=== PATIENT | male | born 1945 | race Two or more races ===

== ENCOUNTER 2016-08-17 08:24 | Inpatient (IN) | payer OTHER ==
--- NOTE | 2016-08-17 08:55 | PDOC ---
*Physical Exam - Vital Signs Last Vital Signs Temp Pulse Resp BP Pulse Ox 97.4 F L 104 H 18 93/56 100 08/17/16 08:24 08/17/16 08:24 08/17/16 08:24 08/17/16 08:24 08/17/16 08:24 - Physical Exam Comments: 08/17/16 08:55 MIDLEVEL NOTE Pt seen by Midlevel Provider under my direct supervision. Pt interviewed and examined. Ancillary studies reviewed. I agree with plan as outlined by Midlevel Provider. 71-year-old male with a PMH of liver cirrhosis, hep C, CHF, anemia, who presents to the ED for evaluation of generalized weakness and poor oral intake for the past 2-3 days. 08/17/16 08:58 EKG Normal sinus rhythm 99, normal axis Normal AV and IV conduction time Normal QTC Baseline artifact Poor R wave progression There is no old EKG available for comparison 08/17/16 10:06 Laboratory Results - last 24 hr 08/17/16 08/17/16 08/17/16 08:46 08:46 08:46 WBC 4.9 RBC 3.16 L Hgb 9.7 L Hct 29.2 L MCV 92.3 MCHC 33.4 RDW 17.4 H Plt Count 179 MPV 7.1 L Neutrophils % 71.1 Lymphocytes % 9.8 Monocytes % 17.5 H Eosinophils % 1.1 Basophils % 0.5 INR 1.39 H Sodium 135 L Potassium 4.7 Chloride 106 Carbon Dioxide 21 Anion Gap 8 BUN 28 H Creatinine 1.0 Creat Clearance w eGFR > 60 POC Glucometer Random Glucose 120 H Calcium 8.8 Total Bilirubin 0.9 AST 48 H ALT 26 Alkaline Phosphatase 216 H Creatine Kinase 102 Troponin I < 0.02 Total Protein 7.4 Albumin 2.5 L 08/17/16 08:58 WBC RBC Hgb Hct MCV MCHC RDW Plt Count MPV Neutrophils % Lymphocytes % Monocytes % Eosinophils % Basophils % INR Sodium Potassium Chloride Carbon Dioxide Anion Gap BUN Creatinine Creat Clearance w eGFR POC Glucometer [id number] Random Glucose Calcium Total Bilirubin AST ALT Alkaline Phosphatase Creatine Kinase Troponin I Total Protein Albumin Ammonia level elevated 08/17/16 10:07 Chest x-ray Mild bilateral increased interstitial opacities, left more than right, suggestive of mild pulmonary venous congestion, versus interstitial infiltrates 08/17/16 11:07 Ammonia-56.6 08/17/16 11:48 CT scan of the head without There is moderate volume loss and ventricular dilatation No acute intracranial pathology is identified UA-negative Will admit to hospitalist ED Treatment Course - LABORATORY CBC & Chemistry Diagram: 08/18/16 06:00 08/17/16 08:46 *DC/Admit/Observation/Transfer Diagnosis at time of Disposition: Increased ammonia level, Weakness, Decreased appetite - Discharge Dispostion Admit: Yes
[2016-08-17] MEDS ORDERED: SODIUM CHLORIDE 1,000 ML IV STA (08:56)
[2016-08-17 09:01] VITALS: BMI 29.0
--- NOTE | 2016-08-17 09:07 | PDOC ---
History of Present Illness - General Chief Complaint: Weakness Stated Complaint: WEAKNESS Time Seen by Provider: 08/17/16 08:38 History Source: Other (daughter and EMS) Exam Limitations: Clinical Condition - History of Present Illness Initial Comments: 08/17/16 09:00 71-year-old male presents to the ED for evaluation of generalized weakness and poor by mouth intake for the past 2-3 days. As per daughter patient has history of cirrhosis and has been to the emergency room is for similar symptoms normally requiring medications and a few days of admission. Daughter denies recent illness, recent change in medications, recent surgery, fever, cough, vomiting, diarrhea, or change in urine pattern. patient with history of cirrhosis, hep C and dementia. Timing/Duration: constant Severity: moderate Associated Symptoms: reports: loss of appetite, weakness Past History - Past Medical History Allergies/Adverse Reactions: Allergies Allergy/AdvReac Type Severity Reaction Status Date / Time No Known Allergies Allergy Verified 08/17/16 08:44 Home Medications: Ambulatory Orders Eplerenone 0 mg PO DAILY 08/17/16 Furosemide [Lasix] 0 mg PO DAILY 08/17/16 Lactulose [Cephulac -] 0 gm PO DAILY 08/17/16 Spironolactone 0 mg PO DAILY 08/17/16 Dementia: Yes GI Disorders: Yes (cirrhosis, hepatitis C) Other medical history: cirrhosis, hepatitis C - Psycho/Social/Smoking Cessation Hx Anxiety: No Suicidal Ideation: No Smoking History: Never smoked Have you smoked in the past 12 months: No Information on smoking cessation initiated: No Hx Alcohol Use: No Drug/Substance Use Hx: No Substance Use Type: None Patient Lives Alone: No Lives with/in: daughter Review of Systems - Review of Systems Able to Perform ROS?: Yes Constitutional: Yes: Loss of Appetite, Weakness HEENTM: No: Symptoms Reported Respiratory: No: Symptoms reported Cardiac (ROS): No: Symptoms Reported ABD/GI: Yes: Poor Appetite, Poor Fluid Intake : No: Symptoms Reported Musculoskeletal: Yes: Muscle Weakness Integumentary: No: Symptoms Reported Neurological: Yes: Weakness. No: Seizure Hematologic/Lymphatic: No: Symptoms Reported *Physical Exam - Vital Signs Last Vital Signs Temp Pulse Resp BP Pulse Ox 97.4 F L 104 H 18 93/56 100 08/17/16 08:24 08/17/16 08:24 08/17/16 08:24 08/17/16 08:24 08/17/16 08:24 - Physical Exam General Appearance: Yes: Nourished, Appropriately Dressed. No: Apparent Distress HEENT: positive: EOMI, CATALINO, TMs Normal. negative: Pharynx Normal (dry), Pale Conjunctivae, Scleral Icterus (R), Scleral Icterus (L) Neck: positive: Supple Respiratory/Chest: positive: Lungs Clear, Normal Breath Sounds. negative: Respiratory Distress, Accessory Muscle Use Cardiovascular: positive: Regular Rhythm, Tachycardia. negative: Murmur Gastrointestinal/Abdominal: positive: Soft. negative: Tenderness Extremity: positive: Normal Capillary Refill, Pedal Edema (1+) Integumentary: positive: Normal Color, Dry, Warm. negative: Jaundice Neurologic: positive: Alert (with stimuli), Motor Strength 5/5 (moves all extremeties on stretcher). negative: Sensory Deficit Deep Tendon Reflexes: Knee (L): 2+, Knee (R): 2+ Heart Score/ECG Review - ECG Intrepretation Rhythm: Regular Rhythm (Normal sinus rhythm at 99. No ST elevation / depression. No EKG for comparison) ED Treatment Course - LABORATORY CBC & Chemistry Diagram: 08/17/16 08:46 08/17/16 08:46 - RADIOLOGY Radiology Studies Ordered: Category Date Time Status HEAD CT WITHOUT CONTRAST [CT] Stat CT Scan 08/17/16 08:55 Ordered CHEST X-RAY PORTABLE* [RAD] Stat Radiology 08/17/16 08:42 Taken Medical Decision Making - Medical Decision Making 08/17/16 09:00 Patient here for decreased appetite and increased weakness. Patient history of cirrhosis patient has not been to [facility] previously. Patient with similar symptoms in the past requiring medications and then admitted for the same. Patient concerning for hepatic encephalopathy versus hypoglycemia versus infection. Patient ordered for labs including lactic acid, urine, blood culture , BGM, IV fluids ammonia level and head CT. 08/17/16 11:12 Laboratory Tests 08/17/16 08/17/16 08/17/16 08:46 08:46 08:46 WBC 4.9 Hgb 9.7 L Hct 29.2 L Plt Count 179 Neutrophils % 71.1 Monocytes % 17.5 H INR Sodium 135 L Carbon Dioxide 21 Anion Gap 8 POC Glucometer Random Glucose 120 H Total Bilirubin 0.9 AST 48 H ALT 26 Alkaline Phosphatase 216 H Ammonia 56.58 H Troponin I < 0.02 Albumin 2.5 L Urine Ketones Urine Blood Urine Nitrite Ur Leukocyte Esterase 08/17/16 08/17/16 08/17/16 08:46 08:58 10:10 WBC Hgb Hct Plt Count Neutrophils % Monocytes % INR 1.39 H Sodium Carbon Dioxide Anion Gap POC Glucometer [id number] Random Glucose Total Bilirubin AST ALT Alkaline Phosphatase Ammonia Troponin I Albumin Urine Ketones Negative Urine Blood Negative Urine Nitrite Negative Ur Leukocyte Esterase Negative 08/17/16 11:[address] negative for acute intracranial pathology. Chest x-ray shows mild bilateral increased interstitial opacities left more than right suggestive of mild pulmonary venous congestion versus infiltrate. Patient will be given a dose of ceftriaxone and will discuss case with hospitalist for admission patient also given 1 dose of lactulose 20 gm due to elevated ammonia level. 08/17/16 11:53 Case discussed with hospitalist and states admit to [facility]. Will repeat vitals *DC/Admit/Observation/Transfer Diagnosis at time of Disposition: Increased ammonia level, Weakness, Decrease in appetite - Discharge Dispostion Admit: Yes
[2016-08-17 09:28] LABS: BASOPHIL 0.5 % (0-2.0); EOSINOPHIL 1.1 % (0-4.5); MCH 30.8 pg (25.7-33.7); MCHC 33.4 g/dl (32.0-35.9); MEAN CELL VOLUME 92.3 fl (80-96); MEAN PLT VOLUME 7.1 fl (7.5-11.1); NEUTROPHILS 71.1 % (42.8-82.8); PLATELET COUNT 179 K/MM3 (134-434); RDW 17.4 % (11.9-15.9); WHITE BLOOD COUNT 4.9 K/mm3 (4.0-10.0)
[2016-08-17 09:39] LABS: INR 1.39 (0.82-1.09); PROTHROMBIN TIME (PATIENT) 15.4 SEC (9.98-11.88)
[2016-08-17 09:58] LABS: ALBUMIN 2.5 g/dl (3.4-5.0); ANION GAP 8 (8-16); CALCIUM 8.8 mg/dL (8.5-10.1); CO2 21 mmol/L (21-32); GLUCOSE,RANDOM 120 mg/dL (74-106); SGPT/ALT 26 U/L (12-78)
[2016-08-17 10:02] LABS: ALK PHOS 216 U/L (45-117); BILIRUBIN,TOTAL 0.9 mg/dL (0.2-1.0); TOT PROT 7.4 g/dl (6.4-8.2); TROPONIN I < 0.02 ng/ml (0.00-0.05)
[2016-08-17 10:03] LABS: SGOT/AST 48 U/L (15-37)
--- NOTE | 2016-08-17 10:57 | EKG ---
Test Reason : Blood Pressure : / mmHG Vent. Rate : 099 BPM Atrial Rate : 099 BPM P-R Int : 128 ms QRS Dur : 068 ms QT Int : 346 ms P-R-T Axes : 057 076 017 degrees QTc Int : 444 ms NORMAL SINUS RHYTHM NO PREVIOUS ECGS AVAILABLE Confirmed by NANY COLLINS MD ([id number]) on 08/17/2016 10:56:28 AM Referred By: Confirmed By:NANY COLLINS MD
[2016-08-17 11:06] LABS: URINE APPEARANCE CLEAR; URINE BILIRUBIN NEGATIVE (NEGATIVE); URINE BLOOD NEGATIVE (NEGATIVE); URINE COLOR YELLOW; URINE GLUCOSE (UA) NEGATIVE (NEGATIVE); URINE KETONE NEGATIVE (NEGATIVE); URINE LEUK ESTERASE NEGATIVE (NEGATIVE); URINE NITRITE NEGATIVE (NEGATIVE); URINE PROTEIN NEGATIVE (NEGATIVE); URINE UROBILINOGEN 2.0 E.U/dl E.U./dl (0.2-1.0)
[2016-08-17] MEDS ORDERED: CEFTRIAXONE 1 GM in DEXTROSE 5%-WATER - 50 ML IVPB ONE (11:15)
[2016-08-17] MEDS ORDERED: CEFTRIAXONE 50 ML ONE (11:22)
[2016-08-17] MEDS ORDERED: LACTULOSE 20 GM/30 ML UDC (FOR ORAL USE ONLY) ONE ×2 (11:22→13:49)
[2016-08-17] MEDS: LACTULOSE 20 GM/30 ML UDC (FOR ORAL USE ONLY) PO ONE ×2 (11:23→11:29)
[2016-08-17] MEDS ORDERED: LACTULOSE 20 GM/30 ML UDC (FOR ORAL USE ONLY) PO PRN (12:01)
--- NOTE | 2016-08-17 14:37 | HP ---
CHIEF COMPLAINT: Generalized weakness. PCP: HISTORY OF PRESENT ILLNESS: History was taken from medical records. The pt's family is not present at bedside. The pt is a 71-year-old male with a PMH of liver cirrhosis, hep C who presents to the ED for evaluation of generalized weakness and poor by mouth intake for the past 2-3 days. As per daughter patient has history of cirrhosis and has been to the emergency room is for similar symptoms normally requiring medications and a few days of admission. Daughter denies recent illness, recent change in medications, recent surgery, fever, cough, vomiting, diarrhea, or change in urine pattern. ER course was notable for: (1)CT head (2)amonia level (3)CXR, EKG PAST MEDICAL HISTORY: liver cirrhosis, hep C PAST SURGICAL HISTORY: N/A Social History: Smoking:N/A Alcohol:N/A Drugs:N/A Family History: N/A Allergies: No Known Allergies Allergy (Verified 08/17/16 08:44) HOME MEDICATIONS: Medication Instructions Recorded Eplerenone 0 mg PO DAILY 08/17/16 Furosemide [Lasix] 0 mg PO DAILY 08/17/16 Lactulose [Cephulac -] 0 gm PO DAILY 08/17/16 Spironolactone 0 mg PO DAILY 08/17/16 REVIEW OF SYSTEMS. Not available. The pt is saying yes to every question. CONSTITUTIONAL:generalized weakness, loss of appetite, GASTROINTESTINAL:no symptoms reported CARDIO: no symptoms reported GENITOURINARY: no symptoms reported MUSCULOSKELETAL: no symptoms reported SKIN: pallpr Absent: rash, itching, HEMATOLOGIC/IMMUNOLOGIC: no symptoms reported ENDOCRINE: no symptoms reported NEUROLOGIC: mental status changes PHYSICAL EXAMINATION: limited, not following commands GENERAL: Awake, AAOx0 HEAD: Normal with no signs of trauma. EYES: Pupils equal, round and reactive to light, extraocular movements intact, sclera icteric, conjunctiva pale. No lid lag. EARS, NOSE, THROAT: Ears normal, nares patent, oropharynx clear without exudates. Moist mucous membranes. NECK: Normal range of motion, supple without lymphadenopathy, JVD, or masses. LUNGS: Breath sounds equal, fine crackles bilaterally. No wheezes, and no crackles. No accessory muscle use. HEART: Regular rate and rhythm, normal S1 and S2 without murmur, rub or gallop. ABDOMEN: Soft, nontender, distended, normoactive bowel sounds, no guarding, no rebound, no masses. Hepatomegaly or no splenomegaly. MUSCULOSKELETAL: Normal range of motion at all joints. No bony deformities or tenderness. No CVA tenderness. UPPER EXTREMITIES: 2+ pulses, warm, well-perfused. No cyanosis. No clubbing. Cap refill <2 seconds. No peripheral edema. LOWER EXTREMITIES: 2+ pulses, warm, well-perfused. No calf tenderness. No peripheral edema. NEUROLOGICAL: Not following commands, Babinski negative B/L, gait not observed. PSYCHIATRIC: Cooperative. Good eye contact. Appropriate mood and affect. SKIN: Warm, dry, normal turgor, no rashes or lesions noted. CXR: increased interstitial opacities, L more than right, mild pulmonary venous congestion EKG: NSR, no ST elevation Head CT: no acute pathology ASSESSMENT/PLAN: The pt is a 71-year-old male with a PMH of liver cirrhosis, hep C who presents to the ED for evaluation of generalized weakness and poor by mouth intake for the past 2-3 days. As per daughter patient has history of cirrhosis and has been to the emergency room is for similar symptoms normally requiring medications and a few days of admission. Daughter denies recent illness, recent change in medications, recent surgery, fever, cough, vomiting, diarrhea, or change in urine pattern. He is placed on observation for possible hepatic encephalopathy. Possible hepatic encehalopathy due to liver cirrhosis; -Lactulose 20 mg TID PRN -f/u amonia level tomorrow -F/U CBC, BMP tomorrow -f/u Urine culture -f/u blood culture -no signs of infection Normocytic anemia; -HGB 9.7, HCT 29.2 no known baseline DVT PPX: -SCDs F/E/N: No/No changes/Regular diet Disposition; Placed on observation Medication list not confirmed. [facility] pharmacy called, they don't know the pt. Problem List - Problem (1) Increased ammonia level Code(s): R79.89 - OTHER SPECIFIED ABNORMAL FINDINGS OF BLOOD CHEMISTRY (2) Decreased appetite Code(s): R63.0 - ANOREXIA (3) Weakness Code(s): R53.1 - WEAKNESS Visit type - Emergency Visit Emergency Visit: Yes ED Registration Date: 08/17/16 Care time: The patient presented to the Emergency Department on the above date and was hospitalized for further evaluation of their emergent condition. - New Patient This patient is new to me today: Yes Date on this admission: 08/17/16 - Critical Care Critical Care patient: No
[2016-08-17] MEDS ORDERED: SODIUM CHLORIDE 500 ML IV STA (15:23)
[2016-08-17] MEDS ORDERED: SODIUM CHLORIDE 1,000 ML IV SCH ×2 (15:30→21:39)
--- NOTE | 2016-08-17 17:30 | PN ---
Teaching Attending Note Name of Resident: Lenore Lora ATTENDING PHYSICIAN STATEMENT I saw and evaluated the patient. I reviewed the resident's note and discussed the case with the resident. I agree with the resident's findings and plan as documented. SUBJECTIVE: Patient is confused, sitting on the bed eating his food with his hands doesn't want to use any utencils. OBJECTIVE: Vital Signs Temperature 97.4 F L 08/17/16 08:24 Pulse Rate 100 H 08/17/16 16:51 Respiratory Rate 18 08/17/16 16:15 Blood Pressure 99/61 08/17/16 16:51 O2 Sat by Pulse Oximetry (%) 99 08/17/16 16:15 General Appearance: Yes: Nourished, Appropriately Dressed. No: Apparent Distress HEENT: positive: EOMI, CATALINO, TMs Normal. negative: Pharynx Normal (dry), Pale Conjunctivae, Scleral Icterus (R), Scleral Icterus (L) Neck: positive: Supple Respiratory/Chest: positive: Lungs Clear, Normal Breath Sounds. negative: Respiratory Distress, Accessory Muscle Use Cardiovascular: positive: Regular Rhythm, Tachycardia. negative: Murmur Gastrointestinal/Abdominal: positive: Soft. negative: Tenderness Extremity: positive: Normal Capillary Refill, Pedal Edema (1+) Integumentary: positive: Normal Color, Dry, Warm. negative: Jaundice Neurologic: positive: Alert (with stimuli) but confused , Motor Strength 5/5 ( moves all extremeties on stretcher). negative: Sensory Deficit Deep Tendon Reflexes: Knee (L): 2+, Knee (R): 2+ CBCD WBC 4.9 K/mm3 (4.0-10.0) 08/17/16 08:46 RBC 3.16 M/mm3 (4.00-5.60) L 08/17/16 08:46 Hgb 9.7 GM/dL (11.7-16.9) L 08/17/16 08:46 Hct 29.2 % (35.4-49) L 08/17/16 08:46 MCV 92.3 fl (80-96) 08/17/16 08:46 MCHC 33.4 g/dl (32.0-35.9) 08/17/16 08:46 RDW 17.4 % (11.9-15.9) H 08/17/16 08:46 Plt Count 179 K/MM3 (134-434) 08/17/16 08:46 MPV 7.1 fl (7.5-11.1) L 08/17/16 08:46 CMP Sodium 135 mmol/L (136-145) L 08/17/16 08:46 Potassium 4.7 mmol/L (3.5-5.1) 08/17/16 08:46 Chloride 106 mmol/L (98-107) 08/17/16 08:46 Carbon Dioxide 21 mmol/L (21-32) 08/17/16 08:46 Anion Gap 8 (8-16) 08/17/16 08:46 BUN 28 mg/dL (7-18) H 08/17/16 08:46 Creatinine 1.0 mg/dL (0.7-1.3) 08/17/16 08:46 Creat Clearance w eGFR > 60 (>60) 08/17/16 08:46 Random Glucose 120 mg/dL (74-106) H 08/17/16 08:46 Calcium 8.8 mg/dL (8.5-10.1) 08/17/16 08:46 Total Bilirubin 0.9 mg/dL (0.2-1.0) 08/17/16 08:46 AST 48 U/L (15-37) H 08/17/16 08:46 ALT 26 U/L (12-78) 08/17/16 08:46 Alkaline Phosphatase 216 U/L (45-117) H 08/17/16 08:46 Total Protein 7.4 g/dl (6.4-8.2) 08/17/16 08:46 Albumin 2.5 g/dl (3.4-5.0) L 08/17/16 08:46 CARDIAC ENZYMES Creatine Kinase 102 IU/L (39-308) 08/17/16 08:46 Troponin I < 0.02 ng/ml (0.00-0.05) 08/17/16 08:46 Current Medications Generic Name Dose Route Start Last Admin Trade Name Freq PRN Reason Stop Dose Admin Sodium Chloride 1,000 mls @ 150 mls/hr 08/17/16 15:30 08/17/16 16:03 Normal Saline - IV 150 mls/hr ASDIR IRENA Administration Lactulose 20 gm 08/17/16 12:01 08/17/16 14:24 Cephulac (Oral Use) PO 20 gm TID PRN Administration CONSTIPATION Medication Instructions Recorded Eplerenone 0 mg PO DAILY 08/17/16 Furosemide [Lasix] 0 mg PO DAILY 08/17/16 Lactulose [Cephulac -] 0 gm PO DAILY 08/17/16 Spironolactone 0 mg PO DAILY 08/17/16 CXR: increased interstitial opacities, L more than right, mild pulmonary venous congestion EKG: NSR, no ST elevation Head CT: no acute pathology ASSESSMENT AND PLAN: The pt is a 71-year-old male with a PMH of liver cirrhosis, hep C who presents to the ED for evaluation of generalized weakness and poor by mouth intake for the past 2-3 days. # Acute hepatic encehalopathy due to liver cirrhosis :with elevated Ammonia level ,on Lactilose now ,trend the level of ammonia CBC, BMP in am ,follow Urine culture and blood culture # Hx of CHF continue meds. # Normocytic anemia;Monitor. DVT PPX: Lovenox 40mg sq
[2016-08-17] MEDS ORDERED: LORAZEPAM CARPU-JECT 2 MG/ML DISP.SYRIN IM ONE (21:38)
[2016-08-18] MEDS: FUROSEMIDE 40 MG TABLET (FP) PO SCH ×2 (05:33→14:53)
[2016-08-18 07:42] LABS: MCH 31.1 pg (25.7-33.7); MCHC 33.6 g/dl (32.0-35.9); MEAN CELL VOLUME 92.6 fl (80-96); MEAN PLT VOLUME 7.2 fl (7.5-11.1); PLATELET COUNT 163 K/MM3 (134-434); RDW 17.5 % (11.9-15.9)
[2016-08-18 08:44] LABS: CREATININE 0.9 mg/dL (0.7-1.3)
[2016-08-18] MEDS ORDERED: AZITHROMYCIN IVPB 250 MG in DEXTROSE 5%-WATER - 250 ML IVPB SCH (10:00)
[2016-08-18] MEDS ORDERED: ENOXAPARIN NA (PORCINE) 40 MG/0.4 ML DISP.SYRIN SQ SCH (10:00)
[2016-08-18] MEDS: PANTOPRAZOLE 40 MG TABLET (FP) PO SCH (11:05)
[2016-08-18] MEDS: SPIRONOLACTONE 25 MG TABLET (FP) PO SCH ×2 (11:05→23:05)
--- NOTE | 2016-08-18 19:19 | PN ---
Teaching Attending Note Name of Resident: Lenore Lora ATTENDING PHYSICIAN STATEMENT I saw and evaluated the patient. I reviewed the resident's note and discussed the case with the resident. I agree with the resident's findings and plan as documented. SUBJECTIVE: no abd pain , no fever or chills, no diarrhea . poor historian OBJECTIVE: NAD , knows he is in hospital , he does not know his age , year or month Lungs : bibasilar fine crackles ( minimal ) Abd : soft, no TTP , no hepatomegaly. Spleen is percussed not palpated . Shifting dullness present Ext : Asterexis , no edema or erythema over legs ASSESSMENT AND PLAN: 71 y/o man with h/o Hep C , ascitis , who presneted with confusion . He was found to have hepatic encephalopathy 1- Acute hepatic encephalopathy : probably due to non compliance with meds . ammonia level is rising . not having enough BMs . Ascitis detected on PE. will get US to evaluate for ability to drain. if so, will do diagnostic paracentesis to r/o SBP as a cause of encephalopathy. make lactulose standing 2- Ascitis : cont diuretics. was ordered fluids over night - dc IVF - diagnostic tap - low NA diet dispo : HLOC
[2016-08-18] MEDS: LACTULOSE 20 GM/30 ML UDC (FOR ORAL USE ONLY) PO SCH (23:05)
[2016-08-19] MEDS: FUROSEMIDE 40 MG TABLET (FP) PO SCH ×2 (05:48→13:28)
[2016-08-19] MEDS: LACTULOSE 20 GM/30 ML UDC (FOR ORAL USE ONLY) PO SCH ×4 (05:48→21:40)
[2016-08-19 07:16] LABS: BASOPHIL 1.2 % (0-2.0); EOSINOPHIL 4.2 % (0-4.5); MCH 30.9 pg (25.7-33.7); MCHC 33.8 g/dl (32.0-35.9); MEAN CELL VOLUME 91.4 fl (80-96); MEAN PLT VOLUME 6.9 fl (7.5-11.1); NEUTROPHILS 58.1 % (42.8-82.8); PLATELET COUNT 165 K/MM3 (134-434); RDW 16.8 % (11.9-15.9); WHITE BLOOD COUNT 3.9 K/mm3 (4.0-10.0)
[2016-08-19 08:51] LABS: CALCIUM 8.1 mg/dL (8.5-10.1); PHOSPHOROUS 3.2 mg/dL (2.5-4.9)
[2016-08-19 08:53] LABS: MAGNESIUM 1.8 mg/dL (1.8-2.4)
[2016-08-19 09:35] LABS: FERRITIN 19.502 ng/ml (16.4-293.9)
[2016-08-19] MEDS: SPIRONOLACTONE 25 MG TABLET (FP) PO SCH ×2 (10:40→21:41)
[2016-08-19] MEDS: PANTOPRAZOLE 40 MG TABLET (FP) PO SCH (10:40)
--- NOTE | 2016-08-19 11:51 | PN ---
Physical Exam: SUBJECTIVE: Patient seen and examined. he is still confused. The pt is oriented to time and person but not the place. he denies abdominal pain, chest pain, SOB , fever, chills OBJECTIVE: Vital Signs Period Temp Pulse Resp BP Sys/Webster Pulse Ox Last 24 Hr 97.3 F-98.7 F 101-115 18-20 93-110/62-72 100-100 GENERAL: The patient is awake, AAx2, in no acute distress. HEAD: Normal with no signs of trauma. EYES: PERRL, extraocular movements intact, sclera icteric. No ptosis. ENT:oropharynx clear without exudates, moist mucous membranes. NECK: Trachea midline, full range of motion, supple. LUNGS: Breath sounds equal, diminished auscultation bilaterally, no wheezes, no crackles, no accessory muscle use. HEART: Regular rate and rhythm, S1, S2 without murmur, rub or gallop. ABDOMEN: Soft, nontender, distended, normoactive bowel sounds, no guarding, no rebound. Ascited present, hepatomegaly present and splenomegaly present on palpation and percussion. EXTREMITIES:no edema, asterixis present. NEUROLOGICAL: Normal speech, gait not observed. PSYCH: Normal mood, normal affect. SKIN: Warm, dry, normal turgor, no rashes or lesions noted Laboratory Results - last 24 hr 08/19/16 08/19/16 08/19/16 06:00 06:00 08:30 WBC 3.9 L RBC 2.89 L Hgb 8.9 L Hct 26.4 L MCV 91.4 MCHC 33.8 RDW 16.8 H Plt Count 165 MPV 6.9 L Neutrophils % 58.1 Lymphocytes % 18.9 D Monocytes % 17.6 H Eosinophils % 4.2 D Basophils % 1.2 Sodium 131 L Potassium 4.0 Chloride 97 L D Carbon Dioxide 19 L Anion Gap 15 BUN 21 H Creatinine 1.0 Random Glucose 99 D Calcium 8.1 L Phosphorus 3.2 Magnesium 1.8 Ferritin 19.502 Ammonia 106.24 H Vitamin B12 597 Serum Folate 25 H Active Medications Generic Name Dose Route Start Last Admin Trade Name Freq PRN Reason Stop Dose Admin Enoxaparin Sodium 40 mg 08/18/16 10:00 08/18/16 11:05 Lovenox - SQ 40 mg DAILY IRENA Administration Furosemide 80 mg 08/18/16 06:00 08/19/16 05:48 Lasix - PO 80 mg BIDLASIX IRENA Administration Lactulose 20 gm 08/19/16 14:00 Cephulac (Oral Use) PO QID IRENA Pantoprazole Sodium 40 mg 08/18/16 10:00 08/19/16 10:40 Protonix - PO 40 mg DAILY IRENA Administration Rifaximin 550 mg 08/19/16 12:00 Xifaxan - PO BID IRENA Spironolactone 25 mg 08/18/16 10:00 08/19/16 10:40 Aldactone - PO 25 mg BID IRENA Administration CXR: increased interstitial opacities, L more than right, mild pulmonary venous congestion EKG: NSR, no ST elevation Head CT: no acute pathology abdominal US: ASSESSMENT/PLAN: The pt is a 71-year-old male with a PMH of liver cirrhosis, hep C who presents to the ED for evaluation of generalized weakness and poor by mouth intake for the past 2-3 days. He is admitted for hepatic encephalopathy. Hepatic encehalopathy due to liver cirrhosis; -possibly due to non compliance to his medications, will confirm with his daughter -pt doesnt have at least 3-4 BM and his mental status hasn't improved that is why we increased Lactulose 20 mg TID IRENA to Q6H, added Rifaxamin -yesterday he had abdominal US that showed ascites, we will f/u diagnostic paracenthesis later today and resume DVT PPX today -f/u amonia level -F/U CBC, BMP -Urine culture neg -blood culture neg -no signs of infection: no fever, no elevated WBC Ascites; -continue lasix 80 mg -IVF dc yesterday -low Na diet Normocytic anemia; -HGB 9.7, HCT 29.2 no known baseline, -iron studies are pending -b12 and folate pending DVT PPX: -SCDs Problem List - Problems (1) Increased ammonia level Code(s): R79.89 - OTHER SPECIFIED ABNORMAL FINDINGS OF BLOOD CHEMISTRY (2) Decreased appetite Code(s): R63.0 - ANOREXIA (3) Weakness Code(s): R53.1 - WEAKNESS (4) Hepatic encephalopathy Code(s): K72.90 - HEPATIC FAILURE, UNSPECIFIED WITHOUT COMA Visit type - Emergency Visit Emergency Visit: Yes ED Registration Date: 08/18/16 Care time: The patient presented to the Emergency Department on the above date and was hospitalized for further evaluation of their emergent condition. - New Patient This patient is new to me today: No - Critical Care Critical Care patient: No - Discharge Referral Referred to [facility] Med P.C.: No
[2016-08-19] MEDS ORDERED: PT OWN MED DRAWER 7, Y5N ONE (13:25)
[2016-08-19 13:45] LABS: BILIRUBIN,TOTAL 0.3 mg/dL (0.2-1.0)
--- NOTE | 2016-08-19 14:17 | PN ---
Teaching Attending Note Name of Resident: Lenore Lora ATTENDING PHYSICIAN STATEMENT I saw and evaluated the patient. I reviewed the resident's note and discussed the case with the resident. I agree with the resident's findings and plan as documented. SUBJECTIVE: no fever or chills. no ABd pain , no BM yesterday . no SOB OBJECTIVE: NAD, knows he is in hospital , he knows his age ,not oriented to year or month Lungs: minimal bibasilar fine crackles Abd : soft, no TTP , no hepatomegaly. Spleen is percussed not palpated . Shifting dullness present Ext : Asterexis , no edema or erythema over legs ASSESSMENT AND PLAN: 71 y/o man with h/o Hep C , ascitis , who presneted with confusion . He was found to have hepatic encephalopathy 1- Acute hepatic encephalopathy: Mental status slightly improved . Ammonia level is increasing though . - daignostic PAracentesis today to R/O SBP . Message left for Dr. Arora for diagnostic procedure only - increase lactulose to QID - add rifaximine 2- Ascitis: - cont diuretics. - diagnostic tap - low NA diet 3- normocytic anemia : check iron studies and B12 , folate . 4- DVT pX , resume lovenx after procedure
[2016-08-19] MEDS: RIFAXIMIN 550 MG TABLET (UD) PO SCH ×2 (16:13→21:40)
[2016-08-19 17:10] LABS: PERITONEAL FLUID LYMPHOCYTE 10 %; PERITONEAL FLUID MACROPHAGE 82 %; PERITONEAL FLUID MESOTHELIAL 5 %; PERITONEAL FLUID MONOCYTE 2 %; PERITONEAL FLUID NEUTROPHIL 1 %
[2016-08-19] MEDS: ENOXAPARIN NA (PORCINE) 40 MG/0.4 ML DISP.SYRIN SQ SCH (21:40)
[2016-08-20] MEDS: FUROSEMIDE 40 MG TABLET (FP) PO SCH ×2 (06:10→14:18)
[2016-08-20 08:10] LABS: SERUM IRON 27 ug/dL (38-169); TOTAL IRON BINDING CAPACITY 397 ug/dL (250-450); UIBC 370 ug/dL (111-343)
[2016-08-20] MEDS ORDERED: PT OWN MED DRAWER 7, Y5N ONE ×2 (09:07→20:51)
[2016-08-20] MEDS: SPIRONOLACTONE 25 MG TABLET (FP) PO SCH ×2 (09:09→22:13)
[2016-08-20] MEDS: ENOXAPARIN NA (PORCINE) 40 MG/0.4 ML DISP.SYRIN SQ SCH (09:09)
[2016-08-20] MEDS: RIFAXIMIN 550 MG TABLET (UD) PO SCH ×2 (09:09→22:14)
[2016-08-20] MEDS: PANTOPRAZOLE 40 MG TABLET (FP) PO SCH (09:09)
[2016-08-20] MEDS: LACTULOSE 20 GM/30 ML UDC (FOR ORAL USE ONLY) PO SCH ×4 (09:09→22:14)
[2016-08-20 09:22] LABS: CALCIUM 8.3 mg/dL (8.5-10.1)
--- NOTE | 2016-08-20 10:57 | PN ---
Physical Exam: SUBJECTIVE: Patient seen and examined. He denies any abdominal pain, chest pain , fever, chills. He had 1 BM today. OBJECTIVE: Vital Signs Period Temp Pulse Resp BP Sys/Webster Pulse Ox Last 24 Hr 97.7 F-98.4 F 83-106 18-20 88-98/52-63 99-100 GENERAL: The patient is awake, AAOx1 ( person), in no acute distress. HEAD: Normal with no signs of trauma. EYES: PERRL, sclera icteric, conjunctiva clear. No ptosis. ENT: oropharynx clear without exudates, moist mucous membranes. NECK: Trachea midline, supple. LUNGS: Breath sounds equal, diminished breath sounds bilaterally, crackles at right base, no accessory muscle use. HEART: Regular rate and rhythm, S1, S2 without murmur, rub or gallop. ABDOMEN: Soft, nontender, distended, normoactive bowel sounds, no guarding, no rebound, hepatosplenomegaly present, mild shifting sign present, fluid in abdomen not percussed. EXTREMITIES: 2+ pulses, warm, well-perfused, no edema. NEUROLOGICAL: Normal speech, gait not observed, asterixis present. PSYCH: Normal mood, normal affect. SKIN: Warm, dry, normal turgor, no rashes or lesions noted Laboratory Results - last 24 hr 08/19/16 08/19/16 08/19/16 06:00 13:00 13:00 Sodium Potassium Chloride Carbon Dioxide Anion Gap BUN Creatinine Random Glucose Calcium Iron 27 L TIBC 397 Iron Saturation 7 L Total Bilirubin 0.3 D AST 9 L D ALT 6 L D Ammonia Peritoneal WBC 308 Peritoneal RBC 955 Periton Neutrophils 1 Periton Lymphocytes 10 Peritoneal Monocytes 2 Periton Mesothelial 5 Periton Macrophages 82 Peritoneal Tot Protein 2 Peritoneal Albumin 1 Peritoneal LDH 86 Peritoneal Glucose 116 Peritoneal Amylase 50 08/20/16 08/20/16 06:00 06:00 Sodium 133 L Potassium 3.8 Chloride 97 L Carbon Dioxide 25 D Anion Gap 11 BUN 22 H Creatinine 1.0 Random Glucose 97 Calcium 8.3 L Iron TIBC Iron Saturation Total Bilirubin AST ALT Ammonia 58.98 H Peritoneal WBC Peritoneal RBC Periton Neutrophils Periton Lymphocytes Peritoneal Monocytes Periton Mesothelial Periton Macrophages Peritoneal Tot Protein Peritoneal Albumin Peritoneal LDH Peritoneal Glucose Peritoneal Amylase Active Medications Generic Name Dose Route Start Last Admin Trade Name Freq PRN Reason Stop Dose Admin Enoxaparin Sodium 40 mg 08/19/16 19:30 08/20/16 09:09 Lovenox - SQ 40 mg DAILY IRENA Administration Furosemide 80 mg 08/18/16 06:00 08/20/16 06:10 Lasix - PO 80 mg BIDLASIX IRENA Administration Lactulose 20 gm 08/19/16 14:00 08/20/16 09:09 Cephulac (Oral Use) PO 20 gm QID IRENA Administration Pantoprazole Sodium 40 mg 08/18/16 10:00 08/20/16 09:09 Protonix - PO 40 mg DAILY IRENA Administration Rifaximin 550 mg 08/19/16 12:00 08/20/16 09:09 Xifaxan - PO 550 mg BID IRENA Administration Spironolactone 25 mg 08/18/16 10:00 08/20/16 09:09 Aldactone - PO 25 mg BID IRENA Administration CXR: increased interstitial opacities, L more than right, mild pulmonary venous congestion EKG: NSR, no ST elevation Head CT: no acute pathology abdominal US: no acute pathology ASSESSMENT/PLAN: The pt is a 71-year-old male with a PMH of liver cirrhosis, hep C who presents to the ED for evaluation of generalized weakness and poor by mouth intake for the past 2-3 days. He is admitted for hepatic encephalopathy. Hepatic encehalopathy due to liver cirrhosis; -possibly due to non compliance to his medications, will confirm with his daughter -pt doesnt have at least 3-4 BM and his mental status hasn't improved that is why we increased Lactulose 20 mg TID IRENA to Q6H, added Rifaxamin, today he reported 1 BM, still AMS present -yesterday he had abdominal US that showed ascites, we will f/u diagnostic paracenthesis later today and resume DVT PPX today. His paracenthesis was indicated to be diagnostic but he had 2000 cc of fluid drained. Fluid analysed and r/o SBP. -amonia level decreased today to 58. -fungal culture pending, gram stain negative, iron studies reviewed and show anemia of chronic disease -Urine culture neg -blood culture neg -no signs of infection: no fever, no elevated WBC Ascites; -continue lasix 80 mg -no more IVF -low Na diet Normocytic anemia; -HGB 9.7, HCT 29.2 no known baseline, -iron studies done, reviewed -b12 nl and folate elevated DVT PPX: -SCDs F/E/N: no/no/low sodium Disposition: -med surg Problem List - Problems (1) Increased ammonia level Code(s): R79.89 - OTHER SPECIFIED ABNORMAL FINDINGS OF BLOOD CHEMISTRY (2) Decreased appetite Code(s): R63.0 - ANOREXIA (3) Weakness Code(s): R53.1 - WEAKNESS (4) Hepatic encephalopathy Code(s): K72.90 - HEPATIC FAILURE, UNSPECIFIED WITHOUT COMA (5) Anemia of chronic disease Code(s): D63.8 - ANEMIA IN OTHER CHRONIC DISEASES CLASSIFIED ELSEWHERE Visit type - Emergency Visit Emergency Visit: Yes ED Registration Date: 08/18/16 Care time: The patient presented to the Emergency Department on the above date and was hospitalized for further evaluation of their emergent condition. - New Patient This patient is new to me today: No - Critical Care Critical Care patient: No - Discharge Referral Referred to [facility] Med P.C.: No
--- NOTE | 2016-08-20 14:18 | PATH ---
Cytology Non-Gynecological Report Patient Name: SONYA YATES Med. Rec. #: [id number] /Age/Gender: 1945 (Age: 71) / M Account: [id number] Location: [facility] MED/SURG Taken: 08/19/2016 Received: 08/19/2016 Reported: 08/20/2016 Physicians: Brando Escobar M.D. Hanady Zainah, M.D. Specimen(s) Received A: PERITONEAL FLUID IN 50% ALCOHOL B: PERITONEAL FLUID FRESH Clinical History Ascites Final Diagnosis A,B. ABDOMINAL FLUID, PARACENTESIS: SATISFACTORY FOR EVALUATION. NO MALIGNANT CELLS IDENTIFIED. REACTIVE MESOTHELIAL CELLS, HISTIOCYTES AND LYMPHOCYTES. Comment: Immunohistochemical stains performed and interpreted at [facility] show the following: BerEp4/OLY, TTF1 and CK20 are negative, CK7 highlights mesothelial cells. Electronically Signed Brandt Lin M.D. Gross Description A. Received is a 50 cc of yellow fluid in 50% alcohol. One cytofunnel slide and one cell block are made. B. Received is 3000 cc of yellow fluid fresh. One cytofunnel slide and one cell block are made.
--- NOTE | 2016-08-20 18:08 | PN ---
Teaching Attending Note Name of Resident: Lenore Lora ATTENDING PHYSICIAN STATEMENT I saw and evaluated the patient. I reviewed the resident's note and discussed the case with the resident. I agree with the resident's findings and plan as documented. SUBJECTIVE: no fever or chills, no abd apin , no LEE , no visual changes. One BM today OBJECTIVE: NAD, knows he is in hospital , he knows his age ,not oriented to year or month , knows the president of Lungs: CTAB Abd : soft, no TTP , no hepatomegaly. Spleen is percussed not palpated . Shifting dullness present Ext : Asterexis present , no edema or erythema over legs ASSESSMENT AND PLAN: 71 y/o man with h/o Hep C , ascitis , who presneted with confusion . He was found to have hepatic encephalopathy 1- Acute hepatic encephalopathy: Mental status slightly improved . - no evidence of SBP on ascetic fuid analysis - cont lactulose QID - cont rifaximine 2- Ascitis: - cont diuretics. - paracentsis 2 L removed yesterday - low NA diet 3- normocytic anemia : iron studies indicate ACD 4- DVT pX , lovenox HLOC PT
[2016-08-21] MEDS: FUROSEMIDE 40 MG TABLET (FP) PO SCH ×2 (06:06→14:46)
[2016-08-21 07:38] LABS: MCH 30.8 pg (25.7-33.7); MCHC 33.9 g/dl (32.0-35.9); MEAN CELL VOLUME 90.8 fl (80-96); MEAN PLT VOLUME 7.1 fl (7.5-11.1); PLATELET COUNT 175 K/MM3 (134-434); RDW 16.8 % (11.9-15.9); WHITE BLOOD COUNT 5.2 K/mm3 (4.0-10.0)
[2016-08-21 08:03] LABS: CALCIUM 8.7 mg/dL (8.5-10.1); CREATININE 1.1 mg/dL (0.7-1.3)
[2016-08-21] MEDS: PANTOPRAZOLE 40 MG TABLET (FP) PO SCH (10:20)
[2016-08-21] MEDS: SPIRONOLACTONE 25 MG TABLET (FP) PO SCH ×2 (10:20→22:10)
[2016-08-21] MEDS: ENOXAPARIN NA (PORCINE) 40 MG/0.4 ML DISP.SYRIN SQ SCH (10:20)
[2016-08-21] MEDS: LACTULOSE 20 GM/30 ML UDC (FOR ORAL USE ONLY) PO SCH ×4 (10:21→22:10)
[2016-08-21] MEDS ORDERED: PT OWN MED DRAWER 7, Y5N ONE (14:44)
[2016-08-21] MEDS: RIFAXIMIN 550 MG TABLET (UD) PO SCH ×2 (14:46→22:10)
--- NOTE | 2016-08-21 17:01 | PN ---
Progress Note (short form) - Note Progress Note: Subjective: no fever or chills, no abd terri n, noOSB Objective: Vital Signs: Last Vital Signs Temp Pulse Resp BP Pulse Ox 97.7 F 94 H 20 99/58 100 08/21/16 14:37 08/21/16 14:37 08/21/16 14:37 08/21/16 14:37 08/21/16 11:00 Physical Exam: NAD, knows he is in hospital , he knows his age ,not oriented to year or month , knows the president of Lungs: CTAB Abd : soft, no TTP , no hepatomegaly. Spleen is percussed not palpated . Shifting dullness present Ext : Asterexis present , no edema or erythema over legs Laboratory Results - last 24 hr 08/21/16 08/21/16 06:00 06:00 WBC 5.2 D RBC 3.16 L Hgb 9.7 L Hct 28.7 L MCV 90.8 MCHC 33.9 RDW 16.8 H Plt Count 175 MPV 7.1 L Sodium 132 L Potassium 3.6 Chloride 95 L Carbon Dioxide 24 Anion Gap 13 BUN 21 H Creatinine 1.1 Random Glucose 93 Calcium 8.7 ASSESSMENT AND PLAN: 71 y/o man with h/o Hep C , ascitis , who presneted with confusion . He was found to have hepatic encephalopathy 1- Acute hepatic encephalopathy: Mental status slightly improved . - no evidence of SBP on ascetic fluid analysis - cont lactulose QID and rifaximine 2- Ascitis: - cont diuretics. - low NA diet - stable kidney function 3- normocytic anemia : iron studies indicate ACD 4- DVT pX , lovenox HLOC Visit type - Emergency Visit Emergency Visit: Yes ED Registration Date: 08/18/16 Care time: The patient presented to the Emergency Department on the above date and was hospitalized for further evaluation of their emergent condition. - New Patient This patient is new to me today: No - Critical Care Critical Care patient: No
[2016-08-22] MEDS: FUROSEMIDE 40 MG TABLET (FP) PO SCH ×2 (06:17→15:26)
[2016-08-22] MEDS ORDERED: PT OWN MED DRAWER 7, Y5N ONE (09:41)
[2016-08-22] MEDS: PANTOPRAZOLE 40 MG TABLET (FP) PO SCH (10:06)
[2016-08-22] MEDS: RIFAXIMIN 550 MG TABLET (UD) PO SCH ×2 (10:06→22:34)
[2016-08-22] MEDS: LACTULOSE 20 GM/30 ML UDC (FOR ORAL USE ONLY) PO SCH ×4 (10:06→22:34)
[2016-08-22] MEDS: SPIRONOLACTONE 25 MG TABLET (FP) PO SCH ×2 (10:06→22:34)
[2016-08-22] MEDS: ENOXAPARIN NA (PORCINE) 40 MG/0.4 ML DISP.SYRIN SQ SCH (10:07)
--- NOTE | 2016-08-22 12:12 | PN ---
Progress Note (short form) - Note Progress Note: Subjective: no fever or chills, no abd pain, no SOB. no events over night per RN Objective: Vital Signs: Last Vital Signs Temp Pulse Resp BP Pulse Ox 97.9 F 86 18 100/58 99 08/22/16 06:27 08/22/16 06:27 08/22/16 06:27 08/22/16 06:27 08/21/16 21:00 Physical Exam: NAD, knows location and his age Lungs: CTAB Abd : soft, no TTP , no hepatomegaly. Spleen is percussed not palpated . Shifting dullness present Ext : Asterexis present , no edema or erythema over legs Laboratory Results - last 24 hr 08/22/16 08:10 Ammonia 50.71 H ASSESSMENT AND PLAN: 71 y/o man with h/o Hep C , ascitis , who presneted with confusion . He was found to have hepatic encephalopathy 1- Acute hepatic encephalopathy: Mental status slightly improved . - no evidence of SBP on ascetic fluid analysis - cont lactulose QID and Rifaximine . Give lactulose enema 2- Ascitis: - Cont diuretics. - Low NA diet - Stable kidney function . Will check tomorrow 3- Normocytic anemia : iron studies indicate ACD 4- DVT pX , lovenox HLOC Visit type - Emergency Visit Emergency Visit: Yes ED Registration Date: 08/18/16 Care time: The patient presented to the Emergency Department on the above date and was hospitalized for further evaluation of their emergent condition. - New Patient This patient is new to me today: No - Critical Care Critical Care patient: No
[2016-08-22] MEDS ORDERED: LACTULOSE 20 GM/30 ML UDC (FOR RECTAL USE ONLY) PR ONE (12:13)
[2016-08-23] MEDS: FUROSEMIDE 40 MG TABLET (FP) PO SCH ×2 (06:40→14:04)
[2016-08-23 07:48] LABS: CALCIUM 8.4 mg/dL (8.5-10.1); CREATININE 1.1 mg/dL (0.7-1.3)
--- NOTE | 2016-08-23 08:52 | MSN ---
Progress Note (SOAP) - Subjective Chief Complaint: altered mental status History of Present Illness: 71 y/o male with pmhx of hepc, cirrhosis, ascites presents with confusion and altered mental status last week with a diagnosis of hepatic encephalopathy. He denies any pain, dizziness, cough, chest pain, back pain or frequency or burning with urination - Current Medications Current Medications: Active Medications Enoxaparin Sodium (Lovenox -) 40 mg SQ DAILY [facility] Last Admin: 08/22/16 10:07 Dose: 40 mg Furosemide (Lasix -) 80 mg PO BIDLASIX [facility] Last Admin: 08/23/16 06:40 Dose: 80 mg Lactulose (Cephulac (Oral Use)) 20 gm PO QID [facility] Last Admin: 08/22/16 22:34 Dose: 20 gm Pantoprazole Sodium (Protonix -) 40 mg PO DAILY [facility] Last Admin: 08/22/16 10:06 Dose: 40 mg Rifaximin (Xifaxan -) 550 mg PO BID [facility] Last Admin: 08/22/16 22:34 Dose: 550 mg Spironolactone (Aldactone -) 25 mg PO BID [facility] Last Admin: 08/22/16 22:34 Dose: 25 mg - Objective Vital Signs: Vital Signs Temperature 97.9 F 08/23/16 05:35 Pulse Rate 92 H 08/23/16 05:35 Respiratory Rate 18 08/23/16 05:35 Blood Pressure 92/56 08/23/16 05:35 O2 Sat by Pulse Oximetry (%) 98 08/22/16 21:00 Constitutional: Yes: Well Nourished, No Distress, Calm Eyes: Yes: WNL, Conjunctiva Clear, EOM Intact HENT: Yes: WNL, Atraumatic, Normocephalic Cardiovascular: Yes: WNL, Regular Rate and Rhythm, S1, S2 Respiratory: Yes: WNL, Regular, CTA Bilaterally Gastrointestinal: Yes: WNL, Normal Bowel Sounds, Soft Musculoskeletal: Yes: WNL Extremities: Yes: WNL Neurological: Yes: WNL, Alert, Oriented Psychiatric: Yes: WNL, Alert, Oriented Labs Lab Results: CBC, BMP 08/21/16 06:00 08/23/16 05:52 Assessment/Plan 71 y/o man with Hep C , ascitis , who presented with confusion. He was found to have hepatic encephalopathy 1- Acute hepatic encephalopathy: Mental status slightly improved . - No evidence of SBP on ascetic fluid analysis - Continue lactulose QID and Rifaximine . -Give one lactulose enema- patient says he had two bowel movements yesterday but zero documented -Informed patient to tell nurse when he needs to use the bathroom 2- Ascitis: - Continue diuretics -AFB negative -Fungal culture, BRAD, mycobactrium preliminary - Low NA diet - Stable kidney function with repeat labs 3- Normocytic anemia -Iron studies indicate ACD 4- DVT pX -Lovenoz
[2016-08-23] MEDS ORDERED: PT OWN MED DRAWER 7, Y5N ONE (10:56)
[2016-08-23] MEDS: SPIRONOLACTONE 25 MG TABLET (FP) PO SCH ×2 (10:57→21:08)
[2016-08-23] MEDS: LACTULOSE 20 GM/30 ML UDC (FOR ORAL USE ONLY) PO SCH ×4 (10:57→21:08)
[2016-08-23] MEDS: PANTOPRAZOLE 40 MG TABLET (FP) PO SCH (10:57)
[2016-08-23] MEDS: RIFAXIMIN 550 MG TABLET (UD) PO SCH ×2 (10:57→21:08)
[2016-08-23] MEDS: ENOXAPARIN NA (PORCINE) 40 MG/0.4 ML DISP.SYRIN SQ SCH (10:57)
[2016-08-23] MEDS ORDERED: LACTULOSE 20 GM/30 ML UDC (FOR RECTAL USE ONLY) PR ONE (11:06)
--- NOTE | 2016-08-23 13:59 | PN ---
Teaching Attending Note Name of Resident: Lenore Lora ATTENDING PHYSICIAN STATEMENT I saw and evaluated the patient. I reviewed the resident's note and discussed the case with the resident. I agree with the resident's findings and plan as documented. SUBJECTIVE: no fever ro chills , no abd pain, no SOB , no CP. no events over night . He reports 3 BMs yesterday ( nothing documented , but he goes to rest room alone ) OBJECTIVE: NAD, knows location ( a hospital ), his age , date of , and his daughter name Lungs: CTAB Abd : Soft, no TTP , no hepatomegaly. Shifting dullness present Ext : no asterexis , no edema or erythema over legs ASSESSMENT AND PLAN: 71 y/o man with h/o Hep C , ascitis , who presneted with confusion . He was found to have hepatic encephalopathy 1- Acute hepatic encephalopathy: Mental status slightly improved. Will d/w family if he is at [place] line although BM were not documented by RNs , he uses the rest room alone. - cont lactulose - gie another lactulose enema today - cont Rifaximine 2- Ascitis: - Cont diuretics. - Low NA diet 3- Normocytic anemia : iron studies indicate ACD 4- DVT pX , lovenox HLOC anticipate dc in 1-2 days
--- NOTE | 2016-08-23 14:05 | PN ---
Physical Exam: SUBJECTIVE: Patient seen and examined. He denies abdominal pain, SOB. States that had 2 BM yesterday and none today. He was asked to report his BP. Oriented only to person. OBJECTIVE: Vital Signs Period Temp Pulse Resp BP Sys/Webster Pulse Ox Last 24 Hr 97.9 F-98.1 F 92-101 18-20 86-97/54-58 98 GENERAL: The patient is awake, Oriented to person only, in no acute distress. HEAD: Normal with no signs of trauma. EYES: sclera icteric, conjunctiva clear. No ptosis. ENT: oropharynx clear without exudates, moist mucous membranes. NECK: Trachea midline, full range of motion, supple. LUNGS: Breath sounds equal, clear to auscultation bilaterally, no wheezes, no crackles, no accessory muscle use. HEART: Regular rate and rhythm, S1, S2 without murmur, rub or gallop. ABDOMEN: Soft, nontender, nondistended, normoactive bowel sounds, no guarding, no rebound, no hepatosplenomegaly, shifting dullness present. EXTREMITIES: no edema, no asterixis. NEUROLOGICAL: Normal speech, gait not observed. PSYCH: Normal mood, normal affect. SKIN: Warm, dry, normal turgor, no rashes or lesions noted Laboratory Results - last 24 hr 08/23/16 08/23/16 05:52 05:52 Sodium 132 L Potassium 4.0 Chloride 97 L Carbon Dioxide 25 Anion Gap 10 BUN 23 H Creatinine 1.1 Random Glucose 91 Calcium 8.4 L Ammonia 74.64 H Active Medications Generic Name Dose Route Start Last Admin Trade Name Yannq PRN Reason Stop Dose Admin Enoxaparin Sodium 40 mg 08/19/16 19:30 08/23/16 10:57 Lovenox - SQ 40 mg DAILY IRENA Administration Furosemide 80 mg 08/18/16 06:00 08/23/16 06:40 Lasix - PO 80 mg BIDLASIX IRENA Administration Lactulose 20 gm 08/19/16 14:00 08/23/16 10:57 Cephulac (Oral Use) PO 20 gm QID IRENA Administration Pantoprazole Sodium 40 mg 08/18/16 10:00 08/23/16 10:57 Protonix - PO 40 mg DAILY IRENA Administration Rifaximin 550 mg 08/19/16 12:00 08/23/16 10:57 Xifaxan - PO 550 mg BID IRENA Administration Spironolactone 25 mg 08/18/16 10:00 08/23/16 10:57 Aldactone - PO 25 mg BID IRENA Administration CXR: increased interstitial opacities, L more than right, mild pulmonary venous congestion EKG: NSR, no ST elevation Head CT: no acute pathology abdominal US: no acute pathology ASSESSMENT/PLAN: The pt is a 71-year-old male with a PMH of liver cirrhosis, hep C who presents to the ED for evaluation of generalized weakness and poor by mouth intake for the past 2-3 days. He is admitted for hepatic encephalopathy. Hepatic encehalopathy due to liver cirrhosis; -possibly due to non compliance to his medications, confirmed with his daughter -pt doesnt have at least 3-4 BM and his mental status hasn't improved that is why we increased Lactulose 20 mg TID IRENA to Q6H, added Rifaxamin, today he reported no BM, still AMS present, oriented only to person -Paracenthesis fluid analysed and r/o SBP, no signs of infection -amonia level is 74 today -fungal culture pending, -gram stain negative -Urine culture neg -blood culture neg Ascites; -continue lasix 80 mg -no more IVF -low Na diet Normocytic anemia; -no known baseline, -iron studies done, reviewed -b12 nl and folate elevated DVT PPX: -SCDs F/E/N: no/no/low sodium Disposition: -med surg, possible discharge tomorrow Problem List - Problems (1) Increased ammonia level Code(s): R79.89 - OTHER SPECIFIED ABNORMAL FINDINGS OF BLOOD CHEMISTRY (2) Weakness Code(s): R53.1 - WEAKNESS (3) Hepatic encephalopathy Code(s): K72.90 - HEPATIC FAILURE, UNSPECIFIED WITHOUT COMA (4) Anemia of chronic disease Code(s): D63.8 - ANEMIA IN OTHER CHRONIC DISEASES CLASSIFIED ELSEWHERE Visit type - Emergency Visit Emergency Visit: Yes ED Registration Date: 08/18/16 Care time: The patient presented to the Emergency Department on the above date and was hospitalized for further evaluation of their emergent condition. - New Patient This patient is new to me today: No - Critical Care Critical Care patient: No - Discharge Referral Referred to [facility] Med [facility] No
[2016-08-24] MEDS: FUROSEMIDE 40 MG TABLET (FP) PO SCH ×2 (05:32→17:06)
--- NOTE | 2016-08-24 08:03 | MSN ---
Progress Note (SOAP) - Subjective Chief Complaint: Altered mental status History of Present Illness: Patient seen and examined. He denies abdominal pain, SOB, chest pain and back pain. States that had 2 BM yesterday and none today. He was asked to report his BM and said he had one. This was documented by nursing. Oriented to person and time but not to place. - Current Medications Current Medications: Active Medications Enoxaparin Sodium (Lovenox -) 40 mg SQ DAILY [facility] Last Admin: 08/23/16 10:57 Dose: 40 mg Furosemide (Lasix -) 80 mg PO BIDLASIX [facility] Last Admin: 08/24/16 05:32 Dose: 80 mg Lactulose (Cephulac (Oral Use)) 20 gm PO QID [facility] Last Admin: 08/23/16 21:08 Dose: 20 gm Pantoprazole Sodium (Protonix -) 40 mg PO DAILY [facility] Last Admin: 08/23/16 10:57 Dose: 40 mg Rifaximin (Xifaxan -) 550 mg PO BID [facility] Last Admin: 08/23/16 21:08 Dose: 550 mg Spironolactone (Aldactone -) 25 mg PO BID [facility] Last Admin: 08/23/16 21:08 Dose: 25 mg - Objective Vital Signs: Vital Signs Temperature 98 F 08/24/16 05:45 Pulse Rate 91 H 08/24/16 05:45 Respiratory Rate 18 08/24/16 05:45 Blood Pressure 95/67 08/24/16 05:45 O2 Sat by Pulse Oximetry (%) 96 08/23/16 21:00 Constitutional: Yes: Well Nourished, No Distress, Calm Eyes: Yes: WNL, Conjunctiva Clear, EOM Intact HENT: Yes: WNL, Atraumatic, Normocephalic Cardiovascular: Yes: WNL, Regular Rate and Rhythm, S1, S2 Respiratory: Yes: WNL, Regular, CTA Bilaterally Gastrointestinal: Yes: WNL, Normal Bowel Sounds, Soft, Ascites Musculoskeletal: Yes: WNL Extremities: Yes: WNL Integumentary: Yes: WNL Neurological: Yes: Alert, Oriented (only to perosn and time) Psychiatric: Yes: Alert, Oriented (only to person and time ) <Robert Schofield - Last Filed: 08/24/16 13:04> - Subjective History of Present Illness: please refer to my note for further details /corrections - Objective Vital Signs: <Flakita Pat - Last Filed: 08/24/16 13:47> Labs Lab Results: CBC, [facility] 08/21/16 06:00 08/23/16 05:52 <Robert Schofield - Last Filed: 08/24/16 13:04> Lab Results: CBC, [facility] 08/21/16 06:00 08/23/16 05:52 <Flakita Pat - Last Filed: 08/24/16 13:47> Assessment/Plan The pt is a 71-year-old male with a PMH of liver cirrhosis, hep C, ascites who presents to the ED for evaluation of generalized weakness and poor by mouth intake for the past 2-3 days. He is admitted for hepatic encephalopathy. Hepatic encehalopathy due to liver cirrhosis; -possibly due to non compliance to his medications, confirmed with his daughter -pt doesnt have at least 3-4 BM and his mental status hasn't improved that is why we increased Lactulose 20 mg TID IRENA to Q6H, added Rifaxamin, today he reported one BM, still AMS present but may be his baseline, oriented only to person and time -Paracenthesis fluid analysed and r/o SBP, no signs of infection -ammonia level is 74 today -fungal culture pending, -gram stain negative -Urine culture neg -blood culture neg -informed patient about the importance of medication compliance Ascites; -continue lasix 80 mg -no more IVF -low Na diet Normocytic anemia; -no known baseline, -iron studies done, reviewed -b12 nl and folate elevated DVT PPX: -SCDs F/E/N: no/no/low sodium Disposition: -med surg, discharge home today <Robert Schofield - Last Filed: 08/24/16 13:04>
[2016-08-24] MEDS: PANTOPRAZOLE 40 MG TABLET (FP) PO SCH (10:45)
[2016-08-24] MEDS: SPIRONOLACTONE 25 MG TABLET (FP) PO SCH (10:45)
[2016-08-24] MEDS: ENOXAPARIN NA (PORCINE) 40 MG/0.4 ML DISP.SYRIN SQ SCH (10:45)
[2016-08-24] MEDS: LACTULOSE 20 GM/30 ML UDC (FOR ORAL USE ONLY) PO SCH ×2 (10:45→17:05)
[2016-08-24] MEDS ORDERED: PT OWN MED DRAWER 7, Y5N ONE (10:54)
--- NOTE | 2016-08-24 13:52 | PN ---
Teaching Attending Note Name of Resident: Lenore Lora ATTENDING PHYSICIAN STATEMENT I saw and evaluated the patient. I reviewed the resident's note and discussed the case with the resident. I agree with the resident's findings and plan as documented. SUBJECTIVE: no fever or chills, no ABd pain OBJECTIVE: NAD, knows location ( a hospital ), his age , date of , and his daughter name Lungs: CTAB Abd : Soft, no TTP , no hepatomegaly. Shifting dullness present Ext : no asterexis , no edema or erythema over legs ASSESSMENT AND PLAN: 71 y/o man with h/o Hep C , ascitis , who presneted with confusion . He was found to have hepatic encephalopathy 1- Acute hepatic encephalopathy: mental status improved, likely his base line - cont lactulose and rifaximine at home 2- Ascitis: - Cont diuretics. - Low NA diet dispo : dc home today f/u with his PCP at [facility]. GI f/u
--- NOTE | 2016-08-24 14:00 | DS ---
Physical Exam: SUBJECTIVE: Patient seen and examined. he denies chest pain, SOB, palpitations. He states that he haven't have any BM today. No overnight events. OBJECTIVE: Vital Signs Period Temp Pulse Resp BP Sys/Webster Pulse Ox Last 24 Hr 97.4 F-98 F 91-97 18-18 91-104/53-67 96 PHYSICAL EXAM GENERAL: The patient is awake, oriented to time and person, in no acute distress. HEAD: Normal with no signs of trauma. EYES: PERRL, extraocular movements intact, sclera anicteric, conjunctiva clear. ENT: oropharynx clear without exudates, moist mucous membranes. NECK: Trachea midline, full range of motion, supple. LUNGS: Breath sounds equal, clear to auscultation bilaterally, no wheezes, no crackles, no accessory muscle use. HEART: Regular rate and rhythm, S1, S2 without murmur, rub or gallop. ABDOMEN: Soft, nontender, nondistended, normoactive bowel sounds, no guarding, no rebound, hepatosplenomegaly present, shifting dulness present. EXTREMITIES: well-perfused, no edema. NEUROLOGICAL: Normal speech, nl gait. PSYCH: Normal mood, normal affect. SKIN: Warm, dry, normal turgor, no rashes or lesions noted. LABS HOSPITAL COURSE: Date of Admission:08/18/16 Date of Discharge: 08/24/16 Minutes to complete discharge: 50 Discharge Summary Reason For Visit: INCREASED AMMONIA LEVEL,WEAKNESS Current Active Problems Decreased appetite (Acute) Hepatic encephalopathy (Acute) Increased ammonia level (Acute) Anemia of chronic disease (Chronic) Ascites of liver (Chronic) Hospital Course: The pt is a 71-year-old male with PMH of liver cirrhosis, hep C who presents to the ED for evaluation of generalized weakness and poor by mouth intake for the past 2-3 days. As per daughter patient has history of cirrhosis and has been to the emergency room is for similar symptoms several times in the past 6 months requiring medications and a few days of admission. Daughter denies recent illness, recent change in medications, recent surgery, fever, cough, vomiting, diarrhea, or change in urine pattern. Hospital course: We diagnosed the patient with hepatic encephalopathy. His labs show elevated amonia level, low hemoglobin. CT scan, chest x ray and EKG showed no acute pathology. We diagnosed the pt with hepatic encepalopathy. We treated him with Lactulose, Rifaximin, Spironolactone and Lasix. His vital signs were WNL. We did diagnostic paracenthesis and r/o spontaneous bacterial peritonitis. His mental status improved over the course of his hospitalization. He also diagnosed him with ascites. He was given diuretics and low sodium diet. He was also found to have anemia of chronic disease. We recommend that he f/u with his PCP in a week. His daughter was present at bedside and they were both counseled about importance of compliance to medications and visiting his physician regularly. Condition: Improved - Instructions Diet, Activity, Other Instructions: Please take your medications everyday. lactulose 4 times a day, Spironolactone daily and Rifaximin two times a day. See your primary care doctor in a week. If you have abdominal pain, diarrhea, nausea, vomiting, bleeding, loss of consciousness, dizziness, chest pain come to emergency Room as soon as possible. your medications were sent to your pharmacy Disposition: HOME - Home Medications Comprehensive Discharge Medication List: Ambulatory Orders Folic Acid 1 mg PO DAILY 08/17/16 Pantoprazole Sodium 40 mg PO DAILY 08/17/16 Furosemide [Lasix] 80 mg PO BID #60 tablet 08/24/16 Lactulose (Oral Use) [Cephulac -] 20 gm PO QID #120 udc 08/24/16 Rifaximin [Xifaxan -] 550 mg PO BID #60 tablet 08/24/16 Spironolactone 10 mg PO BID #60 tablet MDD 4 tabs 08/24/16 Problem List - Problems (1) Increased ammonia level Code(s): R79.89 - OTHER SPECIFIED ABNORMAL FINDINGS OF BLOOD CHEMISTRY (2) Hepatic encephalopathy Code(s): K72.90 - HEPATIC FAILURE, UNSPECIFIED WITHOUT COMA (3) Anemia of chronic disease Code(s): D63.8 - ANEMIA IN OTHER CHRONIC DISEASES CLASSIFIED ELSEWHERE This patient is new to me today: No Emergency Visit: Yes ED Registration Date: 08/18/16 Care time: The patient presented to the Emergency Department on the above date and was hospitalized for further evaluation of their emergent condition. Critical Care patient: No - Discharge Referral Referred to [facility] Med P.C.: No
[2016-08-24 14:45] VITALS: BP 108/68; PULSE 95; TEMP 97.8
[2016-08-24] MEDS: RIFAXIMIN 550 MG TABLET (UD) PO SCH (16:57)
== END 2016-08-24 17:16 | disposition home or self-care (01) | DRG 442 ==
LOC: JER 08:24 → JERBED 12:08 → J7W 16:55 → OBSVTOIN 08-18 11:49 → J7W 08-22 19:23
PROVIDERS: ADMIT Internal Medicine; ATTEND Internal Medicine
PROC: 0W9G3ZX Drainage of Peritoneal Cavity, Percutaneous Approach, Diagnostic (ICD-10-PCS; principal; 2016-08-19)
DX: K72.00 Acute and subacute hepatic failure without coma (principal); R18.8 Other ascites; E72.20 Disorder of urea cycle metabolism, unspecified; K74.60 Unspecified cirrhosis of liver; B19.20 Unspecified viral hepatitis C without hepatic coma; D64.9 Anemia, unspecified; R63.0 Anorexia; Z91.14 Patient's other noncompliance with medication regimen
CPT/HCPCS: 36415; 70450-TC; 71010-TC; 76700-TC; 76942-TC; 80048; 80053; 81003; 82042; 82140; 82150; 82247; 82550; 82607; 82728; 82746; 82945; 83540; 83550; 83615; 83735; 84100; 84157; 84450; 84460; 84484; 85025; 85027; 85610; 87040; 87070; 87075; 87086; 87102; 87116; 87205; 87206; 87210; 88108; 88305-TC; 88341-TC; 89051; 93005; 93010; 97116-GP; 97161-GP; 99285-25; G0378

== ENCOUNTER 2016-12-23 08:44 | Inpatient (IN) | payer OTHER ==
--- NOTE | 2016-12-23 09:33 | PDOC ---
History of Present Illness - General History Source: Patient Exam Limitations: No Limitations - History of Present Illness Initial Comments: 12/23/16 09:34 The patient is a 71 year old male with a significant past medical history of dementia, Hep C, and cirrhosis, presenting to the Emergency Department with abdominal bloating, and bilateral lower extremity edema. The patient reports that his abdomen has become increasingly more bloated over the past month and a half. He reports that he experienced these same symptoms in July, when he had an IR guided paracentesis. He admits to decrease urination over the past month, and shortness of breath on exertion in addition to the bloating. He states that he has been compliant with his medication, taking 40mg of Lasix once a day, and took his medication this morning. He admits that he waited until now to come to the ED because he thought the issue would resolve on its own. The patient denies history of heart problems, chest pain, and palpitations. Patient denies confusion, headache, or dizziness. Patient denies dysuria, or urinary urgency. Patient denies fever, cough, and chills. Patient denies abdominal pain, vomiting, and diarrhea. GI: in [place], patient unsure of name <Annette Rodrigues - Last Filed: 12/23/16 12:44> - General History Source: Patient, Old Records Exam Limitations: No Limitations <Scott Mancini - Last Filed: 12/23/16 12:46> - General Chief Complaint: Edema Stated Complaint: CONGESTION, BLOATED Time Seen by Provider: 12/23/16 09:08 Past History <Annette Rodrigues - Last Filed: 12/23/16 12:44> - Past Medical History Dementia: Yes GI Disorders: Yes (cirrhosis, hepatitis C) - Psycho/Social/Smoking Cessation Hx Anxiety: No Suicidal Ideation: No Smoking History: Never smoked Have you smoked in the past 12 months: No Information on smoking cessation initiated: No Hx Alcohol Use: No Drug/Substance Use Hx: No Substance Use Type: None <Scott Mancini - Last Filed: 12/23/16 12:46> - Past Medical History Allergies/Adverse Reactions: Allergies Allergy/AdvReac Type Severity Reaction Status Date / Time No Known Allergies Allergy Verified 12/23/16 08:49 Home Medications: Ambulatory Orders Folic Acid 1 mg PO DAILY 08/17/16 Pantoprazole Sodium 40 mg PO DAILY 08/17/16 Furosemide [Lasix] 80 mg PO BID #60 tablet 08/24/16 Lactulose (Oral Use) [Cephulac -] 20 gm PO QID #120 udc 08/24/16 Spironolactone 10 mg PO BID #60 tablet MDD 4 tabs 08/24/16 Review of Systems - Review of Systems Able to Perform ROS?: Yes Comments:: 12/23/16 09:34 CONSTITUTIONAL: No reported: Fever, Chills, Diaphoresis, Generalized Weakness, Malaise, Loss of Appetite HEENT: No reported: Rhinorrhea, Nasal Congestion, Throat Pain, Throat Swelling, Difficulty Swallowing, Mouth Swelling, Ear Pain, Eye Pain, Visual Changes CARDIOVASCULAR: Reported: + bilateral lower extremity edema No reported: Chest Pain, Syncope, Palpitations, Irregular Heart Rate, Lightheadedness RESPIRATORY: Reported: + sob with exertion No reported: Cough, Shortness of Breath, Orthopnea, Wheezing, Stridor, Hemoptysis GASTROINTESTINAL: Reported: + abdominal distention No reported: Abdominal pain, Nausea, Vomiting, Diarrhea, Constipation, Melena, Hematochezia GENITOURINARY: Reported: + decreased urination No reported: Dysuria, Frequency, Urgency, Hesitancy, Flank Pain, Genital Pain MUSCULOSKELETAL: No reported: Myalgia, Arthralgia, Joint Swelling, Back pain, Neck Pain SKIN: No reported: Rash, Itching, Pallor HEMATOLOGIC/IMMUNOLOGIC: No reported: Easy Bleeding, Easy Bruising, Lymphadenopathy, Frequent infections ENDOCRINE: No reported: Unexplained Weight Gain, Unexplained Weight Loss, Heat Intolerance , Cold Intolerance NEUROLOGIC: No reported: Headache, Focal Weakness, Paresthesias, Vertigo, Lightheadedness, Unsteady Gait, Seizure, Mental Status Changes, Incontinence PSYCHIATRIC: No reported: Anxiety, Depression <Annette Rodrigues - Last Filed: 12/23/16 12:44> *Physical Exam - Vital Signs Last Vital Signs Temp Pulse Resp BP Pulse Ox 98.2 F 119 H 16 114/66 98 12/23/16 08:50 12/23/16 08:50 12/23/16 08:50 12/23/16 08:50 12/23/16 09:20 - Physical Exam Comments: 12/23/16 09:35 GENERAL: The patient is awake, alert, and fully oriented, Nontoxic - in no acute distress. HEAD: Normocephalic, atraumatic. EYES: Extraocular movements intact, sclera anicteric, conjunctiva clear. ENT: Normal voice, Moist mucous membranes. NECK: Normal range of motion, No JVD LUNGS: Mild bibasilar rales. Breath sounds equal, clear to auscultation bilaterally. No wheezes, no rhonchi. HEART: Tachycardic. Regular rhythm, normal S1 and S2 without murmur, rub or gallop. ABDOMEN: Abdominal distention with fluid waves, nontender. No guarding, no rebound. No masses. No CVA tenderness EXTREMITIES: Trace pitting edema to lower extremities bilaterally. Normal range of motion. No clubbing or cyanosis. No cords, erythema, or tenderness. NEUROLOGICAL: Negative asterixis. No facial asymmetry, Normal speech, normal gait. PSYCH: Normal mood, normal affect. SKIN: Warm, Dry, normal turgor. <Annette Rodrigues - Last Filed: 12/23/16 12:44> - Vital Signs Last Vital Signs Temp Pulse Resp BP Pulse Ox 98.2 F 119 H 16 114/66 98 12/23/16 08:50 12/23/16 08:50 12/23/16 08:50 12/23/16 08:50 12/23/16 09:20 <Scott Mancini - Last Filed: 12/23/16 12:46> Heart Score/ECG Review #1 ECG reviewed & interpreted by me at: 10:00 12/23/16 10:18 NSR 106, TWI III, avF, no std/elayne, normal axis, normal intervals, QTC 454 msec <Scott Mancini - Last Filed: 12/23/16 12:46> ED Treatment Course - LABORATORY CBC & Chemistry Diagram: 12/23/16 09:35 12/23/16 09:35 - RADIOLOGY Radiograph Interpretation: 12/23/16 10:58 Chest XRay As reviewed by Dr. Arturo Chávez IMPRESSION: Mild atelectatic changes in the left lung base without definite infiltrates. <Annette Rodrigues - Last Filed: 12/23/16 12:44> - LABORATORY CBC & Chemistry Diagram: 12/23/16 09:35 12/23/16 09:35 - RADIOLOGY Radiology Studies Ordered: Category Date Time Status CHEST X-RAY PORTABLE* [RAD] Stat Radiology 12/23/16 09:24 Ordered <Scott Mancini - Last Filed: 12/23/16 12:46> Medical Decision Making - Medical Decision Making 12/23/16 11:30 Dr. Decker was called at her office at 11:31. Awaiting call back. 12/23/16 12:10 Dr. Decker returned call and informed us that Dr. Ballard is covering. Dr. Ballard was called at her office at 12:11. Awaiting call back. 12/23/16 12:44 Dr. Ballard returned call at 12:[address] Mancini about the patient's care. <Annette Rodrigues - Last Filed: 12/23/16 12:44> - Medical Decision Making 12/23/16 09:27 A portion of this note was documented by scribe services under my direction. I have reviewed the details of the note, within reason, and agree with the documentation with the following case summary and management plan written by me. Patient treated in the ED. Nursing notes are reviewed and incorporated into the medical decision-making. Vital signs reviewed. Peripheral IV access obtained by the nurse, laboratory studies are drawn and sent, reviewed and interpreted by myself. Vital Signs Temp Pulse Resp BP Pulse Ox 98.2 F 119 H 16 114/66 98 12/23/16 08:50 12/23/16 08:50 12/23/16 08:50 12/23/16 08:50 12/23/16 09:20 71-year-old male with past medical history of hepatitis C, cirrhosis presents with worsening ascites for the last month and a half. The patient reports that he's been taken 40 mg of Lasix daily and noted approximately one and half months ago a was developing decreased urine output. Consequently, he has noticed increasing abdominal distention and ascites but never endorsed any fevers, nausea, vomiting. Denies abdominal pains. States that he typically follows up at [facility] for his liver disease. He states that he had completed his rifaximin and still takes his lactulose. Because he was getting increasingly more dyspneic on exertion secondary to his weight gain. Patient does not appear to have hepaticus follow-up if he at this time. However , I am concerned that the decreased urine output with increasing abdominal ascites with history of cirrhosis could be hepatorenal syndrome. The patient also would likely benefit from a therapeutic tap given the dyspnea and large size of ascites. Patient denies any fevers or abdominal pain at this time. I have lower suspicion for spontaneous bacterial peritonitis. 12/23/16 12:45 CBC, BMP 12/23/16 09:35 12/23/16 09:35 CMP Sodium 135 mmol/L (136-145) L 12/23/16 09:35 Potassium 4.0 mmol/L (3.5-5.1) 12/23/16 09:35 Chloride 100 mmol/L (98-107) 12/23/16 09:35 Carbon Dioxide 26 mmol/L (21-32) 12/23/16 09:35 Anion Gap 9 (8-16) 12/23/16 09:35 BUN 8 mg/dL (7-18) D 12/23/16 09:35 Creatinine 1.0 mg/dL (0.7-1.3) 12/23/16 09:35 Creat Clearance w eGFR > 60 (>60) 12/23/16 09:35 Random Glucose 125 mg/dL (74-106) H D 12/23/16 09:35 Calcium 8.3 mg/dL (8.5-10.1) L 12/23/16 09:35 Magnesium 2.1 mg/dL (1.8-2.4) 12/23/16 09:35 Total Bilirubin 1.0 mg/dL (0.2-1.0) D 12/23/16 09:35 AST 41 U/L (15-37) H D 12/23/16 09:35 ALT 13 U/L (12-78) D 12/23/16 09:35 Alkaline Phosphatase 70 U/L (45-117) D 12/23/16 09:35 Ammonia 49.98 umol/L (11-32) H 12/23/16 09:35 B-Natriuretic Peptide 41.18 pg/ml (5-125) 12/23/16 09:35 Total Protein 7.5 g/dl (6.4-8.2) 12/23/16 09:35 Albumin 2.6 g/dl (3.4-5.0) L 12/23/16 09:35 Chest xray reviewed. INR reviewed. ~1.6 Patient will benefit from therapeutic paracentesis. Case discussed with DR. Ballard. She accepts the patient for med/surg observation. Case discussed in detail with admitting physician including history, physical exam and ancillary studies. Admitting physician has assumed care for the patient, will follow all pending diagnostics and will complete the evaluation and treatment. <Scott Mancini - Last Filed: 12/23/16 12:46> *DC/Admit/Observation/Transfer - Attestations Scribe Attestion: 12/23/16 09:36 Documentation prepared by Annette Rodrigues, acting as diagnostic medical sonographer for Scott Mancini MD. <Annette Rodrigues - Last Filed: 12/23/16 12:44> - Discharge Dispostion Admit: Yes <Scott Mancini - Last Filed: 12/23/16 12:46> Diagnosis at time of Disposition: Ascites of liver - Discharge Dispostion Condition at time of disposition: Stable
[2016-12-23 09:54] LABS: EOSINOPHIL 7.7 % (0-4.5); MCH 27.3 pg (25.7-33.7); MCHC 32.1 g/dl (32.0-35.9); MEAN CELL VOLUME 84.9 fl (80-96); MEAN PLT VOLUME 7.4 fl (7.5-11.1); NEUTROPHILS 63.7 % (42.8-82.8); PLATELET COUNT 192 K/MM3 (134-434); RDW 18.4 % (11.9-15.9); WHITE BLOOD COUNT 3.7 K/mm3 (4.0-10.0)
[2016-12-23 10:14] LABS: INR 1.57 (0.82-1.09); PROTHROMBIN TIME (PATIENT) 17.4 SEC (9.98-11.88)
[2016-12-23 10:17] LABS: ACTIVATED PTT 31.1 SECONDS (26.9-34.4)
[2016-12-23 10:40] LABS: ALBUMIN 2.6 g/dl (3.4-5.0); ALK PHOS 70 U/L (45-117); ANION GAP 9 (8-16); CALCIUM 8.3 mg/dL (8.5-10.1); CO2 26 mmol/L (21-32); COCKROFT - GAULT 68.7; GLUCOSE,RANDOM 125 mg/dL (74-106); MAGNESIUM 2.1 mg/dL (1.8-2.4); SGOT/AST 41 U/L (15-37); SGPT/ALT 13 U/L (12-78); TOT PROT 7.5 g/dl (6.4-8.2)
[2016-12-23 11:37] LABS: URINE APPEARANCE CLEAR; URINE BILIRUBIN NEGATIVE (NEGATIVE); URINE BLOOD NEGATIVE (NEGATIVE); URINE COLOR LTYELLOW; URINE GLUCOSE (UA) NEGATIVE (NEGATIVE); URINE KETONE NEGATIVE (NEGATIVE); URINE LEUK ESTERASE NEGATIVE (NEGATIVE); URINE NITRITE NEGATIVE (NEGATIVE); URINE PROTEIN NEGATIVE (NEGATIVE); URINE UROBILINOGEN NEGATIVE E.U./dl (0.2-1.0)
--- NOTE | 2016-12-23 15:39 | EKG ---
Test Reason : Blood Pressure : / mmHG Vent. Rate : 106 BPM Atrial Rate : 106 BPM P-R Int : 122 ms QRS Dur : 072 ms QT Int : 342 ms P-R-T Axes : 006 013 -03 degrees QTc Int : 454 ms POOR DATA QUALITY, INTERPRETATION MAY BE ADVERSELY AFFECTED SINUS TACHYCARDIA CANNOT RULE OUT INFERIOR INFARCT , AGE UNDETERMINED CANNOT RULE OUT ANTERIOR INFARCT (CITED ON OR BEFORE 23-DEC-2016) ABNORMAL ECG WHEN COMPARED WITH ECG OF 17-AUG-2016 08:38, MINIMAL CRITERIA FOR INFERIOR INFARCT ARE NOW PRESENT Confirmed by NOA ABARCA MD ([id number]) on 12/23/2016 3:38:41 PM Referred By: Confirmed By:NOA ABARCA MD
[2016-12-23 18:01] VITALS: BMI 25.7
--- NOTE | 2016-12-23 19:35 | HP ---
Admitting History and Physical - Primary Care Physician PCP: Alfred Ballard - Admission History of Present Illness: - 71 year old male with a significant past medical history of dementia, Hep C, and cirrhosis, presenting to the Emergency Department with abdominal bloating, and bilateral lower extremity edema. The patient reports that his abdomen has become increasingly more bloated over the past month and a half. He reports that he experienced these same symptoms in July, when he had an IR guided paracentesis. He admits to decrease urination over the past month, and shortness of breath on exertion in addition to the bloating. He states that he has been compliant with his medication, taking 40mg of Lasix once a day, and took his medication this morning. He admits that he waited until now to come to the ED because he thought the issue would resolve on its own. 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 Hepatobiliary: Yes: Cirrhosis, Hepatitis C - Smoking History Smoking history: Never smoked Have you smoked in the past 12 months: No - Alcohol/Substance Use Hx Alcohol Use: No Home Medications - Allergies Allergies/Adverse Reactions: Allergies Allergy/AdvReac Type Severity Reaction Status Date / Time No Known Allergies Allergy Verified 12/23/16 08:49 - Home Medications Home Medications: Ambulatory Orders Folic Acid 1 mg PO DAILY 08/17/16 Pantoprazole Sodium 40 mg PO DAILY 08/17/16 Furosemide [Lasix] 80 mg PO BID #60 tablet 08/24/16 Lactulose (Oral Use) [Cephulac -] 20 gm PO QID #120 udc 08/24/16 Spironolactone 10 mg PO BID #60 tablet MDD 4 tabs 08/24/16 Review of Systems - Review of Systems Constitutional: denies: No Symptoms, Chills, Diaphoresis, Fever, Lethargy, Loss of Appetite, Malaise, Night Sweats, Unintentional Wgt. Loss, Weakness, Other Eyes: denies: No Symptoms, Blind Spots, Blurred Vision, Double Vision, Eye Pain , Floaters, Photophobia, Recent Change in Vision, Other HENT: denies: No Symptoms, Difficult Swallowing, Ear Discharge, Ear Pain, Epistaxis, Gingival Bleeding, Hearing Loss, Mouth Swelling, Nasal Congestion, Ocular Prosthesis, Throat Pain, Toothache, Ringing in Ears, Other Neck: denies: No Symptoms, Decreased ROM, Lumps, Pain on Movement, Stiffness, Swollen Glands, Tenderness, Other Cardiovascular: denies: No Symptoms, Chest Pain, Edema, Palpitations, Shortness of Breath, Other Respiratory: reports: SOB Gastrointestinal: reports: Abdominal Pain Genitourinary: reports: Other (decrease urination) Breasts: reports: No Symptoms Reported Musculoskeletal: reports: No Symptoms Integumentary: reports: No Symptoms Neurological: reports: No Symptoms Physical Examination Vital Signs: Vital Signs Temperature 98.3 F 12/23/16 17:48 Pulse Rate 99 H 12/23/16 17:48 Respiratory Rate 18 12/23/16 17:48 Blood Pressure 107/72 12/23/16 17:48 O2 Sat by Pulse Oximetry (%) 94 L 12/23/16 17:48 Constitutional: Yes: No Distress HENT: Yes: Atraumatic Neck: Yes: Supple Cardiovascular: Yes: Regular Rate and Rhythm Respiratory: Yes: CTA Bilaterally Gastrointestinal: Yes: Normal Bowel Sounds, Ascites, Distention Extremities: Yes: WNL Edema: LLE: Trace, RLE: Trace Neurological: Yes: Alert, Oriented Problem List - Problems (1) Increased ammonia level Assessment/Plan: will start lactulose clinically doing well, dont look confused Code(s): R79.89 - OTHER SPECIFIED ABNORMAL FINDINGS OF BLOOD CHEMISTRY (2) Anemia of chronic disease Assessment/Plan: fu cbc Code(s): D63.8 - ANEMIA IN OTHER CHRONIC DISEASES CLASSIFIED ELSEWHERE (3) Ascites of liver Assessment/Plan: need paracentesis gi consult Code(s): R18.8 - OTHER ASCITES (4) Decreased appetite Code(s): R63.0 - ANOREXIA Assessment/Plan Laboratory Tests 12/23/16 12/23/16 12/23/16 09:35 09:35 09:35 WBC 3.7 L RBC 3.67 L Hgb 10.0 L Hct 31.2 L MCV 84.9 MCHC 32.1 RDW 18.4 H Plt Count 192 MPV 7.4 L Neutrophils % 63.7 Lymphocytes % 15.1 D Monocytes % 12.5 H Eosinophils % 7.7 H D Basophils % 1.0 INR 1.57 H PTT (Actin FS) 31.1 Sodium 135 L Potassium 4.0 Chloride 100 Carbon Dioxide 26 Anion Gap 9 BUN 8 D Creatinine 1.0 Creat Clearance w eGFR > 60 Random Glucose 125 H D Calcium 8.3 L Magnesium 2.1 Total Bilirubin 1.0 D AST 41 H D ALT 13 D Alkaline Phosphatase 70 D Ammonia B-Natriuretic Peptide Total Protein 7.5 Albumin 2.6 L Urine Color Urine Appearance Urine pH Ur Specific [place] Urine Protein Urine Glucose (UA) Urine Ketones Urine Blood Urine Nitrite Urine Bilirubin Urine Urobilinogen Ur Leukocyte Esterase Blood Type Antibody Screen 12/23/16 12/23/16 12/23/16 09:35 09:35 09:35 WBC RBC Hgb Hct MCV MCHC RDW Plt Count MPV Neutrophils % Lymphocytes % Monocytes % Eosinophils % Basophils % INR PTT (Actin FS) Sodium Potassium Chloride Carbon Dioxide Anion Gap BUN Creatinine Creat Clearance w eGFR Random Glucose Calcium Magnesium Total Bilirubin AST ALT Alkaline Phosphatase Ammonia 49.98 H B-Natriuretic Peptide 41.18 Total Protein Albumin Urine Color Urine Appearance Urine pH Ur Specific [place] Urine Protein Urine Glucose (UA) Urine Ketones Urine Blood Urine Nitrite Urine Bilirubin Urine Urobilinogen Ur Leukocyte Esterase Blood Type B POSITIVE Antibody Screen Negative 12/23/16 12/23/16 10:29 11:20 WBC RBC Hgb Hct MCV MCHC RDW Plt Count MPV Neutrophils % Lymphocytes % Monocytes % Eosinophils % Basophils % INR PTT (Actin FS) Sodium Potassium Chloride Carbon Dioxide Anion Gap BUN Creatinine Creat Clearance w eGFR Random Glucose Calcium Magnesium Total Bilirubin AST ALT Alkaline Phosphatase Ammonia B-Natriuretic Peptide Total Protein Albumin Urine Color Ltyellow Urine Appearance Clear Urine pH 6.0 Ur Specific [place] 1.010 Urine Protein Negative Urine Glucose (UA) Negative Urine Ketones Negative Urine Blood Negative Urine Nitrite Negative Urine Bilirubin Negative Urine Urobilinogen Negative Ur Leukocyte Esterase Negative Blood Type B POSITIVE Antibody Screen Active Medications Generic Name Dose Route Start Last Admin Trade Name Freq PRN Reason Stop Dose Admin Furosemide 40 mg 12/24/16 06:00 12/24/16 15:00 Lasix Injection - IVPUSH 40 mg BID@0600,1400 IRENA Administration Hydromorphone HCl 1 mg 12/23/16 19:37 Dilaudid Injection - IVPB Q3H PRN PAIN Lactulose 20 gm 12/23/16 19:38 Cephulac (Oral Use) PO TID PRN CONSTIPATION Pantoprazole Sodium 40 mg 12/24/16 10:00 12/24/16 10:14 Protonix - PO 40 mg DAILY IRENA Administration Spironolactone 25 mg 12/23/16 21:00 12/24/16 10:14 Aldactone - PO 25 mg DAILY IRENA Administration
[2016-12-23] MEDS ORDERED: HYDROmorphone HCL CARPU-JECT 1 MG/1 ML DISP.SYRIN IVPB PRN (19:37)
[2016-12-23] MEDS ORDERED: LACTULOSE 20 GM/30 ML UDC (FOR ORAL USE ONLY) PO PRN (19:38)
[2016-12-23] MEDS: SPIRONOLACTONE 25 MG TABLET (FP) PO SCH (21:51)
[2016-12-23] MEDS ORDERED: SPIRONOLACTONE 25 MG TABLET (FP) PO SCH (22:00)
[2016-12-24] MEDS: FUROSEMIDE 40 MG/4 ML INJECTABLE VIAL IVPUSH SCH ×2 (05:57→15:00)
[2016-12-24] MEDS: PANTOPRAZOLE 40 MG TABLET (FP) PO SCH (10:14)
[2016-12-24] MEDS: SPIRONOLACTONE 25 MG TABLET (FP) PO SCH (10:14)
--- NOTE | 2016-12-24 19:06 | PN ---
Progress Note, Physician History of Present Illness: no complaints - Current Medication List Current Medications: Active Medications Furosemide (Lasix Injection -) 40 mg IVPUSH BID@0600,1400 [facility] Last Admin: 12/24/16 15:00 Dose: 40 mg Hydromorphone HCl (Dilaudid Injection -) 1 mg IVPB Q3H PRN PRN Reason: PAIN Lactulose (Cephulac (Oral Use)) 20 gm PO TID PRN PRN Reason: CONSTIPATION Pantoprazole Sodium (Protonix -) 40 mg PO DAILY [facility] Last Admin: 12/24/16 10:14 Dose: 40 mg Spironolactone (Aldactone -) 25 mg PO DAILY [facility] Last Admin: 12/24/16 10:14 Dose: 25 mg - Objective Vital Signs: Vital Signs Temperature 98.1 F 12/24/16 14:00 Pulse Rate 101 H 12/24/16 14:00 Respiratory Rate 18 12/24/16 19:00 Blood Pressure 110/72 12/24/16 14:00 O2 Sat by Pulse Oximetry (%) 94 L 12/24/16 19:00 Constitutional: Yes: No Distress HENT: Yes: Atraumatic Neck: Yes: Supple Cardiovascular: Yes: Regular Rate and Rhythm Respiratory: Yes: CTA Bilaterally Gastrointestinal: Yes: Normal Bowel Sounds, Ascites, Distention Extremities: Yes: WNL Edema: No Neurological: Yes: Alert, Oriented Labs: INR, PTT INR 1.57 (0.82-1.09) H 12/23/16 09:35 Problem List - Problems (1) Increased ammonia level Assessment/Plan: on lactulose clinically doing well, dont look confused Code(s): R79.89 - OTHER SPECIFIED ABNORMAL FINDINGS OF BLOOD CHEMISTRY (2) Anemia of chronic disease Assessment/Plan: fu cbc Code(s): D63.8 - ANEMIA IN OTHER CHRONIC DISEASES CLASSIFIED ELSEWHERE (3) Ascites of liver Assessment/Plan: need paracentesis gi consult pending Code(s): R18.8 - OTHER ASCITES (4) Decreased appetite Code(s): R63.0 - ANOREXIA
[2016-12-24] MEDS: LACTULOSE 20 GM/30 ML UDC (FOR ORAL USE ONLY) PO SCH (22:18)
[2016-12-24] MEDS: RIFAXIMIN 550 MG TABLET (UD) PO SCH (22:19)
[2016-12-25] MEDS: LACTULOSE 20 GM/30 ML UDC (FOR ORAL USE ONLY) PO SCH ×4 (05:57→21:36)
[2016-12-25] MEDS: FUROSEMIDE 40 MG/4 ML INJECTABLE VIAL IVPUSH SCH ×3 (05:57→21:36)
[2016-12-25 07:23] LABS: MCH 27.8 pg (25.7-33.7); MCHC 33.1 g/dl (32.0-35.9); MEAN CELL VOLUME 83.7 fl (80-96); MEAN PLT VOLUME 7.4 fl (7.5-11.1); NEUTROPHILS 57.3 % (42.8-82.8); PLATELET COUNT 179 K/MM3 (134-434); RDW 17.4 % (11.9-15.9)
[2016-12-25 08:12] LABS: ALBUMIN 2.5 g/dl (3.4-5.0); ANION GAP 8 (8-16); CALCIUM 8.3 mg/dL (8.5-10.1); CO2 29 mmol/L (21-32); COCKROFT - GAULT 78.34; CREATININE 0.9 mg/dL (0.7-1.3); GLUCOSE,RANDOM 92 mg/dL (74-106); SGOT/AST 32 U/L (15-37); SGPT/ALT 12 U/L (12-78)
[2016-12-25 08:14] LABS: ALK PHOS 78 U/L (45-117); BILIRUBIN,TOTAL 0.9 mg/dL (0.2-1.0); TOT PROT 7.1 g/dl (6.4-8.2)
[2016-12-25] MEDS ORDERED: PT OWN MED DRAWER 7, Y5N ONE ×2 (09:02→20:05)
[2016-12-25] MEDS: PANTOPRAZOLE 40 MG TABLET (FP) PO SCH (09:20)
[2016-12-25] MEDS: RIFAXIMIN 550 MG TABLET (UD) PO SCH ×2 (09:20→21:37)
[2016-12-25] MEDS: SPIRONOLACTONE 25 MG TABLET (FP) PO SCH ×2 (09:20→21:36)
--- NOTE | 2016-12-25 16:50 | PN ---
Progress Note, Physician - Current Medication List Current Medications: Active Medications Furosemide (Lasix Injection -) 40 mg IVPUSH BID@0600,1400 [facility] Last Admin: 12/25/16 14:07 Dose: 40 mg Hydromorphone HCl (Dilaudid Injection -) 1 mg IVPB Q3H PRN PRN Reason: PAIN Lactulose (Cephulac (Oral Use)) 20 gm PO TID [facility] Last Admin: 12/25/16 14:07 Dose: 20 gm Pantoprazole Sodium (Protonix -) 40 mg PO DAILY [facility] Last Admin: 12/25/16 09:20 Dose: 40 mg Rifaximin (Xifaxan -) 550 mg PO BID [facility] Last Admin: 12/25/16 09:20 Dose: 550 mg Spironolactone (Aldactone -) 25 mg PO DAILY [facility] Last Admin: 12/25/16 09:20 Dose: 25 mg - Objective Vital Signs: Vital Signs Temperature 98.9 F 12/25/16 06:42 Pulse Rate 100 H 12/25/16 14:00 Respiratory Rate 20 12/25/16 14:00 Blood Pressure 102/72 12/25/16 14:00 O2 Sat by Pulse Oximetry (%) 97 12/25/16 11:00 Constitutional: Yes: No Distress HENT: Yes: Atraumatic Neck: Yes: Supple Cardiovascular: Yes: Regular Rate and Rhythm Respiratory: Yes: CTA Bilaterally Gastrointestinal: Yes: Ascites, Distention Extremities: Yes: WNL Neurological: Yes: Alert, Oriented Labs: CBC, BMP 12/25/16 06:30 12/25/16 06:30 INR, PTT INR 1.57 (0.82-1.09) H 12/23/16 09:35 Problem List - Problems (1) Increased ammonia level Assessment/Plan: on lactulose clinically doing well, dont look confused Code(s): R79.89 - OTHER SPECIFIED ABNORMAL FINDINGS OF BLOOD CHEMISTRY (2) Anemia of chronic disease Assessment/Plan: fu cbc Code(s): D63.8 - ANEMIA IN OTHER CHRONIC DISEASES CLASSIFIED ELSEWHERE (3) Ascites of liver Assessment/Plan: need paracentesis gi consult pending Code(s): R18.8 - OTHER ASCITES (4) Decreased appetite Code(s): R63.0 - ANOREXIA Assessment/Plan
--- NOTE | 2016-12-25 18:49 | CON.GI ---
Consult - History of Present Illness History of Present Illness: 71 M with h/o hep C cirrhosis, dementia admtted for evaluation of abdominal distention and LE edema. He has a h/o ascites and had paracentesis in Jul of this year. He is now back with the same. - History Source History Provided By: Patient, Medical Record Limitations to Obtaining History: No Limitations - Past Medical History Hepatobiliary: Yes: Cirrhosis, Hepatitis C - Alcohol/Substance Use Hx Alcohol Use: No - Smoking History Smoking history: Never smoked Have you smoked in the past 12 months: No Home Medications - Allergies Allergies/Adverse Reactions: Allergies Allergy/AdvReac Type Severity Reaction Status Date / Time No Known Allergies Allergy Verified 12/23/16 08:49 - Home Medications Home Medications: Ambulatory Orders Folic Acid 1 mg PO DAILY 08/17/16 Pantoprazole Sodium 40 mg PO DAILY 08/17/16 Furosemide [Lasix] 80 mg PO BID #60 tablet 08/24/16 Lactulose (Oral Use) [Cephulac -] 20 gm PO QID #120 udc 08/24/16 Spironolactone 10 mg PO BID #60 tablet MDD 4 tabs 08/24/16 Physical Exam-GI Vital Signs: Vital Signs Temperature 98.9 F 12/25/16 06:42 Pulse Rate 100 H 12/25/16 14:00 Respiratory Rate 20 12/25/16 14:00 Blood Pressure 102/72 12/25/16 14:00 O2 Sat by Pulse Oximetry (%) 97 12/25/16 11:00 Constitutional: Yes: Thin HENT: Yes: Normocephalic Cardiovascular: Yes: Regular Rate and Rhythm Respiratory: Yes: CTA Bilaterally Gastrointestinal Inspection: Yes: Ascites, Distention (marked) ...Auscultate: Yes: Normoactive Bowel Sounds ...Palpate: Yes: Firm/Rigid ...Percussion: Yes: Fluid Wave Neurological: Yes: Alert, Oriented Labs: CBC, BMP 12/25/16 06:30 12/25/16 06:30 INR, PTT INR 1.57 (0.82-1.09) H 12/23/16 09:35 Hepatic Panel Total Bilirubin 0.9 mg/dL (0.2-1.0) 12/25/16 06:30 AST 32 U/L (15-37) D 12/25/16 06:30 ALT 12 U/L (12-78) 12/25/16 06:30 Alkaline Phosphatase 78 U/L (45-117) 12/25/16 06:30 Albumin 2.5 g/dl (3.4-5.0) L 12/25/16 06:30 Imaging - Results Ultrasound: Report Reviewed (hypoechoic liver with massive ascites. No mass noted) Assessment/Plan Patient with ESLD now admitted with massive ascites for paracentesis. States some respiratory embarrassment, particularly when ambulating. Will arrange for paracentesis Mon Aggressive diuresis-diuretic doses increased IV albumin Cont rifaximin and lactulose
[2016-12-25] MEDS: ALBUMIN HUMAN 25% 12.5 GM/50 ML VIAL IVPB SCH (21:38)
[2016-12-26] MEDS: FUROSEMIDE 40 MG/4 ML INJECTABLE VIAL IVPUSH SCH ×3 (06:47→21:42)
[2016-12-26] MEDS: LACTULOSE 20 GM/30 ML UDC (FOR ORAL USE ONLY) PO SCH ×3 (06:48→21:42)
--- NOTE | 2016-12-26 11:08 | PN ---
Progress Note, Physician - Current Medication List Current Medications: Active Medications Albumin Human (Albumin Human 25%) 50 gm IVPB BID [facility] Stop: 12/27/16 10:01 Last Admin: 12/25/16 21:38 Dose: 50 gm Furosemide (Lasix Injection -) 40 mg IVPUSH TID [facility] Last Admin: 12/26/16 06:47 Dose: 40 mg Hydromorphone HCl (Dilaudid Injection -) 1 mg IVPB Q3H PRN PRN Reason: PAIN Lactulose (Cephulac (Oral Use)) 20 gm PO TID [facility] Last Admin: 12/26/16 06:48 Dose: 20 gm Pantoprazole Sodium (Protonix -) 40 mg PO DAILY [facility] Last Admin: 12/25/16 09:20 Dose: 40 mg Rifaximin (Xifaxan -) 550 mg PO BID [facility] Last Admin: 12/25/16 21:37 Dose: 550 mg Spironolactone (Aldactone -) 50 mg PO BID [facility] Last Admin: 12/25/16 21:36 Dose: 50 mg - Objective Vital Signs: Vital Signs Temperature 99 F 12/26/16 06:00 Pulse Rate 114 H 12/26/16 06:00 Respiratory Rate 18 12/26/16 06:00 Blood Pressure 108/67 12/26/16 06:00 O2 Sat by Pulse Oximetry (%) 98 12/26/16 03:00 Constitutional: Yes: No Distress HENT: Yes: Atraumatic Neck: Yes: Supple Cardiovascular: Yes: Regular Rate and Rhythm Respiratory: Yes: CTA Bilaterally Gastrointestinal: Yes: Ascites, Distention Extremities: Yes: WNL Neurological: Yes: Alert, Oriented Labs: CBC, BMP 12/25/16 06:30 12/25/16 06:30 INR, PTT INR 1.57 (0.82-1.09) H 12/23/16 09:35 Problem List - Problems (1) Increased ammonia level Assessment/Plan: on lactulose clinically doing well, dont look confused Code(s): R79.89 - OTHER SPECIFIED ABNORMAL FINDINGS OF BLOOD CHEMISTRY (2) Anemia of chronic disease Assessment/Plan: fu cbc Code(s): D63.8 - ANEMIA IN OTHER CHRONIC DISEASES CLASSIFIED ELSEWHERE (3) Ascites of liver Assessment/Plan: need paracentesis gi consult pending Code(s): R18.8 - OTHER ASCITES (4) Decreased appetite Code(s): R63.0 - ANOREXIA Assessment/Plan
[2016-12-26] MEDS ORDERED: PT OWN MED DRAWER 7, Y5N ONE ×2 (11:25→20:38)
[2016-12-26] MEDS: SPIRONOLACTONE 25 MG TABLET (FP) PO SCH ×2 (11:29→21:41)
[2016-12-26] MEDS: PANTOPRAZOLE 40 MG TABLET (FP) PO SCH (11:30)
[2016-12-26] MEDS: RIFAXIMIN 550 MG TABLET (UD) PO SCH ×2 (11:30→21:45)
[2016-12-26] MEDS: ALBUMIN HUMAN 25% 12.5 GM/50 ML VIAL IVPB SCH ×2 (12:13→21:41)
--- NOTE | 2016-12-26 15:06 | PN ---
GI Progress Note Subjective: Patient more comfortable Slept well - Objective Vital Signs: Vital Signs Temperature 99.2 F 12/26/16 14:50 Pulse Rate 112 H 12/26/16 14:50 Respiratory Rate 18 12/26/16 14:50 Blood Pressure 108/68 12/26/16 14:50 O2 Sat by Pulse Oximetry (%) 98 12/26/16 03:00 Constitutional: Thin HENT: Yes: Normocephalic Cardiovascular: Yes: Regular Rate and Rhythm Respiratory: Yes: CTA Bilaterally Gastrointestinal Inspection: Yes: Ascites ...Auscultate: Yes: Normoactive Bowel Sounds ...Palpate: Yes: Firm/Rigid Labs: CBC, BMP 12/25/16 06:30 12/25/16 06:30 INR, PTT INR 1.57 (0.82-1.09) H 12/23/16 09:35 Assessment/Plan Patient with ESLD now admitted with massive ascites for paracentesis. States some respiratory embarrassment, particularly when ambulating. Will arrange for paracentesis Mon. FFP ordered to correct coagulopathy. Check PT /INR Aggressive diuresis-diuretic doses increased IV albumin Cont rifaximin and lactulose
[2016-12-26 16:47] LABS: INR 1.73 (0.82-1.09); PROTHROMBIN TIME (PATIENT) 19.2 SEC (9.98-11.88)
[2016-12-27] MEDS: LACTULOSE 20 GM/30 ML UDC (FOR ORAL USE ONLY) PO SCH ×3 (05:41→22:38)
[2016-12-27] MEDS: FUROSEMIDE 40 MG/4 ML INJECTABLE VIAL IVPUSH SCH ×3 (05:41→22:39)
[2016-12-27] MEDS: SPIRONOLACTONE 25 MG TABLET (FP) PO SCH ×2 (09:59→22:37)
[2016-12-27] MEDS: PANTOPRAZOLE 40 MG TABLET (FP) PO SCH (09:59)
[2016-12-27] MEDS: RIFAXIMIN 550 MG TABLET (UD) PO SCH ×2 (10:00→22:38)
[2016-12-27 10:07] LABS: MCH 27.7 pg (25.7-33.7); MCHC 33.3 g/dl (32.0-35.9); MEAN CELL VOLUME 83.2 fl (80-96); PLATELET COUNT 151 K/MM3 (134-434); RDW 17.8 % (11.9-15.9); WHITE BLOOD COUNT 6.3 K/mm3 (4.0-10.0)
[2016-12-27 10:43] LABS: INR 1.65 (0.82-1.09); PROTHROMBIN TIME (PATIENT) 18.3 SEC (9.98-11.88)
[2016-12-27] MEDS: ALBUMIN HUMAN 25% 12.5 GM/50 ML VIAL IVPB SCH (10:51)
[2016-12-27] MEDS ORDERED: ACETAMINOPHEN 325 MG TABLET (FP) PO PRN (12:51)
[2016-12-27] MEDS ORDERED: ACETAMINOPHEN 325 MG TABLET (FP) ONE (12:52)
[2016-12-27] MEDS: SODIUM CHLORIDE 1,000 ML IV SCH (15:35)
[2016-12-27 19:43] LABS: PERITONEAL FLUID LYMPHOCYTE 36 %; PERITONEAL FLUID MACROPHAGE 42 %; PERITONEAL FLUID MESOTHELIAL 1 %; PERITONEAL FLUID MONOCYTE 15 %; PERITONEAL FLUID NEUTROPHIL 4 %; PERITONEAL FLUID PLASMA CELL 2 %
--- NOTE | 2016-12-27 19:52 | PN ---
Progress Note, Physician - Current Medication List Current Medications: Active Medications Acetaminophen (Tylenol -) 650 mg PO Q6H PRN PRN Reason: FEVER OR PAIN Last Admin: 12/27/16 12:53 Dose: 650 mg Furosemide (Lasix Injection -) 40 mg IVPUSH TID [facility] Last Admin: 12/27/16 15:53 Dose: Not Given Lactulose (Cephulac (Oral Use)) 20 gm PO TID [facility] Last Admin: 12/27/16 15:53 Dose: Not Given Pantoprazole Sodium (Protonix -) 40 mg PO DAILY [facility] Last Admin: 12/27/16 09:59 Dose: 40 mg Rifaximin (Xifaxan -) 550 mg PO BID [facility] Last Admin: 12/27/16 10:00 Dose: 550 mg Spironolactone (Aldactone -) 50 mg PO BID [facility] Last Admin: 12/27/16 09:59 Dose: 50 mg - Objective Vital Signs: Vital Signs Temperature 98.6 F 12/27/16 16:17 Pulse Rate 100 H 12/27/16 16:17 Respiratory Rate 20 12/27/16 16:17 Blood Pressure 79/49 12/27/16 16:17 O2 Sat by Pulse Oximetry (%) 95 12/27/16 11:00 Constitutional: Yes: No Distress HENT: Yes: Atraumatic Neck: Yes: Supple Cardiovascular: Yes: Regular Rate and Rhythm Respiratory: Yes: CTA Bilaterally Gastrointestinal: Yes: Ascites, Distention Extremities: Yes: WNL Neurological: Yes: Alert, Oriented Labs: CBC, BMP 12/27/16 09:56 12/25/16 06:30 INR, PTT INR 1.65 (0.82-1.09) H 12/27/16 09:56 Problem List - Problems (1) Increased ammonia level Assessment/Plan: on lactulose clinically doing well, dont look confused Code(s): R79.89 - OTHER SPECIFIED ABNORMAL FINDINGS OF BLOOD CHEMISTRY (2) Anemia of chronic disease Assessment/Plan: fu cbc Code(s): D63.8 - ANEMIA IN OTHER CHRONIC DISEASES CLASSIFIED ELSEWHERE (3) Ascites of liver Assessment/Plan: FOR paracentesis gi consult REVIEWED Code(s): R18.8 - OTHER ASCITES (4) Decreased appetite Code(s): R63.0 - ANOREXIA Assessment/Plan
[2016-12-27] MEDS ORDERED: PT OWN MED DRAWER 7, Y5N ONE (22:18)
[2016-12-28] MEDS: SODIUM CHLORIDE 1,000 ML IV SCH ×2 (03:40→19:40)
[2016-12-28] MEDS: FUROSEMIDE 40 MG/4 ML INJECTABLE VIAL IVPUSH SCH ×3 (05:58→21:59)
[2016-12-28] MEDS: LACTULOSE 20 GM/30 ML UDC (FOR ORAL USE ONLY) PO SCH ×3 (05:58→22:00)
[2016-12-28] MEDS ORDERED: PT OWN MED DRAWER 7, Y5N ONE ×2 (10:03→21:46)
[2016-12-28] MEDS: PANTOPRAZOLE 40 MG TABLET (FP) PO SCH (10:09)
[2016-12-28] MEDS: SPIRONOLACTONE 25 MG TABLET (FP) PO SCH ×2 (10:09→21:59)
[2016-12-28] MEDS: RIFAXIMIN 550 MG TABLET (UD) PO SCH ×2 (10:09→21:59)
--- NOTE | 2016-12-28 19:41 | PN ---
Progress Note, Physician - Current Medication List Current Medications: Active Medications Acetaminophen (Tylenol -) 650 mg PO Q6H PRN PRN Reason: FEVER OR PAIN Last Admin: 12/27/16 12:53 Dose: 650 mg Furosemide (Lasix Injection -) 40 mg IVPUSH TID [facility] Last Admin: 12/28/16 15:08 Dose: Not Given Lactulose (Cephulac (Oral Use)) 20 gm PO TID [facility] Last Admin: 12/28/16 15:11 Dose: 20 gm Pantoprazole Sodium (Protonix -) 40 mg PO DAILY [facility] Last Admin: 12/28/16 10:09 Dose: 40 mg Rifaximin (Xifaxan -) 550 mg PO BID [facility] Last Admin: 12/28/16 10:09 Dose: 550 mg Spironolactone (Aldactone -) 50 mg PO BID [facility] Last Admin: 12/28/16 10:09 Dose: 50 mg - Objective Vital Signs: Vital Signs Temperature 98.5 F 12/28/16 17:00 Pulse Rate 102 H 12/28/16 17:00 Respiratory Rate 20 12/28/16 17:00 Blood Pressure 94/54 12/28/16 17:00 O2 Sat by Pulse Oximetry (%) 95 12/28/16 09:00 Constitutional: Yes: No Distress HENT: Yes: Atraumatic Neck: Yes: Supple Cardiovascular: Yes: Regular Rate and Rhythm Respiratory: Yes: CTA Bilaterally Gastrointestinal: Yes: Normal Bowel Sounds, Other (S/P PARACENTESIS MINIMAL DISTENSION) Extremities: Yes: WNL Neurological: Yes: Alert, Oriented Labs: INR, PTT INR 1.65 (0.82-1.09) H 12/27/16 09:56 Problem List - Problems (1) Increased ammonia level Assessment/Plan: on lactulose clinically doing well, dont look confused Code(s): R79.89 - OTHER SPECIFIED ABNORMAL FINDINGS OF BLOOD CHEMISTRY (2) Anemia of chronic disease Assessment/Plan: fu cbc Code(s): D63.8 - ANEMIA IN OTHER CHRONIC DISEASES CLASSIFIED ELSEWHERE (3) Ascites of liver Assessment/Plan: S/P paracentesis gi consult REVIEWED Code(s): R18.8 - OTHER ASCITES (4) Decreased appetite Code(s): R63.0 - ANOREXIA (5) Hypotension Assessment/Plan: ON IV FLUID WILL STOP AND MONITOR BASELINE HAS LOW BP Code(s): I95.9 - HYPOTENSION, UNSPECIFIED
[2016-12-29] MEDS: LACTULOSE 20 GM/30 ML UDC (FOR ORAL USE ONLY) PO SCH (06:31)
[2016-12-29] MEDS: FUROSEMIDE 40 MG/4 ML INJECTABLE VIAL IVPUSH SCH (06:31)
[2016-12-29 09:30] VITALS: TEMP 98.2
[2016-12-29] MEDS ORDERED: PT OWN MED DRAWER 7, Y5N ONE (09:39)
[2016-12-29] MEDS: RIFAXIMIN 550 MG TABLET (UD) PO SCH (09:40)
[2016-12-29] MEDS: PANTOPRAZOLE 40 MG TABLET (FP) PO SCH (09:40)
[2016-12-29] MEDS: SPIRONOLACTONE 25 MG TABLET (FP) PO SCH (09:40)
[2016-12-29 10:40] VITALS: BP 104/67; PULSE 104
--- NOTE | 2016-12-29 14:35 | DS ---
Physical Examination Vital Signs: Vital Signs Temperature 98.2 F 12/29/16 09:28 Pulse Rate 104 H 12/29/16 10:39 Respiratory Rate 20 12/29/16 10:39 Blood Pressure 104/67 12/29/16 10:39 O2 Sat by Pulse Oximetry (%) 95 12/28/16 21:00 Discharge Summary Reason For Visit: ASCITES OF LIVER Current Active Problems Decreased appetite (Acute) Hepatic encephalopathy (Acute) Hypotension (Acute) Increased ammonia level (Acute) Anemia of chronic disease (Chronic) Ascites of liver (Chronic) - Instructions Diet, Activity, Other Instructions: MONITOR BLOOD PRESSURE DAILY-HOLD LASIX AND ALDACTONE FOR SYSTOLIC BLOOD PRESSURE LESS THAN OR EQUAL TO 90 AND FOR DIASTOLIC BLOOD PRESSURE LESS THAN OR EQUAL TO 60. F/U WITH PRIMARY MEDICAL DOCTOR IN 1 WEEK -AN APPOINTMENT WITH DR GREGORIO JANUARY 03 130PM - PHONE NUMBER IS [phone] Disposition: HOME - Home Medications Comprehensive Discharge Medication List: Ambulatory Orders Folic Acid 1 mg PO DAILY 08/17/16 Pantoprazole Sodium 40 mg PO DAILY 08/17/16 Lactulose (Oral Use) [Cephulac -] 20 gm PO QID #120 udc 08/24/16 Furosemide [Lasix] 40 mg PO DAILY #60 tablet 12/28/16 Rifaximin [Xifaxan -] 550 mg PO BID #60 tablet 12/28/16 Spironolactone [Aldactone -] 50 mg PO DAILY #30 tablet 12/28/16 dc home fu with pmd/gi 1 week
--- NOTE | 2016-12-29 15:44 | PATH ---
Cytology Non-Gynecological Report Patient Name: SONYA YATES [facility]. Rec. #: [id number] /Age/Gender: 1945 (Age: 71) / M Account: [id number] Location: [address] [place] [address] Taken: 12/27/2016 Received: 12/28/2016 Reported: 12/29/2016 Physicians: Brando Escobar M.D. Specimen(s) Received A: ABDOMINAL FLUID IN 50% ALCOHOL B: ABDOMINAL FLUID FRESH Clinical History Ascites Final Diagnosis A,B. ABDOMINAL FLUID, PARACENTESIS: SATISFACTORY FOR EVALUATION. NO MALIGNANT CELLS IDENTIFIED. REACTIVE MESOTHELIAL CELLS, HISTIOCYTES AND LYMPHOCYTES. Electronically Signed Brandt Lin M.D. Gross Description A. Received is a 50 cc of yellow fluid in 50% alcohol. One cytofunnel slide and one cell block are made. B. Received is 8000 cc of yellow fluid fresh. One cytofunnel slide and one cell block are made.
== END 2016-12-29 11:58 | disposition home or self-care (01) | DRG 433 ==
LOC: JER 08:44 → JERBED 12:46 → J5S 15:19 → OBSVTOIN 12-27 21:39
PROVIDERS: ADMIT Internal Medicine; ATTEND Internal Medicine
PROC: 30233K1 Transfusion of Nonautologous Frozen Plasma into Peripheral Vein, Percutaneous Approach (ICD-10-PCS; 2016-12-26)
PROC: 0W9G3ZX Drainage of Peritoneal Cavity, Percutaneous Approach, Diagnostic (ICD-10-PCS; principal; 2016-12-27)
DX: K74.60 Unspecified cirrhosis of liver (principal); R18.8 Other ascites; E72.20 Disorder of urea cycle metabolism, unspecified; D68.9 Coagulation defect, unspecified; B19.20 Unspecified viral hepatitis C without hepatic coma; F03.90 Unspecified dementia, unspecified severity, without behavioral disturbance, psychotic disturbance, mood disturbance, and anxiety; R63.0 Anorexia; D63.8 Anemia in other chronic diseases classified elsewhere; I95.9 Hypotension, unspecified; K72.90 Hepatic failure, unspecified without coma
CPT/HCPCS: 36415; 36430; 71010-TC; 76705-TC; 76942-TC; 80053; 81003; 82042; 82105; 82140; 82150; 82945; 83615; 83735; 83880; 84157; 84478; 85025; 85027; 85610; 85730; 86850; 86900; 86901; 87070; 87075; 87086; 87102; 87116; 87205; 87206; 87210; 88108; 88305-TC; 89051; 93005; 93010; 99284-25; G0378; P9017; P9047

== ENCOUNTER 2017-02-04 09:14 | Emergency (ER) | payer OTHER ==
[2017-02-04 09:19] VITALS: TEMP 98.1; BMI 23.7
[2017-02-04 10:09] LABS: BASOPHIL 0.4 % (0-2.0); EOSINOPHIL 0.1 % (0-4.5); MCH 29.2 pg (25.7-33.7); MEAN CELL VOLUME 88.4 fl (80-96); MEAN PLT VOLUME 7.5 fl (7.5-11.1); NEUTROPHILS 84.4 % (42.8-82.8); PLATELET COUNT 181 K/MM3 (134-434); RDW 19.9 % (11.9-15.9); WHITE BLOOD COUNT 6.2 K/mm3 (4.0-10.0)
--- NOTE | 2017-02-04 10:10 | PDOC ---
History of Present Illness - General Chief Complaint: Pain Stated Complaint: (PCP SENT) Time Seen by Provider: 02/04/17 09:45 - History of Present Illness Initial Comments: 02/04/17 10:32 71 year old male with a significant past medical history of dementia, Hep C, and cirrhotic ESLD, presenting to the Emergency Department with abdominal distension, occasional abd pain, and occasional SOB. The patient reports that his abdomen has become increasingly more bloated over the past two weeks. He only occasional has SOB and achy non radiating generalized abdominal pain. All these are consistent with symptoms that he has had in the past when his abdomen becomes distended. He was seen by his GI doctor Chantal two days ago who wrote him a prescription for a paracentesis. He is in the ED today because (per his insurance) he has to be evaluated by the ER before undergoing paracentesis. He admits to slightly decreased appetite in the setting of this increased abdominal distension. He also has had persistent diarrhea over the past week. He states that he hasn't been compliant with his medications because no one has sent his prescriptions to the pharmacy over the last few months. Denies fevers, chills, nausea, vomiting, chest pain, or other sick symptoms. His GI doctor is Chaz Cornejo and his PCP is Dr. Sterling. Past History - Past Medical History Allergies/Adverse Reactions: Allergies Allergy/AdvReac Type Severity Reaction Status Date / Time No Known Allergies Allergy Verified 02/04/17 09:16 Home Medications: Ambulatory Orders Lactulose (Oral Use) [Cephulac -] 20 gm PO QID #120 udc 08/24/16 Furosemide [Lasix] 40 mg PO DAILY #14 tablet 02/04/17 Dementia: Yes GI Disorders: Yes (cirrhosis, hepatitis C) - Psycho/Social/Smoking Cessation Hx Anxiety: No Suicidal Ideation: No Smoking History: Never smoked Have you smoked in the past 12 months: No Information on smoking cessation initiated: No Hx Alcohol Use: No Drug/Substance Use Hx: No Substance Use Type: None Hx Substance Use Treatment: No Review of Systems - Review of Systems Constitutional: No: Chills, Diaphoresis, Fever HEENTM: No: Blurred Vision, Double Vision Respiratory: Yes: Shortness of Breath, SOB with Exertion. No: Cough, Orthopnea , SOB at Rest, Stridor, Wheezing, Productive cough Cardiac (ROS): No: Chest Pain, Edema, Irregular Heart Rate, Lightheadedness, Palpitations, Syncope, Chest Tightness ABD/GI: Yes: Abdominal Distended, Diarrhea, Poor Appetite. No: Abd. Pain w/ defecation, Blood Streaked Bowels, Constipated, Difficulty Swallowing, Nausea : No: Dysuria, Incontinence Musculoskeletal: No: Joint Swelling, Muscle Pain, Muscle Weakness Integumentary: No: Erythema Neurological: No: Headache, Weakness *Physical Exam - Vital Signs Last Vital Signs Temp Pulse Resp BP Pulse Ox 98.1 F 111 H 18 98/73 100 02/04/17 09:17 02/04/17 09:17 02/04/17 09:17 02/04/17 09:02/04/17 09:17 - Physical Exam General Appearance: Yes: Nourished. No: Apparent Distress HEENT: positive: EOMI, CATALINO. negative: Scleral Icterus (R), Scleral Icterus (L) , Muffled/Hoarse voice Neck: positive: Normal Thyroid. negative: Tender Respiratory/Chest: positive: Lungs Clear, Normal Breath Sounds. negative: Chest Tender, Respiratory Distress, Accessory Muscle Use, Labored Respiration Cardiovascular: positive: Regular Rhythm, S1, S2, Other (slightly tachycardic). negative: Edema, JVD, Murmur Gastrointestinal/Abdominal: positive: Normal Bowel Sounds, Soft, Protuberent, Distended, Other (Ventral supraumbilcal hernia. Distended non-tympanic.). negative: Tender Musculoskeletal: positive: Normal Inspection Neurologic: positive: Fully Oriented, Alert, Normal Mood/Affect ED Treatment Course - LABORATORY CBC & Chemistry Diagram: 02/04/17 10:03 02/04/17 10:03 Medical Decision Making - Medical Decision Making 02/04/17 11:04 71 year old male with ESLD and history of ascites presenting with abdominal distension that has been gradually worsening over the past two weeks with occasional SOB, and abdominal pain. Does have diarrhea but no fever. Diarrhea most likely secondary to lactulose usage. Patient mentating well so he is therapeutic on lactulose. Will get CBC, BMP, coags, and send for US guided paracentesis then DC home if all goes well. 02/04/17 11:13 Labs returned with hyponatremia 133, elevated creatinine 1.4 (0.9 one month ago) , and slightly elevated bilirubin (1.3). No need to acutely treat any of these in the ED but needs to be evaluated for octreotide and/or midodrine usage for what is quite possibly HRS Type II 02/04/17 11:16 Patient returned from US guided paracentesis without issue. 25 G of Albumin were given during his 9.2 Liter paracentesis. His pressures have been above 100 systolic so patient can go home. *DC/Admit/Observation/Transfer Diagnosis at time of Disposition: Ascites - Discharge Dispostion Disposition: HOME Condition at time of disposition: Improved Admit: No - Prescriptions Prescriptions: Furosemide [Lasix] 40 mg PO DAILY #14 tablet - Referrals Referrals: Jacques Cid MD [Primary Care Provider] - - Patient Instructions Printed Discharge Instructions: Ascites Additional Instructions: You were seen for fluid in your stomach. We removed 9.2L and gave you some medicine to help keep your blood pressure elevated. We understand that you have run out of your medications at home so we will prescribe you your water pills for two weeks. Please follow up with your primary care doctor in order to get a refill for all of your other medications and for additional water pills. Please return to the ED if you have fevers, chills, or other sick symptoms. Print Language: [place] - Attestations Physician Attestion: 02/04/17 15:48 I, Dr. Karlene العراقي, attest that this document has been prepared under my direction and personally reviewed by me in its entirety. I further attest, that it accurately reflects all work, treatment, procedures and medical decision -making performed by me. 02/04/17 15:48
[2017-02-04 10:34] LABS: ALBUMIN 2.8 g/dl (3.4-5.0); ANION GAP 10 (8-16); CALCIUM 8.8 mg/dL (8.5-10.1); CO2 21 mmol/L (21-32); CREATININE 1.4 mg/dL (0.7-1.3); GLUCOSE,RANDOM 102 mg/dL (74-106); SGOT/AST 33 U/L (15-37); SGPT/ALT 16 U/L (12-78); TOT PROT 7.8 g/dl (6.4-8.2)
[2017-02-04 10:39] LABS: ALK PHOS 74 U/L (45-117); BILIRUBIN,TOTAL 1.3 mg/dL (0.2-1.0)
[2017-02-04 10:57] LABS: PROTHROMBIN TIME (PATIENT) 18.1 SEC (9.98-11.88)
[2017-02-04 10:58] LABS: INR 1.63 (0.82-1.09)
--- NOTE | 2017-02-04 11:13 | PDOC ---
Attending Attestation - Resident Resident Name: Dulce MariaKayleyivone - ED Attending Attestation I have performed the following: I have examined & evaluated the patient, The case was reviewed & discussed with the resident, I agree w/resident's findings & plan, Exceptions are as noted - HPI HPI: 02/04/17 11:59 71y M hx of cirhossis presenting with for paracentesis, pt states abd increasing in girth, and feeling distended, mild sob, no associated fever/chills , n/v, back pain. on exam pt has large ascetic abdomen, non tender to palpation , and pt is otherwise well appearing. will ck basic labs, INR, will obtain paracentesis bp slightly low, but likely normal for cirrotic pt 02/04/17 15:59 pt s/p paracentsis vitals normal pt feeling improved will dc the pt with pmd fu return precautions were discussed - Physicial Exam PE: 02/04/17 19:44 see above - Medical Decision Making 02/04/17 19:44 see above Heart Score/ECG Review - ECG Impressions Comment:: 02/04/17 12:02 Twelve-lead EKG was performed and reviewed by me. There is normal sinus rhythm with a rate of 104 The axis is normal. The intervals are normal. There are no ST or T wave abnormalities.
[2017-02-04] MEDS ORDERED: ALBUMIN HUMAN 25% 12.5 GM/50 ML VIAL IVPB ONE (13:02)
[2017-02-04 14:56] VITALS: BP 100/59; PULSE 99
--- NOTE | 2017-02-05 08:33 | EKG ---
Test Reason : Blood Pressure : / mmHG Vent. Rate : 104 BPM Atrial Rate : 104 BPM P-R Int : 128 ms QRS Dur : 072 ms QT Int : 332 ms P-R-T Axes : 048 051 013 degrees QTc Int : 436 ms SINUS TACHYCARDIA LOW VOLTAGE QRS CANNOT RULE OUT ANTERIOR INFARCT (CITED ON OR BEFORE 23-DEC-2016) ABNORMAL ECG WHEN COMPARED WITH ECG OF 23-DEC-2016 09:54, MINIMAL CRITERIA FOR INFERIOR INFARCT ARE NO LONGER PRESENT Confirmed by LEONIDAS TORRES MD ([id number]) on 02/05/2017 8:33:33 AM Referred By: Confirmed By:LEONIDAS TORRES MD
== END 2017-02-04 15:58 | disposition home or self-care (01) ==
LOC: JER 09:14
PROC: 3E033GC Introduction of Other Therapeutic Substance into Peripheral Vein, Percutaneous Approach (ICD-10-PCS; principal; 2017-02-04)
DX: R18.8 Other ascites (principal); B19.20 Unspecified viral hepatitis C without hepatic coma; F03.90 Unspecified dementia, unspecified severity, without behavioral disturbance, psychotic disturbance, mood disturbance, and anxiety; K74.60 Unspecified cirrhosis of liver
CPT/HCPCS: 36415; 76942-TC; 80053; 85025; 85610; 93005; 93010; 96374; 99282-25; P9047

== ENCOUNTER 2019-06-14 15:03 | Inpatient (IN) | payer OTHER ==
--- NOTE | 2019-06-14 15:07 | PDOC ---
Rapid Medical Evaluation Time Seen by Provider: 06/14/19 15:06 Medical Evaluation: Allergies Allergy/AdvReac Type Severity Reaction Status Date / Time No Known Allergies Allergy Verified 02/04/17 09:16 06/14/19 15:06 I have performed a brief in-person evaluation of this patient. The patient presents with a chief complaint of: cirrhosis, ascites, confusion Pertinent physical exam findings:stable and in NAD, non-focal I have ordered the following:labs The patient will proceed to the ED for further evaluation.
[2019-06-14 15:10] VITALS: BMI 25.3
[2019-06-14 15:54] LABS: BASO % 0.8 % (0-2.0); EOS % 2.3 % (0-4.5); HEMATOCRIT 28.8 % (35.4-49); HEMOGLOBIN 9.1 GM/dL (11.7-16.9); LYMPH % 9.3 % (8-40); MCH 27.4 pg (25.7-33.7); MCHC 31.6 g/dl (32.0-35.9); MEAN CELL VOLUME 86.7 fl (80-96); MEAN PLT VOLUME 8.4 fl (7.5-11.1); MONO % 14.5 % (3.8-10.2); NEUT % 73.1 % (42.8-82.8); PLATELET COUNT 168 K/MM3 (134-434); RBC 3.32 M/mm3 (4.00-5.60); RDW 19.1 % (11.9-15.9); WHITE BLOOD COUNT 7.6 K/mm3 (4.0-10.0)
--- NOTE | 2019-06-14 16:01 | PDOC ---
History of Present Illness - General Chief Complaint: Altered Mental Status Stated Complaint: WEAK/CONFUSED Time Seen by Provider: 06/14/19 15:06 History Source: Patient, Family Exam Limitations: Clinical Condition - History of Present Illness Initial Comments: 73 year old male with PMH ETOH abuse, liver cirrhosis, HCV presented to ED with daughter for confusion since this AM, associated with increased abdominal distension xa few days. Daughter reported she lives with the patient, and although his baseline mental status is orientedx3, he will not take his medications on his own. She reported yesterday she was unable to come home, and she believes he did not take his medications, because the last time he was confused like this he had missed his medications. She reported he was discharged as an inpatient from [facility] last Tuesday for a therapeutic ascites tap. She denied confusion/fever for prior admission. Pt is able to communicate that he is not in pain, but will not always respond to the daughter , seems more confused. ROS - unable to perform 2/2 pt's confusion PE Constitutional: Well-nourished, Well-developed, appearing stated age. HEENT: head is normocephalic, atraumatic. EOMI. PERRLA. Neck: supple. Full ROM. Cardiovascular: regular heart rhythm. no murmurs. no pericardial friction rub. Respiratory: decreased lung sounds right base. rhonchi left base. no labored breathing. no wheezing. no stridor. Gastrointestinal: soft, distended, nontender to palpation. shifting dullness normal bowel sounds. no rebound, guarding, masses. Extremities: peripheral pulses intact. no lower extremity edema. Neurological: CN 2-12 grossly intact. moves all four extremities. Psych: awake, alert, oriented to person. intermittently follows commands. Past History - Past Medical History Allergies/Adverse Reactions: Allergies Allergy/AdvReac Type Severity Reaction Status Date / Time No Known Allergies Allergy Verified 06/14/19 15:10 Home Medications: Ambulatory Orders Lactulose (Oral Use) [Cephulac -] 20 gm PO QID #120 udc 08/24/16 Furosemide [Lasix] 40 mg PO DAILY #14 tablet 02/04/17 Spironolactone 50 mg PO DAILY 06/14/19 Metoprolol Succinate 25 mg PO DAILY 06/15/19 Pantoprazole Sodium [Protonix] 40 mg PO DAILY 06/15/19 COPD: No Dementia: Yes GI Disorders: Yes (cirrhosis, hepatitis C) - Psycho Social/Smoking Cessation Hx Smoking History: Never smoked Have you smoked in the past 12 months: No Hx Alcohol Use: Yes Drug/Substance Use Hx: No Substance Use Type: None Hx Substance Use Treatment: No *Physical Exam - Vital Signs Last Vital Signs Temp Pulse Resp BP Pulse Ox 97.5 F L 106 H 18 103/70 98 06/14/19 15:05 06/14/19 15:05 06/14/19 15:05 06/14/19 15:05 06/14/19 15:05 ED Treatment Course - LABORATORY CBC & Chemistry Diagram: 06/15/19 07:36 06/15/19 07:36 - ADDITIONAL ORDERS Additional order review: 06/14/19 15:31 RBC 3.32 L MCV 86.7 MCHC 31.6 L RDW 19.1 H MPV 8.4 D Neutrophils % 73.1 Lymphocytes % 9.3 D Monocytes % 14.5 H Eosinophils % 2.3 D Basophils % 0.8 Medical Decision Making - Medical Decision Making 73 year old male with above PMH presented to ED for confusion since this AM, suspected to have not taken his medications yesterday or today. Initial Vital Signs Temp Pulse Resp BP Pulse Ox 97.5 F L 106 H 18 103/70 98 06/14/19 15:05 06/14/19 15:05 06/14/19 15:05 06/14/19 15:05 06/14/19 15:05 Afebrile. Tachycardic. No tachypnea. Mild hypotension. No hypoxia on room air today. Medications ordered: Lactulose 20g PO once Imaging ordered: CXR, CT head EKG performed at 1651: rate 108, regular rhythm, normal axis, normal intervals, no acute ST changes. CBC WBC 7.6 K/mm3 (4.0-10.0) 06/14/19 15:31 RBC 3.32 M/mm3 (4.00-5.60) L 06/14/19 15:31 Hgb 9.1 GM/dL (11.7-16.9) L 06/14/19 15:31 Hct 28.8 % (35.4-49) L 06/14/19 15:31 MCV 86.7 fl (80-96) 06/14/19 15:31 MCH 27.4 pg (25.7-33.7) 06/14/19 15:31 MCHC 31.6 g/dl (32.0-35.9) L 06/14/19 15:31 RDW 19.1 % (11.9-15.9) H 06/14/19 15:31 Plt Count 168 K/MM3 (134-434) 06/14/19 15:31 MPV 8.4 fl (7.5-11.1) D 06/14/19 15:31 Absolute Neuts (auto) 5.5 K/mm3 (1.5-8.0) 06/14/19 15:31 Neutrophils % 73.1 % (42.8-82.8) 06/14/19 15:31 Lymphocytes % 9.3 % (8-40) D 06/14/19 15:31 Monocytes % 14.5 % (3.8-10.2) H 06/14/19 15:31 Eosinophils % 2.3 % (0-4.5) D 06/14/19 15:31 Basophils % 0.8 % (0-2.0) 06/14/19 15:31 Nucleated RBC % 0 % (0-0) 06/14/19 15:31 No leukocytosis. Normcytic anemia. No thrombocytopenia. CMP Sodium 136 mmol/L (136-145) 06/14/19 15:31 Potassium 4.9 mmol/L (3.5-5.1) 06/14/19 15:31 Chloride 106 mmol/L (98-107) 06/14/19 15:31 Carbon Dioxide 23 mmol/L (21-32) 06/14/19 15:31 Anion Gap 7 MMOL/L (8-16) L 06/14/19 15:31 BUN 30.0 mg/dL (7-18) H 06/14/19 15:31 Creatinine 1.5 mg/dL (0.55-1.3) H 06/14/19 15:31 Est GFR (CKD-EPI)AfAm 53.14 06/14/19 15:31 Est GFR (CKD-EPI)NonAf 45.85 06/14/19 15:31 Random Glucose 97 mg/dL (74-106) 06/14/19 15:31 Calcium 8.9 mg/dL (8.5-10.1) 06/14/19 15:31 Total Bilirubin 1.8 mg/dL (0.2-1) H 06/14/19 15:31 AST 47 U/L (15-37) H 06/14/19 15:31 ALT 25 U/L (13-61) 06/14/19 15:31 Alkaline Phosphatase 147 U/L (45-117) H 06/14/19 15:31 Ammonia 74.10 umol/L (11-32) H 06/14/19 15:31 Total Protein 7.6 g/dl (6.4-8.2) 06/14/19 15:31 Albumin 2.2 g/dl (3.4-5.0) L 06/14/19 15:31 Hyperammonemia. 06/14/19 17:46 ETOH level negative. 06/14/19 18:55 Paracentesis for diagnositic tap performed by myself with Dr. Woods (PGY3) and Dr. Quintanilla (attending). CXR report: Name: SONYA YATES DEPARTMENT OF RADIOLOGY Phys: Rosangela Moyer RESIDENT : 1945 Age: 73 Sex: M [facility] Acct: [id number] Loc: [address] Exam Date: 06/14/19 Status: [facility] [place] [address] Unit Number: [id number] EXAM#: TYPE/EXAM: RESULT: [id number] RAD/CHEST X-RAY PORTABLE* Chest: Cirrhosis. Shortness of breath A single view of the chest been submitted. Since 12/23/2016, again noted is the weak inspiration. There is new fluid with atelectasis or infiltrate on the right, chin artifact, tracheal deviation to the right from a prominent knob, prominent hilar markings and minimal atelectasis at the left base. The bones and soft tissues are intact. Correlation recommended. Reported By: Robert Sheldon MD 06/14/[address] head report: Name: SONYA YATES DEPARTMENT OF RADIOLOGY Phys: Rosangela Moyer RESIDENT : 1945 Age: 73 Sex: M [facility] Acct: [id number] Loc: [facility] Exam Date: 06/14/19 Status: DIONNE Santiago Unit Number: [id number] EXAM#: TYPE/EXAM: RESULT: [id number] CT/HEAD CT WITHOUT CONTRAST Cranial CT without contrast Clinical information: altered mental status, history of liver cirrhosis Multiplanar imaging was performed. Intravenous contrast was not administered. No intracranial hemorrhage is seen. There is no extra-axial fluid collection. No acute infarct is identified within the limitations of CT. There is a probable small chronic infarct within the left frontal walter radiata. Mild periventricular chronic microvascular ischemic changes are noted. No gross mass lesion is noted. Involutional changes are seen with mild ventricular dilatation. The calvarium appears intact. Impression: No CT evidence of acute intracranial pathology. Possible small chronic left frontal subcortical white matter infarct. No definite interval change is identified in comparison to a prior CT exam of 08/17/2016. Reported By: Stef Escobar MD 06/14/19 8447 Medications ordered: Vancomycin, Zosyn Pt's daughter reported she does not know the name of the PCP, but that they follow at [address] [place] [address]. 06/14/19 19:04 Daughter just reported she called her sister, Pt's PCP is Dr. De Los Santos Discharge - Discharge Information Problems reviewed: Yes Clinical Impression/Diagnosis: AMS (altered mental status), Hyperammonemia, Ascites, Pneumonia Condition: Stable - Admission Yes - Follow up/Referral - Patient Discharge Instructions - Post Discharge Activity
[2019-06-14 16:06] LABS: INR 1.6 (0.83-1.09)
[2019-06-14 16:09] LABS: ACTIVATED PTT 35.8 SECONDS (25.2-36.5)
[2019-06-14 16:24] LABS: ALBUMIN 2.2 g/dl (3.4-5.0); ALK PHOS 147 U/L (45-117); ANION GAP 7 MMOL/L (8-16); BILIRUBIN,TOTAL 1.8 mg/dL (0.2-1); CALCIUM 8.9 mg/dL (8.5-10.1); CHLORIDE 106 mmol/L (98-107); CO2 23 mmol/L (21-32); CREATININE 1.5 mg/dL (0.55-1.3); GLUCOSE,RANDOM 97 mg/dL (74-106); POTASSIUM 4.9 mmol/L (3.5-5.1); SGOT/AST 47 U/L (15-37); SGPT/ALT 25 U/L (13-61); SODIUM 136 mmol/L (136-145); TOT PROT 7.6 g/dl (6.4-8.2)
[2019-06-14] MEDS ORDERED: LACTULOSE 20 GM/30 ML UDC (FOR ORAL USE ONLY) PO ONE (16:31)
[2019-06-14] MEDS ORDERED: LACTULOSE 20 GM/30 ML UDC (FOR ORAL USE ONLY) ONE (16:47)
[2019-06-14] MEDS ORDERED: LIDOCAINE HCL 1%, 10 MG/ML (50 mL VIAL) SQ ONE (18:14)
[2019-06-14] MEDS ORDERED: VANCOMYCIN 1,000 MG in DEXTROSE 5%-WATER - 250 ML IVPB ONE (18:55)
[2019-06-14] MEDS ORDERED: PIPERACILLIN/TAZOB 4.5 GM 4.5 GM in DEXTROSE 5%-WATER 100 ML IVPB ONE (18:55)
[2019-06-14 19:17] LABS: BF WBC & OTHER NUCLEATED CELLS 58 /mm3
--- NOTE | 2019-06-14 19:19 | PDOC ---
Documentation entered by Srea Holguin SCRIBE, acting as scribe for Moises Quintanilla MD. Moises Quintanilla MD: This documentation has been prepared by the Ezio gonzales Nirvannie, SCRIBE, under my direction and personally reviewed by me in its entirety. I confirm that the documentation accurately reflects all work, treatment, procedures, and medical decision making performed by me. Attending Attestation - Resident Resident Name: Rosangela Moyer - ED Attending Attestation I have performed the following: I have examined & evaluated the patient, The case was reviewed & discussed with the resident, I agree w/resident's findings & plan, Exceptions are as noted - HPI HPI: 06/14/19 17:01 The patient is a 73 year old male, with a significant past medical history of EtOH abuse, liver cirrhosis, and Hepatitis C, who presents to the emergency department with 1 day of AMS with associated few days of increased abdominal distension. As per daughter at bedside, patient is normally noncompliant with medications unless she is present which she was not over the past few days. She reported he was discharged as an inpatient from [facility] last Tuesday where he was admitted for a therapeutic ascites tap. Allergies: NKDA - Physicial Exam PE: 06/14/19 18:30 Agree with resident exam - Medical Decision Making 06/14/19 19:12 73-year-old male with a history of hepatitis C and alcohol abuse, with recent admission to [facility] for therapeutic paracentesis who presents emergency department with abdominal distention and confusion. Vitals with elevated heart rate. Exam with jaundiced pt, confusion, distended abd. Labs consistent with liver failure with elevated bili, coags. Ammonia levels also elevated consistent with hepatic encephalopathy. Given tachycardia and encephalopathy, a diagnostic paracentesis was performed to rule out PE. Pt's daughter was consented. Risks and benefits explained. See Dr. Moyer's note for procedure details. Results are pending. Chest x-ray is remarkable for possible right-sided infiltrate. Given recent admission to [facility] and tachycardia, pt covered empirically with Vanc/Zosyn. Pt admitted for further mgmt to Dr. Mancini Case discussed in detail with admitting physician including history, physical exam and ancillary studies. Admitting physician has assumed care for the patient, will follow all pending diagnostics and will complete the evaluation and treatment.
--- NOTE | 2019-06-14 19:20 | PN ---
Teaching Attending Note Name of Resident: Karthik Loza ATTENDING PHYSICIAN STATEMENT I saw and evaluated the patient. I reviewed the resident's note and discussed the case with the resident. I agree with the resident's findings and plan as documented. SUBJECTIVE: Patient is a 73 year old man with PMH ETOH abuse, Liver cirrhosis, Hepatitis C disease and Dementia who presents to the ER with daughter for confusion since this AM, associated with increased abdominal distension for a few days. Daughter reported she lives with the patient, and although his baseline mental status is orientedx3, he will not take his medications on his own. She reported yesterday she was unable to come home, and she believes he did not take his medications, because the last time he was confused like this he had missed his medications. She reported he was discharged as an inpatient from [facility] last Tuesday for a therapeutic ascites tap. She denied confusion/fever for prior admission. Pt is able to communicate that he is not in pain, but will not always respond to the daughter, seems more confused. OBJECTIVE: Alert Vital Signs Period Temp Pulse Resp BP Sys/Webster Pulse Ox Last 24 Hr 97.5 F 106-106 18-20 103-117/70-91 98-98 HEENT: No Jaundice, eye redness or discharge, PERRLA, EOMI. Normocephalic, atraumatic. External ears are normal and hearing is grossly intact. No nasal discharge. Neck: Supple, nontender. No palpable adenopathy or thyromegaly. No JVD Chest: Good effort. Clear to auscultation and percussion. Heart: Regular. No S3, rub or murmur Abdomen: Distended, soft, nontender and no HSM. No rebound or guarding. Normal bowel sounds. Ext: Peripheral pulses intact. No leg edema. Skin: Warm and dry. No petechiae, rash or ecchymosis. Neuro: Alert. Oriented person and place. No asterexis. CN 2-12 grossly intact. Sensation grossly intact in all four extremities and DTR are symmetric. Psych: Appropriate mood and affect. Good insight. Current Medications Generic Name Dose Route Start Last Admin Trade Name Freq PRN Reason Stop Dose Admin Vancomycin HCl 1,000 mg/ 250 mls @ 166.667 mls/hr 06/14/19 18:55 Dextrose IVPB 06/14/19 20:24 ONCE ONE Protocol Home Medications Medication Instructions Recorded Lactulose (Oral Use) [Cephulac -] 20 gm PO QID #120 udc 08/24/16 Furosemide [Lasix] 40 mg PO DAILY #14 tablet 02/04/17 Spironolactone 50 mg PO DAILY 06/14/19 Abnormal Lab Results 06/14/19 06/14/19 06/14/19 15:31 15:31 15:31 RBC 3.32 L Hgb 9.1 L Hct 28.8 L MCHC 31.6 L RDW 19.1 H Monocytes % 14.5 H PT with INR INR Anion Gap 7 L BUN 30.0 H Creatinine 1.5 H Total Bilirubin 1.8 H AST 47 H Alkaline Phosphatase 147 H Ammonia 74.10 H LD Total Albumin 2.2 L 06/14/19 06/14/19 15:31 18:43 RBC Hgb Hct MCHC RDW Monocytes % PT with INR 19.00 H INR 1.60 H Anion Gap BUN Creatinine Total Bilirubin AST Alkaline Phosphatase Ammonia LD Total 269 H Albumin ASSESSMENT AND PLAN: 1. Hepatic encephalopathy - No obvious precipitating infection. Urinalysis and result of ascitic fluid analysis pending. CXR shows poor inspiration, pulmonary vascular congestion and bibasilar atelectasis. EKG shows sinus tachycardia and low QRS voltage. Will treat with lactulose 30 ml q 6 hours and rifaximin 550 mg q 12 hours and ensure adequate electrolyte levels. Do neurochecks, trend LFTs and implement seizure and fall precautions. Will continue comprehensive care for all of patients comorbid conditions. 2. Hypoalbuminemia - Possibly due to combined effects of malnutrition and inflammation associated with comorbid chronic conditions. Will ensure adequate dietary protein intake and also consult chief librarian circulation department. 3. BECKA - Cause unclear. Will get kidney sonogram, urinalysis, consult nephrology and avoid nephrotoxic agents such as NSAIDS, aminoglycosides, contrast dyes and certain Alternative medicine products. 4. Anemia - Likely multifactorial. Will do basic anemia work up including serial stool guaiacs, reticulocyte count and iron studies. 5. Alcohol abuse - Implement [facility] alcohol withdrawal protocol and do neurochecks. Implement seizure, fall and aspiration precautions. Treat with thiamine and folic acid and monitor electrolytes (Ca,Mg,K,P). Counseled patient about abstaining from alcohol. Will consult mobile security specialist and refer to alcohol detox upon discharge. 6. DVT prophylaxis - Heparin 5000 units SQ tid. 7. Advance directives - Full code
--- NOTE | 2019-06-14 20:08 | HP ---
CHIEF COMPLAINT: AMS PCP: Dr. De Los Santos HISTORY OF PRESENT ILLNESS: 73 year old male with PMHx of dementia, ? TIA (2018 ) with no residual deficits, alcohol abuse, liver cirrhosis complicated by ascites, presenting to the ED with daughter due to altered mental status. Daughter states that she usually gives patient his medications, but because she was not home yesterday, patient forgot to take them and was acting very differently than his norm. Daughter states that this has happened in the past when patient forgets his medications, but over a course of a few days; this episode is different as patient was alert and oriented yesterday. She noticed food thrown out of the refrigerator and patient being more agitated than normal. She also notes that patient has had increased abdominal distention for the past 3 days and mild shortness of breath for 1 week. Patient had a therapeutic ascites tap at [facility] one week ago, not found to be significant for SBP. Per daughter, patient usually drinks about one 4 quart bottle of arash per day for the past 30 years; his last drink was about 2 weeks ago, but daughter states patient seeks out to consume his liquor. He is a nonsmoker. Daughter denies any changes in stool color, hematemesis, abd pain, anxiety, chills, fever, nausea, vomiting, chest pain, or other problems at this time. Patient last had a colonoscopy at [facility] about 6 months ago and sees a field technical specialist at [facility] (daughter unable to recall name). Immunizations up to date. Patient has received the flu shot. No recent travels. Daughter is unaware of any pertinent past family history. ER course was notable for: (1) ct head negative (2) trop 0.06, 0.05, ekg sinus tachy (3) vanc/zosyn given, dx and Rx paracentesis of ascitic fluid done PAST SURGICAL HISTORY: Social History: Smoking: denies Alcohol: Drugs: denies Allergies No Known Allergies Allergy (Verified 06/14/19 15:10) HOME MEDICATIONS: Home Medications Medication Instructions Recorded Lactulose (Oral Use) [Cephulac -] 20 gm PO QID #120 udc 08/24/16 Furosemide [Lasix] 40 mg PO DAILY #14 tablet 02/04/17 Spironolactone 50 mg PO DAILY 06/14/19 REVIEW OF SYSTEMS negative except in HPI PHYSICAL EXAMINATION Vital Signs - 24 hr 06/14/19 06/14/19 15:05 18:46 Temperature 97.5 F L Pulse Rate 106 H Pulse Rate [ 106 H Apical] Respiratory 18 20 Rate Blood Pressure 103/70 Blood Pressure 117/91 [Right Arm] O2 Sat by Pulse 98 98 Oximetry (%) GENERAL: Altered, AO X 1 (self), however responsive to commands. HEAD: Normal with no signs of trauma. EYES: Pupils equal, round and reactive to light, extraocular movements intact, sclera icteric EARS, NOSE, THROAT: Ears normal, nares patent, oropharynx clear without exudates. Moist mucous membranes. NECK: Normal range of motion, supple without lymphadenopathy, JVD, or masses. LUNGS: Breath sounds diminished especially at bases, crackles on exam HEART: tachycardic and regular rhythm, normal S1 and S2 without murmur, rub or gallop. ABDOMEN: globose ascites with caput medusae present, hepatomegaly present MUSCULOSKELETAL: Normal range of motion at all joints. No bony deformities or tenderness. No CVA tenderness. UPPER EXTREMITIES: no palmar erythema, tremulous, no asterixis present LOWER EXTREMITIES: 2+ pulses, warm, well-perfused. No calf tenderness. No peripheral edema. dry skin b/l NEUROLOGICAL: Cranial nerves II-XII intact. tough to assess speech PSYCHIATRIC: minimally cooperative. SKIN: Warm, dry, poor skin turgor, no palmar erythema, mild jaundice Laboratory Results - last 24 hr 06/14/19 06/14/19 06/14/19 15:31 15:31 15:31 WBC 7.6 RBC 3.32 L Hgb 9.1 L Hct 28.8 L MCV 86.7 MCH 27.4 MCHC 31.6 L RDW 19.1 H Plt Count 168 MPV 8.4 D Absolute Neuts (auto) 5.5 Neutrophils % 73.1 Lymphocytes % 9.3 D Monocytes % 14.5 H Eosinophils % 2.3 D Basophils % 0.8 Nucleated RBC % 0 PT with INR INR PTT (Actin FS) Sodium 136 Potassium 4.9 Chloride 106 Carbon Dioxide 23 Anion Gap 7 L BUN 30.0 H Creatinine 1.5 H Est GFR (CKD-EPI)AfAm 53.14 Est GFR (CKD-EPI)NonAf 45.85 Random Glucose 97 Calcium 8.9 Total Bilirubin 1.8 H AST 47 H ALT 25 Alkaline Phosphatase 147 H Ammonia 74.10 H LD Total Total Protein 7.6 Albumin 2.2 L Fluid Source Fluid WBC Fluid RBC Alcohol, Quantitative < 3.0 06/14/19 06/14/19 06/14/19 15:31 18:43 18:43 WBC RBC Hgb Hct MCV MCH MCHC RDW Plt Count MPV Absolute Neuts (auto) Neutrophils % Lymphocytes % Monocytes % Eosinophils % Basophils % Nucleated RBC % PT with INR 19.00 H INR 1.60 H PTT (Actin FS) 35.8 Sodium Potassium Chloride Carbon Dioxide Anion Gap BUN Creatinine Est GFR (CKD-EPI)AfAm Est GFR (CKD-EPI)NonAf Random Glucose Calcium Total Bilirubin AST ALT Alkaline Phosphatase Ammonia LD Total 269 H Total Protein Albumin Fluid Source Peritoneal Fluid WBC 58 Fluid RBC 1,228 Alcohol, Quantitative ASSESSMENT/PLAN: 73 year old male with PMHx of dementia, ? TIA (2018) with no residual deficits, alcohol abuse, liver cirrhosis complicated by ascites, presenting to the ED with daughter due to altered mental status. #AMS likely 2/2 Cirrhosis/Hepatic encephalopathy - hx of ETOH abuse, counseling department chair on cessation - MELD- 19 - GGT - Liver sono - could do fibrosure test to assess need for liver bx although may be futile in this pt given low likelihood for liver transplant. - increase home lactulose dose to 30q6 (continue dose as long as pt does not have > 3-4 BM's/day) and - add rifaximin 550BID - ammonia- 74.1, ALP- 147 Tbili- 1.8, AST/ALT- 47/25, INR- 1.6, albumin 2.2 all likely due to chronic liver dx - CIWA 8 - GI consult - EGD for varices, propanolol for ppx given clinical portal hypertension present - c/w ppi - ascites paracentesis analysis r/o SBP given <250 wbc, afebrile, no wbc in serum - no need to continue zosyn that pt received in ED. #?Infiltrate - CXR- new fluid w atelectasis/infiltrate on Rt w trachial deviation to right side was the read however disagree with infiltrate dx - no abx at this time, no signs of infection #Anemia-> chronic per chart review - serial stool guiacs - obtain EGD to r/o varices once records from [facility] are obtained - will rpt in AM - no signs of acute bleed at this time - Fe studies - continue B1 DVT PPX: Heparin 5K TID FENGI: monitor lytes replete prn, low Na diet, no fluids at this time. Visit type - Emergency Visit Emergency Visit: Yes ED Registration Date: 06/14/19 Care time: The patient presented to the Emergency Department on the above date and was hospitalized for further evaluation of their emergent condition. - New Patient This patient is new to me today: Yes Date on this admission: 06/25/19 - Critical Care Critical Care patient: No ATTENDING PHYSICIAN STATEMENT I saw and evaluated the patient. I reviewed the resident's note and discussed the case with the resident. I agree with the resident's findings and plan as documented. SUBJECTIVE: OBJECTIVE: ASSESSMENT AND PLAN:
[2019-06-14] MEDS ORDERED: PIPERACILLIN/TAZOB 4.5 GM 4.5 GM/100 ML BAG IVPB ONE (20:48)
[2019-06-14 20:51] LABS: BODY FLUID MESOTHELIAL 87 %
[2019-06-14] MEDS ORDERED: HEPARIN NA (PORCINE) 5,000 UNITS/ML 1ML VIAL ONE (21:08)
[2019-06-14] MEDS ORDERED: VANCOMYCIN 1 GRAM (PRE-DOCKED) 1,000 MG/250 ML BAG IVPB ONE (21:08)
[2019-06-14] MEDS: HEPARIN NA (PORCINE) 5,000 UNITS/ML 1ML VIAL SQ SCH (21:23)
[2019-06-14] MEDS: LACTULOSE 20 GM/30 ML UDC (FOR ORAL USE ONLY) PO SCH (23:56)
[2019-06-14] MEDS: RIFAXIMIN 550 MG TABLET (UD) PO SCH (23:57)
[2019-06-15] MEDS: LACTULOSE 20 GM/30 ML UDC (FOR ORAL USE ONLY) PO SCH ×3 (06:15→18:00)
[2019-06-15] MEDS: HEPARIN NA (PORCINE) 5,000 UNITS/ML 1ML VIAL SQ SCH ×3 (06:16→21:04)
[2019-06-15] MEDS ORDERED: FOLIC ACID INJECTION - 1 MG, THIAMINE HCL 100 MG, MULTIVIT INJECTION ADULT 10 ML in SOD... IVPB ONE (09:00)
[2019-06-15 09:06] LABS: HEMATOCRIT 27.1 % (35.4-49); HEMOGLOBIN 8.8 GM/dL (11.7-16.9); MCH 27.9 pg (25.7-33.7); MCHC 32.5 g/dl (32.0-35.9); MEAN CELL VOLUME 85.9 fl (80-96); MEAN PLT VOLUME 7.9 fl (7.5-11.1); PLATELET COUNT 148 K/MM3 (134-434); RBC 3.15 M/mm3 (4.00-5.60); RDW 19.5 % (11.9-15.9); WHITE BLOOD COUNT 5.2 K/mm3 (4.0-10.0)
[2019-06-15 09:19] LABS: INR 1.57 (0.83-1.09); PROTHROMBIN TIME (PATIENT) 18.6 SEC (9.7-13.0)
[2019-06-15 09:22] LABS: ACTIVATED PTT 43.6 SECONDS (25.2-36.5)
[2019-06-15 09:51] LABS: BLOOD UREA NITROGEN 26.6 mg/dL (7-18); CALCIUM 9.3 mg/dL (8.5-10.1); CREATININE 1.5 mg/dL (0.55-1.3); MAGNESIUM 2.1 mg/dL (1.8-2.4); POTASSIUM 4.6 mmol/L (3.5-5.1); TOT PROT 7.5 g/dl (6.4-8.2)
[2019-06-15] MEDS ORDERED: FLU VACCINE QUAD 60 MCG/0.5 ML (MDV 19-20) IM ONE (10:00)
[2019-06-15] MEDS ORDERED: PNEUMOC 13-VAL CONJ-DIP CRM/PF 0.5 ML DISP.SYRIN IM ONE (10:00)
[2019-06-15] MEDS ORDERED: LACTULOSE 20 GM/30 ML UDC (FOR ORAL USE ONLY) PO SCH (10:00)
[2019-06-15] MEDS: FOLIC ACID 1 MG TABLET (FP) PO SCH (11:00)
[2019-06-15] MEDS: RIFAXIMIN 550 MG TABLET (UD) PO SCH ×2 (11:00→21:02)
[2019-06-15] MEDS: THIAMINE HCL 100 MG TABLET (FP) PO SCH (11:01)
--- NOTE | 2019-06-15 12:11 | CON.GI ---
Consult Consult Specialty:: GI Referred by:: Hospitalist Service Reason for Consultation:: Alcoholic liver disease - History of Present Illness Chief Complaint: Confusion History of Present Illness: 73M admitted for evaluation of abdominal pain and confusion. History obtained from chart and daughter as he is confused. He is an active alcoholic, history of ascites and has received the majority opf his care at [facility] and [facility]. Daughter believes that he last had upper endoscopy 6-8 months ago at [facility]. He has needed frequent paracenteses in the past. He currently denies abdominal pain. Diagnostic paracentesis in the ED failed to reveal SBP. Last paracentesis was tuesday at [facility]. He does not follow a sodium controlled diet and is poorly compliant with medications per his daughter. No melena or rectal bleeding reported. 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: Yes: Dementia Hepatobiliary: Yes: Cirrhosis, Hepatitis C - Alcohol/Substance Use Hx Alcohol Use: Yes History of Substance Use: reports: None - Smoking History Smoking history: Never smoked Have you smoked in the past 12 months: No - Social History Usual Living Arrangement: With Child ADL: Independent History of Recent Travel: No Home Medications - Allergies Allergies/Adverse Reactions: Allergies Allergy/AdvReac Type Severity Reaction Status Date / Time No Known Allergies Allergy Verified 06/14/19 15:10 - Home Medications Home Medications: Ambulatory Orders Lactulose (Oral Use) [Cephulac -] 20 gm PO QID #120 udc 08/24/16 Furosemide [Lasix] 40 mg PO DAILY #14 tablet 02/04/17 Spironolactone 50 mg PO DAILY 06/14/19 Review of Systems - Review of Systems Gastrointestinal: reports: Abdominal Pain, Bloating. denies: Melena, Rectal Bleeding Physical Exam-GI Vital Signs: Vital Signs Temperature 97.3 F L 06/15/19 06:00 Pulse Rate 105 H 06/15/19 06:00 Respiratory Rate 20 06/15/19 06:00 Blood Pressure 127/71 06/15/19 06:00 O2 Sat by Pulse Oximetry (%) 95 06/15/19 02:30 Constitutional: Yes: Calm Eyes: No: Sclera Icterus Cardiovascular: Yes: Tachycardia Respiratory: Yes: Rhonchi (at bases bilaterally) Gastrointestinal Inspection: Yes: Distention ...Auscultate: Yes: Normoactive Bowel Sounds ...Palpate: Yes: Firm/Rigid, Tenderness ...Percussion: Yes: Fluid Wave. No: Tympanitic ...Rectal Exam: Yes: Other (No external lesions, no masses, scant light carlton stool in rectal vault) Edema: Yes Edema: LLE: 1+, RLE: 1+ Neurological: Yes: Alert, Confusion. No: Asterix[facility] Labs: CBC, BMP 06/15/19 07:36 06/15/19 07:36 INR, PTT INR 1.57 (0.83-1.09) H 06/15/19 07:36 Hepatic Panel Total Bilirubin 2.0 mg/dL (0.2-1) H 06/15/19 07:36 AST 52 U/L (15-37) H 06/15/19 07:36 ALT 24 U/L (13-61) 06/15/19 07:36 Alkaline Phosphatase 112 U/L (45-117) 06/15/19 07:36 Albumin 2.0 g/dl (3.4-5.0) L 06/15/19 07:36 Problem List - Problems (1) Liver disease Assessment/Plan: Decompensated alcoholic cirrhosis Continued alcohol consumption with no real end goal of care Advise: 2g Low Na diet Continue Lactulose 30g Q 6 hours for now. Titrate for 4-5 loose BM's per day. Monitor lytes Continue rifaximin 550mg PO BID Investigate diagnosis of dementia. ? if alternate etiology to confusion Lasix 40mg IVP daily, aldactone 100mg daily. Renal evaluation (placed). Check a UA therapeutic paracentesis. I spoke with radiology. If >5L removed will need to receive 6-8g of 25% albumin per liter removed I called the lab. Added total protein to the ER fluid analysis. In setting of renal insufficiency and if total protein low (<1.3), consider primary SBP prophylaxis with cipro 500mg daily. Avoid PPI Screening hepatitis serologies (hepatitis A/B panel and HCV Diagnostic). WIll need vaccination for hepatitis A/B if serologies not c/w immunity Spoke with patient's daughter. Explained overall poor prognosis, especially in the setting of medication non compliance and continued alcohol abuse. Advised that she arrange continued care at [facility] for her father's decompensated liver cirrhosis with the remedy developer he was following with there. Explained the need for complete alcohol abstinence Obtain information from [facility] regarding recent endoscopy. If he has not had recent endoscopy and once volume status improved, will need endoscopy to screen for varices. Ordered abdominal US to screen for HCC and doppler to exclude portal vein thromboisis Daily weights, strict I's and O's Will need Q6 Month hepatic US to screen for HCC Code(s): K76.9 - LIVER DISEASE, UNSPECIFIED
--- NOTE | 2019-06-15 13:09 | EKG ---
Test Reason : Blood Pressure : / mmHG Vent. Rate : 108 BPM Atrial Rate : 108 BPM P-R Int : 128 ms QRS Dur : 068 ms QT Int : 330 ms P-R-T Axes : 068 068 040 degrees QTc Int : 442 ms SINUS TACHYCARDIA LOW VOLTAGE QRS NONSPECIFIC ST ABNORMALITY Confirmed by TERI LOPEZ MD ([id number]) on 06/15/2019 1:08:38 PM Referred By: Confirmed By:TERI LOPEZ MD
[2019-06-15 13:12] LABS: RETICULOCYTES 1.76 % (0.5-1.5)
--- NOTE | 2019-06-15 15:34 | PN ---
Physical Exam: SUBJECTIVE: Patient seen and examined at the bedside. The patient is confused and is not answering questions appropriately saying "just give me a minute." Currently denies any discomfort. Denies cp, sob, abd pain, n/v/c/d, fever, chills. OBJECTIVE: Vital Signs Period Temp Pulse Resp BP Sys/Webster Pulse Ox Last 24 Hr 97.3 F-98.5 F 100-108 20-22 115-127/68-91 95-98 GENERAL: AOx1, confused, answers tangentially or gets lost in thought. HEENT: No Jaundice, eye redness or discharge, PERRLA, EOMI. Normocephalic, atraumatic. Neck: Supple, nontender. No palpable adenopathy or thyromegaly. No JVD Chest: Good effort. Clear to auscultation and percussion. Heart: Regular. Normal S1, S2, no rub or murmur Abdomen: Distended, soft, nontender and no HSM. No rebound or guarding. Positive fluid wave. Noted varicosities on abdomen. Normal bowel sounds. Ext: Peripheral pulses intact. No leg edema. Skin: Warm and dry. No petechiae, rash or ecchymosis. Neuro: Alert. Oriented person and place. No asterexis. CN 2-12 grossly intact. Sensation grossly intact in all four extremities. Psych: Slightly confused and mildly agitated. Laboratory Results - last 24 hr 06/14/19 06/14/19 06/14/19 15:31 15:31 15:31 WBC 7.6 RBC 3.32 L Hgb 9.1 L Hct 28.8 L MCV 86.7 MCH 27.4 MCHC 31.6 L RDW 19.1 H Plt Count 168 MPV 8.4 D Absolute Neuts (auto) 5.5 Neutrophils % 73.1 Lymphocytes % 9.3 D Monocytes % 14.5 H Eosinophils % 2.3 D Basophils % 0.8 Nucleated RBC % 0 Retic Count PT with INR INR PTT (Actin FS) Sodium 136 Potassium 4.9 Chloride 106 Carbon Dioxide 23 Anion Gap 7 L BUN 30.0 H Creatinine 1.5 H Est GFR (CKD-EPI)AfAm 53.14 Est GFR (CKD-EPI)NonAf 45.85 Random Glucose 97 Calcium 8.9 Magnesium Iron TIBC Iron Saturation Unsaturated IBC Ferritin Total Bilirubin 1.8 H GGT AST 47 H ALT 25 Alkaline Phosphatase 147 H Ammonia 74.10 H LD Total Total Protein 7.6 Albumin 2.2 L TSH Free T4 Fluid Source POC Fluid pH Fluid WBC Fluid RBC Fluid Neutrophils Fluid Lymphocytes Fluid Glucose Fluid Albumin Fluid Amylase Fluid Triglycerides Pleural Mesothelial Alcohol, Quantitative < 3.0 06/14/19 06/14/19 06/14/19 15:31 18:43 18:43 WBC RBC Hgb Hct MCV MCH MCHC RDW Plt Count MPV Absolute Neuts (auto) Neutrophils % Lymphocytes % Monocytes % Eosinophils % Basophils % Nucleated RBC % Retic Count PT with INR 19.00 H INR 1.60 H PTT (Actin FS) 35.8 Sodium Potassium Chloride Carbon Dioxide Anion Gap BUN Creatinine Est GFR (CKD-EPI)AfAm Est GFR (CKD-EPI)NonAf Random Glucose Calcium Magnesium Iron TIBC Iron Saturation Unsaturated IBC Ferritin Total Bilirubin GGT AST ALT Alkaline Phosphatase Ammonia LD Total Total Protein Albumin TSH Free T4 Fluid Source POC Fluid pH Fluid WBC Fluid RBC Fluid Neutrophils Fluid Lymphocytes Fluid Glucose Fluid Albumin Cancelled Fluid Amylase Cancelled Fluid Triglycerides Pleural Mesothelial Alcohol, Quantitative 06/14/19 06/14/19 06/14/19 18:43 18:43 18:43 WBC RBC Hgb Hct MCV MCH MCHC RDW Plt Count MPV Absolute Neuts (auto) Neutrophils % Lymphocytes % Monocytes % Eosinophils % Basophils % Nucleated RBC % Retic Count PT with INR INR PTT (Actin FS) Sodium Potassium Chloride Carbon Dioxide Anion Gap BUN Creatinine Est GFR (CKD-EPI)AfAm Est GFR (CKD-EPI)NonAf Random Glucose Calcium Magnesium Iron TIBC Iron Saturation Unsaturated IBC Ferritin Total Bilirubin GGT AST ALT Alkaline Phosphatase Ammonia LD Total Total Protein Albumin TSH Free T4 Fluid Source Peritoneal POC Fluid pH Cancelled Fluid WBC 58 Fluid RBC 1,228 Fluid Neutrophils 4 Fluid Lymphocytes 9 Fluid Glucose Cancelled Fluid Albumin Fluid Amylase Fluid Triglycerides Pleural Mesothelial 87 Alcohol, Quantitative 06/14/19 06/14/19 06/15/19 18:43 18:43 07:36 WBC 5.2 RBC 3.15 L Hgb 8.8 L Hct 27.1 L MCV 85.9 MCH 27.9 MCHC 32.5 RDW 19.5 H Plt Count 148 MPV 7.9 Absolute Neuts (auto) Neutrophils % Lymphocytes % Monocytes % Eosinophils % Basophils % Nucleated RBC % Retic Count 1.76 H PT with INR INR PTT (Actin FS) Sodium Potassium Chloride Carbon Dioxide Anion Gap BUN Creatinine Est GFR (CKD-EPI)AfAm Est GFR (CKD-EPI)NonAf Random Glucose Calcium Magnesium Iron TIBC Iron Saturation Unsaturated IBC Ferritin Total Bilirubin GGT AST ALT Alkaline Phosphatase Ammonia LD Total 269 H Total Protein Albumin TSH Free T4 Fluid Source POC Fluid pH Fluid WBC Fluid RBC Fluid Neutrophils Fluid Lymphocytes Fluid Glucose Fluid Albumin Fluid Amylase Fluid Triglycerides Cancelled Pleural Mesothelial Alcohol, Quantitative 06/15/19 06/15/19 06/15/19 07:36 07:36 07:36 WBC RBC Hgb Hct MCV MCH MCHC RDW Plt Count MPV Absolute Neuts (auto) Neutrophils % Lymphocytes % Monocytes % Eosinophils % Basophils % Nucleated RBC % Retic Count PT with INR 18.60 H INR 1.57 H PTT (Actin FS) 43.6 H Sodium 137 Potassium 4.6 Chloride 106 Carbon Dioxide 25 Anion Gap 6 L BUN 26.6 H Creatinine 1.5 H Est GFR (CKD-EPI)AfAm 53.14 Est GFR (CKD-EPI)NonAf 45.85 Random Glucose 97 Calcium 9.3 Magnesium 2.1 Iron 61 TIBC 290 Iron Saturation 21 Unsaturated IBC 229 Ferritin 48.2 Total Bilirubin 2.0 H GGT 57 AST 52 H ALT 24 Alkaline Phosphatase 112 Ammonia LD Total Total Protein 7.5 Albumin 2.0 L TSH 6.82 H Free T4 0.95 Fluid Source POC Fluid pH Fluid WBC Fluid RBC Fluid Neutrophils Fluid Lymphocytes Fluid Glucose Fluid Albumin Fluid Amylase Fluid Triglycerides Pleural Mesothelial Alcohol, Quantitative Active Medications Generic Name Dose Route Start Last Admin Trade Name Freq PRN Reason Stop Dose Admin Folic Acid 1 mg 06/15/19 10:00 06/15/19 11:00 Folic Acid - PO 1 mg DAILY IRENA Administration Furosemide 40 mg 06/16/19 10:00 Lasix Injection - IVPUSH DAILY IRENA Heparin Sodium (Porcine) 5,000 unit 06/14/19 22:00 06/15/19 14:03 Heparin - SQ Not Given TID IRENA Lactulose 30 gm 06/14/19 23:30 06/15/19 11:41 Cephulac (Oral Use) PO 30 gm Q6HPO IRENA Administration Multivitamins/Minerals/Vitamin C 1 tab 06/16/19 10:00 Tab-A-Vit - PO DAILY IRENA Rifaximin 550 mg 06/14/19 23:30 06/15/19 11:00 Xifaxan - PO 550 mg BID IRENA Administration Spironolactone 100 mg 06/16/19 10:00 Aldactone - PO DAILY IRENA Thiamine HCl 100 mg 06/15/19 10:00 06/15/19 11:01 Vitamin B1 - PO 100 mg DAILY IRENA Administration ASSESSMENT/PLAN: 73 year old male with PMHx of dementia, ? TIA (2018) with no residual deficits, alcohol abuse, liver cirrhosis complicated by ascites, presenting to the ED with daughter due to altered mental status. AMS likely 2/2 Cirrhosis/Hepatic encephalopathy - hx of ETOH abuse, counseled on cessation - Liver sono - continue lactulose dose to 30q6 and titrate to 4-5 bowel movements per day - rifaximin 550BID - ammonia- 74.1, ALP- 147 Tbili- 1.8, AST/ALT- 47/25, INR- 1.6, albumin 2.2 all likely due to chronic liver dx - CIWA 8, watch for withdrawal symptoms - GI consult, recs appreciated - hepatitis panel - low salt diet - Lasix 40mg IV, Aldactone 100mg daily - Renal eval, recs appreciated - ascites paracentesis analysis r/o SBP given <250 wbc, afebrile, no wbc in serum - MVI, thiamine, folate supplementation - UA ordered - will receive therapeutic tap with IR - avoid PPI - Ultrasound of the liver ordered to evaluate for portal HTN - in setting of renal insufficiency and low total protein, may consider SBP prophylaxis with cipro Anemia - chronic as per chart review - will repeat in AM - no signs of acute bleed at this time - Fe studies - continue B1 Elevated TSH - TSH elevated at 6.82 - Free T4 at 0.95 - continue to monitor for signs of hypothyroidism BECKA - CRE 1.5, last known baseline 0.9 - likely in setting of hepatorenal syndrome - continue Lasix, aldactone FEN - no standing fluids - continue to monitor electrolytes and replete as necessary - low Na diet, limit to 2g daily DVT PPX: - Heparin 5000 units tid Dispo - continue to monitor on Med-surg Visit type - Emergency Visit Emergency Visit: No - New Patient This patient is new to me today: Yes Date on this admission: 06/15/19 - Critical Care Critical Care patient: No
--- NOTE | 2019-06-15 15:47 | CONSULT ---
Consult Consult Specialty:: Nephrology Reason for Consultation:: CKD - History of Present Illness Chief Complaint: increased ascites History of Present Illness: Pt is a 73 year old male with pmhx of etoh abuse, liver cirrhosis, hcv who presents to the ER with abd distension. He was confused and was not taking his meds. He is a poor historian. He has had paracentesis in the past. He denies shortness of breath. He appears to be more awake than yesterday (based on notes ) but is still confused. He denies fevers or chills. 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 Hepatobiliary: Yes: Cirrhosis, Hepatitis C - Alcohol/Substance Use Hx Alcohol Use: Yes History of Substance Use: reports: None - Smoking History Smoking history: Never smoked Have you smoked in the past 12 months: No - Social History Usual Living Arrangement: With Child ADL: Independent History of Recent Travel: No Home Medications - Allergies Allergies/Adverse Reactions: Allergies Allergy/AdvReac Type Severity Reaction Status Date / Time No Known Allergies Allergy Verified 06/14/19 15:10 - Home Medications Home Medications: Ambulatory Orders Lactulose (Oral Use) [Cephulac -] 20 gm PO QID #120 udc 08/24/16 Furosemide [Lasix] 40 mg PO DAILY #14 tablet 02/04/17 Spironolactone 50 mg PO DAILY 06/14/19 Metoprolol Succinate 25 mg PO DAILY 06/15/19 Pantoprazole Sodium [Protonix] 40 mg PO DAILY 06/15/19 Family Medical History Family History: Denies Review of Systems - Review of Systems Constitutional: reports: Malaise. denies: Chills Eyes: reports: No Symptoms HENT: reports: No Symptoms Neck: reports: No Symptoms Cardiovascular: reports: Edema Respiratory: reports: SOB on Exertion Gastrointestinal: reports: Other (ascites) Musculoskeletal: reports: Muscle Weakness Integumentary: reports: No Symptoms Neurological: reports: Confusion Endocrine: reports: No Symptoms Hematology/Lymphatic: reports: No Symptoms Psychiatric: reports: No Symptoms Physical Exam Vital Signs: Vital Signs Temperature 98.5 F 06/15/19 10:00 Pulse Rate 100 H 06/15/19 10:00 Respiratory Rate 22 H 06/15/19 10:00 Blood Pressure 116/68 06/15/19 10:00 O2 Sat by Pulse Oximetry (%) 95 06/15/19 09:00 Constitutional: Yes: Calm Eyes: Yes: Conjunctiva Clear HENT: Yes: Atraumatic Neck: Yes: Supple Cardiovascular: Yes: S1, S2 Respiratory: Yes: CTA Bilaterally Gastrointestinal: Yes: Ascites Musculoskeletal: Yes: Muscle Weakness Edema: Yes Edema: LLE: 1+, RLE: 1+ Neurological: Yes: Confusion Labs: CBC, BMP 06/15/19 07:36 06/15/19 07:36 Laboratory Tests 06/14/19 06/14/19 06/15/19 15:31 15:31 07:36 Hgb 9.1 L Potassium 4.6 Creatinine 1.5 H 1.5 H Imaging - Results Chest X-ray: Report Reviewed Problem List - Problems (1) AMS (altered mental status) Code(s): R41.82 - ALTERED MENTAL STATUS, UNSPECIFIED (2) Ascites Code(s): R18.8 - OTHER ASCITES (3) Liver disease Code(s): K76.9 - LIVER DISEASE, UNSPECIFIED Assessment/Plan Current Medications Generic Name Dose Route Start Last Admin Trade Name Freq PRN Reason Stop Dose Admin Folic Acid 1 mg 06/15/19 10:00 06/15/19 11:00 Folic Acid - PO 1 mg DAILY IRENA Administration Furosemide 40 mg 06/16/19 10:00 Lasix Injection - IVPUSH DAILY [facility] Heparin Sodium (Porcine) 5,000 unit 06/14/19 22:00 06/15/19 14:03 Heparin - SQ Not Given TID IRENA Lactulose 30 gm 06/14/19 23:30 06/15/19 11:41 Cephulac (Oral Use) PO 30 gm Q6HPO IRENA Administration Multivitamins/Minerals/Vitamin C 1 tab 06/16/19 10:00 Tab-A-Vit - PO DAILY IRENA Rifaximin 550 mg 06/14/19 23:30 06/15/19 11:00 Xifaxan - PO 550 mg BID IRENA Administration Spironolactone 100 mg 06/16/19 10:00 Aldactone - PO DAILY IRENA Thiamine HCl 100 mg 06/15/19 10:00 06/15/19 11:01 Vitamin B1 - PO 100 mg DAILY IRENA Administration Impression 1. BECKA vs CKD 2. liver cirrhosis 3. ascites 4. plerual effusion 5. fluid overload 6. hx etoh abuse 7. hep c Plan - cont lasix and aldactone - monitor labs daily - follow ultrasound - avoid nsaids - GI for paracentesis - increase lasix to bid if no response
--- NOTE | 2019-06-15 16:09 | PN ---
Teaching Attending Note Name of Resident: Robert Fontaine ATTENDING PHYSICIAN STATEMENT I saw and evaluated the patient. I reviewed the resident's note and discussed the case with the resident. I agree with the resident's findings and plan as documented. SUBJECTIVE: Feels okay - no complaints. No abdominal pain/nausea/vomiting/ diarrhea/melena/hematochezia/fever/chills. OBJECTIVE: Afebrile, Hemodynamically Stable. Last Vital Signs Temp Pulse Resp BP Pulse Ox 97.6 F 105 H 20 104/72 95 06/15/19 14:00 06/15/19 14:00 06/15/19 14:00 06/15/19 14:00 06/15/19 09:00 HEENT - Atraumatic, Normocephalic. Heart - S1, S2, RRR Lungs - clear to auscultation Abdomen - distended (tense), non-tender. Extremities - mild edema, venous stasis skin changes Neuro - AAO x 1. Mild tremor outstretched arms. Tone/Power normal. Laboratory Results - last 24 hr 06/14/19 06/14/19 06/14/19 15:31 15:31 15:31 WBC RBC Hgb Hct MCV MCH MCHC RDW Plt Count MPV Retic Count PT with INR 19.00 H INR 1.60 H PTT (Actin FS) 35.8 Sodium 136 Potassium 4.9 Chloride 106 Carbon Dioxide 23 Anion Gap 7 L BUN 30.0 H Creatinine 1.5 H Est GFR (CKD-EPI)AfAm 53.14 Est GFR (CKD-EPI)NonAf 45.85 Random Glucose 97 Calcium 8.9 Magnesium Iron TIBC Iron Saturation Unsaturated IBC Ferritin Total Bilirubin 1.8 H GGT AST 47 H ALT 25 Alkaline Phosphatase 147 H Ammonia 74.10 H LD Total Total Protein 7.6 Albumin 2.2 L TSH Free T4 Fluid Source POC Fluid pH Fluid WBC Fluid RBC Fluid Neutrophils Fluid Lymphocytes Fluid Glucose Fluid Albumin Fluid Amylase Fluid Triglycerides Pleural Mesothelial Alcohol, Quantitative < 3.0 06/14/19 06/14/19 06/14/19 18:43 18:43 18:43 WBC RBC Hgb Hct MCV MCH MCHC RDW Plt Count MPV Retic Count PT with INR INR PTT (Actin FS) Sodium Potassium Chloride Carbon Dioxide Anion Gap BUN Creatinine Est GFR (CKD-EPI)AfAm Est GFR (CKD-EPI)NonAf Random Glucose Calcium Magnesium Iron TIBC Iron Saturation Unsaturated IBC Ferritin Total Bilirubin GGT AST ALT Alkaline Phosphatase Ammonia LD Total Total Protein Albumin TSH Free T4 Fluid Source POC Fluid pH Fluid WBC Fluid RBC Fluid Neutrophils Fluid Lymphocytes Fluid Glucose Cancelled Fluid Albumin Cancelled Fluid Amylase Cancelled Fluid Triglycerides Pleural Mesothelial Alcohol, Quantitative 06/14/19 06/14/19 06/14/19 18:43 18:43 18:43 WBC RBC Hgb Hct MCV MCH MCHC RDW Plt Count MPV Retic Count PT with INR INR PTT (Actin FS) Sodium Potassium Chloride Carbon Dioxide Anion Gap BUN Creatinine Est GFR (CKD-EPI)AfAm Est GFR (CKD-EPI)NonAf Random Glucose Calcium Magnesium Iron TIBC Iron Saturation Unsaturated IBC Ferritin Total Bilirubin GGT AST ALT Alkaline Phosphatase Ammonia LD Total Total Protein Albumin TSH Free T4 Fluid Source Peritoneal POC Fluid pH Cancelled Fluid WBC 58 Fluid RBC 1,228 Fluid Neutrophils 4 Fluid Lymphocytes 9 Fluid Glucose Fluid Albumin Fluid Amylase Fluid Triglycerides Cancelled Pleural Mesothelial 87 Alcohol, Quantitative 06/14/19 06/15/19 06/15/19 18:43 07:36 07:36 WBC 5.2 RBC 3.15 L Hgb 8.8 L Hct 27.1 L MCV 85.9 MCH 27.9 MCHC 32.5 RDW 19.5 H Plt Count 148 MPV 7.9 Retic Count 1.76 H PT with INR 18.60 H INR 1.57 H PTT (Actin FS) 43.6 H Sodium Potassium Chloride Carbon Dioxide Anion Gap BUN Creatinine Est GFR (CKD-EPI)AfAm Est GFR (CKD-EPI)NonAf Random Glucose Calcium Magnesium Iron TIBC Iron Saturation Unsaturated IBC Ferritin Total Bilirubin GGT AST ALT Alkaline Phosphatase Ammonia LD Total 269 H Total Protein Albumin TSH Free T4 Fluid Source POC Fluid pH Fluid WBC Fluid RBC Fluid Neutrophils Fluid Lymphocytes Fluid Glucose Fluid Albumin Fluid Amylase Fluid Triglycerides Pleural Mesothelial Alcohol, Quantitative 06/15/19 06/15/19 07:36 07:36 WBC RBC Hgb Hct MCV MCH MCHC RDW Plt Count MPV Retic Count PT with INR INR PTT (Actin FS) Sodium 137 Potassium 4.6 Chloride 106 Carbon Dioxide 25 Anion Gap 6 L BUN 26.6 H Creatinine 1.5 H Est GFR (CKD-EPI)AfAm 53.14 Est GFR (CKD-EPI)NonAf 45.85 Random Glucose 97 Calcium 9.3 Magnesium 2.1 Iron 61 TIBC 290 Iron Saturation 21 Unsaturated IBC 229 Ferritin 48.2 Total Bilirubin 2.0 H GGT 57 AST 52 H ALT 24 Alkaline Phosphatase 112 Ammonia LD Total Total Protein 7.5 Albumin 2.0 L TSH 6.82 H Free T4 0.95 Fluid Source POC Fluid pH Fluid WBC Fluid RBC Fluid Neutrophils Fluid Lymphocytes Fluid Glucose Fluid Albumin Fluid Amylase Fluid Triglycerides Pleural Mesothelial Alcohol, Quantitative Current Medications Generic Name Dose Route Start Last Admin Trade Name Freq PRN Reason Stop Dose Admin Folic Acid 1 mg 06/15/19 10:00 06/15/19 11:00 Folic Acid - PO 1 mg DAILY IRENA Administration Furosemide 40 mg 06/16/19 10:00 Lasix Injection - IVPUSH DAILY IRENA Heparin Sodium (Porcine) 5,000 unit 06/14/19 22:00 06/15/19 14:03 Heparin - SQ Not Given TID IRENA Lactulose 30 gm 06/14/19 23:30 06/15/19 11:41 Cephulac (Oral Use) PO 30 gm Q6HPO IRENA Administration Multivitamins/Minerals/Vitamin C 1 tab 06/16/19 10:00 Tab-A-Vit - PO DAILY IRENA Rifaximin 550 mg 06/14/19 23:30 06/15/19 11:00 Xifaxan - PO 550 mg BID IRENA Administration Spironolactone 100 mg 06/16/19 10:00 Aldactone - PO DAILY IRENA Thiamine HCl 100 mg 06/15/19 10:00 06/15/19 11:01 Vitamin B1 - PO 100 mg DAILY IRENA Administration Home Medications Medication Instructions Recorded Lactulose (Oral Use) [Cephulac -] 20 gm PO QID #120 udc 08/24/16 Furosemide [Lasix] 40 mg PO DAILY #14 tablet 02/04/17 Spironolactone 50 mg PO DAILY 06/14/19 Metoprolol Succinate 25 mg PO DAILY 06/15/19 Pantoprazole Sodium [Protonix] 40 mg PO DAILY 06/15/19 ASSESSMENT AND PLAN: 73 year old male with history of Dementia, prior TIA (2018) with no residual deficits, alcohol abuse, CKD 3, liver cirrhosis complicated by portal hyertension/ascites, brought to the ED by daughter who reports altered mental status. 1. Acute Metabolic/Hepatic Encephalopathy sec to decompensated alcohol-related Liver cirrhosis Amonia level 74.1 s/p Paracentesis neg for SBP Lactulose regimen intensified and Rifaximin added. Resume Lasix, Spironolactone. GI consulted - recommends therapeutic paracentesis, abdominal US with Doppler to screen for HCC and portal vein thrombosis. 2. Chronic alcohol abuse Mild tremor - no clear signs of withdrawal. MVI, Thiamine, Folic Acid CIWA with Ativan/Librium for withdrawal symptoms. 3. CKD 3, Creat 1.5, does not appear to be BECKA. Renal US, Nephrology consulted. 4. Normocytic Anemia, etiology unclear - Cirrhosis +/- CKD 3 Anemia work-up requested including Iron studies, B12, Folate. DVT Px - Heparin SQ
[2019-06-16] MEDS: LACTULOSE 20 GM/30 ML UDC (FOR ORAL USE ONLY) PO SCH ×4 (00:04→17:58)
[2019-06-16] MEDS: HEPARIN NA (PORCINE) 5,000 UNITS/ML 1ML VIAL SQ SCH ×3 (06:33→22:05)
--- NOTE | 2019-06-16 07:53 | PN ---
<Lottie Ramirez - Last Filed: 06/16/19 12:28> Physical Exam: SUBJECTIVE: Patient seen and examined at bedside. Pt AAOx1. Per nurse, no overnight events. Pt has been making bowel movements. Pt offers no symptomatic complaints today. OBJECTIVE: Vital Signs Temperature 98.3 F 06/16/19 00:00 Pulse Rate 117 H 06/16/19 00:00 Respiratory Rate 20 06/16/19 00:00 Blood Pressure 120/75 06/16/19 00:00 O2 Sat by Pulse Oximetry (%) 95 06/15/19 09:00 GENERAL: AOx1, confused, answers tangentially or gets lost in thought. HEENT: No Jaundice, eye redness or discharge, PERRLA, EOMI. Normocephalic, atraumatic. Neck: Supple, nontender. No palpable adenopathy or thyromegaly. No JVD Chest: Good effort. Clear to auscultation and percussion. Heart: Regular. Normal S1, S2, no rub or murmur Abdomen: Distended, soft, nontender and no HSM. No rebound or guarding. Positive fluid wave. Noted varicosities on abdomen. Normal bowel sounds. Ext: Peripheral pulses intact. No leg edema. Skin: Warm and dry. No petechiae, rash or ecchymosis. Neuro: Alert. Oriented person and place. No asterexis. CN 2-12 grossly intact. Sensation grossly intact in all four extremities. Psych: Slightly confused and mildly agitated. CBC, BMP 06/15/19 07:36 06/15/19 07:36 Active Medications Folic Acid (Folic Acid -) 1 mg PO DAILY [facility] Last Admin: 06/15/19 11:00 Dose: 1 mg Furosemide (Lasix Injection -) 40 mg IVPUSH DAILY [facility] Heparin Sodium (Porcine) (Heparin -) 5,000 unit SQ TID [facility] Last Admin: 06/16/19 06:33 Dose: 5,000 unit Lactulose (Cephulac (Oral Use)) 30 gm PO Q6HPO [facility] Last Admin: 06/16/19 06:33 Dose: 30 gm Multivitamins/Minerals/Vitamin C (Tab-A-Vit -) 1 tab PO DAILY [facility] Rifaximin (Xifaxan -) 550 mg PO BID [facility] Last Admin: 06/15/19 21:02 Dose: 550 mg Spironolactone (Aldactone -) 100 mg PO DAILY [facility] Thiamine HCl (Vitamin B1 -) 100 mg PO DAILY [facility] Last Admin: 06/15/19 11:01 Dose: 100 mg ASSESSMENT/PLAN: 73 year old male with PMHx of dementia, ? TIA (2018) with no residual deficits, alcohol abuse, liver cirrhosis complicated by ascites, presenting to the ED with daughter due to altered mental status. #AMS likely 2/2 Cirrhosis/Hepatic encephalopathy; Pt remains stable, AAOx1. -s/p diagnostic paracentesis upon admission; neg for SBP -Cont Lactulose 30 Q6H PO and titrate to 4-5 bowel movements per day, Rifaximin 550 BID -Cont Lasix 40mg IV, Aldactone 100mg daily, MVI, Thiamine/Folate supplementation -IR guided paracentesis, abd u/s to evaluate for hepatoma, doppler abd organ u/ s to evaluated for hepatoma and portal vein thrombus -Hepatitis panel pending, UA pending -Low salt diet, Avoid PPI -in setting of renal insufficiency and low total protein, may consider SBP prophylaxis with cipro -Per GI, advised continued care at [facility] for decompensated liver cirrhosis and with pan greaser; will need screening for varices via endoscopy #BECKA on CKD; Resolving, Cr 1.3 today. -Nephro consulted -Avoid NSAIDs, nephrotoxic agents -Cont Lasix and Aldactone; may increase Lasix to BID if no response -Renal u/s pending #Hx of Alcohol Use -Alcohol cessation counseling -No clear signs of withdrawal this time; can start Ativan/Librium protocol if symptomatic #Anemia; Stable and chronic per previous records. 8.5 today. -serial CBC, transfuse if Hgb < 7 -no signs of acute bleed at this time -Fe studies unremarkable -continue B1 #Elevated TSH - TSH elevated at 6.82 - Free T4 at 0.95 - continue to monitor for signs of hypothyroidism #FEN -no standing fluids -continue to monitor electrolytes and replete as necessary -low Na diet, limit to 2g daily #Prophylaxis -SQH Dispo - continue to monitor on Med-surg - ATTENDING PHYSICIAN STATEMENT I saw and evaluated the patient. I reviewed the resident's note and discussed the case with the resident. I agree with the resident's findings and plan as documented. SUBJECTIVE: OBJECTIVE: ASSESSMENT AND PLAN: <Daryl Alvarez - Last Filed: 06/16/19 18:00> Physical Exam: SUBJECTIVE: Patient seen and examined OBJECTIVE: Vital Signs Period Temp Pulse Resp BP Sys/Webster Pulse Ox Last 24 Hr 98.1 F-98.4 F 110-117 20-20 109-120/66-78 95 GENERAL: The patient is awake, alert, and fully oriented, in no acute distress. HEAD: Normal with no signs of trauma. EYES: PERRL, extraocular movements intact, sclera anicteric, conjunctiva clear. No ptosis. ENT: Ears normal, nares patent, oropharynx clear without exudates, moist mucous membranes. NECK: Trachea midline, full range of motion, supple. LUNGS: Breath sounds equal, clear to auscultation bilaterally, no wheezes, no crackles, no accessory muscle use. HEART: Regular rate and rhythm, S1, S2 without murmur, rub or gallop. ABDOMEN: Soft, nontender, nondistended, normoactive bowel sounds, no guarding, no rebound, no hepatosplenomegaly, no masses. EXTREMITIES: 2+ pulses, warm, well-perfused, no edema. NEUROLOGICAL: Cranial nerves II through XII grossly intact. Normal speech, gait not observed. PSYCH: Normal mood, normal affect. SKIN: Warm, dry, normal turgor, no rashes or lesions noted Laboratory Results - last 24 hr 06/15/19 06/15/19 06/16/19 07:36 20:45 07:50 WBC RBC Hgb Hct MCV MCH MCHC RDW Plt Count MPV Sodium 140 Potassium 4.3 Chloride 110 H Carbon Dioxide 23 Anion Gap 7 L BUN 24.2 H Creatinine 1.3 Est GFR (CKD-EPI)AfAm 63.18 Est GFR (CKD-EPI)NonAf 54.51 Random Glucose 98 Calcium 8.4 L Iron 61 68 TIBC 290 Iron Saturation 21 Unsaturated IBC 229 Ferritin 48.2 55.8 Total Bilirubin 1.7 H Direct Bilirubin 0.9 H AST 52 H ALT 23 Alkaline Phosphatase 91 Total Protein 7.1 Albumin 2.0 L Vitamin B12 1395 H 1808 H Serum Folate 10 21 H Urine Color Urine Appearance Urine pH Ur Specific [place] Urine Protein Urine Glucose (UA) Urine Ketones Urine Blood Urine Nitrite Urine Bilirubin Urine Urobilinogen Ur Leukocyte Esterase Urine WBC (Auto) Urine RBC (Auto) Urine Casts (Auto) U Epithel Cells (Auto) Urine Bacteria (Auto) 06/16/19 06/16/19 07:50 11:30 WBC 6.0 RBC 3.03 L Hgb 8.5 L Hct 26.3 L MCV 86.5 MCH 28.2 MCHC 32.5 RDW 19.2 H Plt Count 160 MPV 8.2 Sodium Potassium Chloride Carbon Dioxide Anion Gap BUN Creatinine Est GFR (CKD-EPI)AfAm Est GFR (CKD-EPI)NonAf Random Glucose Calcium Iron TIBC Iron Saturation Unsaturated IBC Ferritin Total Bilirubin Direct Bilirubin AST ALT Alkaline Phosphatase Total Protein Albumin Vitamin B12 Serum Folate Urine Color Yellow Urine Appearance Clear Urine pH 5.0 Ur Specific [place] 1.013 Urine Protein Negative Urine Glucose (UA) Negative Urine Ketones Negative Urine Blood Trace Urine Nitrite Negative Urine Bilirubin Negative Urine Urobilinogen 0.2 Ur Leukocyte Esterase Negative Urine WBC (Auto) 1 Urine RBC (Auto) 8 Urine Casts (Auto) 4 U Epithel Cells (Auto) 0.8 Urine Bacteria (Auto) 0.2 Active Medications Generic Name Dose Route Start Last Admin Trade Name Freq PRN Reason Stop Dose Admin Folic Acid 1 mg 06/15/19 10:00 06/16/19 10:14 Folic Acid - PO 1 mg DAILY [facility] Administration Furosemide 40 mg 06/16/19 10:00 06/16/19 10:14 Lasix Injection - IVPUSH 40 mg DAILY [facility] Administration Heparin Sodium (Porcine) 5,000 unit 06/14/19 22:00 06/16/19 14:59 Heparin - SQ 5,000 unit TID [facility] Administration Lactulose 30 gm 06/14/19 23:30 06/16/19 17:58 Cephulac (Oral Use) PO 30 gm Q6HPO [facility] Administration Multivitamins/Minerals/Vitamin C 1 tab 06/16/19 10:00 06/16/19 10:14 Tab-A-Vit - PO 1 tab DAILY [facility] Administration Rifaximin 550 mg 06/14/19 23:30 06/16/19 10:14 Xifaxan - PO 550 mg BID [facility] Administration Spironolactone 100 mg 06/16/19 10:00 06/16/19 10:14 Aldactone - PO 100 mg DAILY [facility] Administration Thiamine HCl 100 mg 06/15/19 10:00 06/16/19 10:15 Vitamin B1 - PO 100 mg DAILY [facility] Administration ASSESSMENT/PLAN: Visit type - Emergency Visit Emergency Visit: Yes ED Registration Date: 06/14/19 Care time: The patient presented to the Emergency Department on the above date and was hospitalized for further evaluation of their emergent condition. - New Patient This patient is new to me today: No - Critical Care Critical Care patient: No - Discharge Referral Referred to [facility] No ATTENDING PHYSICIAN STATEMENT I saw and evaluated the patient. I reviewed the resident's note and discussed the case with the resident. I agree with the resident's findings and plan as documented. SUBJECTIVE: OBJECTIVE: ASSESSMENT AND PLAN:
[2019-06-16] MEDS: RIFAXIMIN 550 MG TABLET (UD) PO SCH ×2 (10:14→22:04)
[2019-06-16] MEDS: MULTIVITAMINS (DAILY MVI) TABLET (FP) PO SCH (10:14)
[2019-06-16] MEDS: SPIRONOLACTONE 25 MG TABLET (FP) PO SCH (10:14)
[2019-06-16] MEDS: FOLIC ACID 1 MG TABLET (FP) PO SCH (10:14)
[2019-06-16] MEDS: FUROSEMIDE 40 MG/4 ML INJECTABLE VIAL IVPUSH SCH (10:14)
[2019-06-16] MEDS ORDERED: PT OWN MED DRAWER 7, Y5N ONE (10:14)
[2019-06-16] MEDS: THIAMINE HCL 100 MG TABLET (FP) PO SCH (10:15)
[2019-06-16 10:31] LABS: HEMATOCRIT 26.3 % (35.4-49); HEMOGLOBIN 8.5 GM/dL (11.7-16.9); MCH 28.2 pg (25.7-33.7); MCHC 32.5 g/dl (32.0-35.9); MEAN CELL VOLUME 86.5 fl (80-96); MEAN PLT VOLUME 8.2 fl (7.5-11.1); PLATELET COUNT 160 K/MM3 (134-434); RBC 3.03 M/mm3 (4.00-5.60); RDW 19.2 % (11.9-15.9)
[2019-06-16 12:06] LABS: EPI CELLS 0.8 /HPF (0-5/HPF); HYALINE CASTS 4 /lpf (0-8); URINE APPEARANCE CLEAR; URINE BACTERIA 0.2 /hpf (NEGATIVE); URINE BILIRUBIN NEGATIVE (NEGATIVE); URINE COLOR YELLOW; URINE GLUCOSE (UA) NEGATIVE (NEGATIVE); URINE KETONE NEGATIVE (NEGATIVE); URINE LEUK ESTERASE NEGATIVE (NEGATIVE); URINE NITRITE NEGATIVE (NEGATIVE); URINE PROTEIN NEGATIVE (NEGATIVE); URINE RBC 8 /hpf (0-4); URINE UROBILINOGEN 0.2 mg/dL (0.2-1.0); URINE WBC 1 /hpf (0-5)
[2019-06-16 12:14] LABS: BILIRUBIN,DIRECT 0.9 mg/dL (0.0-0.2); BILIRUBIN,TOTAL 1.7 mg/dL (0.2-1); BLOOD UREA NITROGEN 24.2 mg/dL (7-18); CALCIUM 8.4 mg/dL (8.5-10.1); CREATININE 1.3 mg/dL (0.55-1.3); POTASSIUM 4.3 mmol/L (3.5-5.1); TOT PROT 7.1 g/dl (6.4-8.2)
--- NOTE | 2019-06-16 12:27 | PN ---
Teaching Attending Note Name of Resident: Lottie Ramirez ATTENDING PHYSICIAN STATEMENT I saw and evaluated the patient. I reviewed the resident's note and discussed the case with the resident. I agree with the resident's findings and plan as documented. SUBJECTIVE: Feels okay - no complaints. No abdominal pain/nausea/vomiting/ diarrhea/melena/hematochezia/fever/chills. OBJECTIVE: Afebrile, Hemodynamically Stable. Oriented x 2. No tremor or asterixis. Last Vital Signs Temp Pulse Resp BP Pulse Ox 98.3 F 117 H 20 120/75 95 06/16/19 00:00 06/16/19 00:00 06/16/19 00:00 06/16/19 00:00 06/15/19 09:00 Heart - S1, S2, RRR Lungs - clear to auscultation Abdomen - distended (tense), non-tender. Extremities - mild edema, venous stasis skin changes Neuro - AAO x 2. Tone/Power normal all extremities. Laboratory Results - last 24 hr 06/15/19 06/15/19 06/15/19 07:36 07:36 20:45 WBC RBC Hgb Hct MCV MCH MCHC RDW Plt Count MPV Retic Count 1.76 H Sodium Potassium Chloride Carbon Dioxide Anion Gap BUN Creatinine Est GFR (CKD-EPI)AfAm Est GFR (CKD-EPI)NonAf Random Glucose Calcium Iron 61 TIBC 290 Iron Saturation 21 Unsaturated IBC 229 Ferritin 48.2 Total Bilirubin Direct Bilirubin AST ALT Alkaline Phosphatase Total Protein Albumin Vitamin B12 1395 H 1808 H Serum Folate 10 21 H Urine Color Urine Appearance Urine pH Ur Specific [place] Urine Protein Urine Glucose (UA) Urine Ketones Urine Blood Urine Nitrite Urine Bilirubin Urine Urobilinogen Ur Leukocyte Esterase Urine WBC (Auto) Urine RBC (Auto) Urine Casts (Auto) U Epithel Cells (Auto) Urine Bacteria (Auto) 06/16/19 06/16/19 06/16/19 07:50 07:50 11:30 WBC 6.0 RBC 3.03 L Hgb 8.5 L Hct 26.3 L MCV 86.5 MCH 28.2 MCHC 32.5 RDW 19.2 H Plt Count 160 MPV 8.2 Retic Count Sodium 140 Potassium 4.3 Chloride 110 H Carbon Dioxide 23 Anion Gap 7 L BUN 24.2 H Creatinine 1.3 Est GFR (CKD-EPI)AfAm 63.18 Est GFR (CKD-EPI)NonAf 54.51 Random Glucose 98 Calcium 8.4 L Iron 68 TIBC Iron Saturation Unsaturated IBC Ferritin 55.8 Total Bilirubin 1.7 H Direct Bilirubin 0.9 H AST 52 H ALT 23 Alkaline Phosphatase 91 Total Protein 7.1 Albumin 2.0 L Vitamin B12 Serum Folate Urine Color Yellow Urine Appearance Clear Urine pH 5.0 Ur Specific [place] 1.013 Urine Protein Negative Urine Glucose (UA) Negative Urine Ketones Negative Urine Blood Trace Urine Nitrite Negative Urine Bilirubin Negative Urine Urobilinogen 0.2 Ur Leukocyte Esterase Negative Urine WBC (Auto) 1 Urine RBC (Auto) 8 Urine Casts (Auto) 4 U Epithel Cells (Auto) 0.8 Urine Bacteria (Auto) 0.2 Current Medications Generic Name Dose Route Start Last Admin Trade Name Freq PRN Reason Stop Dose Admin Folic Acid 1 mg 06/15/19 10:00 06/16/19 10:14 Folic Acid - PO 1 mg DAILY [facility] Administration Furosemide 40 mg 06/16/19 10:00 06/16/19 10:14 Lasix Injection - IVPUSH 40 mg DAILY [facility] Administration Heparin Sodium (Porcine) 5,000 unit 06/14/19 22:00 06/16/19 06:33 Heparin - SQ 5,000 unit TID [facility] Administration Lactulose 30 gm 06/14/19 23:30 06/16/19 12:20 Cephulac (Oral Use) PO 30 gm Q6HPO [facility] Administration Multivitamins/Minerals/Vitamin C 1 tab 06/16/19 10:00 06/16/19 10:14 Tab-A-Vit - PO 1 tab DAILY [facility] Administration Rifaximin 550 mg 06/14/19 23:30 06/16/19 10:14 Xifaxan - PO 550 mg BID [facility] Administration Spironolactone 100 mg 06/16/19 10:00 06/16/19 10:14 Aldactone - PO 100 mg DAILY [facility] Administration Thiamine HCl 100 mg 06/15/19 10:00 06/16/19 10:15 Vitamin B1 - PO 100 mg DAILY [facility] Administration Home Medications Medication Instructions Recorded Lactulose (Oral Use) [Cephulac -] 20 gm PO QID #120 udc 08/24/16 Furosemide [Lasix] 40 mg PO DAILY #14 tablet 07/14/17 Spironolactone 50 mg PO DAILY 06/14/19 Metoprolol Succinate 25 mg PO DAILY 06/15/19 Pantoprazole Sodium [Protonix] 40 mg PO DAILY 06/15/19 ASSESSMENT AND PLAN: 73 year old male with history of Dementia, prior TIA (2018) with no residual deficits, alcohol abuse, CKD 3, liver cirrhosis complicated by portal hypertension/ascites, brought to the ED by daughter who reports altered mental status. 1. Acute Metabolic/Hepatic Encephalopathy sec to decompensated alcohol-related Liver cirrhosis Amonia level 74.1 s/p diagnostic Paracentesis neg for SBP, Cx negative. Lactulose regimen intensified and Rifaximin added. Resumed on Lasix, Spironolactone. GI consulted - recommends therapeutic paracentesis, abdominal US with Doppler to screen for HCC and portal vein thrombosis - IR unable to do procedure yesterday due to inability to gain consent from patient or family member. 2. Chronic alcohol abuse Mild tremor - no clear signs of withdrawal. MVI, Thiamine, Folic Acid CIWA with Ativan/Librium if development of any withdrawal symptoms. Addiction medicine consulted for eval for [facility]. 3. BECKA on CKD 3 - resolving. Creat down to 1.3 from 1.5 Renal US ordered, Nephrology consulted. 4. Normocytic Anemia, etiology unclear - Cirrhosis +/- CKD 3 Anemia work-up including Iron studies, B12, Folate all wnl. 5. Elevated TSH, normal free T4. for repeat TFTs in 4-6 weeks after discharge. DVT Px - Heparin SQ
--- NOTE | 2019-06-16 14:59 | PN.GI ---
GI Progress Note Subjective: GI NOte ( covering Dr Brambila): Did not have paracentesis as daughter could not be reached for consent. - Objective Vital Signs: Vital Signs Temperature 98.3 F 06/16/19 00:00 Pulse Rate 117 H 06/16/19 00:00 Respiratory Rate 20 06/16/19 00:00 Blood Pressure 120/75 06/16/19 00:00 O2 Sat by Pulse Oximetry (%) 95 06/15/19 09:00 Selected Entries 06/14/19 06/15/19 06/16/19 15:05 02:30 07:30 Weight 157 lb 168 lb 166 lb 12.8 oz Laboratory Tests 12/25/16 06/14/19 06/14/19 06:30 15:31 15:31 WBC Plt Count BUN 30.0 H Creatinine 1.5 H Ferritin Total Bilirubin AST ALT Alkaline Phosphatase Ammonia 74.10 H Tumor Marker AFP 4.1 06/15/19 06/16/19 06/16/19 07:36 07:50 07:50 WBC 6.0 Plt Count 160 BUN 26.6 H 24.2 H Creatinine 1.3 Ferritin 55.8 Total Bilirubin 1.7 H AST 52 H ALT 23 Alkaline Phosphatase 91 Ammonia Tumor Marker AFP Constitutional: Calm, Other (not yet oriented but is conversant) Gastrointestinal Inspection: Yes: Distention (not tense), Other ...Auscultate: Yes: Normoactive Bowel Sounds ...Palpate: Yes: Soft, Other (nontender) Labs: CBC, BMP 06/16/19 07:50 06/16/19 07:50 INR, PTT INR 1.57 (0.83-1.09) H 06/15/19 07:36 Assessment/Plan Assessment: - 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 Plan: -- Continue diuretics and daily weight and BUN/Cr to watch for hepatorenal syndrome -- Continue lactulose -- Will check AFP, confirm HCV activity and screen for other liver etiologies -- Not clear when variceal surveillance is due. Should ideally return to [facility] -- Reiterated the need to abstain from alcohol Problem List - Problems (1) Hepatic encephalopathy Code(s): K72.90 - HEPATIC FAILURE, UNSPECIFIED WITHOUT COMA (2) Cirrhosis, alcoholic Code(s): K70.30 - ALCOHOLIC CIRRHOSIS OF LIVER WITHOUT ASCITES (3) Ascites Code(s): R18.8 - OTHER ASCITES (4) Hyperammonemia Code(s): E72.20 - DISORDER OF UREA CYCLE METABOLISM, UNSPECIFIED (5) Hepatitis C Code(s): B19.20 - UNSPECIFIED VIRAL HEPATITIS C WITHOUT HEPATIC COMA
--- NOTE | 2019-06-16 16:41 | PN ---
Progress Note (short form) - Note Progress Note: 1. BECKA vs CKD 2. liver cirrhosis 3. ascites 4. plerual effusion 5. fluid overload 6. hx etoh abuse 7. hep c Current Medications Folic Acid (Folic Acid -) 1 mg PO DAILY [facility] Last Admin: 06/16/19 10:14 Dose: 1 mg Furosemide (Lasix Injection -) 40 mg IVPUSH DAILY [facility] Last Admin: 06/16/19 10:14 Dose: 40 mg Heparin Sodium (Porcine) (Heparin -) 5,000 unit SQ TID [facility] Last Admin: 06/16/19 14:59 Dose: 5,000 unit Lactulose (Cephulac (Oral Use)) 30 gm PO Q6HPO [facility] Last Admin: 06/16/19 12:20 Dose: 30 gm Multivitamins/Minerals/Vitamin C (Tab-A-Vit -) 1 tab PO DAILY [facility] Last Admin: 06/16/19 10:14 Dose: 1 tab Rifaximin (Xifaxan -) 550 mg PO BID [facility] Last Admin: 06/16/19 10:14 Dose: 550 mg Spironolactone (Aldactone -) 100 mg PO DAILY [facility] Last Admin: 06/16/19 10:14 Dose: 100 mg Thiamine HCl (Vitamin B1 -) 100 mg PO DAILY [facility] Last Admin: 06/16/19 10:15 Dose: 100 mg Last Vital Signs Temp Pulse Resp BP Pulse Ox 98.4 F 114 H 20 109/66 95 06/16/19 10:00 06/16/19 10:00 06/16/19 10:00 06/16/19 10:00 06/16/19 09:00 CBC, BMP 06/16/19 07:50 06/16/19 07:50 IMP- becka improved ascites Plan - cont lasix and aldactone - monitor labs daily - follow ultrasound - avoid nsaids - GI for paracentesis - increase lasix to bid if no response
[2019-06-17] MEDS: LACTULOSE 20 GM/30 ML UDC (FOR ORAL USE ONLY) PO SCH ×5 (00:45→23:24)
[2019-06-17] MEDS: HEPARIN NA (PORCINE) 5,000 UNITS/ML 1ML VIAL SQ SCH ×3 (06:21→21:35)
[2019-06-17] MEDS ORDERED: PT OWN MED DRAWER 7, Y5N ONE (09:00)
[2019-06-17] MEDS: RIFAXIMIN 550 MG TABLET (UD) PO SCH ×2 (09:16→21:35)
[2019-06-17] MEDS: THIAMINE HCL 100 MG TABLET (FP) PO SCH (09:16)
[2019-06-17] MEDS: FUROSEMIDE 40 MG/4 ML INJECTABLE VIAL IVPUSH SCH (09:16)
[2019-06-17] MEDS: FOLIC ACID 1 MG TABLET (FP) PO SCH (09:16)
[2019-06-17] MEDS: SPIRONOLACTONE 25 MG TABLET (FP) PO SCH (09:16)
[2019-06-17] MEDS: MULTIVITAMINS (DAILY MVI) TABLET (FP) PO SCH (09:16)
[2019-06-17 09:53] LABS: ALBUMIN 2.1 g/dl (3.4-5.0); BILIRUBIN,TOTAL 1.1 mg/dL (0.2-1); BLOOD UREA NITROGEN 21.4 mg/dL (7-18); CALCIUM 8.7 mg/dL (8.5-10.1); CREATININE 1.4 mg/dL (0.55-1.3); POTASSIUM 3.6 mmol/L (3.5-5.1); TOT PROT 7.5 g/dl (6.4-8.2)
--- NOTE | 2019-06-17 12:30 | PN ---
Progress Note (short form) - Note Progress Note: SUBJECTIVE: Feels okay - no complaints. No abdominal pain/nausea/vomiting/ diarrhea/melena/hematochezia/fever/chills. Some improvement in mental status. Passing BMs. OBJECTIVE: Afebrile, Hemodynamically Stable. Oriented x 2-3. No tremor or asterixis. Last Vital Signs Temp Pulse Resp BP Pulse Ox 97.8 F 103 H 20 126/84 95 06/17/19 07:21 06/17/19 07:21 06/17/19 07:21 06/17/19 07:21 06/16/19 21:00 Heart - S1, S2, RRR Lungs - clear to auscultation Abdomen - distended (tense), non-tender. Extremities - mild edema, venous stasis skin changes Neuro - AAO x 2-3. Tone/Power normal all extremities. Laboratory Results - last 24 hr 06/17/19 06/17/19 08:30 08:30 Sodium 139 Potassium 3.6 Chloride 109 H Carbon Dioxide 26 Anion Gap 5 L BUN 21.4 H Creatinine 1.4 H Est GFR (CKD-EPI)AfAm 57.76 Est GFR (CKD-EPI)NonAf 49.84 Random Glucose 106 Calcium 8.7 Iron 24 L TIBC 302 Iron Saturation 7 L Unsaturated IBC 278 H Ferritin 55.1 Total Bilirubin 1.1 H AST 50 H ALT 24 Alkaline Phosphatase 131 H Total Protein 7.5 Albumin 2.1 L Current Medications Generic Name Dose Route Start Last Admin Trade Name Freq PRN Reason Stop Dose Admin Folic Acid 1 mg 06/15/19 10:00 06/17/19 09:16 Folic Acid - PO 1 mg DAILY [facility] Administration Furosemide 40 mg 06/16/19 10:00 06/17/19 09:16 Lasix Injection - IVPUSH Not Given DAILY [facility] Heparin Sodium (Porcine) 5,000 unit 06/14/19 22:00 06/17/19 06:21 Heparin - SQ 5,000 unit TID [facility] Administration Lactulose 30 gm 06/14/19 23:30 06/17/19 06:21 Cephulac (Oral Use) PO 30 gm Q6HPO [facility] Administration Multivitamins/Minerals/Vitamin C 1 tab 06/16/19 10:00 06/17/19 09:16 Tab-A-Vit - PO 1 tab DAILY [facility] Administration Rifaximin 550 mg 06/14/19 23:30 06/17/19 09:16 Xifaxan - PO 550 mg BID [facility] Administration Spironolactone 100 mg 06/16/19 10:00 06/17/19 09:16 Aldactone - PO Not Given DAILY [facility] Thiamine HCl 100 mg 06/15/19 10:00 06/17/19 09:16 Vitamin B1 - PO 100 mg DAILY [facility] Administration Home Medications Medication Instructions Recorded Lactulose (Oral Use) [Cephulac -] 20 gm PO QID #120 udc 08/24/16 Furosemide [Lasix] 40 mg PO DAILY #14 tablet 02/04/17 Spironolactone 50 mg PO DAILY 06/14/19 Metoprolol Succinate 25 mg PO DAILY 06/15/19 Pantoprazole Sodium [Protonix] 40 mg PO DAILY 06/15/19 ASSESSMENT AND PLAN: 73 year old male with history of Dementia, prior TIA (2017) with no residual deficits, alcohol abuse, CKD 3, Hepatitis C, liver cirrhosis complicated by portal hypertension/ascites, brought to the ED by daughter who reports altered mental status. 1. Acute Metabolic/Hepatic Encephalopathy sec to decompensated alcohol-related Liver cirrhosis Ammonia level 74.1 s/p diagnostic Paracentesis neg for SBP, Cx negative. Lactulose regimen intensified and Rifaximin added. Resumed on Lasix, Spironolactone. GI consulted - recommends therapeutic paracentesis, abdominal US with Doppler to screen for HCC and portal vein thrombosis - IR unable to do procedure 06/15 due to inability to gain consent from patient or family member. 2. Chronic alcohol abuse Mild tremor - no clear signs of withdrawal. MVI, Thiamine, Folic Acid CIWA with Ativan/Librium if development of any withdrawal symptoms. Addiction medicine consulted for eval for [facility]. 3. BECKA on CKD 3 - resolving. Creat down to 1.3 from 1.5 Renal US ordered, Nephrology consulted. 4. Normocytic Anemia, etiology unclear - Cirrhosis +/- CKD 3 Anemia work-up including Iron studies, B12, Folate all wnl. 5. Elevated TSH, normal free T4. for repeat TFTs in 4-6 weeks after discharge. DVT Px - Heparin SQ Visit type - Emergency Visit Emergency Visit: Yes ED Registration Date: 06/14/19 Care time: The patient presented to the Emergency Department on the above date and was hospitalized for further evaluation of their emergent condition. - New Patient This patient is new to me today: No - Critical Care Critical Care patient: No - Discharge Referral Referred to [facility] No
--- NOTE | 2019-06-17 14:03 | PN.GI ---
GI Progress Note Subjective: GI NOte ( covering Dr Brambila): Marc has no complaints. He is conversant - Objective Vital Signs: Vital Signs Temperature 97.8 F 06/17/19 07:21 Pulse Rate 103 H 06/17/19 07:21 Respiratory Rate 20 06/17/19 07:21 Blood Pressure 126/84 06/17/19 07:21 O2 Sat by Pulse Oximetry (%) 95 06/16/19 21:00 Laboratory Tests 06/14/19 06/16/19 06/17/19 15:31 07:50 08:30 Total Bilirubin AST ALT Alkaline Phosphatase 147 H 91 DEBBIE Screen Pending Smooth Musc &CEMENT BREAKER Intrp Pending Tiss Transglutamin IgG Pending Tiss Transglutamin IgA Pending Hep A IgM Ab Confirm Pending Hepatitis A Ab Total Pending Hep Bs Antigen Pending Hep Bs Antibody Pending Hep B Core Total Ab Pending Hep B Core IgM Ab Pending Hepatitis Be Antibody Pending Hepatitis Be Antigen Pending Hep C Ab Diagnostic HCV Quantitation Pending Hepatitis C Genotype Pending 06/17/19 06/17/19 08:30 08:30 Total Bilirubin 1.1 H AST 50 H ALT 24 Alkaline Phosphatase 131 H DEBBIE Screen Smooth Musc &CEMENT BREAKER Intrp Tiss Transglutamin IgG Tiss Transglutamin IgA Hep A IgM Ab Confirm Hepatitis A Ab Total Hep Bs Antigen Hep Bs Antibody Hep B Core Total Ab Hep B Core IgM Ab Hepatitis Be Antibody Hepatitis Be Antigen Hep C Ab Diagnostic Pending HCV Quantitation Hepatitis C Genotype Constitutional: Calm Gastrointestinal Inspection: Yes: Distention ...Auscultate: Yes: Normoactive Bowel Sounds ...Palpate: Yes: Soft, Other (nontender) Labs: CBC, BMP 06/16/19 07:50 06/17/19 08:30 INR, PTT INR 1.57 (0.83-1.09) H 06/15/19 07:36 Assessment/Plan Assessment: - 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 Plan: -- Continue diuretics and daily weight and BUN/Cr to watch for hepatorenal syndrome -- Continue lactulose -- Await AFP, confirmation of HCV activity and screening for other liver etiologies -- Not clear when variceal surveillance is due. Should ideally return to [facility] Problem List - Problems (1) Hepatic encephalopathy Code(s): K72.90 - HEPATIC FAILURE, UNSPECIFIED WITHOUT COMA (2) Cirrhosis, alcoholic Code(s): K70.30 - ALCOHOLIC CIRRHOSIS OF LIVER WITHOUT ASCITES (3) Ascites Code(s): R18.8 - OTHER ASCITES (4) Hyperammonemia Code(s): E72.20 - DISORDER OF UREA CYCLE METABOLISM, UNSPECIFIED (5) Hepatitis C Code(s): B19.20 - UNSPECIFIED VIRAL HEPATITIS C WITHOUT HEPATIC COMA
--- NOTE | 2019-06-17 22:47 | PN ---
Progress Note (short form) - Note Progress Note: 1. BECKA vs CKD 2. liver cirrhosis 3. ascites 4. plerual effusion 5. fluid overload 6. hx etoh abuse 7. hep c Current Medications Folic Acid (Folic Acid -) [address] [facility] Last Admin: 06/17/19 09:16 Dose: 1 mg Furosemide (Lasix Injection -) [address] [facility] Last Admin: 06/17/19 09:16 Dose: Not Given Heparin Sodium (Porcine) (Heparin -) 5,[address] [facility] Last Admin: 06/17/19 21:35 Dose: 5,000 unit Lactulose (Cephulac (Oral Use)) [address] [facility] Last Admin: 06/17/19 17:57 Dose: 30 gm Multivitamins/Minerals/Vitamin C (Tab-A-Vit -) [address] [facility] Last Admin: 06/17/19 09:16 Dose: 1 tab Rifaximin (Xifaxan -) [address] [facility] Last Admin: 06/17/19 21:35 Dose: 550 mg Spironolactone (Aldactone -) [address] [facility] Last Admin: 06/17/19 09:16 Dose: Not Given Thiamine HCl (Vitamin B1 -) [address] [facility] Last Admin: 06/17/19 09:16 Dose: 100 mg Last Vital Signs Temp Pulse Resp BP Pulse Ox 98.3 F 102 H 19 122/79 95 06/17/19 18:46 06/17/19 18:46 06/17/19 18:46 06/17/19 18:46 06/17/19 09:00 Lungs clear Heart reg Abd soft nontender CBC, BMP 06/17/19 08:30 CBC, BMP 06/16/19 07:50 06/16/19 07:50 IMP- becka improved ascites Plan - cont lasix and aldactone - monitor labs daily - follow ultrasound - avoid nsaids - increase lasix to bid if no response
[2019-06-18] MEDS: LACTULOSE 20 GM/30 ML UDC (FOR ORAL USE ONLY) PO SCH ×3 (05:34→17:17)
[2019-06-18] MEDS: HEPARIN NA (PORCINE) 5,000 UNITS/ML 1ML VIAL SQ SCH (05:36)
[2019-06-18 09:08] LABS: ALBUMIN 1.9 g/dl (3.4-5.0); BILIRUBIN,TOTAL 1.2 mg/dL (0.2-1); BLOOD UREA NITROGEN 17.5 mg/dL (7-18); CALCIUM 8.8 mg/dL (8.5-10.1); CREATININE 1.3 mg/dL (0.55-1.3); POTASSIUM 3.7 mmol/L (3.5-5.1); TOT PROT 7.2 g/dl (6.4-8.2)
[2019-06-18 10:54] LABS: INR 1.57 (0.83-1.09); PROTHROMBIN TIME (PATIENT) 18.6 SEC (9.7-13.0)
[2019-06-18 10:57] LABS: ACTIVATED PTT 50.2 SECONDS (25.2-36.5)
[2019-06-18] MEDS: SPIRONOLACTONE 25 MG TABLET (FP) PO SCH (11:36)
[2019-06-18] MEDS: RIFAXIMIN 550 MG TABLET (UD) PO SCH (11:37)
[2019-06-18] MEDS: THIAMINE HCL 100 MG TABLET (FP) PO SCH (11:37)
[2019-06-18] MEDS: FOLIC ACID 1 MG TABLET (FP) PO SCH (11:37)
[2019-06-18] MEDS: MULTIVITAMINS (DAILY MVI) TABLET (FP) PO SCH (11:37)
--- NOTE | 2019-06-18 12:10 | PN.GI ---
GI Progress Note Subjective: Pt seen/examined at bedside, feeling better, denies abdominal pain, n/v, sob. No complaints currently. Planned for US and paracentesis today. - Objective Vital Signs: Vital Signs Temperature 98.6 F 06/18/19 09:41 Pulse Rate 109 H 06/18/19 09:41 Respiratory Rate 20 06/18/19 09:41 Blood Pressure 116/63 06/18/19 09:41 O2 Sat by Pulse Oximetry (%) 96 06/18/19 09:00 Constitutional: Well Nourished, No Distress, Calm, Other (Alert, oriented x 2 ( person and place)) Cardiovascular: Yes: WNL, Regular Rate and Rhythm Respiratory: Yes: WNL, Regular, CTA Bilaterally ...Palpate: Yes: Other (Abd tense, distended, nontender) Labs: CBC, BMP 06/16/19 07:50 06/18/19 07:15 INR, PTT INR 1.57 (0.83-1.09) H 06/18/19 09:25 Problem List - Problems (1) Cirrhosis, alcoholic Assessment/Plan: 73yo male with etoh/?HCV cirrhosis presenting with altered mental status in setting of medication noncompliance. Abd distended pending paracentesis today. Diagnostic tap negative for SBP. -Follow up hepatitis serologies including HCV RNA -US with doppler pending -Await paracentesis, would need to send fluid for albumin, total protein, LDH, glucose and cytology. -Monitor renal fctn -Strict Is/Os -2gNA diet -Diuretics per renal recommendations -Pt noted to have had EGD within the past 8 months - pending dispo would request primary team please obtain report, otherwise recommend close GI/liver follow up at [place]. Code(s): K70.30 - ALCOHOLIC CIRRHOSIS OF LIVER WITHOUT ASCITES
--- NOTE | 2019-06-18 12:46 | PN ---
Teaching Attending Note Name of Resident: Robert Fontaine ATTENDING PHYSICIAN STATEMENT I saw and evaluated the patient. I reviewed the resident's note and discussed the case with the resident. I agree with the resident's findings and plan as documented. SUBJECTIVE: Feels okay - no complaints. No abdominal pain/nausea/vomiting/ diarrhea/melena/hematochezia/fever/chills. Some improvement in mental status. Passing BMs. OBJECTIVE: Afebrile, Hemodynamically Stable. Oriented x 2-3. No tremor or asterixis. Last Vital Signs Temp Pulse Resp BP Pulse Ox 98.6 F 109 H 20 116/63 96 06/18/19 09:41 06/18/19 09:41 06/18/19 09:41 06/18/19 09:41 06/18/19 09:00 Heart - S1, S2, RRR Lungs - clear to auscultation Abdomen - distended (tense), non-tender. Extremities - mild edema, venous stasis skin changes Neuro - AAO x 2-3. Tone/Power normal all extremities. Laboratory Results - last 24 hr 06/17/19 06/18/19 06/18/19 15:00 07:15 09:25 PT with INR 18.60 H INR 1.57 H PTT (Actin FS) 50.2 H Sodium 138 Potassium 3.7 Chloride 108 H Carbon Dioxide 26 Anion Gap 4 L BUN 17.5 Creatinine 1.3 Est GFR (CKD-EPI)AfAm 63.18 Est GFR (CKD-EPI)NonAf 54.51 Random Glucose 98 Calcium 8.8 Total Bilirubin 1.2 H AST 43 H ALT 23 Alkaline Phosphatase 119 H Total Protein 7.2 Albumin 1.9 L Stool Occult Blood Negative Current Medications Generic Name Dose Route Start Last Admin Trade Name Freq PRN Reason Stop Dose Admin Folic Acid 1 mg 06/15/19 10:00 06/18/19 11:37 Folic Acid - PO Not Given DAILY [facility] Furosemide 40 mg 06/16/19 10:00 06/17/19 09:16 Lasix Injection - IVPUSH Not Given DAILY [facility] Heparin Sodium (Porcine) 5,000 unit 06/14/19 22:00 06/18/19 05:36 Heparin - SQ Not Given TID [facility] Lactulose 30 gm 06/14/19 23:30 06/18/19 11:38 Cephulac (Oral Use) PO Not Given Q6HPO [facility] Multivitamins/Minerals/Vitamin C 1 tab 06/16/19 10:00 06/18/19 11:37 Tab-A-Vit - PO Not Given DAILY [facility] Rifaximin 550 mg 06/14/19 23:30 06/18/19 11:37 Xifaxan - PO Not Given BID [facility] Spironolactone 100 mg 06/16/19 10:00 06/18/19 11:36 Aldactone - PO Not Given DAILY [facility] Thiamine HCl 100 mg 06/15/19 10:00 06/18/19 11:37 Vitamin B1 - PO Not Given DAILY [facility] Home Medications Medication Instructions Recorded Lactulose (Oral Use) [Cephulac -] 20 gm PO QID #120 udc 08/24/16 Furosemide [Lasix] 40 mg PO DAILY #14 tablet 02/04/17 Spironolactone 50 mg PO DAILY 06/14/19 Metoprolol Succinate 25 mg PO DAILY 06/15/19 Pantoprazole Sodium [Protonix] 40 mg PO DAILY 06/15/19 ASSESSMENT AND PLAN: 73 year old male with history of Dementia, prior TIA (2017) with no residual deficits, alcohol abuse, CKD 3, Hepatitis C, liver cirrhosis complicated by portal hypertension/ascites, brought to the ED by daughter who reports altered mental status. 1. Acute Metabolic/Hepatic Encephalopathy sec to decompensated alcohol-related Liver cirrhosis - improved. Ammonia level 74.1 s/p diagnostic Paracentesis neg for SBP, Cx negative. Lactulose regimen intensified and Rifaximin added. Resumed on Lasix, Spironolactone. GI consulted - recommends therapeutic paracentesis, abdominal US with Doppler to screen for HCC and portal vein thrombosis - IR unable to do procedure 06/15 due to inability to gain consent from patient or family member - for re-attempt at US guided therapeutic paracentesis today. 2. Chronic alcohol abuse Mild tremor - no clear signs of withdrawal. MVI, Thiamine, Folic Acid Addiction medicine consulted for eval for [facility]. Advised strongly re:alcohol cessation. 3. BECKA on CKD 3 - resolved Renal US ordered, Nephrology following 4. Normocytic Anemia, etiology unclear - sec to Cirrhosis +/- CKD 3 Anemia work-up including B12, Folate all wnl. Iron Sat 7%/Ferrtin 55 - Iron replacement as suggested by Nephrology. 5. Elevated TSH, normal free T4. for repeat TFTs in 4-6 weeks after discharge. Medicaly optimized for discharge after therapeutic paracentesis.
[2019-06-18] MEDS: FUROSEMIDE 40 MG/4 ML INJECTABLE VIAL IVPUSH SCH (13:00)
--- NOTE | 2019-06-18 14:47 | PN ---
Progress Note, Physician History of Present Illness: Pt seen and examined at bedside. He is getting a paracentesis today. He denies shortness of breath. - Current Medication List Current Medications: Active Medications Folic Acid (Folic Acid -) 1 mg PO DAILY [facility] Last Admin: 06/18/19 11:37 Dose: Not Given Furosemide (Lasix Injection -) 40 mg IVPUSH DAILY [facility] Last Admin: 06/18/19 13:00 Dose: 40 mg Heparin Sodium (Porcine) (Heparin -) 5,000 unit SQ TID [facility] Last Admin: 06/18/19 05:36 Dose: Not Given Lactulose (Cephulac (Oral Use)) 30 gm PO Q6HPO [facility] Last Admin: 06/18/19 11:38 Dose: Not Given Multivitamins/Minerals/Vitamin C (Tab-A-Vit -) 1 tab PO DAILY [facility] Last Admin: 06/18/19 11:37 Dose: Not Given Rifaximin (Xifaxan -) 550 mg PO BID [facility] Last Admin: 06/18/19 11:37 Dose: Not Given Spironolactone (Aldactone -) 100 mg PO DAILY [facility] Last Admin: 06/18/19 11:36 Dose: Not Given Thiamine HCl (Vitamin B1 -) 100 mg PO DAILY [facility] Last Admin: 06/18/19 11:37 Dose: Not Given - Objective Vital Signs: Vital Signs Temperature 98.6 F 06/18/19 09:41 Pulse Rate 109 H 06/18/19 09:41 Respiratory Rate 20 06/18/19 09:41 Blood Pressure 116/63 06/18/19 09:41 O2 Sat by Pulse Oximetry (%) 96 06/18/19 09:00 Constitutional: Yes: Calm Eyes: Yes: Conjunctiva Clear HENT: Yes: Atraumatic Neck: Yes: Supple Cardiovascular: Yes: S1, S2 Respiratory: Yes: CTA Bilaterally Gastrointestinal: Yes: Ascites Genitourinary: Yes: WNL Musculoskeletal: Yes: WNL Edema: Yes Edema: LLE: Trace, RLE: Trace Integumentary: Yes: WNL Neurological: Yes: Oriented Psychiatric: Yes: Oriented Labs: CBC, BMP 06/16/19 07:50 06/18/19 07:15 INR, PTT INR 1.57 (0.83-1.09) H 06/18/19 09:25 Problem List - Problems (1) AMS (altered mental status) Code(s): R41.82 - ALTERED MENTAL STATUS, UNSPECIFIED (2) Ascites Code(s): R18.8 - OTHER ASCITES (3) Liver disease Code(s): K76.9 - LIVER DISEASE, UNSPECIFIED Assessment/Plan Current Medications Generic Name Dose Route Start Last Admin Trade Name [place] PRN Reason Stop Dose Admin Folic Acid 1 mg 06/15/19 10:00 06/18/19 11:37 Folic Acid - PO Not Given DAILY [facility] Furosemide 40 mg 06/16/19 10:00 06/18/19 13:00 Lasix Injection - IVPUSH 40 mg DAILY [facility] Administration Heparin Sodium (Porcine) 5,000 unit 06/14/19 22:00 06/18/19 05:36 Heparin - SQ Not Given TID [facility] Lactulose 30 gm 06/14/19 23:30 06/18/19 11:38 Cephulac (Oral Use) PO Not Given Q6HPO [facility] Multivitamins/Minerals/Vitamin C 1 tab 06/16/19 10:00 06/18/19 11:37 Tab-A-Vit - PO Not Given DAILY [facility] Rifaximin 550 mg 06/14/19 23:30 06/18/19 11:37 Xifaxan - PO Not Given BID [facility] Spironolactone 100 mg 06/16/19 10:00 06/18/19 11:36 Aldactone - PO Not Given DAILY [facility] Thiamine HCl 100 mg 06/15/19 10:00 06/18/19 11:37 Vitamin B1 - PO Not Given DAILY [facility] Laboratory Tests 06/16/19 11:30 Urine Protein Negative Urine Blood Trace Impression 1. BECKA vs CKD 2. liver cirrhosis 3. ascites 4. plerual effusion 5. fluid overload 6. hx etoh abuse 7. hep c Plan - renal function stabilizing - pt for paracentesis today - cont diuretics, pt on lasix and aldactone - avoid nsaids - mental status improved
[2019-06-18 15:07] LABS: TRANSGLUTAMINASE IGA < 2 U/mL (0-3); TRANSGLUTAMINASE IGG 4 U/mL (0-5)
--- NOTE | 2019-06-18 17:11 | DS ---
Physical Exam: SUBJECTIVE: Patient seen and examined at the bedside. Patient more awake, alert , and oriented. Knows he is in [employer] and the year 2019. States he is feelings well and denies acute pain. Noted that he is ready to go for his paracentesis. Denied cp, sob, abd pain, n/v/c/d, fever, chills, numbness, tingling, dizziness, lightheadedness. OBJECTIVE: Vital Signs Period Temp Pulse Resp BP Sys/[place]ster Pulse Ox Last 24 Hr 98.1 F-98.6 F 98-109 18-20 104-130/63-82 96-96 PHYSICAL EXAM GENERAL: AOx3, awake and alert. In good spirits. HEENT: No Jaundice, eye redness or discharge, PERRLA, EOMI. Normocephalic, atraumatic. Neck: Supple, nontender. No palpable adenopathy or thyromegaly. No JVD Chest: Good effort. Clear to auscultation and percussion. Heart: Regular. Normal S1, S2, no rub or murmur Abdomen: Distended, soft, nontender. No rebound or guarding. Positive fluid wave. Noted varicosities on abdomen. Normal bowel sounds. Ext: Peripheral pulses intact. No leg edema. Skin: Warm and dry. No petechiae, rash or ecchymosis. Neuro: Alert. Oriented person and place. No asterexis. CN 2-12 grossly intact. Sensation grossly intact in all four extremities. Psych: Pleasant, good judgement. LABS Laboratory Results - last 24 hr 06/17/19 06/18/19 06/18/19 08:30 07:15 09:25 PT with INR 18.60 H INR 1.57 H PTT (Actin FS) 50.2 H Sodium 138 Potassium 3.7 Chloride 108 H Carbon Dioxide 26 Anion Gap 4 L BUN 17.5 Creatinine 1.3 Est GFR (CKD-EPI)AfAm 63.18 Est GFR (CKD-EPI)NonAf 54.51 Random Glucose 98 Calcium 8.8 Total Bilirubin 1.2 H AST 43 H ALT 23 Alkaline Phosphatase 119 H Total Protein 7.2 Albumin 1.9 L DEBBIE Screen Negative Tiss Transglutamin IgG 4 Tiss Transglutamin IgA < 2 HOSPITAL COURSE: Marc Small is a 73 year old male with a past medical history of dementia , ? TIA (2018) with no residual deficits, alcohol abuse, liver cirrhosis complicated by ascites who was admitted for altered mental status secondary to hepatic encephalopathy. The patient had his lactulose dose increased and added rifaximin. Patient was seen by gastroenterology who recommended to continue lactulose, rifaximin, Lasix, and increased dose of spirololactone. He was recommended to go for paracentesis and had 5,560mL of fluid removed. Patient had lab studies for ascities fluid which did not show SBP and other studies pending. Hepatitis panels pending. As per GI, was recommended for a low salt diet, f/u for hepatitis serology, strict I/Os, diuretics, and to follow up closely with his hepatologists at [facility]. Patient was seen by renal who recommended continued diuretics, avoid NSAIDs, and 25gm of albumin s/p paracentesis. F/u with outpatient renal. Patient underwent abdominal and renal U/S. Abdominal U/s showed hepatic cirrhosis, no evidence of hepatoma, physiologic flow through the main portal vein, no hydronephrosis. Was found with anemia and low iron saturation, will be started on iron supplementation outpatient. Was found with elevated TSH and normal free T4, is to follow up with thyroid function tests in 4-6 weeks. Is to have a f/u BMP in 1 week with new spironolactone dose. Was counseled on alcohol cessation. Is to have liver ultrasounds every 6 months to monitor for HCC. Spoken extensively with daughter of patient about discharge plan, new medications, referrals and importance of proper follow up. Daughter reiterated plan and voiced agreement. Patient was discharged in stable medical condition. Date of Admission:06/14/19 Date of Discharge: 06/18/19 Minutes to complete discharge: 35 Discharge Summary Problems reviewed: Yes Reason For Visit: AMS Current Active Problems Ascites (Chronic) Cirrhosis, alcoholic (Chronic) Liver disease (Chronic) Condition: Stable - Instructions Diet, Activity, Other Instructions: You were admitted for altered mental status that stemmed from complication of your liver cirrhosis disease. You were given medications (lactulose and rifaximin) in order to treat your confusion. You were given medications (Lasix and spironolactone) to decrease the amount of fluid in your abdomen. You underwent a paracentesis (procedure to remove fluid from your abdomen) in order to relieve some of the pressure in your abdomen. You had 5,560mL of fluid removed from his abdomen. You had several ultrasounds of your abdomen which showed hepatic cirrhosis, patent main portal vein with physiologic flow direction, no hepatoma, no hydronephrosis You were seen by the limousine driver (liver, stomach, intestine doctor) and had some of your medications altered in order to best treat your liver condition. You were seen by the embedded linux engineer (kidney doctor) who continued you on Lasix in order to treat the kidney damage that was brought about by your liver condition. MEDICATIONS STOP taking Spironlactone 50mg daily. STOP taking Lactulose 20 gm. START taking Lactulose 30gm (45mL) every 6 hours. Please start to take Spironolactone 100mg daily. Please continue to take Lasix 40mg daily. Please start to take Rifaximin 500mg bid. Please start to take Ferrous sulfate 320mg daily Please start to take Colace 100mg daily. REFERRALS Please follow up with your primary care doctor within 1 week. If you do not currently have one, you can be seen at the [facility] clinic located at [address] [place] [address]. Please call to make an appointment. Please follow up with your limousine driver at [facility]. If you choose not to follow up with those physicians you may follow up with Dr. Musa Brambila within 1 week. Please follow up with the embedded linux engineer, Dr. Brianne Alonso within 1 week. SPECIAL INSTRUCTIONS You will need repeat blood work (BMP) to check your electrolytes in 1 week. Please obtain blood work for your thyroid levels within 4-6 weeks. You may obtain a prescription for this labwork through your primary care physician. Please cease using all alcohol. Stopping drinking alcohol will greatly decrease your chances of your liver disease worsening. Please limit your consumption of salt and processed salt. You should not be consuming more than 2 grams of sodium per day. You will need a liver ultrasound every 6 months to monitor for Hepatocellular carcinoma (a type of liver cancer). You may obtain a prescription from your primary care doctor or your limousine driver. If you have any more symptoms of dizziness, lightheadedness, confusion, change in your mental status, or other general feelings of unwellness, please call [phone] or visit your nearest emergency room. Referrals: [facility] at [place] [Provider Group] - 1 Week Luis A Brambila DO [Staff Physician] - 1 Week Brianne Alonso MD [Staff Physician] - 1 Week Disposition: HOME - Home Medications Comprehensive Discharge Medication List: Ambulatory Orders Furosemide [Lasix] 40 mg PO DAILY #14 tablet 02/04/17 Metoprolol Succinate 25 mg PO DAILY 06/15/19 Pantoprazole Sodium [Protonix] 40 mg PO DAILY 06/15/19 Docusate Sodium [Colace] 100 mg PO DAILY #30 capsule 06/18/19 Ferrous Sulfate 325 mg PO DAILY #30 tablet 06/18/19 Lactulose (Oral Use) [Cephulac -] 30 gm PO Q6HPO #5400 ml 06/18/19 Rifaximin [Xifaxan -] 550 mg PO BID #60 tablet 06/18/19 Spironolactone 100 mg PO DAILY #30 tablet 06/18/19 Problem List - Problems (1) Ascites Code(s): R18.8 - OTHER ASCITES (2) Cirrhosis, alcoholic Code(s): K70.30 - ALCOHOLIC CIRRHOSIS OF LIVER WITHOUT ASCITES (3) Liver disease Code(s): K76.9 - LIVER DISEASE, UNSPECIFIED (4) AMS (altered mental status) Code(s): R41.82 - ALTERED MENTAL STATUS, UNSPECIFIED (5) Anemia of chronic disease Code(s): D63.8 - ANEMIA IN OTHER CHRONIC DISEASES CLASSIFIED ELSEWHERE (6) Ascites of liver Code(s): R18.8 - OTHER ASCITES (7) Hepatic encephalopathy Code(s): K72.90 - HEPATIC FAILURE, UNSPECIFIED WITHOUT COMA (8) Increased ammonia level Code(s): R79.89 - OTHER SPECIFIED ABNORMAL FINDINGS OF BLOOD CHEMISTRY This patient is new to me today: No Emergency Visit: No Critical Care patient: No - Discharge Referral Referred to [facility] Med P.C.: No
[2019-06-18] MEDS: ALBUMIN HUMAN 25% 12.5 GM/50 ML VIAL IVPB SCH ×2 (17:18→17:56)
[2019-06-18 17:34] VITALS: BP 109/79; PULSE 96; TEMP 97.5
[2019-06-18 18:07] LABS: BF WBC & OTHER NUCLEATED CELLS 57 /mm3
[2019-06-18 18:07] LABS: BODY FLUID ALBUMIN 0.3 g/dL (Not Estab.)
[2019-06-18 18:32] LABS: BODY FLUID MACROPHAGES 40 %; BODY FLUID MESOTHELIAL 4 %; BODY FLUID MONOCYTE 22 %
[2019-06-18 21:07] LABS: HEP B CORE AB, TOT Positive (Negative)
[2019-06-20 04:07] LABS: ALPHA 2 MACROGLOBULINS,QN 196 mg/dL (110-276); ALT(SGPT)P5P 23 IU/L (0-55); CHOLESTEROL TOTAL 98 mg/dL (100-199); GLUCOSE SERUM 96 mg/dL (65-99); HEIGHT. 66 in (.); WEIGHT. 166 LBS (.)
[2019-06-20 14:07] LABS: BODY FLUID ALBUMIN <0.2 g/dL (Not Estab.)
--- NOTE | 2019-06-25 16:24 | PATH ---
Cytology Non-Gynecological Report Patient Name: SONYA YATES Med. Rec. #: [id number] /Age/Gender: 1945 (Age: 73) / M Account: [id number] Location: [facility] MED/SURG Taken: 06/18/2019 Received: 06/19/2019 Reported: 06/25/2019 Physicians: Brando Escobar MD Specimen(s) Received A: ABDOMINAL FLUID, RIGHT B: ABDOMINAL FLUID, RIGHT Clinical History Ascites Final Diagnosis A-B. ABDOMINAL FLUID, RIGHT, PARACENTESIS: SATISFACTORY FOR EVALUATION. NO MALIGNANT CELLS IDENTIFIED. MESOTHELIAL CELLS PRESENT. Comment: Recommend correlation with clinical findings and follow up as clinically indicated. Electronically Signed Natacha King M.D. Gross Description A. Approximately 50 cc of yellow fluid received fixed in 50% alcohol. One cytofunnel prepared and Pap stained. One cellblock prepared. B. Approximately 5000 cc of yellow fluid received fresh. One cytofunnel prepared and Pap stained. One cellblock prepared.
== END 2019-06-18 18:53 | disposition home or self-care (01) | DRG 433 ==
LOC: JER 15:03 → JERBED 19:02 → J8W 21:48
PROVIDERS: ADMIT Internal Medicine
PROC: 0W9G3ZX Drainage of Peritoneal Cavity, Percutaneous Approach, Diagnostic (ICD-10-PCS; principal; 2019-06-18)
DX: K70.31 Alcoholic cirrhosis of liver with ascites (principal); N17.9 Acute kidney failure, unspecified; J90 Pleural effusion, not elsewhere classified; E72.20 Disorder of urea cycle metabolism, unspecified; J98.11 Atelectasis; K72.90 Hepatic failure, unspecified without coma; N18.3 Chronic kidney disease, stage 3 (moderate); D64.9 Anemia, unspecified; F10.10 Alcohol abuse, uncomplicated; B19.20 Unspecified viral hepatitis C without hepatic coma; E87.70 Fluid overload, unspecified; R41.82 Altered mental status, unspecified; Z91.14 Patient's other noncompliance with medication regimen; R00.0 Tachycardia, unspecified
CPT/HCPCS: 36415; 70450-TC; 71045-TC-FY; 76700-TC; 76705-TC; 76775-TC; 76942-TC; 80053; 80076; 80307; 81003; 82042; 82105; 82140; 82150; 82272; 82465; 82607; 82728; 82746; 82945; 82977; 83516; 83540; 83550; 83615; 83735; 83986; 84157; 84439; 84443; 84478; 85025; 85027; 85044; 85610; 85730; 86038; 86704; 86706; 86707; 86708; 86709; 86803; 87070; 87075; 87086; 87102; 87116; 87205; 87206; 87210; 87340; 87522; 87902; 88108; 88305-TC; 90670; 93005; 93010; 93976; 97116-GP; 97161-GP; 99285-25; J1644; J7030; P9047; Q2036

== ENCOUNTER 2019-06-25 12:41 | Inpatient (IN) | payer OTHER ==
--- NOTE | 2019-06-25 13:40 | PDOC ---
Attending Attestation - Resident Resident Name: Brandt Connelly - ED Attending Attestation I have performed the following: I have examined & evaluated the patient, The case was reviewed & discussed with the resident, I agree w/resident's findings & plan, Exceptions are as noted - HPI HPI: 06/25/19 13:39 74y M hx of dementia, etoh abuse, cirrhosis w acitees with history of hepatic encephalopathy, anemia, presents with AMS x 2 days over the past few days. Pt had recent paracentesis with removal of approx 5L of acetic fluid. Baseline was AOx3 History is limited due to the patient's mental status GENERAL: The patient is awake, alert and looking around (does not answer questions), Nontoxic - in no acute distress. HEAD: Normocephalic, atraumatic. EYES: extraocular movements intact, sclera anicteric, conjunctiva clear. ENT: Normal voice, Moist mucous membranes. NECK: Normal range of motion, supple LUNGS: Breath sounds equal, clear to auscultation bilaterally. No wheezes, no rhonchi, no rales. HEART: Regular rate and rhythm, normal S1 and S2 without murmur, rub or gallop. ABDOMEN: Distended abdomen, no focal tenderness EXTREMITIES: Normal range of motion, trace edema. NEUROLOGICAL: No facial assymetry, Normal speech, moving all 4 extremities spontaneously and symmetrically PSYCH: Normal mood, normal affect. SKIN: Warm, Dry, normal turgor, Differential for the patient's altered mental status likely hepatic encephalopathy consider possible metabolic derangement, occult infection We will obtain blood work including ammonia Will reassess - Physicial Exam PE: 06/25/19 17:12 see above - Medical Decision Making 06/25/19 17:09 Pts labs reviewed noted for niels ammonia elevated will start lactulose ?hepatorenal sndrome will admit for further mangaement Heart Score/ECG Review - ECG Impressions Comment:: 06/25/19 17:35 Twelve-lead EKG was performed and reviewed by me. There is normal sinus rhythm with a normal rate. Rate of [address] changes suggestive of acute ischemia
--- NOTE | 2019-06-25 14:42 | PDOC ---
History of Present Illness - General Chief Complaint: Altered Mental Status Stated Complaint: ALT MENTAL Time Seen by Provider: 06/25/19 13:13 History Source: Patient Exam Limitations: Dementia, Physical Impairment - History of Present Illness Initial Comments: 74 yo M with a hx of cirrhosis of the liver, ETOH abuse, TIA (2018) with no reported residual deficits, dementia, frequent ascites drainage, subacute hypothyroidism, and anemia presents to the emergency department with AMS for the past 3 days. Per the patient's daughter at bedside, the patient recently was drained 5.5 L on 06/18/2019. The patient was discharged from [facility] last week after an admission for AMS with hyperammonemia with medication adjustments. Per the daughter, she supervises his medication intake and has been compliant. He has had progressively worsening mental status. Baseline mental status is A&Ox3 and is currently A&Ox1. Unable to collect a history from the patient due to clinical condition. Allergies: NKDA Past History - Past Medical History Allergies/Adverse Reactions: Allergies Allergy/AdvReac Type Severity Reaction Status Date / Time No Known Allergies Allergy Verified 06/25/19 13:12 Home Medications: Ambulatory Orders Furosemide [Lasix] 40 mg PO DAILY #14 tablet 02/04/17 Metoprolol Succinate 25 mg PO DAILY 06/15/19 Pantoprazole Sodium [Protonix] 40 mg PO DAILY 06/15/19 Docusate Sodium [Colace] 100 mg PO DAILY #30 capsule 06/18/19 Ferrous Sulfate 325 mg PO DAILY #30 tablet 06/18/19 Lactulose (Oral Use) [Cephulac -] 30 gm PO Q6HPO #5400 ml 06/18/19 Rifaximin [Xifaxan -] 550 mg PO BID #60 tablet 06/18/19 Spironolactone 100 mg PO DAILY #30 tablet 06/18/19 COPD: No Dementia: Yes GI Disorders: Yes (cirrhosis, hepatitis C) - Psycho Social/Smoking Cessation Hx Smoking History: Never smoked Have you smoked in the past 12 months: No Information on smoking cessation initiated: No Hx Alcohol Use: No Drug/Substance Use Hx: No Substance Use Type: None Hx Substance Use Treatment: No Review of Systems - Review of Systems Able to Perform ROS?: No (AMS) *Physical Exam - Vital Signs Last Vital Signs Temp Pulse Resp BP Pulse Ox 97.3 F L 94 H 16 194/135 H 97 06/25/19 13:18 06/25/19 12:41 06/25/19 12:41 06/25/19 12:41 06/25/19 12:41 - Physical Exam General Appearance: Yes: Other (malnourished appearing, appropriately dressed, awake and alert, unable to answer questions, NAD) HEENT: positive: EOMI, CATALINO, Other (nontraumatic head, normocephalic. moist mucous membranes). negative: Pale Conjunctivae, Scleral Icterus (R), Scleral Icterus (L), Pharyngeal Erythema, Tonsillar Exudate Neck: positive: Trachea midline, Supple. negative: Tender, Lymphadenopathy (R) , Lymphadenopathy (L), Tender lateral, Tender midline Respiratory/Chest: positive: Lungs Clear, Normal Breath Sounds. negative: Chest Tender, Respiratory Distress, Accessory Muscle Use Cardiovascular: positive: Regular Rhythm, Regular Rate, S1, S2. negative: Systolic Murmur Gastrointestinal/Abdominal: positive: Normal Bowel Sounds, Distended (markedly distended with caput medusae. ), Other (positive fluid wave). negative: Tender Lymphatic: negative: Adenopathy Musculoskeletal: negative: CVA Tenderness, Vertebral Tenderness Extremity: positive: Normal Capillary Refill, Normal Range of Motion, Pedal Edema (trace). negative: Tender Integumentary: positive: Normal Color, Dry, Warm, Other (palmar erythema noted) Neurologic: positive: Alert, Other (unable to assess CN2-12 due to patient's condition. moves all 4 extremities spontaneously and symmetrically. ). negative : Normal Mood/Affect, Facial Droop ED Treatment Course - LABORATORY CBC & Chemistry Diagram: 06/26/19 10:00 06/29/19 10:50 - ADDITIONAL ORDERS Additional order review: Laboratory Results 06/25/19 13:13 POC Glucometer 101 06/25/19 13:13 POC Glucometer 101 - RADIOLOGY Radiology Studies Ordered: Category Date Time Status CHEST X-RAY PORTABLE* [RAD] Stat Radiology 06/25/19 13:48 Completed Medical Decision Making - Medical Decision Making 74 yo M with a hx of cirrhosis of the liver, ETOH abuse, TIA (2018) with no reported residual deficits, dementia, frequent ascites drainage, subacute hypothyroidism, and anemia presents to the emergency department with AMS for the past 3 days. Initial vitals Initial Vital Signs Pulse Resp BP Pulse Ox 94 H 16 194/135 H 97 06/25/19 12:41 06/25/19 12:41 06/25/19 12:41 06/25/19 12:41 Work up: AMS in the setting of known liver cirrhosis. concerns for hepatic encephalopathy. Will obtain labs. Positive FAST exam indicating fluid. Laboratory Tests 06/25/19 06/25/19 06/25/19 13:13 14:53 14:53 WBC RBC Hgb Hct MCV MCH MCHC RDW Plt Count MPV Absolute Neuts (auto) Neutrophils % Lymphocytes % Monocytes % Eosinophils % Basophils % Nucleated RBC % Hypochromia Platelet Estimate Polychromasia Poikilocytosis Anisocytosis Microcytosis Macrocytosis Target Cells Ovalocytes PT with INR INR PTT (Actin FS) Sodium 136 Potassium 4.4 Chloride 103 Carbon Dioxide 22 Anion Gap 11 BUN 36.2 H Creatinine 3.0 H Est GFR (CKD-EPI)AfAm 22.83 Est GFR (CKD-EPI)NonAf 19.69 POC Glucometer 101 Random Glucose 106 Calcium 8.8 Magnesium 1.8 Total Bilirubin 2.1 H AST 58 H ALT 27 Alkaline Phosphatase 107 Ammonia 108.60 H Total Protein 7.6 Albumin 2.1 L Alcohol, Quantitative < 3 06/25/19 06/25/19 14:53 14:53 WBC 7.3 RBC 3.36 L Hgb 9.3 L Hct 28.7 L MCV 85.4 MCH 27.7 MCHC 32.4 RDW 20.7 H Plt Count 146 MPV 8.1 Absolute Neuts (auto) 5.3 Neutrophils % 72.1 Lymphocytes % 11.2 D Monocytes % 15.2 H Eosinophils % 1.2 Basophils % 0.3 Nucleated RBC % 0 Hypochromia 0 Platelet Estimate Decreased Polychromasia 0 Poikilocytosis 1+ Anisocytosis 1+ Microcytosis 1+ Macrocytosis 1+ Target Cells 1+ Ovalocytes 1+ PT with INR 18.20 H INR 1.54 H PTT (Actin FS) 29.5 Sodium Potassium Chloride Carbon Dioxide Anion Gap BUN Creatinine Est GFR (CKD-EPI)AfAm Est GFR (CKD-EPI)NonAf POC Glucometer Random Glucose Calcium Magnesium Total Bilirubin AST ALT Alkaline Phosphatase Ammonia Total Protein Albumin Alcohol, Quantitative CXR does not show acute process by my read EKG: NSR without ST elevatins or dperessions. No gross changes from previous EKG. TWI persistent in III. ammonia markedly elevated. Markedly increased creatinine from baseline in the setting of hyperammonemia. Patient likely having hepatic encephalopathy with possible complication of hepato-renal syndrome. Will need admission for further work up. Dispo: Admit Discharge - Discharge Information Problems reviewed: Yes Clinical Impression/Diagnosis: Hepatic encephalopathy, Liver disease, Ascites - Follow up/Referral - Patient Discharge Instructions - Post Discharge Activity
[2019-06-25 15:16] LABS: BASO % 0.3 % (0-2.0); EOS % 1.2 % (0-4.5); HEMATOCRIT 28.7 % (35.4-49); HEMOGLOBIN 9.3 GM/dL (11.7-16.9); LYMPH % 11.2 % (8-40); MCH 27.7 pg (25.7-33.7); MCHC 32.4 g/dl (32.0-35.9); MEAN CELL VOLUME 85.4 fl (80-96); MEAN PLT VOLUME 8.1 fl (7.5-11.1); MONO % 15.2 % (3.8-10.2); NEUT % 72.1 % (42.8-82.8); PLATELET COUNT 146 K/MM3 (134-434); RBC 3.36 M/mm3 (4.00-5.60); RDW 20.7 % (11.9-15.9); WHITE BLOOD COUNT 7.3 K/mm3 (4.0-10.0)
[2019-06-25 15:39] LABS: INR 1.54 (0.83-1.09); PROTHROMBIN TIME (PATIENT) 18.2 SEC (9.7-13.0)
[2019-06-25 15:42] LABS: ACTIVATED PTT 29.5 SECONDS (25.2-36.5)
[2019-06-25 15:51] LABS: ANISOCYTOSIS 1+; MACROCYTOSIS 1+; OVALOCYTE 1+; PLATELET ESTIMATE DECREASED; TARGET CELLS 1+
[2019-06-25 16:01] LABS: ALBUMIN 2.1 g/dl (3.4-5.0); ALK PHOS 107 U/L (45-117); ANION GAP 11 MMOL/L (8-16); BILIRUBIN,TOTAL 2.1 mg/dL (0.2-1); BLOOD UREA NITROGEN 36.2 mg/dL (7-18); CALCIUM 8.8 mg/dL (8.5-10.1); CHLORIDE 103 mmol/L (98-107); CO2 22 mmol/L (21-32); GLUCOSE,RANDOM 106 mg/dL (74-106); MAGNESIUM 1.8 mg/dL (1.8-2.4); POTASSIUM 4.4 mmol/L (3.5-5.1); SGOT/AST 58 U/L (15-37); SGPT/ALT 27 U/L (13-61); SODIUM 136 mmol/L (136-145); TOT PROT 7.6 g/dl (6.4-8.2)
[2019-06-25] MEDS ORDERED: LACTULOSE 20 GM/30 ML UDC (FOR ORAL USE ONLY) PO ONE (17:10)
[2019-06-25 17:30] LABS: EPI CELLS 0.7 /HPF (0-5/HPF); HYALINE CASTS 6 /lpf (0-8); URINE APPEARANCE CLEAR; URINE BACTERIA 0.7 /hpf (NEGATIVE); URINE BILIRUBIN NEGATIVE (NEGATIVE); URINE COLOR DK YELLOW; URINE GLUCOSE (UA) NEGATIVE (NEGATIVE); URINE KETONE NEGATIVE (NEGATIVE); URINE LEUK ESTERASE NEGATIVE (NEGATIVE); URINE NITRITE NEGATIVE (NEGATIVE); URINE PROTEIN NEGATIVE (NEGATIVE); URINE RBC 9 /hpf (0-4); URINE WBC 3 /hpf (0-5)
--- NOTE | 2019-06-25 17:32 | EKG ---
Test Reason : Blood Pressure : / mmHG Vent. Rate : 090 BPM Atrial Rate : 090 BPM P-R Int : 124 ms QRS Dur : 074 ms QT Int : 368 ms P-R-T Axes : 012 036 017 degrees QTc Int : 450 ms POOR DATA QUALITY, INTERPRETATION MAY BE ADVERSELY AFFECTED NORMAL SINUS RHYTHM LOW VOLTAGE QRS BORDERLINE ECG WHEN COMPARED WITH ECG OF 14-JUN-2019 16:51, NONSPECIFIC T WAVE ABNORMALITY NO LONGER EVIDENT IN ANTERIOR LEADS Confirmed by RAFA PONCE MD ([id number]) on 06/25/2019 5:31:43 PM Referred By: Confirmed By:RAFA PONCE MD
[2019-06-25] MEDS ORDERED: LACTULOSE 20 GM/30 ML UDC (FOR ORAL USE ONLY) ONE ×3 (18:29→20:07)
--- NOTE | 2019-06-25 20:01 | HP ---
Admitting History and Physical - Primary Care Physician PCP: Alfred Ballard - Admission History of Present Illness: 74y M hx of dementia, etoh abuse, cirrhosis w acitees with history of hepatic encephalopathy, anemia, presents with AMS x 2 days over the past few days. Pt had recent paracentesis with removal of approx 5L of acetic fluid. 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 Gastrointestinal: Yes: Ascites Hepatobiliary: Yes: Cirrhosis, Hepatitis C - Smoking History Smoking history: Never smoked Have you smoked in the past 12 months: No - Alcohol/Substance Use Hx Alcohol Use: No History of Substance Use: reports: None - Social History ADL: Independent History of Recent Travel: No Home Medications - Allergies Allergies/Adverse Reactions: Allergies Allergy/AdvReac Type Severity Reaction Status Date / Time No Known Allergies Allergy Verified 06/25/19 13:12 - Home Medications Home Medications: Ambulatory Orders Furosemide [Lasix] 40 mg PO DAILY #14 tablet 02/04/17 Metoprolol Succinate 25 mg PO DAILY 06/15/19 Pantoprazole Sodium [Protonix] 40 mg PO DAILY 06/15/19 Docusate Sodium [Colace] 100 mg PO DAILY #30 capsule 06/18/19 Ferrous Sulfate 325 mg PO DAILY #30 tablet 06/18/19 Lactulose (Oral Use) [Cephulac -] 30 gm PO Q6HPO #5400 ml 06/18/19 Rifaximin [Xifaxan -] 550 mg PO BID #60 tablet 06/18/19 Spironolactone 100 mg PO DAILY #30 tablet 06/18/19 Physical Examination Vital Signs: Vital Signs Temperature 97.5 F L 06/25/19 17:01 Pulse Rate 98 H 06/25/19 17:01 Respiratory Rate 16 06/25/19 17:01 Blood Pressure 100/63 06/25/19 17:01 O2 Sat by Pulse Oximetry (%) 98 06/25/19 17:01 Constitutional: Yes: No Distress HENT: Yes: Atraumatic Neck: Yes: Supple Cardiovascular: Yes: Regular Rate and Rhythm Respiratory: Yes: CTA Bilaterally Gastrointestinal: Yes: Normal Bowel Sounds, Ascites, Distention Extremities: Yes: WNL Edema: Yes Edema: LLE: 1+, RLE: 1+ Neurological: Yes: Alert Labs: CBC, BMP 06/25/19 14:53 06/25/19 14:53 Imaging - Results X-ray: Report Reviewed Problem List - Problems (1) Ascites Assessment/Plan: on diuretics Code(s): R18.8 - OTHER ASCITES (2) Cirrhosis, alcoholic Code(s): K70.30 - ALCOHOLIC CIRRHOSIS OF LIVER WITHOUT ASCITES (3) AMS (altered mental status) Code(s): R41.82 - ALTERED MENTAL STATUS, UNSPECIFIED (4) Anemia of chronic disease Code(s): D63.8 - ANEMIA IN OTHER CHRONIC DISEASES CLASSIFIED ELSEWHERE (5) Hepatic encephalopathy Assessment/Plan: on lactulose Code(s): K72.90 - HEPATIC FAILURE, UNSPECIFIED WITHOUT COMA (6) Increased ammonia level Code(s): R79.89 - OTHER SPECIFIED ABNORMAL FINDINGS OF BLOOD CHEMISTRY (7) Pneumonia Assessment/Plan: id consult Code(s): J18.9 - PNEUMONIA, UNSPECIFIED ORGANISM Assessment/Plan Laboratory Tests 06/25/19 06/25/19 06/25/19 13:13 14:53 14:53 WBC RBC Hgb Hct MCV MCH MCHC RDW Plt Count MPV Absolute Neuts (auto) Neutrophils % Lymphocytes % Monocytes % Eosinophils % Basophils % Nucleated RBC % Hypochromia Platelet Estimate Polychromasia Poikilocytosis Anisocytosis Microcytosis Macrocytosis Target Cells Ovalocytes PT with INR INR PTT (Actin FS) Sodium 136 Potassium 4.4 Chloride 103 Carbon Dioxide 22 Anion Gap 11 BUN 36.2 H Creatinine 3.0 H Est GFR (CKD-EPI)AfAm 22.83 Est GFR (CKD-EPI)NonAf 19.69 POC Glucometer 101 Random Glucose 106 Calcium 8.8 Magnesium 1.8 Total Bilirubin 2.1 H AST 58 H ALT 27 Alkaline Phosphatase 107 Ammonia 108.60 H Total Protein 7.6 Albumin 2.1 L Urine Color Urine Appearance Urine pH Ur Specific [place] Urine Protein Urine Glucose (UA) Urine Ketones Urine Blood Urine Nitrite Urine Bilirubin Urine Urobilinogen Ur Leukocyte Esterase Urine WBC (Auto) Urine RBC (Auto) Urine Casts (Auto) U Epithel Cells (Auto) Urine Bacteria (Auto) Ur Random Creatinine Ur Random Sodium Ur Random Potassium Ur Random Chloride Ur Random Urea Nitrogn Alcohol, Quantitative < 3 06/25/19 06/25/19 06/25/19 14:53 14:53 17:19 WBC 7.3 RBC 3.36 L Hgb 9.3 L Hct 28.7 L MCV 85.4 MCH 27.7 MCHC 32.4 RDW 20.7 H Plt Count 146 MPV 8.1 Absolute Neuts (auto) 5.3 Neutrophils % 72.1 Lymphocytes % 11.2 D Monocytes % 15.2 H Eosinophils % 1.2 Basophils % 0.3 Nucleated RBC % 0 Hypochromia 0 Platelet Estimate Decreased Polychromasia 0 Poikilocytosis 1+ Anisocytosis 1+ Microcytosis 1+ Macrocytosis 1+ Target Cells 1+ Ovalocytes 1+ PT with INR 18.20 H INR 1.54 H PTT (Actin FS) 29.5 Sodium Potassium Chloride Carbon Dioxide Anion Gap BUN Creatinine Est GFR (CKD-EPI)AfAm Est GFR (CKD-EPI)NonAf POC Glucometer Random Glucose Calcium Magnesium Total Bilirubin AST ALT Alkaline Phosphatase Ammonia Total Protein Albumin Urine Color Dk yellow Urine Appearance Clear Urine pH 5.0 Ur Specific [place] 1.015 Urine Protein Negative Urine Glucose (UA) Negative Urine Ketones Negative Urine Blood 1+ H Urine Nitrite Negative Urine Bilirubin Negative Urine Urobilinogen 1.0 Ur Leukocyte Esterase Negative Urine WBC (Auto) 3 Urine RBC (Auto) 9 Urine Casts (Auto) 6 U Epithel Cells (Auto) 0.7 Urine Bacteria (Auto) 0.7 Ur Random Creatinine Ur Random Sodium Ur Random Potassium Ur Random Chloride Ur Random Urea Nitrogn Alcohol, Quantitative 06/26/19 06/26/19 06/26/19 10:00 10:00 10:00 WBC 6.5 RBC 3.45 L Hgb 9.7 L Hct 29.8 L MCV 86.4 MCH 28.2 MCHC 32.6 RDW 21.1 H Plt Count 163 MPV 8.3 Absolute Neuts (auto) 4.4 Neutrophils % 68.4 Lymphocytes % 15.1 D Monocytes % 13.8 H Eosinophils % 1.9 Basophils % 0.8 Nucleated RBC % 0 Hypochromia Platelet Estimate Polychromasia Poikilocytosis Anisocytosis Microcytosis Macrocytosis Target Cells Ovalocytes PT with INR INR PTT (Actin FS) Sodium 138 Potassium 4.4 Chloride 104 Carbon Dioxide 20 L Anion Gap 14 BUN 34.2 H Creatinine 2.8 H Est GFR (CKD-EPI)AfAm 24.81 Est GFR (CKD-EPI)NonAf 21.41 POC Glucometer Random Glucose 109 H Calcium 9.1 Magnesium Total Bilirubin 2.3 H AST 74 H ALT 30 Alkaline Phosphatase 99 Ammonia 100.00 H Total Protein 8.0 Albumin 2.4 L Urine Color Urine Appearance Urine pH Ur Specific [place] Urine Protein Urine Glucose (UA) Urine Ketones Urine Blood Urine Nitrite Urine Bilirubin Urine Urobilinogen Ur Leukocyte Esterase Urine WBC (Auto) Urine RBC (Auto) Urine Casts (Auto) U Epithel Cells (Auto) Urine Bacteria (Auto) Ur Random Creatinine Ur Random Sodium Ur Random Potassium Ur Random Chloride Ur Random Urea Nitrogn Alcohol, Quantitative 06/26/19 06/26/19 06/26/19 14:30 14:30 14:30 WBC RBC Hgb Hct MCV MCH MCHC RDW Plt Count MPV Absolute Neuts (auto) Neutrophils % Lymphocytes % Monocytes % Eosinophils % Basophils % Nucleated RBC % Hypochromia Platelet Estimate Polychromasia Poikilocytosis Anisocytosis Microcytosis Macrocytosis Target Cells Ovalocytes PT with INR INR PTT (Actin FS) Sodium Potassium Chloride Carbon Dioxide Anion Gap BUN Creatinine Est GFR (CKD-EPI)AfAm Est GFR (CKD-EPI)NonAf POC Glucometer Random Glucose Calcium Magnesium Total Bilirubin AST ALT Alkaline Phosphatase Ammonia Total Protein Albumin Urine Color Urine Appearance Urine pH Ur Specific [place] Urine Protein Urine Glucose (UA) Urine Ketones Urine Blood Urine Nitrite Urine Bilirubin Urine Urobilinogen Ur Leukocyte Esterase Urine WBC (Auto) Urine RBC (Auto) Urine Casts (Auto) U Epithel Cells (Auto) Urine Bacteria (Auto) Ur Random Creatinine 143.0 Cancelled Ur Random Sodium 41 Ur Random Potassium 48.0 Ur Random Chloride 64 L Ur Random Urea Nitrogn 516 Cancelled Alcohol, Quantitative Active Medications Generic Name Dose Route Start Last Admin Trade Name Freq PRN Reason Stop Dose Admin Chlorhexidine Gluconate 1 applic 06/26/19 22:00 Hibiclens For Decolonization - TP HS [facility] Heparin Sodium (Porcine) 5,000 unit 06/26/19 22:00 Heparin - SQ BID [facility] Lactulose 30 gm 06/26/19 20:00 Cephulac (Oral Use) PO Q6H [facility] Metoprolol Succinate 25 mg 06/27/19 10:00 Toprol Xl - PO DAILY [facility] Mupirocin 1 applic 06/26/19 22:00 Bactroban Ointment (For Decolonization) - NS 07/01/19 21:59 BID I[facility] Pantoprazole Sodium 40 mg 06/27/19 10:00 Protonix - PO DAILY [facility] Rifaximin 550 mg 06/26/19 22:00 Xifaxan - PO BID [facility] Spironolactone 100 mg 06/27/19 10:00 Aldactone - PO DAILY I[facility]
--- NOTE | 2019-06-25 20:08 | HP ---
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 Gastrointestinal: Yes: Ascites Hepatobiliary: Yes: Cirrhosis, Hepatitis C - Smoking History Smoking history: Never smoked Have you smoked in the past 12 months: No - Alcohol/Substance Use Hx Alcohol Use: No History of Substance Use: reports: None - Social History ADL: Independent History of Recent Travel: No Home Medications - Allergies Allergies/Adverse Reactions: Allergies Allergy/AdvReac Type Severity Reaction Status Date / Time No Known Allergies Allergy Verified 06/25/19 13:12 - Home Medications Home Medications: Ambulatory Orders Furosemide [Lasix] 40 mg PO DAILY #14 tablet 02/04/17 Metoprolol Succinate 25 mg PO DAILY 06/15/19 Pantoprazole Sodium [Protonix] 40 mg PO DAILY 06/15/19 Docusate Sodium [Colace] 100 mg PO DAILY #30 capsule 06/18/19 Ferrous Sulfate 325 mg PO DAILY #30 tablet 06/18/19 Lactulose (Oral Use) [Cephulac -] 30 gm PO Q6HPO #5400 ml 06/18/19 Rifaximin [Xifaxan -] 550 mg PO BID #60 tablet 06/18/19 Spironolactone 100 mg PO DAILY #30 tablet 06/18/19 Physical Examination Vital Signs: Vital Signs Temperature 97.5 F L 06/25/19 17:01 Pulse Rate 98 H 06/25/19 17:01 Respiratory Rate 16 06/25/19 17:01 Blood Pressure 100/63 06/25/19 17:01 O2 Sat by Pulse Oximetry (%) 98 06/25/19 17:01 Labs: CBC, BMP 06/25/19 14:53 06/25/19 14:53 Problem List - Problems (1) Ascites Assessment/Plan: on diuretic Code(s): R18.8 - OTHER ASCITES (2) Cirrhosis, alcoholic Code(s): K70.30 - ALCOHOLIC CIRRHOSIS OF LIVER WITHOUT ASCITES (3) AMS (altered mental status) Code(s): R41.82 - ALTERED MENTAL STATUS, UNSPECIFIED (4) Anemia of chronic disease Code(s): D63.8 - ANEMIA IN OTHER CHRONIC DISEASES CLASSIFIED ELSEWHERE (5) Hepatic encephalopathy Code(s): K72.90 - HEPATIC FAILURE, UNSPECIFIED WITHOUT COMA (6) Increased ammonia level Assessment/Plan: po lactulose Code(s): R79.89 - OTHER SPECIFIED ABNORMAL FINDINGS OF BLOOD CHEMISTRY (7) Pneumonia Assessment/Plan: id consult Code(s): J18.9 - PNEUMONIA, UNSPECIFIED ORGANISM Assessment/Plan Laboratory Tests 06/25/19 06/25/19 06/25/19 13:13 14:53 14:53 WBC RBC Hgb Hct MCV MCH MCHC RDW Plt Count MPV Absolute Neuts (auto) Neutrophils % Lymphocytes % Monocytes % Eosinophils % Basophils % Nucleated RBC % Hypochromia Platelet Estimate Polychromasia Poikilocytosis Anisocytosis Microcytosis Macrocytosis Target Cells Ovalocytes PT with INR INR PTT (Actin FS) Sodium 136 Potassium 4.4 Chloride 103 Carbon Dioxide 22 Anion Gap 11 BUN 36.2 H Creatinine 3.0 H Est GFR (CKD-EPI)AfAm 22.83 Est GFR (CKD-EPI)NonAf 19.69 POC Glucometer 101 Random Glucose 106 Calcium 8.8 Magnesium 1.8 Total Bilirubin 2.1 H AST 58 H ALT 27 Alkaline Phosphatase 107 Ammonia 108.60 H Total Protein 7.6 Albumin 2.1 L Urine Color Urine Appearance Urine pH Ur Specific [place] Urine Protein Urine Glucose (UA) Urine Ketones Urine Blood Urine Nitrite Urine Bilirubin Urine Urobilinogen Ur Leukocyte Esterase Urine WBC (Auto) Urine RBC (Auto) Urine Casts (Auto) U Epithel Cells (Auto) Urine Bacteria (Auto) Alcohol, Quantitative < 3 06/25/19 06/25/19 06/25/19 14:53 14:53 17:19 WBC 7.3 RBC 3.36 L Hgb 9.3 L Hct 28.7 L MCV 85.4 MCH 27.7 MCHC 32.4 RDW 20.7 H Plt Count 146 MPV 8.1 Absolute Neuts (auto) 5.3 Neutrophils % 72.1 Lymphocytes % 11.2 D Monocytes % 15.2 H Eosinophils % 1.2 Basophils % 0.3 Nucleated RBC % 0 Hypochromia 0 Platelet Estimate Decreased Polychromasia 0 Poikilocytosis 1+ Anisocytosis 1+ Microcytosis 1+ Macrocytosis 1+ Target Cells 1+ Ovalocytes 1+ PT with INR 18.20 H INR 1.54 H PTT (Actin FS) 29.5 Sodium Potassium Chloride Carbon Dioxide Anion Gap BUN Creatinine Est GFR (CKD-EPI)AfAm Est GFR (CKD-EPI)NonAf POC Glucometer Random Glucose Calcium Magnesium Total Bilirubin AST ALT Alkaline Phosphatase Ammonia Total Protein Albumin Urine Color Dk yellow Urine Appearance Clear Urine pH 5.0 Ur Specific [place] 1.015 Urine Protein Negative Urine Glucose (UA) Negative Urine Ketones Negative Urine Blood 1+ H Urine Nitrite Negative Urine Bilirubin Negative Urine Urobilinogen 1.0 Ur Leukocyte Esterase Negative Urine WBC (Auto) 3 Urine RBC (Auto) 9 Urine Casts (Auto) 6 U Epithel Cells (Auto) 0.7 Urine Bacteria (Auto) 0.7 Alcohol, Quantitative Active Medications Generic Name Dose Route Start Last Admin Trade Name Freq PRN Reason Stop Dose Admin Heparin Sodium (Porcine) 5,000 unit 06/25/19 22:00 Heparin - SQ BID [facility] Lactulose 30 gm 06/25/19 20:00 Cephulac (Oral Use) PO Q6H [facility] Metoprolol Succinate 25 mg 06/26/19 10:00 Toprol Xl - PO DAILY [facility] Pantoprazole Sodium 40 mg 06/26/19 10:00 Protonix - PO DAILY [facility] Rifaximin 550 mg 06/25/19 22:00 Xifaxan - PO BID [facility] Spironolactone 100 mg 06/26/19 10:00 Aldactone - PO DAILY [facility]
[2019-06-25] MEDS: LACTULOSE 20 GM/30 ML UDC (FOR ORAL USE ONLY) PO SCH (20:17)
[2019-06-26] MEDS ORDERED: HEPARIN NA (PORCINE) 5,000 UNITS/ML 1ML VIAL ONE (00:27)
[2019-06-26] MEDS: HEPARIN NA (PORCINE) 5,000 UNITS/ML 1ML VIAL SQ SCH ×3 (00:31→21:50)
[2019-06-26] MEDS: RIFAXIMIN 550 MG TABLET (UD) PO SCH ×3 (00:55→21:50)
[2019-06-26] MEDS ORDERED: LACTULOSE 20 GM/30 ML UDC (FOR ORAL USE ONLY) ONE ×2 (03:50→08:27)
[2019-06-26] MEDS: LACTULOSE 20 GM/30 ML UDC (FOR ORAL USE ONLY) PO SCH ×4 (03:55→19:08)
[2019-06-26] MEDS ORDERED: PT OWN MED DRAWER 7, Y5N ONE ×3 (08:35→14:48)
[2019-06-26] MEDS ORDERED: SPIRONOLACTONE 25 MG TABLET (FP) PO SCH (10:00)
[2019-06-26] MEDS ORDERED: metoPROLOL SUCCINATE 25 MG TAB.SR.24H (FP) PO SCH (10:00)
[2019-06-26] MEDS ORDERED: PANTOPRAZOLE 40 MG TABLET (FP) PO SCH (10:00)
--- NOTE | 2019-06-26 10:27 | CONSULT ---
Consultation: NEPHROLOGY CONSULTATION REQUESTING PROVIDER: Dr. Ballard CONSULT REQUEST: We have been asked to medically evaluate this patient for acute kidney injury HISTORY OF PRESENT ILLNESS: 74 year old male with a history of alcoholic cirrhosis requiring frequent paracenteses, hepatic encephalopathy, dementia initially presented to the hospital for altered mental status for 3 days. Per reports, patient recently received a paracentesis with 5.5L extracted on 06/18/19. Patient is awake but lethargic and is unable to appropriately answer my questions. He appears comfortable and in no distress. Nephrology consulted for evaluation and management of acute kidney injury. REVIEW OF SYSTEMS: Unable to assess due to mental status PHYSICAL EXAMINATION Vital Signs - 24 hr 06/25/19 06/25/19 06/25/19 12:41 13:18 17:01 Temperature 97.3 F L 97.5 F L Pulse Rate 94 H Pulse Rate [ 98 H Right] Respiratory 16 16 Rate Blood Pressure 194/135 H Blood Pressure 100/63 [Left] O2 Sat by Pulse 97 98 Oximetry (%) 06/26/19 06/26/19 01:07 06:02 Temperature 97.7 F Pulse Rate Pulse Rate [ 103 H 103 H Right] Respiratory 16 18 Rate Blood Pressure Blood Pressure 117/87 126/96 [Left] O2 Sat by Pulse 95 96 Oximetry (%) GENERAL: A&Ox1 (name), no acute distress, lethargic EYES: PERRLA, no scleral icterus noted ENT: Dry mucus membranes NECK: No JVD LUNGS: CTA, no wheezes or rales noted HEART: Mildly tachycardic ABDOMEN: Distended and firm, + fluid wave, + shifting dullness, caput medusa present, bowel sounds present, abdomen nontender MUSCULOSKELETAL: No CVA Tenderness EXTREMITIES: 2+ pulses, no edema. NEUROLOGICAL: Unable to assess due to mental status Laboratory Results - last 24 hr 06/25/19 06/25/19 06/25/19 13:13 14:53 14:53 WBC RBC Hgb Hct MCV MCH MCHC RDW Plt Count MPV Absolute Neuts (auto) Neutrophils % Lymphocytes % Monocytes % Eosinophils % Basophils % Nucleated RBC % Hypochromia Platelet Estimate Polychromasia Poikilocytosis Anisocytosis Microcytosis Macrocytosis Target Cells Ovalocytes PT with INR INR PTT (Actin FS) Sodium 136 Potassium 4.4 Chloride 103 Carbon Dioxide 22 Anion Gap 11 BUN 36.2 H Creatinine 3.0 H Est GFR (CKD-EPI)AfAm 22.83 Est GFR (CKD-EPI)NonAf 19.69 POC Glucometer 101 Random Glucose 106 Calcium 8.8 Magnesium 1.8 Total Bilirubin 2.1 H AST 58 H ALT 27 Alkaline Phosphatase 107 Ammonia 108.60 H Total Protein 7.6 Albumin 2.1 L Urine Color Urine Appearance Urine pH Ur Specific [place] Urine Protein Urine Glucose (UA) Urine Ketones Urine Blood Urine Nitrite Urine Bilirubin Urine Urobilinogen Ur Leukocyte Esterase Urine WBC (Auto) Urine RBC (Auto) Urine Casts (Auto) U Epithel Cells (Auto) Urine Bacteria (Auto) Alcohol, Quantitative < 3 06/25/19 06/25/19 06/25/19 14:53 14:53 17:19 WBC 7.3 RBC 3.36 L Hgb 9.3 L Hct 28.7 L MCV 85.4 MCH 27.7 MCHC 32.4 RDW 20.7 H Plt Count 146 MPV 8.1 Absolute Neuts (auto) 5.3 Neutrophils % 72.1 Lymphocytes % 11.2 D Monocytes % 15.2 H Eosinophils % 1.2 Basophils % 0.3 Nucleated RBC % 0 Hypochromia 0 Platelet Estimate Decreased Polychromasia 0 Poikilocytosis 1+ Anisocytosis 1+ Microcytosis 1+ Macrocytosis 1+ Target Cells 1+ Ovalocytes 1+ PT with INR 18.20 H INR 1.54 H PTT (Actin FS) 29.5 Sodium Potassium Chloride Carbon Dioxide Anion Gap BUN Creatinine Est GFR (CKD-EPI)AfAm Est GFR (CKD-EPI)NonAf POC Glucometer Random Glucose Calcium Magnesium Total Bilirubin AST ALT Alkaline Phosphatase Ammonia Total Protein Albumin Urine Color Dk yellow Urine Appearance Clear Urine pH 5.0 Ur Specific [place] 1.015 Urine Protein Negative Urine Glucose (UA) Negative Urine Ketones Negative Urine Blood 1+ H Urine Nitrite Negative Urine Bilirubin Negative Urine Urobilinogen 1.0 Ur Leukocyte Esterase Negative Urine WBC (Auto) 3 Urine RBC (Auto) 9 Urine Casts (Auto) 6 U Epithel Cells (Auto) 0.7 Urine Bacteria (Auto) 0.7 Alcohol, Quantitative Active Medications Generic Name Dose Route Start Last Admin Trade Name Freq PRN Reason Stop Dose Admin Heparin Sodium (Porcine) 5,000 unit 06/25/19 22:00 06/26/19 00:31 Heparin - SQ 5,000 unit BID IRENA Administration Lactulose 30 gm 06/25/19 20:00 06/26/19 08:32 Cephulac (Oral Use) PO 30 gm Q6H IRENA Administration Metoprolol Succinate 25 mg 06/26/19 10:00 Toprol Xl - PO DAILY IRENA Pantoprazole Sodium 40 mg 06/26/19 10:00 Protonix - PO DAILY IRENA Rifaximin 550 mg 06/25/19 22:00 06/26/19 00:55 Xifaxan - PO 550 mg BID IRENA Administration Spironolactone 100 mg 06/26/19 10:00 Aldactone - PO DAILY [facility] ASSESSMENT/PLAN: 74 year old male with a history of alcoholic cirrhosis requiring frequent paracenteses, hepatic encephalopathy, dementia initially presented to the hospital for altered mental status for 2 days admitted for tx of hepatic encephalopathy #Acute Kidney Injury: likely multifactorial in etiology with differentials including intravascular volume depletion in the setting of cirrhosis, injury associated with sepsis or (less likely) spontaneous bacterial peritonitis, acute tubular necrosis, hepatorenal syndrome -urinalysis unremarkable for BECKA etiology -does not appear that patient is voiding spontaneously due to minimal amount of urine in diaper -obtain renal ultrasound, include bladder -insert costello if there is urinary retention -would obtain urine lytes -would need paracentesis and evaluation of fluid to rule out SBP -consider holding pantoprazole -hold spironolactone per GI #Hepatic Encephalopathy: patient returned 1 week after large volume paracentesis with encephalopathy and significant ascites, unclear inciting factor; -needs paracentesis and ascitic fluid evaluation -titrate lactulose to 3 BMs a day and give rifaximin -GI consultation -on spironolactone, hold #Normochromic, Normocytic Anemia: most likely related to chronic inflammatory anemia based on comorbidities and clinical presentation, however patient is also known to have a history of alcohol abuse -recommend checking reticulocyte count, iron studies, folate level -monitor H&H -monitor BP and heart rate -normal transfusion thresholds (Hgb<7) #Thrombocytopenia: improved today from 146 yesterday, could be related to liver cirrhosis and decreased thrombopoietin production -continue to monitor #Elevated INR: 2/2 liver cirrhosis and decreased production of clotting factors -continue to monitor as outpatient #Hypercalcemia: elevated when corrected for albumin -will order PTH to assess for primary hyperparathyroidism -paraproteinemia not yet excluded due to reversal of total protein/albumin ratio -consider hematology consultation -continue to monitor #Hypoalbuminemia: secondary to liver cirrhosis and decreased liver production -will need therapeutic paracentesis, likely needs albumin as well -consider workup for paraproteinemia as outpatient Robert Wright DO., PGY3 Will discuss with Dr. Alonso Visit type - Emergency Visit Emergency Visit: Yes ED Registration Date: 06/25/19 Care time: The patient presented to the Emergency Department on the above date and was hospitalized for further evaluation of their emergent condition. - New Patient This patient is new to me today: Yes Date on this admission: 06/26/19 - Critical Care Critical Care patient: No ATTENDING PHYSICIAN STATEMENT I saw and evaluated the patient. I reviewed the resident's note and discussed the case with the resident. I agree with the resident's findings and plan as documented. SUBJECTIVE: OBJECTIVE: ASSESSMENT AND PLAN:
[2019-06-26 10:43] LABS: BASO % 0.8 % (0-2.0); EOS % 1.9 % (0-4.5); HEMATOCRIT 29.8 % (35.4-49); HEMOGLOBIN 9.7 GM/dL (11.7-16.9); LYMPH % 15.1 % (8-40); MCH 28.2 pg (25.7-33.7); MCHC 32.6 g/dl (32.0-35.9); MEAN CELL VOLUME 86.4 fl (80-96); MEAN PLT VOLUME 8.3 fl (7.5-11.1); MONO % 13.8 % (3.8-10.2); NEUT % 68.4 % (42.8-82.8); PLATELET COUNT 163 K/MM3 (134-434); RBC 3.45 M/mm3 (4.00-5.60); RDW 21.1 % (11.9-15.9); WHITE BLOOD COUNT 6.5 K/mm3 (4.0-10.0)
[2019-06-26 11:16] LABS: ALBUMIN 2.4 g/dl (3.4-5.0); BILIRUBIN,TOTAL 2.3 mg/dL (0.2-1); BLOOD UREA NITROGEN 34.2 mg/dL (7-18); CALCIUM 9.1 mg/dL (8.5-10.1); CREATININE 2.8 mg/dL (0.55-1.3); POTASSIUM 4.4 mmol/L (3.5-5.1)
--- NOTE | 2019-06-26 11:35 | CON.GI ---
Consult - History of Present Illness History of Present Illness: GI CONSULT DICTATED - DIAGNOSTIC PARACENTESIS R/O SBP - MEJIAS CULTURE - HOLD DIURETICS - RIFAXMIN AND LACTULOSE (IF HE CAN NOT TAKE MEDS HE WILL NEED NGT PLACED ) - PPI - NEPHROLOGY EVALUATION - NO PLAN FOR ENDOSCOPIC PROCEDURES AT THIS TIME ? 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 Gastrointestinal: Yes: Ascites Hepatobiliary: Yes: Cirrhosis, Hepatitis C - Alcohol/Substance Use Hx Alcohol Use: No History of Substance Use: reports: None - Smoking History Smoking history: Never smoked Have you smoked in the past 12 months: No - Social History Usual Living Arrangement: With Child ADL: Independent History of Recent Travel: No Home Medications - Allergies Allergies/Adverse Reactions: Allergies Allergy/AdvReac Type Severity Reaction Status Date / Time No Known Allergies Allergy Verified 06/25/19 13:12 - Home Medications Home Medications: Ambulatory Orders Furosemide [Lasix] 40 mg PO DAILY #14 tablet 02/04/17 Metoprolol Succinate 25 mg PO DAILY 06/15/19 Pantoprazole Sodium [Protonix] 40 mg PO DAILY 06/15/19 Docusate Sodium [Colace] 100 mg PO DAILY #30 capsule 06/18/19 Ferrous Sulfate 325 mg PO DAILY #30 tablet 06/18/19 Lactulose (Oral Use) [Cephulac -] 30 gm PO Q6HPO #5400 ml 06/18/19 Rifaximin [Xifaxan -] 550 mg PO BID #60 tablet 06/18/19 Spironolactone 100 mg PO DAILY #30 tablet 06/18/19 Physical Exam-GI Vital Signs: Vital Signs Temperature 97.9 F 06/26/19 10:00 Pulse Rate 110 H 06/26/19 10:00 Respiratory Rate 18 06/26/19 10:00 Blood Pressure 117/75 06/26/19 10:00 O2 Sat by Pulse Oximetry (%) 99 06/26/19 10:00 Labs: CBC, BMP 06/26/19 10:00 06/26/19 10:00 INR, PTT INR 1.54 (0.83-1.09) H 06/25/19 14:53
--- NOTE | 2019-06-26 12:33 | PN ---
Progress Note, Physician History of Present Illness: not taking meds - Current Medication List Current Medications: Active Medications Heparin Sodium (Porcine) (Heparin -) 5,000 unit SQ BID [facility] Last Admin: 06/26/19 10:38 Dose: 5,000 unit Lactulose (Cephulac (Oral Use)) 30 gm PO Q6H [facility] Last Admin: 06/26/19 08:32 Dose: 30 gm Metoprolol Succinate (Toprol Xl -) 25 mg PO DAILY [facility] Last Admin: 06/26/19 10:38 Dose: 25 mg Pantoprazole Sodium (Protonix -) 40 mg PO DAILY [facility] Last Admin: 06/26/19 10:38 Dose: 40 mg Rifaximin (Xifaxan -) 550 mg PO BID [facility] Last Admin: 06/26/19 10:38 Dose: 550 mg Spironolactone (Aldactone -) 100 mg PO DAILY [facility] Last Admin: 06/26/19 10:38 Dose: 100 mg - Objective Vital Signs: Vital Signs Temperature 97.9 F 06/26/19 10:00 Pulse Rate 110 H 06/26/19 10:00 Respiratory Rate 18 06/26/19 10:00 Blood Pressure 117/75 06/26/19 10:00 O2 Sat by Pulse Oximetry (%) 99 06/26/19 10:00 Constitutional: Yes: No Distress HENT: Yes: Atraumatic Neck: Yes: Supple Cardiovascular: Yes: Regular Rate and Rhythm Respiratory: Yes: CTA Bilaterally Gastrointestinal: Yes: Normal Bowel Sounds, Ascites, Distention Extremities: Yes: WNL Neurological: Yes: Alert Labs: CBC, BMP 06/26/19 10:00 06/26/19 10:00 INR, PTT INR 1.54 (0.83-1.09) H 06/25/19 14:53 Problem List - Problems (1) Ascites Assessment/Plan: on diuretics Code(s): R18.8 - OTHER ASCITES (2) Cirrhosis, alcoholic Code(s): K70.30 - ALCOHOLIC CIRRHOSIS OF LIVER WITHOUT ASCITES (3) AMS (altered mental status) Code(s): R41.82 - ALTERED MENTAL STATUS, UNSPECIFIED (4) Anemia of chronic disease Code(s): D63.8 - ANEMIA IN OTHER CHRONIC DISEASES CLASSIFIED ELSEWHERE (5) Hepatic encephalopathy Assessment/Plan: on lactulose will put ngt as pating not taking by mouth Code(s): K72.90 - HEPATIC FAILURE, UNSPECIFIED WITHOUT COMA (6) Increased ammonia level Code(s): R79.89 - OTHER SPECIFIED ABNORMAL FINDINGS OF BLOOD CHEMISTRY (7) Pneumonia Assessment/Plan: id consult Code(s): J18.9 - PNEUMONIA, UNSPECIFIED ORGANISM
[2019-06-26] MEDS ORDERED: ALBUTEROL SO4 2.5/IPRATROPIUM 0.5 INH SOL 3 ML VIAL.NEB. NEB ONE (13:33)
--- NOTE | 2019-06-26 16:04 | CONS ---
DATE OF CONSULTATION: DATE OF DICTATION: 06/26/2019 HISTORY: Patient is a 74-year-old male with a history of dementia, alcohol abuse,anemia, PSE, HCV cirrhosis, recent admission for decompensated cirrhosis. Apparently, had a recent paracentesis at which time 5 L of fluid was removed. He now presents to the hospital with altered mental status over the past couple of days. History is limited secondary his poor mental status. It is unclear if he has been compliant with his medications. There is no report of abdominal pain, nausea, vomiting, melena, hematochezia , fevers, or chills associated. PAST MEDICAL HISTORY: As listed in the HPI. PAST SURGICAL HISTORY: As listed in the HPI. ALLERGIES: No known drug allergies. SOCIAL HISTORY: Currently is not drinking or smoking at this time. He does have a history of alcohol abuse. FAMILY HISTORY: Unable to obtain. HOME MEDICATIONS: Include Lasix 40 mg daily, metoprolol 25 mg daily, Protonix 40 mg daily, Colace 100 mg daily, iron 325 daily, lactulose every 6 hours, rifaximin 550 mg p.o. b.i.d., and spironolactone 100 mg p.o. daily. PHYSICAL EXAMINATION: Vital Signs: Temperature 97, pulse 100, blood pressure 117/75, respiratory rate 18, oxygen saturation 99% on room air. General: In no acute distress. HEENT: Anicteric sclerae. Cardiovascular: S1, S2. Regular rate and rhythm. Lungs: Bilaterally clear to auscultation. Abdomen: Distended with flank dullness. Tympanic also. Extremities: No edema. Neuro exam : limited - does not follow instruction LABORATORIES: White blood cell count 6.5, hemoglobin 9.7, hematocrit 29, MCV 86 , platelet count 163, INR 1.5. Sodium 138, potassium 4.4, BUN 34, creatinine 2.8, glucose 109, ammonia level 100, total bilirubin 2.3, AST 74, ALT 30, alkaline phosphatase 99. IMPRESSION: Altered mental status most likely portosystemic encephalopathy/ infectious etiology will need to be excluded. MELD 24. RECOMMENDATION: - Diagnostic paracentesis to exclude SBP. - lactulose at 30 mL p.o. TID, titrate to 3-4 bowel movements daily. - rifaximin 550 mg p.o. daily. - Hold diuretics for now. Obtain Nephrology consultation - Panculture - Blood cultures x2. UA. Urine culture. - MICU evaluation if declining mental status ; may need to place NGT if does not cooperate with taking medication. Apparently, based on notes from his previous admission, he is followed at [facility], and an upper endoscopy was done 8 months ago. He should follow up with them as an outpatient once the acute process has resolved here. Plan discussed with attending. DO FLOYD CLARK/[id number] MTDLebron
--- NOTE | 2019-06-26 16:11 | PN ---
Teaching Attending Note Name of Resident: Robert Wright (Nephrology) ATTENDING PHYSICIAN STATEMENT I saw and evaluated the patient. I reviewed the resident's note and discussed the case with the resident. I agree with the resident's findings and plan as documented. Renal Pt is a 74 year old male with pmhx of etoh abuse, liver cirrhosis, and dementia who presents with altered mental status. I was called to evaluate him for BECKA. He is unable to give much history. He appears to have ascites. pmhx dementia liver cirrhosis nkda family hx non contrib ros unable to asses Current Medications Generic Name Dose Route Start Last Admin Trade Name Freq PRN Reason Stop Dose Admin Chlorhexidine Gluconate 1 applic 06/26/19 22:00 Hibiclens For Decolonization - TP HS IRENA Heparin Sodium (Porcine) 5,000 unit 06/26/19 22:00 Heparin - SQ BID IRENA Lactulose 30 gm 06/26/19 20:00 Cephulac (Oral Use) PO Q6H IRENA Metoprolol Succinate 25 mg 06/27/19 10:00 Toprol Xl - PO DAILY IRENA Mupirocin 1 applic 06/26/19 22:00 Bactroban Ointment (For Decolonization) - NS 07/01/19 21:59 BID IRENA Pantoprazole Sodium 40 mg 06/27/19 10:00 Protonix - PO DAILY IRENA Rifaximin 550 mg 06/26/19 22:00 Xifaxan - PO BID IRENA Spironolactone 100 mg 06/27/19 10:00 Aldactone - PO DAILY IRENA Laboratory Tests 06/17/19 06/18/19 06/25/19 08:30 07:15 14:53 Hgb Creatinine 1.4 H 1.3 3.0 H Urine Protein Urine Blood Alcohol, Quantitative < 3 06/25/19 06/25/19 06/26/19 14:53 17:19 10:00 Hgb 9.3 L 9.7 L Creatinine Urine Protein Negative Urine Blood 1+ H Alcohol, Quantitative 06/26/19 10:00 Hgb Creatinine 2.8 H Urine Protein Urine Blood Alcohol, Quantitative Last Vital Signs Temp Pulse Resp BP Pulse Ox 98.0 F 100 H 18 112/71 97 06/26/19 14:44 06/26/19 14:44 06/26/19 14:44 06/26/19 14:44 06/26/19 14:44 cardio s1s2 pulm clear GI ascites ext edema neuro lethargy Impression 1. BECKA 2. ascites 3. liver cirrhosis 4. dementia 5. htn Plan - paracentesis - follow ultrasound - check urine studies - cont lactulose and rifixiin - [facility] consultant is starting to improve
--- NOTE | 2019-06-26 17:05 | PN ---
Progress Note (short form) - Note Progress Note: ID CONSULT DICTATED HEPATIC ENCEPHALOPATHY DECOMPENSATED CIRRHOSIS NO CLINICAL OR RADIOGRAPHIC EVIDENCE FOR PNEUMONIA OBSERVE OFF ANTIBIOTICS
--- NOTE | 2019-06-26 17:56 | CONS ---
DATE OF CONSULTATION: DATE OF DICTATION: 06/26/2019 HISTORY OF PRESENT ILLNESS: The patient is a 74-year-old male who was evaluated for possible pneumonia. History was obtained from the chart as he cannot give a history secondary to his mental status. He has a history of hepatic encephalopathy. He is normally awake and oriented. For the past three days, he has had worsening mental status. He was admitted with decompensated cirrhosis and probable recurrent hepatic encephalopathy. Concern was expressed about possible pneumonia. His chest x-ray shows atelectasis and possible infiltrate at the right base. He had a therapeutic/diagnostic paracentesis x2 in late May. Ascidic fluid was not consistent with SBP. No reports of fever, chills, labored breathing, cough or vomiting. PAST MEDICAL HISTORY: Positive for dementia, alcoholic liver disease, end-stage liver disease with ascites, hepatic encephalopathy, chronic anemia, history of hepatitis C. ALLERGIES: No known allergies. MEDICATIONS: Albuterol, lactulose, metoprolol, Protonix, rifaximin, spironolactone. SOCIAL HISTORY: Lives at home with family members. Positive history of alcohol abuse. LABORATORY DATA: White count 6.5, hematocrit 29.8, platelets 163, BUN 34, creatinine 2.8. Urinalysis shows 3 white cells. Urine culture pending. A chest x-ray shows no evidence of infiltrate. This appears improved since the last chest x-ray in May. PHYSICAL EXAMINATION: General: He is chronically ill-appearing. Vital Signs: Temperature 98.0, pulse 100 and regular, blood pressure 112/71, respirations 18 per minute. HEENT: Sclerae slightly icteric. Temporal wasting. Heart: Heart sounds S1, S2. 0 Lungs: Decreased breath sounds at the bases. Abdomen: Distended, tense, with ascitic fluid. Positive caput medusae. Extremities: There is 1+ edema and chronic venous stasis dermatitis of the lower extremities. IMPRESSION: 1. Hepatic encephalopathy/decompensated cirrhosis. 2. No clinical or radiographic evidence of pneumonia. PLAN: 1. Would observe off antibiotics. 2. Aspiration precautions. Thank you for the kind referral. TERI SANDOVAL M.D. [id number]
[2019-06-26] MEDS ORDERED: SODIUM CHLORIDE 1,000 ML IV SCH (19:15)
[2019-06-26] MEDS ORDERED: CHLORHEXIDINE GLUCONATE 4% CLEANSER FOR DECOLONIZATION TP SCH (22:00)
[2019-06-26] MEDS ORDERED: MUPIROCIN 2% TOPICAL OINTMENT FOR DECOLONIZATION NS SCH (22:00)
[2019-06-27] MEDS: LACTULOSE 20 GM/30 ML UDC (FOR ORAL USE ONLY) PO SCH ×4 (02:49→22:08)
[2019-06-27 08:34] LABS: BILIRUBIN,TOTAL 2.1 mg/dL (0.2-1); BLOOD UREA NITROGEN 34.8 mg/dL (7-18); CALCIUM 8.5 mg/dL (8.5-10.1); CREATININE 2.5 mg/dL (0.55-1.3); POTASSIUM 4.3 mmol/L (3.5-5.1); TOT PROT 7.1 g/dl (6.4-8.2)
[2019-06-27] MEDS: SPIRONOLACTONE 25 MG TABLET (FP) PO SCH (09:58)
[2019-06-27] MEDS: HEPARIN NA (PORCINE) 5,000 UNITS/ML 1ML VIAL SQ SCH ×2 (09:58→22:08)
[2019-06-27] MEDS: metoPROLOL SUCCINATE 25 MG TAB.SR.24H (FP) PO SCH (09:58)
[2019-06-27] MEDS: PANTOPRAZOLE 40 MG TABLET (FP) PO SCH (09:59)
[2019-06-27] MEDS: RIFAXIMIN 550 MG TABLET (UD) PO SCH ×2 (09:59→22:08)
--- NOTE | 2019-06-27 13:55 | PN ---
Progress Note, Physician History of Present Illness: Pt seen and examined at bedside. He is more awake today. He is able to answer questions. - Current Medication List Current Medications: Active Medications Chlorhexidine Gluconate (Hibiclens For Decolonization -) 1 applic TP HS IRENA Heparin Sodium (Porcine) (Heparin -) 5,000 unit SQ BID [facility] Last Admin: 06/27/19 09:58 Dose: 5,000 unit Sodium Chloride (Normal Saline -) 1,000 mls @ 50 mls/hr IV ASDIR [facility] Last Admin: 06/26/19 21:47 Dose: 50 mls/hr Lactulose (Cephulac (Oral Use)) 30 gm PO Q6H [facility] Last Admin: 06/27/19 08:32 Dose: 30 gm Metoprolol Succinate (Toprol Xl -) 25 mg PO DAILY [facility] Last Admin: 06/27/19 09:58 Dose: 25 mg Mupirocin (Bactroban Ointment (For Decolonization) -) 1 applic NS BID [facility] Stop: 07/01/19 21:59 Pantoprazole Sodium (Protonix -) 40 mg PO DAILY [facility] Last Admin: 06/27/19 09:59 Dose: 40 mg Rifaximin (Xifaxan -) 550 mg PO BID [facility] Last Admin: 06/27/19 09:59 Dose: 550 mg Spironolactone (Aldactone -) 100 mg PO DAILY [facility] Last Admin: 06/27/19 09:58 Dose: Not Given - Objective Vital Signs: Vital Signs Temperature 97.6 F 06/27/19 13:28 Pulse Rate 92 H 06/27/19 13:28 Respiratory Rate 20 06/27/19 13:28 Blood Pressure 102/66 06/27/19 13:28 O2 Sat by Pulse Oximetry (%) 95 06/27/19 09:00 Constitutional: Yes: Calm Eyes: Yes: Conjunctiva Clear HENT: Yes: Atraumatic Cardiovascular: Yes: S1, S2 Respiratory: Yes: CTA Bilaterally Gastrointestinal: Yes: Ascites Genitourinary: Yes: Incontinence Musculoskeletal: Yes: Muscle Weakness Edema: No Neurological: Yes: Confusion Labs: CBC, BMP 06/26/19 10:00 06/27/19 06:35 INR, PTT INR 1.54 (0.83-1.09) H 06/25/19 14:53 Assessment/Plan Current Medications Generic Name Dose Route Start Last Admin Trade Name [place] PRN Reason Stop Dose Admin Chlorhexidine Gluconate 1 applic 06/26/19 22:00 Hibiclens For Decolonization - TP HS IRENA Heparin Sodium (Porcine) 5,000 unit 06/26/19 22:00 06/27/19 09:58 Heparin - SQ 5,000 unit BID IRENA Administration Sodium Chloride 1,000 mls @ 50 mls/hr 06/26/19 19:15 06/26/19 21:47 Normal Saline - IV 50 mls/hr ASDIR IRENA Administration Lactulose 30 gm 06/26/19 20:00 06/27/19 08:32 Cephulac (Oral Use) PO 30 gm Q6H IRENA Administration Metoprolol Succinate 25 mg 06/27/19 10:00 06/27/19 09:58 Toprol Xl - PO 25 mg DAILY IRENA Administration Mupirocin 1 applic 06/26/19 22:00 Bactroban Ointment (For Decolonization) - NS 07/01/19 21:59 BID IRENA Pantoprazole Sodium 40 mg 06/27/19 10:00 06/27/19 09:59 Protonix - PO 40 mg DAILY IRENA Administration Rifaximin 550 mg 06/26/19 22:00 06/27/19 09:59 Xifaxan - PO 550 mg BID IRENA Administration Spironolactone 100 mg 06/27/19 10:00 06/27/19 09:58 Aldactone - PO Not Given DAILY [facility] Impression 1. BECKA 2. ascites 3. liver cirrhosis 4. dementia 5. htn Plan - GI follow up for paracentesis - stop fluids - monitor renal function - cont aldactine - will give albumin - cont lactulose and rifixiin
[2019-06-27] MEDS ORDERED: ALBUMIN HUMAN 25% 100 ML VIAL IVPB ONE (13:57)
[2019-06-27] MEDS ORDERED: FUROSEMIDE 40 MG/4 ML INJECTABLE VIAL IVPUSH ONE (14:00)
--- NOTE | 2019-06-27 15:33 | PN.GI ---
GI Progress Note Subjective: Somewhat confused. No abdominal pain. - Objective Vital Signs: Vital Signs Temperature 97.6 F 06/27/19 13:28 Pulse Rate 92 H 06/27/19 13:28 Respiratory Rate 20 06/27/19 13:28 Blood Pressure 102/66 06/27/19 13:28 O2 Sat by Pulse Oximetry (%) 95 06/27/19 09:00 Constitutional: No Distress, Calm Gastrointestinal Inspection: Yes: Ascites (not tense) ...Auscultate: Yes: Normoactive Bowel Sounds ...Palpate: No: Mass, Tenderness Labs: CBC, BMP 06/26/19 10:00 06/27/19 06:35 INR, PTT INR 1.54 (0.83-1.09) H 06/25/19 14:53 Assessment/Plan Decompensated cirrhosis with ascites and hui-systemic encephalopathy. Plan Await diagnostic paracentesis to rule out spontanous bacterial peritonitis (as measured by ascites fluid neutrophil count). Continue combination therapy with rifaximin and lactulose Appreciate ID evaluation Please track down records from [facility] team
[2019-06-27 18:23] VITALS: BMI 25.8
--- NOTE | 2019-06-27 19:15 | PN ---
Progress Note, Physician - Current Medication List Current Medications: Active Medications Heparin Sodium (Porcine) (Heparin -) 5,000 unit SQ BID [facility] Last Admin: 06/27/19 09:58 Dose: 5,000 unit Lactulose (Cephulac (Oral Use)) 30 gm PO Q6H [facility] Last Admin: 06/27/19 14:48 Dose: 30 gm Metoprolol Succinate (Toprol Xl -) 25 mg PO DAILY [facility] Last Admin: 06/27/19 09:58 Dose: 25 mg Pantoprazole Sodium (Protonix -) 40 mg PO DAILY [facility] Last Admin: 06/27/19 09:59 Dose: 40 mg Rifaximin (Xifaxan -) 550 mg PO BID [facility] Last Admin: 06/27/19 09:59 Dose: 550 mg Spironolactone (Aldactone -) 100 mg PO DAILY [facility] Last Admin: 06/27/19 09:58 Dose: Not Given - Objective Vital Signs: Vital Signs Temperature 97.6 F 06/27/19 13:28 Pulse Rate 92 H 06/27/19 13:28 Respiratory Rate 20 06/27/19 13:28 Blood Pressure 102/66 06/27/19 13:28 O2 Sat by Pulse Oximetry (%) 95 06/27/19 09:00 Constitutional: Yes: No Distress HENT: Yes: Atraumatic Neck: Yes: Supple Cardiovascular: Yes: Regular Rate and Rhythm Respiratory: Yes: CTA Bilaterally Gastrointestinal: Yes: Normal Bowel Sounds, Ascites Extremities: Yes: WNL Neurological: Yes: Alert, Oriented Labs: CBC, BMP 06/26/19 10:00 06/27/19 06:35 INR, PTT INR 1.54 (0.83-1.09) H 06/25/19 14:53 Problem List - Problems (1) Ascites Assessment/Plan: on diuretics for diagnostic tap Code(s): R18.8 - OTHER ASCITES (2) Cirrhosis, alcoholic Code(s): K70.30 - ALCOHOLIC CIRRHOSIS OF LIVER WITHOUT ASCITES (3) AMS (altered mental status) Assessment/Plan: doing better Code(s): R41.82 - ALTERED MENTAL STATUS, UNSPECIFIED (4) Anemia of chronic disease Code(s): D63.8 - ANEMIA IN OTHER CHRONIC DISEASES CLASSIFIED ELSEWHERE (5) Hepatic encephalopathy Assessment/Plan: on lactulose will put ngt as pating not taking by mouth Code(s): K72.90 - HEPATIC FAILURE, UNSPECIFIED WITHOUT COMA (6) Increased ammonia level Code(s): R79.89 - OTHER SPECIFIED ABNORMAL FINDINGS OF BLOOD CHEMISTRY (7) Pneumonia Code(s): J18.9 - PNEUMONIA, UNSPECIFIED ORGANISM (8) Renal failure Assessment/Plan: cr improving renal on board Code(s): N19 - UNSPECIFIED KIDNEY FAILURE
[2019-06-28] MEDS: LACTULOSE 20 GM/30 ML UDC (FOR ORAL USE ONLY) PO SCH ×4 (02:47→20:00)
[2019-06-28] MEDS: RIFAXIMIN 550 MG TABLET (UD) PO SCH ×2 (10:03→21:05)
[2019-06-28] MEDS: metoPROLOL SUCCINATE 25 MG TAB.SR.24H (FP) PO SCH (10:03)
[2019-06-28] MEDS: PANTOPRAZOLE 40 MG TABLET (FP) PO SCH (10:03)
[2019-06-28] MEDS: SPIRONOLACTONE 25 MG TABLET (FP) PO SCH (10:04)
[2019-06-28] MEDS: HEPARIN NA (PORCINE) 5,000 UNITS/ML 1ML VIAL SQ SCH ×2 (10:04→21:05)
[2019-06-28 15:51] LABS: BODY FLUID MACROPHAGES 75 %; BODY FLUID MONOCYTE 7 %
--- NOTE | 2019-06-28 16:30 | PN ---
Progress Note, Physician History of Present Illness: Pt seen and examined at bedside. He had paracentesis today. - Current Medication List Current Medications: Active Medications Heparin Sodium (Porcine) (Heparin -) 5,000 unit SQ BID [facility] Last Admin: 06/28/19 10:04 Dose: 5,000 unit Lactulose (Cephulac (Oral Use)) 30 gm PO Q6H [facility] Last Admin: 06/28/19 14:47 Dose: 30 gm Metoprolol Succinate (Toprol Xl -) 25 mg PO DAILY [facility] Last Admin: 06/28/19 10:03 Dose: 25 mg Pantoprazole Sodium (Protonix -) 40 mg PO DAILY [facility] Last Admin: 06/28/19 10:03 Dose: 40 mg Rifaximin (Xifaxan -) 550 mg PO BID [facility] Last Admin: 06/28/19 10:03 Dose: 550 mg Spironolactone (Aldactone -) 100 mg PO DAILY [facility] Last Admin: 06/28/19 10:04 Dose: 100 mg - Objective Vital Signs: Vital Signs Temperature 98.2 F 06/28/19 10:30 Pulse Rate 83 06/28/19 10:30 Respiratory Rate 19 06/28/19 10:30 Blood Pressure 101/65 06/28/19 10:30 O2 Sat by Pulse Oximetry (%) 96 06/28/19 09:00 Constitutional: Yes: Calm Eyes: Yes: Conjunctiva Clear HENT: Yes: Atraumatic Cardiovascular: Yes: S1, S2 Respiratory: Yes: CTA Bilaterally Gastrointestinal: Yes: Soft Genitourinary: Yes: WNL Musculoskeletal: Yes: WNL Edema: No Neurological: Yes: Oriented Psychiatric: Yes: Oriented Labs: CBC, BMP 06/26/19 10:00 06/27/19 06:35 INR, PTT INR 1.54 (0.83-1.09) H 06/25/19 14:53 Assessment/Plan Current Medications Generic Name Dose Route Start Last Admin Trade Name Freq PRN Reason Stop Dose Admin Heparin Sodium (Porcine) 5,000 unit 06/26/19 22:00 06/28/19 10:04 Heparin - SQ 5,000 unit BID [facility] Administration Lactulose 30 gm 06/26/19 20:00 06/28/19 14:47 Cephulac (Oral Use) PO 30 gm Q6H [facility] Administration Metoprolol Succinate 25 mg 06/27/19 10:00 06/28/19 10:03 Toprol Xl - PO 25 mg DAILY [facility] Administration Pantoprazole Sodium 40 mg 06/27/19 10:00 06/28/19 10:03 Protonix - PO 40 mg DAILY [facility] Administration Rifaximin 550 mg 06/26/19 22:00 06/28/19 10:03 Xifaxan - PO 550 mg BID [facility] Administration Spironolactone 100 mg 06/27/19 10:00 06/28/19 10:04 Aldactone - PO 100 mg DAILY [facility] Administration Impression 1. BECKA 2. ascites 3. liver cirrhosis 4. dementia 5. htn Plan - s/p paracentesis - monitor renal function - cont diuretis - cont lactulose and rifixiin
--- NOTE | 2019-06-28 17:52 | PN ---
Progress Note, Physician - Current Medication List Current Medications: Active Medications Heparin Sodium (Porcine) (Heparin -) 5,000 unit SQ BID [facility] Last Admin: 06/28/19 10:04 Dose: 5,000 unit Lactulose (Cephulac (Oral Use)) 30 gm PO Q6H [facility] Last Admin: 06/28/19 14:47 Dose: 30 gm Metoprolol Succinate (Toprol Xl -) 25 mg PO DAILY [facility] Last Admin: 06/28/19 10:03 Dose: 25 mg Pantoprazole Sodium (Protonix -) 40 mg PO DAILY [facility] Last Admin: 06/28/19 10:03 Dose: 40 mg Rifaximin (Xifaxan -) 550 mg PO BID [facility] Last Admin: 06/28/19 10:03 Dose: 550 mg Spironolactone (Aldactone -) 100 mg PO DAILY [facility] Last Admin: 06/28/19 10:04 Dose: 100 mg - Objective Vital Signs: Vital Signs Temperature 98.2 F 06/28/19 10:30 Pulse Rate 83 06/28/19 10:30 Respiratory Rate 19 06/28/19 10:30 Blood Pressure 101/65 06/28/19 10:30 O2 Sat by Pulse Oximetry (%) 96 06/28/19 09:00 Constitutional: Yes: No Distress HENT: Yes: Atraumatic Neck: Yes: Supple Cardiovascular: Yes: Regular Rate and Rhythm Respiratory: Yes: CTA Bilaterally Gastrointestinal: Yes: Normal Bowel Sounds Extremities: Yes: WNL Edema: No Neurological: Yes: Alert Labs: CBC, BMP 06/26/19 10:00 06/27/19 06:35 INR, PTT INR 1.54 (0.83-1.09) H 06/25/19 14:53 Problem List - Problems (1) Ascites Assessment/Plan: on diuretics s/p diagnostic tap Code(s): R18.8 - OTHER ASCITES (2) Cirrhosis, alcoholic Code(s): K70.30 - ALCOHOLIC CIRRHOSIS OF LIVER WITHOUT ASCITES (3) AMS (altered mental status) Assessment/Plan: doing better Code(s): R41.82 - ALTERED MENTAL STATUS, UNSPECIFIED (4) Anemia of chronic disease Code(s): D63.8 - ANEMIA IN OTHER CHRONIC DISEASES CLASSIFIED ELSEWHERE (5) Hepatic encephalopathy Assessment/Plan: on lactulose Code(s): K72.90 - HEPATIC FAILURE, UNSPECIFIED WITHOUT COMA (6) Increased ammonia level Code(s): R79.89 - OTHER SPECIFIED ABNORMAL FINDINGS OF BLOOD CHEMISTRY (7) Pneumonia Assessment/Plan: id consult Code(s): J18.9 - PNEUMONIA, UNSPECIFIED ORGANISM (8) Renal failure Assessment/Plan: cr improving renal on board Code(s): N19 - UNSPECIFIED KIDNEY FAILURE
--- NOTE | 2019-06-28 18:35 | PN.GI ---
GI Progress Note Subjective: No acute events Had paracentesis today Patient awake, denies abdominal pain - Objective Vital Signs: Vital Signs Temperature 98.2 F 06/28/19 10:30 Pulse Rate 83 06/28/19 10:30 Respiratory Rate 19 06/28/19 10:30 Blood Pressure 101/65 06/28/19 10:30 O2 Sat by Pulse Oximetry (%) 96 06/28/19 09:00 Constitutional: Calm Eyes: No: Sclera Icterus Cardiovascular: Yes: Regular Rate and Rhythm Respiratory: Yes: Diminished (at bases bilaterally with poor insp effort) Gastrointestinal Inspection: Yes: Ascites, Distention. No: Scars ...Auscultate: Yes: Normoactive Bowel Sounds ...Palpate: Yes: Soft. No: Hepatomegaly, Splenomegaly, Tenderness ...Percussion: Yes: Fluid Wave Edema: No (No LE edema) Neurological: Yes: Alert, Oriented (x person, partially to place, not to time). No: Asterix[employer] Labs: CBC, BMP 06/26/19 10:00 06/27/19 06:35 INR, PTT INR 1.54 (0.83-1.09) H 06/25/19 14:53 Hepatic Panel Total Bilirubin 2.1 mg/dL (0.2-1) H 06/27/19 06:35 AST 64 U/L (15-37) H 06/27/19 06:35 ALT 25 U/L (13-61) 06/27/19 06:35 Alkaline Phosphatase 76 U/L (45-117) 06/27/19 06:35 Albumin 2.0 g/dl (3.4-5.0) L 06/27/19 06:35 Laboratory Tests 06/17/19 06/17/19 06/28/19 08:30 08:30 12:50 Fluid RBC 318 Fluid Neutrophils 45 Fluid Lymphocytes 15 Pleural Monocytes 7 Pleural Macrophages 75 Hep A IgM Ab Confirm Negative Hepatitis A Ab Total Positive H Hep Bs Antigen Negative Hep Bs Antibody Non reactive Hep B Core Total Ab Positive H Hep B Core IgM Ab Negative Hepatitis Be Antibody Positive H Hepatitis Be Antigen Negative Hep C Ab Diagnostic 5.5 H HCV Quantitation Hcv not detected HCV RNA PCR w/Genot Rflx Hcv not detected Problem List - Problems (1) Hepatic encephalopathy Assessment/Plan: Decompensated alcoholic cirrhosis: Continued alcohol consumption with no real end goal of care Patent main portal vein on recent abdominal doppler study Lactulose 20g q6h Rifaximin 550mg PO BID Need WBC total on peritoneal fluid. If not back by tomorrow, should call lab to confirm 2g Low Na diet Investigate diagnosis of dementia. ? if alternate etiology to confusion In setting of renal insufficiency and if total protein low (<1.3), consider primary SBP prophylaxis with cipro 500mg daily. Avoid PPI overall poor prognosis, especially in the setting of medication non compliance and continued alcohol abuse. 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 Explained the need for complete alcohol abstinence Obtain information from [facility] regarding recent endoscopy. If he has not had recent endoscopy and once volume status improved, will need endoscopy to screen for varices. Ordered abdominal US to screen for HCC and doppler to exclude portal vein thromboisis Daily weights, strict I's and O's Will need Q6 Month hepatic US to screen for HCC Code(s): K72.90 - HEPATIC FAILURE, UNSPECIFIED WITHOUT COMA (2) Ascites Assessment/Plan: Awaiting complete cell count w/ diff Hold diuretics until renal function improves. renal following Code(s): R18.8 - OTHER ASCITES
[2019-06-28 20:26] LABS: ALBUMIN 2.1 g/dl (3.4-5.0); BILIRUBIN,DIRECT 0.8 mg/dL (0.0-0.2); BILIRUBIN,TOTAL 1.5 mg/dL (0.2-1); TOT PROT 6.7 g/dl (6.4-8.2)
[2019-06-29] MEDS: LACTULOSE 20 GM/30 ML UDC (FOR ORAL USE ONLY) PO SCH ×4 (01:30→20:10)
[2019-06-29] MEDS: HEPARIN NA (PORCINE) 5,000 UNITS/ML 1ML VIAL SQ SCH ×2 (09:31→21:11)
[2019-06-29] MEDS: metoPROLOL SUCCINATE 25 MG TAB.SR.24H (FP) PO SCH (09:31)
[2019-06-29] MEDS: SPIRONOLACTONE 25 MG TABLET (FP) PO SCH (09:31)
[2019-06-29] MEDS: PANTOPRAZOLE 40 MG TABLET (FP) PO SCH (09:31)
[2019-06-29] MEDS: RIFAXIMIN 550 MG TABLET (UD) PO SCH ×2 (09:31→21:11)
[2019-06-29 11:38] LABS: BILIRUBIN,TOTAL 1.6 mg/dL (0.2-1); BLOOD UREA NITROGEN 27.2 mg/dL (7-18); CALCIUM 8.3 mg/dL (8.5-10.1); CREATININE 2.3 mg/dL (0.55-1.3); MAGNESIUM 1.7 mg/dL (1.8-2.4); POTASSIUM 3.3 mmol/L (3.5-5.1)
--- NOTE | 2019-06-29 13:17 | PN.GI ---
GI Progress Note Subjective: No acute events still awaiting WBC count from paracentesis: called lab who in turn said they would call me back Patient denies any abdominal pain - Objective Vital Signs: Vital Signs Temperature 98.7 F 06/29/19 07:58 Pulse Rate 81 06/29/19 07:58 Respiratory Rate 14 06/29/19 07:58 Blood Pressure 132/72 06/29/19 07:58 O2 Sat by Pulse Oximetry (%) 96 06/29/19 09:00 Constitutional: Calm Eyes: No: Sclera Icterus Cardiovascular: Yes: Regular Rate and Rhythm Gastrointestinal Inspection: Yes: Ascites, Distention ...Auscultate: Yes: Normoactive Bowel Sounds ...Palpate: Yes: Soft. No: Hepatomegaly, Splenomegaly, Tenderness ...Percussion: No: Tympanitic Edema: No Neurological: Yes: Alert, Oriented (x person, partially to time). No: Ataxia Labs: CBC, BMP 06/26/19 10:00 06/29/19 10:50 INR, PTT INR 1.54 (0.83-1.09) H 06/25/19 14:53 Hepatic Panel Total Bilirubin 1.6 mg/dL (0.2-1) H 06/29/19 10:50 Direct Bilirubin 0.8 mg/dL (0.0-0.2) H 06/28/19 19:18 AST 48 U/L (15-37) H 06/29/19 10:50 ALT 22 U/L (13-61) 06/29/19 10:50 Alkaline Phosphatase 64 U/L (45-117) 06/29/19 10:50 Albumin 2.0 g/dl (3.4-5.0) L 06/29/19 10:50 Problem List - Problems (1) Hepatic encephalopathy Assessment/Plan: Decompensated alcoholic cirrhosis: Continued alcohol consumption with no real end goal of care Patent main portal vein on recent abdominal doppler study Lactulose 20g q6h Rifaximin 550mg PO BID Need WBC total on peritoneal fluid. Called lab to confirm and awaiting call back 2g Low Na diet Investigate diagnosis of dementia. ? if alternate / compounding etiology to confusion In setting of renal insufficiency and low total ascites protein low ( was 0.6 last paracentesis) consider primary SBP prophylaxis with cipro 500mg daily. Avoid PPI overall poor prognosis, especially in the setting of medication non compliance and continued alcohol abuse. 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 Explained the need for complete alcohol abstinence Obtain information from [facility] regarding recent endoscopy. If he has not had recent endoscopy and once volume status improved, will need endoscopy to screen for varices. Daily weights, strict I's and O's Will need Q6 Month hepatic US to screen for HCC Code(s): K72.90 - HEPATIC FAILURE, UNSPECIFIED WITHOUT COMA (2) Ascites Assessment/Plan: (2) Ascites Assessment/Plan: Awaiting complete cell count w/ diff Hold diuretics until renal function improves. renal following if unable to tolerate escalating dose of diuretics / refractory ascites will need further treatment plan at a liver center Code(s): R18.8 - OTHER ASCITES
[2019-06-29 14:23] LABS: BF WBC & OTHER NUCLEATED CELLS 50 /mm3
[2019-06-29 15:08] LABS: BODY FLUID ALBUMIN 0.3 g/dL (Not Estab.)
[2019-06-29] MEDS ORDERED: MAGNESIUM OXIDE 400 MG TABLET (FP) PO ONE (15:37)
[2019-06-29] MEDS ORDERED: POTASSIUM CHLORIDE TABS 20 MEQ TABLET.ER (FP) PO ONE (15:37)
--- NOTE | 2019-06-29 15:40 | PATH ---
Cytology Non-Gynecological Report Patient Name: SONYA YATES Med. Rec. #: [id number] /Age/Gender: 1945 (Age: 74) / M Account: [id number] Location: [address] [place] [address] Taken: 06/28/2019 Received: 06/28/2019 Reported: 06/29/2019 Physicians: Brando Ascencio M.D. Specimen(s) Received ABDOMINAL FLUID Clinical History Ascites Final Diagnosis ABDOMINAL FLUID, PARACENTESIS: SATISFACTORY FOR EVALUATION. NO MALIGNANT CELLS IDENTIFIED. MESOTHELIAL CELLS PRESENT. Electronically Signed Natacha King M.D. Gross Description Approximately 60 cc of yellow fluid received fixed in 50% alcohol. One cytofunnel prepared and Pap stained. One cellblock prepared.
--- NOTE | 2019-06-29 15:40 | PN ---
Progress Note, Physician History of Present Illness: Pt seen and examined at bedside. He is awake and more alert. - Current Medication List Current Medications: Active Medications Heparin Sodium (Porcine) (Heparin -) 5,000 unit SQ BID [facility] Last Admin: 06/29/19 09:31 Dose: 5,000 unit Lactulose (Cephulac (Oral Use)) 30 gm PO Q6H [facility] Last Admin: 06/29/19 15:08 Dose: 30 gm Magnesium Oxide (Mag-Ox -) 800 mg PO ONCE ONE Stop: 06/29/19 15:38 Metoprolol Succinate (Toprol Xl -) 25 mg PO DAILY [facility] Last Admin: 06/29/19 09:31 Dose: 25 mg Pantoprazole Sodium (Protonix -) 40 mg PO DAILY [facility] Last Admin: 06/29/19 09:31 Dose: 40 mg Potassium Chloride (K-Dur -) 40 meq PO ONCE ONE Stop: 06/29/19 15:38 Rifaximin (Xifaxan -) 550 mg PO BID [facility] Last Admin: 06/29/19 09:31 Dose: 550 mg Spironolactone (Aldactone -) 100 mg PO DAILY [facility] Last Admin: 06/29/19 09:31 Dose: 100 mg - Objective Vital Signs: Vital Signs Temperature 98.0 F 06/29/19 13:30 Pulse Rate 82 06/29/19 13:30 Respiratory Rate 18 06/29/19 13:30 Blood Pressure 90/61 06/29/19 13:30 O2 Sat by Pulse Oximetry (%) 96 06/29/19 09:00 Constitutional: Yes: Calm Eyes: Yes: Conjunctiva Clear HENT: Yes: Atraumatic Neck: Yes: Supple Cardiovascular: Yes: S1, S2 Respiratory: Yes: CTA Bilaterally Gastrointestinal: Yes: Ascites Genitourinary: Yes: WNL Musculoskeletal: Yes: WNL Edema: No Neurological: Yes: Oriented Psychiatric: Yes: Oriented Labs: CBC, BMP 06/26/19 10:00 06/29/19 10:50 INR, PTT INR 1.54 (0.83-1.09) H 06/25/19 14:53 Assessment/Plan Current Medications Generic Name Dose Route Start Last Admin Trade Name Freq PRN Reason Stop Dose Admin Heparin Sodium (Porcine) 5,000 unit 06/26/19 22:00 06/29/19 09:31 Heparin - SQ 5,000 unit BID [facility] Administration Lactulose 30 gm 06/26/19 20:00 06/29/19 15:08 Cephulac (Oral Use) PO 30 gm Q6H [facility] Administration Magnesium Oxide 800 mg 06/29/19 15:37 Mag-Ox - PO 06/29/19 15:38 ONCE ONE Metoprolol Succinate 25 mg 06/27/19 10:00 06/29/19 09:31 Toprol Xl - PO 25 mg DAILY [facility] Administration Pantoprazole Sodium 40 mg 06/27/19 10:00 06/29/19 09:31 Protonix - PO 40 mg DAILY [facility] Administration Potassium Chloride 40 meq 06/29/19 15:37 K-Dur - PO 06/29/19 15:38 ONCE ONE Rifaximin 550 mg 06/26/19 22:00 06/29/19 09:31 Xifaxan - PO 550 mg BID [facility] Administration Spironolactone 100 mg 06/27/19 10:00 06/29/19 09:31 Aldactone - PO 100 mg DAILY [facility] Administration Impression 1. BECKA 2. ascites 3. liver cirrhosis 4. dementia 5. htn Plan - replace lytes - renal function is improving - cont aldactone - GI follow up - s/p paracentesis on - monitor renal function - cont lactulose and rifixiin
--- NOTE | 2019-06-29 18:15 | PN ---
Progress Note, Physician - Current Medication List Current Medications: Active Medications Heparin Sodium (Porcine) (Heparin -) 5,000 unit SQ BID [facility] Last Admin: 06/29/19 09:31 Dose: 5,000 unit Lactulose (Cephulac (Oral Use)) 30 gm PO Q6H [facility] Last Admin: 06/29/19 15:08 Dose: 30 gm Metoprolol Succinate (Toprol Xl -) 25 mg PO DAILY [facility] Last Admin: 06/29/19 09:31 Dose: 25 mg Pantoprazole Sodium (Protonix -) 40 mg PO DAILY [facility] Last Admin: 06/29/19 09:31 Dose: 40 mg Rifaximin (Xifaxan -) 550 mg PO BID [facility] Last Admin: 06/29/19 09:31 Dose: 550 mg Spironolactone (Aldactone -) 100 mg PO DAILY [facility] Last Admin: 06/29/19 09:31 Dose: 100 mg - Objective Vital Signs: Vital Signs Temperature 98.0 F 06/29/19 13:30 Pulse Rate 82 06/29/19 13:30 Respiratory Rate 18 06/29/19 13:30 Blood Pressure 90/61 06/29/19 13:30 O2 Sat by Pulse Oximetry (%) 96 06/29/19 09:00 Constitutional: Yes: No Distress HENT: Yes: Atraumatic Neck: Yes: Supple Cardiovascular: Yes: Regular Rate and Rhythm Respiratory: Yes: CTA Bilaterally Gastrointestinal: Yes: Normal Bowel Sounds, Ascites Extremities: Yes: WNL Edema: No Neurological: Yes: Alert Labs: CBC, BMP 06/26/19 10:00 06/29/19 10:50 INR, PTT INR 1.54 (0.83-1.09) H 06/25/19 14:53 Problem List - Problems (1) Ascites Assessment/Plan: on diuretics s/p diagnostic tap wbc count wnl Code(s): R18.8 - OTHER ASCITES (2) Cirrhosis, alcoholic Code(s): K70.30 - ALCOHOLIC CIRRHOSIS OF LIVER WITHOUT ASCITES (3) AMS (altered mental status) Assessment/Plan: doing better Code(s): R41.82 - ALTERED MENTAL STATUS, UNSPECIFIED (4) Anemia of chronic disease Code(s): D63.8 - ANEMIA IN OTHER CHRONIC DISEASES CLASSIFIED ELSEWHERE (5) Hepatic encephalopathy Assessment/Plan: on lactulose Code(s): K72.90 - HEPATIC FAILURE, UNSPECIFIED WITHOUT COMA (6) Increased ammonia level Code(s): R79.89 - OTHER SPECIFIED ABNORMAL FINDINGS OF BLOOD CHEMISTRY (7) Pneumonia Assessment/Plan: id consult Code(s): J18.9 - PNEUMONIA, UNSPECIFIED ORGANISM (8) Renal failure Assessment/Plan: cr improving renal on board Code(s): N19 - UNSPECIFIED KIDNEY FAILURE
--- NOTE | 2019-06-29 18:44 | PN ---
Progress Note (short form) - Note Progress Note: No SBP WBC 50 in peritoneal fluid. Problem List - Problems (1) Hepatic encephalopathy Code(s): K72.90 - HEPATIC FAILURE, UNSPECIFIED WITHOUT COMA (2) Ascites Code(s): R18.8 - OTHER ASCITES
[2019-06-30] MEDS: LACTULOSE 20 GM/30 ML UDC (FOR ORAL USE ONLY) PO SCH ×4 (01:45→22:07)
--- NOTE | 2019-06-30 07:20 | PN.GI ---
GI Progress Note Subjective: NO NEW COMPLAINTS STILL WITH CONFUSION BUT LESS SINCE ADMISSION ; DENIES COMPLAINTS - Objective Vital Signs: Vital Signs Temperature 98.0 F 06/30/19 06:04 Pulse Rate 82 06/30/19 06:04 Respiratory Rate 20 06/30/19 06:04 Blood Pressure 103/71 06/30/19 06:04 O2 Sat by Pulse Oximetry (%) 96 06/29/19 21:00 Constitutional: Well Nourished, No Distress Eyes: Yes: WNL HENT: Yes: WNL Neck: Yes: WNL Cardiovascular: Yes: WNL Respiratory: Yes: WNL, Regular, CTA Bilaterally Gastrointestinal Inspection: Yes: WNL ...Auscultate: Yes: Normoactive Bowel Sounds, Other (NOT TENDER , NML BS , FLANK DULLNESS) Extremities: Yes: WNL Neurological: Yes: Other (NO ASTERIX AWAKE AND ALERT ORIENTED TO PERSON AND PLACE) Labs: CBC, BMP 06/26/19 10:00 06/29/19 10:50 INR, PTT INR 1.54 (0.83-1.09) H 06/25/19 14:53 Problem List - Problems (1) Hepatic encephalopathy Assessment/Plan: C/W RIFAXIMIN AND LACTULOSE THERAPY AVOID SEDATIVES ETOH ABSTINENCE F/U ABD SONOGRAM 2GM SODIUM DIET EVENTUAL EGD TO SCREEN FOR VARICES TREND CBC / CMET DAILY WHILE HOSPITALIZED Code(s): K72.90 - HEPATIC FAILURE, UNSPECIFIED WITHOUT COMA (2) Renal failure Code(s): N19 - UNSPECIFIED KIDNEY FAILURE (3) Ascites of liver Code(s): R18.8 - OTHER ASCITES (4) Cirrhosis, alcoholic Code(s): K70.30 - ALCOHOLIC CIRRHOSIS OF LIVER WITHOUT ASCITES
[2019-06-30 08:53] LABS: BASO % 0.8 % (0-2.0); EOS % 4.4 % (0-4.5); HEMATOCRIT 28.4 % (35.4-49); HEMOGLOBIN 9.1 GM/dL (11.7-16.9); MCH 28.2 pg (25.7-33.7); MCHC 32.1 g/dl (32.0-35.9); MEAN CELL VOLUME 87.9 fl (80-96); MEAN PLT VOLUME 8.3 fl (7.5-11.1); MONO % 14.5 % (3.8-10.2); NEUT % 65.3 % (42.8-82.8); PLATELET COUNT 152 K/MM3 (134-434); RBC 3.24 M/mm3 (4.00-5.60); RDW 20.5 % (11.9-15.9); WHITE BLOOD COUNT 7.1 K/mm3 (4.0-10.0)
[2019-06-30 09:19] LABS: BLOOD UREA NITROGEN 25.8 mg/dL (7-18); POTASSIUM 4.7 mmol/L (3.5-5.1)
[2019-06-30] MEDS: SPIRONOLACTONE 25 MG TABLET (FP) PO SCH (09:23)
[2019-06-30] MEDS: metoPROLOL SUCCINATE 25 MG TAB.SR.24H (FP) PO SCH (09:23)
[2019-06-30] MEDS: PANTOPRAZOLE 40 MG TABLET (FP) PO SCH (09:23)
[2019-06-30] MEDS: HEPARIN NA (PORCINE) 5,000 UNITS/ML 1ML VIAL SQ SCH ×2 (09:23→22:07)
[2019-06-30] MEDS: RIFAXIMIN 550 MG TABLET (UD) PO SCH ×2 (09:23→22:07)
--- NOTE | 2019-06-30 10:26 | PN ---
Progress Note (short form) - Note Progress Note: RENAL Pt is awake and alert comfortable denies complaints Last Vital Signs Temp Pulse Resp BP Pulse Ox 98.0 F 82 14 104/67 96 06/30/19 07:54 06/30/19 07:54 06/30/19 07:54 06/30/19 07:54 06/29/19 21:00 cvs s1s2 rr lungs clear cvs s1s2 rr abd soft ext a+o skin no lesion ext no edema CBC, BMP 06/30/19 08:05 06/30/19 08:05 Current Medications Generic Name Dose Route Start Last Admin Trade Name Yannq PRN Reason Stop Dose Admin Heparin Sodium (Porcine) 5,000 unit 06/26/19 22:00 06/30/19 09:23 Heparin - SQ 5,000 unit BID [facility] Administration Lactulose 30 gm 06/26/19 20:00 06/30/19 09:23 Cephulac (Oral Use) PO 30 gm Q6H [facility] Administration Metoprolol Succinate 25 mg 06/27/19 10:00 06/30/19 09:23 Toprol Xl - PO 25 mg DAILY [facility] Administration Pantoprazole Sodium 40 mg 06/27/19 10:00 06/30/19 09:23 Protonix - PO 40 mg DAILY [facility] Administration Rifaximin 550 mg 06/26/19 22:00 06/30/19 09:23 Xifaxan - PO 550 mg BID [facility] Administration Spironolactone 100 mg 06/27/19 10:00 06/30/19 09:23 Aldactone - PO 100 mg DAILY [facility] Administration Impression 1. BECKA improving 2. ascites 3. liver cirrhosis 4. dementia 5. htn 6. Previous Hep C Plan - cont aldactone - GI follow up - s/p paracentesis on - monitor renal function- improving, no need for HD - cont lactulose and rifaximin MV
[2019-06-30 11:54] LABS: ANISOCYTOSIS 0; MACROCYTOSIS 1+; OVALOCYTE 1+; PLATELET ESTIMATE DECREASED; TARGET CELLS 1+
--- NOTE | 2019-06-30 15:29 | PN ---
Progress Note, Physician - Current Medication List Current Medications: Active Medications Heparin Sodium (Porcine) (Heparin -) 5,000 unit SQ BID [facility] Last Admin: 06/30/19 09:23 Dose: 5,000 unit Lactulose (Cephulac (Oral Use)) 30 gm PO Q6H [facility] Last Admin: 06/30/19 15:18 Dose: 30 gm Metoprolol Succinate (Toprol Xl -) 25 mg PO DAILY [facility] Last Admin: 06/30/19 09:23 Dose: 25 mg Pantoprazole Sodium (Protonix -) 40 mg PO DAILY [facility] Last Admin: 06/30/19 09:23 Dose: 40 mg Rifaximin (Xifaxan -) 550 mg PO BID [facility] Last Admin: 06/30/19 09:23 Dose: 550 mg Spironolactone (Aldactone -) 100 mg PO DAILY [facility] Last Admin: 06/30/19 09:23 Dose: 100 mg - Objective Vital Signs: Vital Signs Temperature 97.5 F L 06/30/19 13:49 Pulse Rate 78 06/30/19 13:49 Respiratory Rate 18 06/30/19 13:49 Blood Pressure 99/65 06/30/19 13:49 O2 Sat by Pulse Oximetry (%) 97 06/30/19 09:00 Constitutional: Yes: No Distress HENT: Yes: Atraumatic Neck: Yes: Supple Cardiovascular: Yes: Regular Rate and Rhythm Respiratory: Yes: CTA Bilaterally Gastrointestinal: Yes: Normal Bowel Sounds, Ascites Extremities: Yes: WNL, Other Neurological: Yes: Alert, Oriented Labs: CBC, BMP 06/30/19 08:05 06/30/19 08:05 INR, PTT INR 1.54 (0.83-1.09) H 06/25/19 14:53 Problem List - Problems (1) Ascites Assessment/Plan: on diuretics s/p diagnostic tap wbc count wnl Code(s): R18.8 - OTHER ASCITES (2) Cirrhosis, alcoholic Code(s): K70.30 - ALCOHOLIC CIRRHOSIS OF LIVER WITHOUT ASCITES (3) AMS (altered mental status) Assessment/Plan: doing better Code(s): R41.82 - ALTERED MENTAL STATUS, UNSPECIFIED (4) Anemia of chronic disease Code(s): D63.8 - ANEMIA IN OTHER CHRONIC DISEASES CLASSIFIED ELSEWHERE (5) Hepatic encephalopathy Assessment/Plan: on lactulose doing well Code(s): K72.90 - HEPATIC FAILURE, UNSPECIFIED WITHOUT COMA (6) Increased ammonia level Code(s): R79.89 - OTHER SPECIFIED ABNORMAL FINDINGS OF BLOOD CHEMISTRY (7) Pneumonia Code(s): J18.9 - PNEUMONIA, UNSPECIFIED ORGANISM (8) Renal failure Assessment/Plan: cr improving renal on board Code(s): N19 - UNSPECIFIED KIDNEY FAILURE
[2019-06-30 15:49] LABS: ALBUMIN 1.9 g/dl (3.4-5.0); BILIRUBIN,TOTAL 1.6 mg/dL (0.2-1); TOT PROT 6.3 g/dl (6.4-8.2)
[2019-06-30] MEDS: TAMSULOSIN HCL 0.4 MG CAP PO SCH (15:56)
[2019-07-01] MEDS: LACTULOSE 20 GM/30 ML UDC (FOR ORAL USE ONLY) PO SCH ×4 (02:08→22:03)
--- NOTE | 2019-07-01 07:44 | PN.GI ---
GI Progress Note Subjective: PATIENT DENIES ANY COMPLAINTS - STATES HE IS DOING OK TODAY - Objective Vital Signs: Vital Signs Temperature 97.9 F 07/01/19 06:22 Pulse Rate 85 07/01/19 06:22 Respiratory Rate 19 07/01/19 06:22 Blood Pressure 101/51 L 07/01/19 06:22 O2 Sat by Pulse Oximetry (%) 97 06/30/19 21:00 Constitutional: Well Nourished, No Distress, Calm Eyes: Yes: WNL HENT: Yes: WNL Neck: Yes: WNL Cardiovascular: Yes: WNL Respiratory: Yes: WNL, Regular, CTA Bilaterally Gastrointestinal Inspection: Yes: WNL ...Auscultate: Yes: Normoactive Bowel Sounds Extremities: Yes: WNL Edema: No Labs: CBC, BMP 06/30/19 08:05 06/30/19 08:05 INR, PTT INR 1.54 (0.83-1.09) H 06/25/19 14:53 Problem List - Problems (1) Hepatic encephalopathy Assessment/Plan: C/W RIFAXIMIN AND LACTULOSE THERAPY AVOID SEDATIVES ETOH ABSTINENCE F/U ABD SONOGRAM CULTURES PRELIMINARY NEGATIVE 2GM SODIUM DIET EVENTUAL EGD TO SCREEN FOR VARICES TREND CBC / CMET DAILY WHILE HOSPITALIZED Code(s): K72.90 - HEPATIC FAILURE, UNSPECIFIED WITHOUT COMA (2) Renal failure Code(s): N19 - UNSPECIFIED KIDNEY FAILURE (3) Ascites of liver Code(s): R18.8 - OTHER ASCITES (4) Cirrhosis, alcoholic Code(s): K70.30 - ALCOHOLIC CIRRHOSIS OF LIVER WITHOUT ASCITES
[2019-07-01] MEDS: PANTOPRAZOLE 40 MG TABLET (FP) PO SCH (10:26)
[2019-07-01] MEDS: RIFAXIMIN 550 MG TABLET (UD) PO SCH ×2 (10:26→22:03)
[2019-07-01] MEDS: SPIRONOLACTONE 25 MG TABLET (FP) PO SCH ×2 (10:26→10:41)
[2019-07-01] MEDS: HEPARIN NA (PORCINE) 5,000 UNITS/ML 1ML VIAL SQ SCH ×2 (10:26→22:03)
[2019-07-01] MEDS: metoPROLOL SUCCINATE 25 MG TAB.SR.24H (FP) PO SCH ×2 (10:26→10:41)
[2019-07-01] MEDS: TAMSULOSIN HCL 0.4 MG CAP PO SCH (10:26)
--- NOTE | 2019-07-01 11:40 | PN ---
Progress Note (short form) - Note Progress Note: RENAL Pt is awake and alert comfortable denies complaints Last Vital Signs Temp Pulse Resp BP Pulse Ox 98.0 F 83 16 78/48 L 97 07/01/19 10:40 07/01/19 10:40 07/01/19 10:40 07/01/19 10:40 06/30/19 21:00 cvs s1s2 rr lungs clear cvs s1s2 rr abd soft, distended, more than yesterday ext a+o skin no lesion ext no edema CBC, BMP 06/30/19 08:05 06/30/19 08:05 Current Medications Generic Name Dose Route Start Last Admin Trade Name [place] PRN Reason Stop Dose Admin Heparin Sodium (Porcine) 5,000 unit 06/26/19 22:00 07/01/19 10:26 Heparin - SQ 5,000 unit BID IRE[facility] Administration Lactulose 30 gm 06/26/19 20:00 07/01/19 10:26 Cephulac (Oral Use) PO 30 gm Q6H IRENA Administration Metoprolol Succinate 25 mg 06/27/19 10:00 07/01/19 10:41 Toprol Xl - PO Not Given DAILY IRENA Pantoprazole Sodium 40 mg 06/27/19 10:00 07/01/19 10:26 Protonix - PO 40 mg DAILY [facility] Administration Rifaximin 550 mg 06/26/19 22:00 07/01/19 10:26 Xifaxan - PO 550 mg BID IRENA Administration Spironolactone 100 mg 06/27/19 10:00 07/01/19 10:41 Aldactone - PO Not Given DAILY IRENA Tamsulosin HCl 0.4 mg 06/30/19 15:31 07/01/19 10:26 Flomax - PO 0.4 mg DAILY@0830 IRENA Administration Impression 1. BECKA improving 2. ascites 3. liver cirrhosis 4. dementia 5. htn 6. Previous Hep C Plan - cont aldactone - GI follow up - s/p paracentesis on - monitor renal function- improving, no need for HD - cont lactulose and rifaximin - start lasix - urine sodium- may have type 2 hrs MV
--- NOTE | 2019-07-01 16:39 | PN ---
Progress Note, Physician - Current Medication List Current Medications: Active Medications Furosemide (Lasix -) 40 mg PO DAILY [facility] Heparin Sodium (Porcine) (Heparin -) 5,000 unit SQ BID [facility] Last Admin: 07/01/19 10:26 Dose: 5,000 unit Lactulose (Cephulac (Oral Use)) 30 gm PO Q6H [facility] Last Admin: 07/01/19 14:20 Dose: 30 gm Metoprolol Succinate (Toprol Xl -) 25 mg PO DAILY [facility] Last Admin: 07/01/19 10:41 Dose: Not Given Pantoprazole Sodium (Protonix -) 40 mg PO DAILY [facility] Last Admin: 07/01/19 10:26 Dose: 40 mg Rifaximin (Xifaxan -) 550 mg PO BID [facility] Last Admin: 07/01/19 10:26 Dose: 550 mg Spironolactone (Aldactone -) 100 mg PO DAILY [facility] Last Admin: 07/01/19 10:41 Dose: Not Given Tamsulosin HCl (Flomax -) 0.4 mg PO DAILY@0830 [facility] Last Admin: 07/01/19 10:26 Dose: 0.4 mg - Objective Vital Signs: Vital Signs Temperature 98.2 F 07/01/19 16:11 Pulse Rate 87 07/01/19 16:11 Respiratory Rate 18 07/01/19 16:11 Blood Pressure 81/50 L 07/01/19 16:11 O2 Sat by Pulse Oximetry (%) 97 06/30/19 21:00 Constitutional: Yes: No Distress HENT: Yes: Atraumatic Neck: Yes: Supple Cardiovascular: Yes: Regular Rate and Rhythm Respiratory: Yes: CTA Bilaterally Gastrointestinal: Yes: Normal Bowel Sounds, Ascites Extremities: Yes: WNL Neurological: Yes: Alert Labs: CBC, BMP 06/30/19 08:05 06/30/19 08:05 INR, PTT INR 1.54 (0.83-1.09) H 06/25/19 14:53 Problem List - Problems (1) Ascites Assessment/Plan: on diuretics s/p diagnostic tap wbc count wnl Code(s): R18.8 - OTHER ASCITES (2) Cirrhosis, alcoholic Code(s): K70.30 - ALCOHOLIC CIRRHOSIS OF LIVER WITHOUT ASCITES (3) AMS (altered mental status) Assessment/Plan: doing better Code(s): R41.82 - ALTERED MENTAL STATUS, UNSPECIFIED (4) Anemia of chronic disease Code(s): D63.8 - ANEMIA IN OTHER CHRONIC DISEASES CLASSIFIED ELSEWHERE (5) Hepatic encephalopathy Assessment/Plan: on lactulose doing well Code(s): K72.90 - HEPATIC FAILURE, UNSPECIFIED WITHOUT COMA (6) Increased ammonia level Code(s): R79.89 - OTHER SPECIFIED ABNORMAL FINDINGS OF BLOOD CHEMISTRY (7) Pneumonia Assessment/Plan: id consult Code(s): J18.9 - PNEUMONIA, UNSPECIFIED ORGANISM (8) Renal failure Assessment/Plan: cr improving renal on board Code(s): N19 - UNSPECIFIED KIDNEY FAILURE
[2019-07-02] MEDS: LACTULOSE 20 GM/30 ML UDC (FOR ORAL USE ONLY) PO SCH ×4 (02:53→21:41)
[2019-07-02] MEDS: RIFAXIMIN 550 MG TABLET (UD) PO SCH ×2 (09:44→21:41)
[2019-07-02] MEDS: PANTOPRAZOLE 40 MG TABLET (FP) PO SCH (09:44)
[2019-07-02] MEDS: TAMSULOSIN HCL 0.4 MG CAP PO SCH (09:44)
[2019-07-02] MEDS: HEPARIN NA (PORCINE) 5,000 UNITS/ML 1ML VIAL SQ SCH ×2 (09:44→21:41)
[2019-07-02] MEDS: metoPROLOL SUCCINATE 25 MG TAB.SR.24H (FP) PO SCH (09:44)
[2019-07-02] MEDS ORDERED: FUROSEMIDE 40 MG TABLET (FP) PO SCH (10:00)
[2019-07-02] MEDS: SPIRONOLACTONE 25 MG TABLET (FP) PO SCH (10:05)
[2019-07-02] MEDS: FUROSEMIDE 40 MG TABLET (FP) PO SCH (10:06)
--- NOTE | 2019-07-02 13:41 | CON.GU ---
Consult Consult Specialty:: Referred by:: Medicine Reason for Consultation:: urinary retention, renal failure - History of Present Illness Chief Complaint: urinary retention, renal failure History of Present Illness: 74 yo male with liver failure. He has a costello cath in place. He reports that he had no problem voiding at home. His creatinine is also elevated. US showed no hydro and an empty bladder. 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 Gastrointestinal: Yes: Ascites Hepatobiliary: Yes: Cirrhosis, Hepatitis C Renal/: No: Renal Failure, Renal Inusuff, BPH, Cancer, Hematuria, Hemodialysis , Neurogenic Bladder, Renal Calculi, UTI, Other - Alcohol/Substance Use Hx Alcohol Use: No History of Substance Use: reports: None - Smoking History Smoking history: Never smoked Have you smoked in the past 12 months: No - Social History Usual Living Arrangement: With Child ADL: Independent History of Recent Travel: No Home Medications - Allergies Allergies/Adverse Reactions: Allergies Allergy/AdvReac Type Severity Reaction Status Date / Time No Known Allergies Allergy Verified 06/25/19 13:12 - Home Medications Home Medications: Ambulatory Orders Metoprolol Succinate 25 mg PO DAILY 06/15/19 Pantoprazole Sodium [Protonix] 40 mg PO DAILY 06/15/19 Docusate Sodium [Colace] 100 mg PO DAILY #30 capsule 06/18/19 Ferrous Sulfate 325 mg PO DAILY #30 tablet 06/18/19 Lactulose (Oral Use) [Cephulac -] 30 gm PO Q6HPO #5400 ml 06/18/19 Rifaximin [Xifaxan -] 550 mg PO BID #60 tablet 06/18/19 Spironolactone 100 mg PO DAILY #30 tablet 06/18/19 Review of Systems - Review of Systems Genitourinary: reports: Frequency Physical Exam- Vital Signs: Vital Signs Temperature 98.3 F 07/02/19 09:24 Pulse Rate 92 H 07/02/19 09:24 Respiratory Rate 16 07/02/19 09:24 Blood Pressure 88/53 L 07/02/19 09:24 O2 Sat by Pulse Oximetry (%) 97 07/02/19 09:00 Renal/: Yes: Costello Present. No: Bladder Distention, CVA Tenderness - Left, CVA Tenderness - Right, Hematuria Labs: CBC, BMP 06/30/19 08:05 06/30/19 08:05 Imaging - Results Ultrasound: Report Reviewed Problem List - Problems (1) Renal failure Assessment/Plan: no evidence of bladder outlet obstruction or hydronephrosis, so renal failure is not post-renal. continue flomax. May remove costello cath when medically appropriate. Code(s): N19 - UNSPECIFIED KIDNEY FAILURE
--- NOTE | 2019-07-02 13:50 | PN ---
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 - continue lactulose/rifaximin - titrate to 3bm/d - Check urine Na - diuretics per renal - cautiously given Cr, may need albumin challenge for HRS - ETOH abstience
[2019-07-02] MEDS ORDERED: ALBUMIN HUMAN 25% 100 ML VIAL IVPB ONE (14:09)
--- NOTE | 2019-07-02 14:09 | PN ---
Progress Note, Physician History of Present Illness: Pt seen and examined at bedside. He is awake and alert. He complains of ascites. - Current Medication List Current Medications: Active Medications Furosemide (Lasix -) 40 mg PO DAILY [facility] Last Admin: 07/02/19 10:06 Dose: Not Given Heparin Sodium (Porcine) (Heparin -) 5,000 unit SQ BID [facility] Last Admin: 07/02/19 09:44 Dose: 5,000 unit Lactulose (Cephulac (Oral Use)) 30 gm PO Q6H [facility] Last Admin: 07/02/19 14:01 Dose: 30 gm Metoprolol Succinate (Toprol Xl -) 25 mg PO DAILY [facility] Last Admin: 07/02/19 09:44 Dose: 25 mg Pantoprazole Sodium (Protonix -) 40 mg PO DAILY [facility] Last Admin: 07/02/19 09:44 Dose: 40 mg Rifaximin (Xifaxan -) 550 mg PO BID [facility] Last Admin: 07/02/19 09:44 Dose: 550 mg Spironolactone (Aldactone -) 100 mg PO DAILY [facility] Last Admin: 07/02/19 10:05 Dose: Not Given Tamsulosin HCl (Flomax -) 0.4 mg PO DAILY@0830 [facility] Last Admin: 07/02/19 09:44 Dose: 0.4 mg - Objective Vital Signs: Vital Signs Temperature 98.3 F 07/02/19 09:24 Pulse Rate 92 H 07/02/19 09:24 Respiratory Rate 16 07/02/19 09:24 Blood Pressure 88/53 L 07/02/19 09:24 O2 Sat by Pulse Oximetry (%) 97 07/02/19 09:00 Constitutional: Yes: Calm Eyes: Yes: Conjunctiva Clear HENT: Yes: Atraumatic Neck: Yes: Supple Cardiovascular: Yes: S1, S2 Respiratory: Yes: CTA Bilaterally Gastrointestinal: Yes: Ascites Genitourinary: Yes: WNL Musculoskeletal: Yes: WNL Edema: No Neurological: Yes: Oriented Psychiatric: Yes: Oriented Labs: CBC, BMP 06/30/19 08:05 06/30/19 08:05 INR, PTT INR 1.54 (0.83-1.09) H 06/25/19 14:53 Assessment/Plan Current Medications Generic Name Dose Route Start Last Admin Trade Name Freq PRN Reason Stop Dose Admin Furosemide 40 mg 07/02/19 10:00 07/02/19 10:06 Lasix - PO Not Given DAILY [facility] Heparin Sodium (Porcine) 5,000 unit 06/26/19 22:00 07/02/19 09:44 Heparin - SQ 5,000 unit BID [facility] Administration Lactulose 30 gm 06/26/19 20:00 07/02/19 14:01 Cephulac (Oral Use) PO 30 gm Q6H [facility] Administration Metoprolol Succinate 25 mg 06/27/19 10:00 07/02/19 09:44 Toprol Xl - PO 25 mg DAILY [facility] Administration Pantoprazole Sodium 40 mg 06/27/19 10:00 07/02/19 09:44 Protonix - PO 40 mg DAILY [facility] Administration Rifaximin 550 mg 06/26/19 22:00 07/02/19 09:44 Xifaxan - PO 550 mg BID [facility] Administration Spironolactone 100 mg 06/27/19 10:00 07/02/19 10:05 Aldactone - PO Not Given DAILY [facility] Tamsulosin HCl 0.4 mg 06/30/19 15:31 07/02/19 09:44 Flomax - PO 0.4 mg DAILY@0830 [facility] Administration Laboratory Tests 06/26/19 14:30 Ur Random Sodium 41 Impression 1. BECKA 2. ascites 3. liver cirrhosis 4. dementia 5. 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
--- NOTE | 2019-07-02 18:10 | PN ---
Progress Note, Physician - Current Medication List Current Medications: Active Medications Furosemide (Lasix -) 40 mg PO DAILY [facility] Last Admin: 07/02/19 10:06 Dose: Not Given Heparin Sodium (Porcine) (Heparin -) 5,000 unit SQ BID [facility] Last Admin: 07/02/19 09:44 Dose: 5,000 unit Lactulose (Cephulac (Oral Use)) 30 gm PO Q6H [facility] Last Admin: 07/02/19 14:01 Dose: 30 gm Metoprolol Succinate (Toprol Xl -) 25 mg PO DAILY [facility] Last Admin: 07/02/19 09:44 Dose: 25 mg Pantoprazole Sodium (Protonix -) 40 mg PO DAILY [facility] Last Admin: 07/02/19 09:44 Dose: 40 mg Rifaximin (Xifaxan -) 550 mg PO BID [facility] Last Admin: 07/02/19 09:44 Dose: 550 mg Spironolactone (Aldactone -) 100 mg PO DAILY [facility] Last Admin: 07/02/19 10:05 Dose: Not Given Tamsulosin HCl (Flomax -) 0.4 mg PO DAILY@0830 [facility] Last Admin: 07/02/19 09:44 Dose: 0.4 mg - Objective Vital Signs: Vital Signs Temperature 97.8 F 07/02/19 15:02 Pulse Rate 89 07/02/19 15:02 Respiratory Rate 18 07/02/19 15:02 Blood Pressure 81/56 L 07/02/19 15:02 O2 Sat by Pulse Oximetry (%) 97 07/02/19 09:00 Constitutional: Yes: No Distress HENT: Yes: Atraumatic Neck: Yes: Supple Cardiovascular: Yes: Regular Rate and Rhythm Respiratory: Yes: CTA Bilaterally Gastrointestinal: Yes: Ascites Extremities: Yes: WNL Edema: No Neurological: Yes: Alert Labs: CBC, BMP 06/30/19 08:05 06/30/19 08:05 INR, PTT INR 1.54 (0.83-1.09) H 06/25/19 14:53 Problem List - Problems (1) Ascites Assessment/Plan: on diuretics s/p diagnostic tap wbc count wnl Code(s): R18.8 - OTHER ASCITES (2) Cirrhosis, alcoholic Code(s): K70.30 - ALCOHOLIC CIRRHOSIS OF LIVER WITHOUT ASCITES (3) AMS (altered mental status) Assessment/Plan: doing better Code(s): R41.82 - ALTERED MENTAL STATUS, UNSPECIFIED (4) Anemia of chronic disease Code(s): D63.8 - ANEMIA IN OTHER CHRONIC DISEASES CLASSIFIED ELSEWHERE (5) Hepatic encephalopathy Assessment/Plan: on lactulose doing well Code(s): K72.90 - HEPATIC FAILURE, UNSPECIFIED WITHOUT COMA (6) Increased ammonia level Code(s): R79.89 - OTHER SPECIFIED ABNORMAL FINDINGS OF BLOOD CHEMISTRY (7) Pneumonia Assessment/Plan: id consult Code(s): J18.9 - PNEUMONIA, UNSPECIFIED ORGANISM (8) Renal failure Code(s): N19 - UNSPECIFIED KIDNEY FAILURE
[2019-07-03] MEDS: LACTULOSE 20 GM/30 ML UDC (FOR ORAL USE ONLY) PO SCH ×4 (02:38→22:24)
[2019-07-03 08:46] LABS: BASO % 0.7 % (0-2.0); EOS % 3.8 % (0-4.5); HEMATOCRIT 26.6 % (35.4-49); HEMOGLOBIN 8.7 GM/dL (11.7-16.9); LYMPH % 11.5 % (8-40); MCH 28.6 pg (25.7-33.7); MCHC 32.6 g/dl (32.0-35.9); MEAN CELL VOLUME 87.8 fl (80-96); MEAN PLT VOLUME 8.7 fl (7.5-11.1); MONO % 15.9 % (3.8-10.2); NEUT % 68.1 % (42.8-82.8); PLATELET COUNT 136 K/MM3 (134-434); RBC 3.03 M/mm3 (4.00-5.60); RDW 22.1 % (11.9-15.9); WHITE BLOOD COUNT 7.5 K/mm3 (4.0-10.0)
[2019-07-03] MEDS: TAMSULOSIN HCL 0.4 MG CAP PO SCH (09:13)
[2019-07-03 09:19] LABS: ALBUMIN 2.4 g/dl (3.4-5.0); BILIRUBIN,TOTAL 1.1 mg/dL (0.2-1); BLOOD UREA NITROGEN 40.9 mg/dL (7-18); CALCIUM 8.6 mg/dL (8.5-10.1); CREATININE 3.1 mg/dL (0.55-1.3); POTASSIUM 5.1 mmol/L (3.5-5.1)
[2019-07-03] MEDS: PANTOPRAZOLE 40 MG TABLET (FP) PO SCH (10:58)
[2019-07-03] MEDS: SPIRONOLACTONE 25 MG TABLET (FP) PO SCH (10:58)
[2019-07-03] MEDS: FUROSEMIDE 40 MG TABLET (FP) PO SCH (10:58)
[2019-07-03] MEDS: RIFAXIMIN 550 MG TABLET (UD) PO SCH (10:58)
[2019-07-03] MEDS: HEPARIN NA (PORCINE) 5,000 UNITS/ML 1ML VIAL SQ SCH (10:58)
[2019-07-03] MEDS: metoPROLOL SUCCINATE 25 MG TAB.SR.24H (FP) PO SCH (10:59)
--- NOTE | 2019-07-03 11:42 | DS ---
Physical Examination Vital Signs: Vital Signs Temperature 98.3 F 07/03/19 08:59 Pulse Rate 87 07/03/19 08:59 Respiratory Rate 18 07/03/19 08:59 Blood Pressure 82/48 L 07/03/19 08:59 O2 Sat by Pulse Oximetry (%) 96 07/02/19 21:00 Labs: CBC, BMP 07/03/19 07:00 07/03/19 07:00 Discharge Summary Problems reviewed: Yes Reason For Visit: ACUTE KIDNEY INJURY Current Active Problems Hepatic encephalopathy (Acute) Pneumonia (Acute) Renal failure (Acute) Ascites (Chronic) Liver disease (Chronic) - Instructions Diet, Activity, Other Instructions: need to follow up with urologist Referrals: Rodriguez Daley MD [Staff Physician] - Natacha Novak [Primary Care Provider] - Luis A Brambila DO [Staff Physician] - Buck Garrett MD [Staff Physician] - - Home Medications Comprehensive Discharge Medication List: Ambulatory Orders Metoprolol Succinate 25 mg PO DAILY 06/15/19 Pantoprazole Sodium [Protonix] 40 mg PO DAILY 06/15/19 Docusate Sodium [Colace] 100 mg PO DAILY #30 capsule 06/18/19 Ferrous Sulfate 325 mg PO DAILY #30 tablet 06/18/19 Lactulose (Oral Use) [Cephulac -] 30 gm PO Q6HPO #5400 ml 06/18/19 Rifaximin [Xifaxan -] 550 mg PO BID #60 tablet 06/18/19 Spironolactone 100 mg PO DAILY #30 tablet 06/18/19 ny snf
--- NOTE | 2019-07-03 17:06 | PN ---
Progress Note, Physician History of Present Illness: Pt seen and examined at bedside. He is awake and alert. He feels that his ascites is worsening. Pt seen earlier today. - Current Medication List Current Medications: Active Medications Furosemide (Lasix -) 40 mg PO DAILY [facility] Last Admin: 07/03/19 10:58 Dose: Not Given Heparin Sodium (Porcine) (Heparin -) 5,000 unit SQ BID [facility] Last Admin: 07/03/19 10:58 Dose: 5,000 unit Lactulose (Cephulac (Oral Use)) 30 gm PO Q6H [facility] Last Admin: 07/03/19 14:01 Dose: 30 gm Metoprolol Succinate (Toprol Xl -) 25 mg PO DAILY [facility] Last Admin: 07/03/19 10:59 Dose: Not Given Rifaximin (Xifaxan -) 550 mg PO BID [facility] Last Admin: 07/03/19 10:58 Dose: 550 mg Spironolactone (Aldactone -) 100 mg PO DAILY [facility] Last Admin: 07/03/19 10:58 Dose: Not Given Tamsulosin HCl (Flomax -) 0.4 mg PO DAILY@0830 [facility] Last Admin: 07/03/19 09:13 Dose: 0.4 mg - Objective Vital Signs: Vital Signs Temperature 98.1 F 07/03/19 14:23 Pulse Rate 104 H 07/03/19 14:23 Respiratory Rate 18 07/03/19 08:59 Blood Pressure 127/89 07/03/19 14:23 O2 Sat by Pulse Oximetry (%) 96 07/03/19 09:00 Constitutional: Yes: Calm Eyes: Yes: Conjunctiva Clear HENT: Yes: Atraumatic Cardiovascular: Yes: S1, S2 Respiratory: Yes: CTA Bilaterally Gastrointestinal: Yes: Ascites, Distention Genitourinary: Yes: WNL Musculoskeletal: Yes: Muscle Weakness Edema: No Neurological: Yes: Oriented Psychiatric: Yes: Oriented Labs: CBC, BMP 07/03/19 07:00 07/03/19 07:00 INR, PTT INR 1.54 (0.83-1.09) H 06/25/19 14:53 Assessment/Plan Current Medications Generic Name Dose Route Start Last Admin Trade Name Freq PRN Reason Stop Dose Admin Furosemide 40 mg 07/02/19 10:00 07/03/19 10:58 Lasix - PO Not Given DAILY [facility] Heparin Sodium (Porcine) 5,000 unit 06/26/19 22:00 07/03/19 10:58 Heparin - SQ 5,000 unit BID IRENA Administration Lactulose 30 gm 06/26/19 20:00 07/03/19 14:01 Cephulac (Oral Use) PO 30 gm Q6H [facility] Administration Metoprolol Succinate 25 mg 06/27/19 10:00 07/03/19 10:59 Toprol Xl - PO Not Given DAILY [facility] Rifaximin 550 mg 06/26/19 22:00 07/03/19 10:58 Xifaxan - PO 550 mg BID [facility] Administration Spironolactone 100 mg 06/27/19 10:00 07/03/19 10:58 Aldactone - PO Not Given DAILY [facility] Tamsulosin HCl 0.4 mg 06/30/19 15:31 07/03/19 09:13 Flomax - PO 0.4 mg DAILY@0830 [facility] Administration Impression 1. BECKA 2. ascites 3. liver cirrhosis 4. dementia 5. htn Plan - pts clinical condition is worsening - ascites is more tense - bp is low and he did not get diuretics - give lasix of bp improves - will likely need another paracentesis - GI follow up - cont lactulose and rifixiin
--- NOTE | 2019-07-03 17:06 | PN.GI ---
GI Progress Note Subjective: No acute events Worsening ascites Worsening renal function and hyponatremia - Objective Vital Signs: Vital Signs Temperature 98.1 F 07/03/19 14:23 Pulse Rate 104 H 07/03/19 14:23 Respiratory Rate 18 07/03/19 08:59 Blood Pressure 127/89 07/03/19 14:23 O2 Sat by Pulse Oximetry (%) 96 07/03/19 09:00 Constitutional: Calm Eyes: No: Sclera Icterus Cardiovascular: Yes: Tachycardia Respiratory: Yes: Diminished (diminished at bases bilaterally) Gastrointestinal Inspection: Yes: Distention ...Auscultate: Yes: Normoactive Bowel Sounds ...Palpate: No: Tenderness ...Percussion: Yes: Fluid Wave. No: Tympanitic Neurological: Yes: Alert Labs: CBC, BMP 07/03/19 07:00 07/03/19 07:00 INR, PTT INR 1.54 (0.83-1.09) H 06/25/19 14:53 Problem List - Problems (1) Hepatic encephalopathy Assessment/Plan: Clinically somewhat improved Code(s): K72.90 - HEPATIC FAILURE, UNSPECIFIED WITHOUT COMA (2) Ascites Assessment/Plan: Refractory. Cannot be challenged with higher dose diuretics due to worsening renal function and now hyponatremia. Suspect HRS Discussed with two daughters who were present at bedside. While paracentesis can be performed it will reaccumulate. Given growing complexity of his case including impending renal failure, Next step would be having him transferred to a liver center to see if they can offer any other options. Family aware of overall poor prognosis. Therapeutic paracentesis ordered Message left to discuss further with Dr. Richard to arrange transfer. [facility] s [facility] in the past Renal following: as noted above, unable to tolerate adequate diuresis. Added Albumin daily for 3 days Monitor Lytes I discontinued protonix Should be on cipro 500mg PO daily for primary SBP prophylaxis given ascites protein and renal insufficiency Code(s): R18.8 - OTHER ASCITES
--- NOTE | 2019-07-03 18:14 | PN ---
Progress Note, Physician - Current Medication List Current Medications: Active Medications Albumin Human (Albumin Human 25%) 25 gm IVPB BID [facility] Stop: 07/05/19 10:01 Furosemide (Lasix -) 40 mg PO DAILY [facility] Last Admin: 07/03/19 10:58 Dose: Not Given Heparin Sodium (Porcine) (Heparin -) 5,000 unit SQ BID [facility] Last Admin: 07/03/19 10:58 Dose: 5,000 unit Lactulose (Cephulac (Oral Use)) 30 gm PO Q6H [facility] Last Admin: 07/03/19 14:01 Dose: 30 gm Metoprolol Succinate (Toprol Xl -) 25 mg PO DAILY [facility] Last Admin: 07/03/19 10:59 Dose: Not Given Rifaximin (Xifaxan -) 550 mg PO BID [facility] Last Admin: 07/03/19 10:58 Dose: 550 mg Spironolactone (Aldactone -) 100 mg PO DAILY [facility] Last Admin: 07/03/19 10:58 Dose: Not Given Tamsulosin HCl (Flomax -) 0.4 mg PO DAILY@0830 [facility] Last Admin: 07/03/19 09:13 Dose: 0.4 mg - Objective Vital Signs: Vital Signs Temperature 98.1 F 07/03/19 14:23 Pulse Rate 104 H 07/03/19 14:23 Respiratory Rate 18 07/03/19 08:59 Blood Pressure 127/89 07/03/19 14:23 O2 Sat by Pulse Oximetry (%) 96 07/03/19 09:00 Constitutional: Yes: No Distress HENT: Yes: Atraumatic Neck: Yes: Supple Cardiovascular: Yes: Regular Rate and Rhythm Respiratory: Yes: CTA Bilaterally Gastrointestinal: Yes: Normal Bowel Sounds, Ascites Extremities: Yes: WNL Neurological: Yes: Alert, Oriented Labs: CBC, BMP 07/03/19 07:00 07/03/19 07:00 INR, PTT INR 1.54 (0.83-1.09) H 06/25/19 14:53 Problem List - Problems (1) Ascites Assessment/Plan: on diuretics s/p diagnostic tap wbc count wnl Code(s): R18.8 - OTHER ASCITES (2) Cirrhosis, alcoholic Code(s): K70.30 - ALCOHOLIC CIRRHOSIS OF LIVER WITHOUT ASCITES (3) AMS (altered mental status) Assessment/Plan: doing better Code(s): R41.82 - ALTERED MENTAL STATUS, UNSPECIFIED (4) Anemia of chronic disease Code(s): D63.8 - ANEMIA IN OTHER CHRONIC DISEASES CLASSIFIED ELSEWHERE (5) Hepatic encephalopathy Assessment/Plan: on lactulose doing well Code(s): K72.90 - HEPATIC FAILURE, UNSPECIFIED WITHOUT COMA (6) Increased ammonia level Code(s): R79.89 - OTHER SPECIFIED ABNORMAL FINDINGS OF BLOOD CHEMISTRY (7) Pneumonia Assessment/Plan: id consult Code(s): J18.9 - PNEUMONIA, UNSPECIFIED ORGANISM (8) Renal failure Code(s): N19 - UNSPECIFIED KIDNEY FAILURE
[2019-07-03] MEDS: ALBUMIN HUMAN 25% 12.5 GM/50 ML VIAL IVPB SCH (22:50)
[2019-07-03] MEDS ORDERED: PT OWN MED DRAWER 7, Y5N ONE (23:20)
[2019-07-04] MEDS: LACTULOSE 20 GM/30 ML UDC (FOR ORAL USE ONLY) PO SCH ×4 (03:40→22:34)
[2019-07-04] MEDS ORDERED: CIPROFLOXACIN 500 MG TABLET (RESTRICTED TO ID) PO ONE (09:15)
[2019-07-04 10:12] LABS: ALBUMIN 2.6 g/dl (3.4-5.0); BLOOD UREA NITROGEN 45.5 mg/dL (7-18); CALCIUM 8.5 mg/dL (8.5-10.1); CREATININE 3.5 mg/dL (0.55-1.3); TOT PROT 6.9 g/dl (6.4-8.2)
[2019-07-04 10:21] LABS: POTASSIUM 4.8 mmol/L (3.5-5.1)
[2019-07-04] MEDS: TAMSULOSIN HCL 0.4 MG CAP PO SCH (10:28)
[2019-07-04] MEDS: FUROSEMIDE 40 MG TABLET (FP) PO SCH (10:28)
[2019-07-04] MEDS: SPIRONOLACTONE 25 MG TABLET (FP) PO SCH (10:28)
[2019-07-04] MEDS: metoPROLOL SUCCINATE 25 MG TAB.SR.24H (FP) PO SCH (10:28)
[2019-07-04] MEDS: ALBUMIN HUMAN 25% 12.5 GM/50 ML VIAL IVPB SCH ×2 (11:00→22:32)
[2019-07-04] MEDS ORDERED: ALBUMIN HUMAN 25% 12.5 GM/50 ML VIAL IVPB ONE (13:47)
--- NOTE | 2019-07-04 13:51 | PN ---
Progress Note, Physician History of Present Illness: Pt seen and examined at bedside. He is awake and appears comfortable. - Current Medication List Current Medications: Active Medications Albumin Human (Albumin Human 25%) 25 gm IVPB BID [facility] Stop: 07/05/19 10:01 Last Admin: 07/03/19 22:50 Dose: 25 gm Albumin Human (Albumin Human 25%) 25 gm IVPB ONCE ONE Stop: 07/04/19 13:48 Ciprofloxacin (Cipro (Restricted To Id)) 500 mg PO DAILY [facility] Furosemide (Lasix -) 40 mg PO DAILY [facility] Last Admin: 07/04/19 10:28 Dose: 40 mg Lactulose (Cephulac (Oral Use)) 30 gm PO Q6H [facility] Last Admin: 07/04/19 10:27 Dose: 30 gm Metoprolol Succinate (Toprol Xl -) 25 mg PO DAILY [facility] Last Admin: 07/04/19 10:28 Dose: 25 mg Spironolactone (Aldactone -) 100 mg PO DAILY [facility] Last Admin: 07/04/19 10:28 Dose: 100 mg Tamsulosin HCl (Flomax -) 0.4 mg PO DAILY@0830 [facility] Last Admin: 07/04/19 10:28 Dose: 0.4 mg - Objective Vital Signs: Vital Signs Temperature 98.1 F 07/04/19 05:40 Pulse Rate 98 H 07/04/19 05:40 Respiratory Rate 20 07/04/19 05:40 Blood Pressure 98/65 07/04/19 05:40 O2 Sat by Pulse Oximetry (%) 96 07/03/19 21:00 Constitutional: Yes: Calm Eyes: Yes: Conjunctiva Clear HENT: Yes: Atraumatic Neck: Yes: Supple Cardiovascular: Yes: S1, S2 Respiratory: Yes: CTA Bilaterally Gastrointestinal: Yes: Ascites Genitourinary: Yes: WNL Musculoskeletal: Yes: WNL Edema: No Neurological: Yes: Oriented Psychiatric: Yes: Oriented Labs: CBC, BMP 07/03/19 07:00 07/04/19 07:35 INR, PTT INR 1.54 (0.83-1.09) H 06/25/19 14:53 Problem List - Problems (1) Liver disease Code(s): K76.9 - LIVER DISEASE, UNSPECIFIED Assessment/Plan Current Medications Generic Name Dose Route Start Last Admin Trade Name Freq PRN Reason Stop Dose Admin Albumin Human 25 gm 07/03/19 22:00 07/03/19 22:50 Albumin Human 25% IVPB 07/05/19 10:01 25 gm BID [facility] Administration Albumin Human 25 gm 07/04/19 13:47 Albumin Human 25% IVPB 07/04/19 13:48 ONCE ONE Ciprofloxacin 500 mg 07/04/19 10:00 Cipro (Restricted To Id) PO DAILY [facility] Furosemide 40 mg 07/02/19 10:00 07/04/19 10:28 Lasix - PO 40 mg DAILY [facility] Administration Lactulose 30 gm 06/26/19 20:00 07/04/19 10:27 Cephulac (Oral Use) PO 30 gm Q6H [facility] Administration Metoprolol Succinate 25 mg 06/27/19 10:00 07/04/19 10:28 Toprol Xl - PO 25 mg DAILY [facility] Administration Spironolactone 100 mg 06/27/19 10:00 07/04/19 10:28 Aldactone - PO 100 mg DAILY [facility] Administration Tamsulosin HCl 0.4 mg 06/30/19 15:31 07/04/19 10:28 Flomax - PO 0.4 mg DAILY@0830 [facility] Administration Impression 1. BECKA 2. ascites 3. liver cirrhosis 4. dementia 5. htn Plan - renal function worsening - likely HRS - give diuretics as he is overloaded - consider paracentesis - will give albumin - GI follow up - cont lactulose and rifixiin
--- NOTE | 2019-07-04 15:11 | DS ---
Physical Examination Vital Signs: Vital Signs Temperature 98.1 F 07/04/19 05:40 Pulse Rate 98 H 07/04/19 05:40 Respiratory Rate 20 07/04/19 05:40 Blood Pressure 98/65 07/04/19 05:40 O2 Sat by Pulse Oximetry (%) 96 07/03/19 21:00 Labs: CBC, BMP 07/03/19 07:00 07/04/19 07:35 Discharge Summary Problems reviewed: Yes Reason For Visit: ACUTE KIDNEY INJURY Current Active Problems Hepatic encephalopathy (Acute) Pneumonia (Acute) Renal failure (Acute) Ascites (Chronic) Liver disease (Chronic) - Instructions Diet, Activity, Other Instructions: need to follow up with urologist Referrals: Rodriguez Daley MD [Staff Physician] - Natacha Novak [Primary Care Provider] - Luis A Brambila DO [Staff Physician] - Buck Garrett MD [Staff Physician] - - Home Medications Comprehensive Discharge Medication List: Ambulatory Orders Metoprolol Succinate 25 mg PO DAILY 06/15/19 Pantoprazole Sodium [Protonix] 40 mg PO DAILY 06/15/19 Docusate Sodium [Colace] 100 mg PO DAILY #30 capsule 06/18/19 Rifaximin [Xifaxan -] 550 mg PO BID #60 tablet 06/18/19 Ciprofloxacin [Cipro -] 500 mg PO DAILY tablet 07/04/19 Heparin - 5,000 unit SQ BID vial 07/04/19 Lactulose (Oral Use) [Cephulac -] 30 gm PO Q6H [facility] 07/04/19 Tamsulosin HCl [Flomax -] 0.4 mg PO DAILY@0830 cap.er.24h 07/04/19 transfer to [facility] under dr crews
--- NOTE | 2019-07-04 15:32 | PN.GI ---
GI Progress Note Subjective: Pt seen/examined at bedside this am, alert/awake/oriented x 3, going for paracentesis today, denies abdominal pain, n/v. - Objective Vital Signs: Vital Signs Temperature 98.1 F 07/04/19 05:40 Pulse Rate 98 H 07/04/19 05:40 Respiratory Rate 20 07/04/19 05:40 Blood Pressure 98/65 07/04/19 05:40 O2 Sat by Pulse Oximetry (%) 96 07/03/19 21:00 Constitutional: No Distress, Calm Cardiovascular: Yes: WNL, Regular Rate and Rhythm Respiratory: Yes: WNL, Regular, CTA Bilaterally ...Palpate: Yes: Other (Abd distended, tense, nontender) Labs: CBC, BMP 07/03/19 07:00 07/04/19 07:35 INR, PTT INR 1.54 (0.83-1.09) H 06/25/19 14:53 Problem List - Problems (1) Cirrhosis, alcoholic Assessment/Plan: 74yo male h/o etoh/cirrhosis with decompensation and refractory ascites s/p paracentesis today with worsening renal fctn possible HRS now pending transfer to [place]. -Continue rifaximin and lactulose titrate to 2-3 loose bms -Continue albumin therapy as ordered -Cautious diuresis per nephrology -Closely monitor electrolytes -Cipro 500mg daily for SBP prophylaxis -Transfer pending to [place] for further management Code(s): K70.30 - ALCOHOLIC CIRRHOSIS OF LIVER WITHOUT ASCITES
--- NOTE | 2019-07-04 20:51 | PN ---
Progress Note, Physician - Current Medication List Current Medications: Active Medications Albumin Human (Albumin Human 25%) 25 gm IVPB BID [facility] Stop: 07/05/19 10:01 Last Admin: 07/04/19 11:00 Dose: Not Given Ciprofloxacin (Cipro (Restricted To Id)) 500 mg PO DAILY [facility] Lactulose (Cephulac (Oral Use)) 30 gm PO Q6H [facility] Last Admin: 07/04/19 17:35 Dose: Not Given Metoprolol Succinate (Toprol Xl -) 25 mg PO DAILY [facility] Last Admin: 07/04/19 10:28 Dose: 25 mg Tamsulosin HCl (Flomax -) 0.4 mg PO DAILY@0830 [facility] Last Admin: 07/04/19 10:28 Dose: 0.4 mg - Objective Vital Signs: Vital Signs Temperature 98 F 07/04/19 10:00 Pulse Rate 100 H 07/04/19 10:00 Respiratory Rate 20 07/04/19 10:00 Blood Pressure 90/60 07/04/19 10:00 O2 Sat by Pulse Oximetry (%) 96 07/03/19 21:00 Constitutional: Yes: No Distress HENT: Yes: Atraumatic Neck: Yes: Supple Cardiovascular: Yes: Regular Rate and Rhythm Respiratory: Yes: CTA Bilaterally Gastrointestinal: Yes: Normal Bowel Sounds, Ascites Extremities: Yes: WNL Neurological: Yes: Alert, Oriented Labs: CBC, BMP 07/03/19 07:00 07/04/19 07:35 INR, PTT INR 1.54 (0.83-1.09) H 06/25/19 14:53 Problem List - Problems (1) Ascites Assessment/Plan: on diuretics s/p tap...5000 ml fluid taken out wbc count wnl Code(s): R18.8 - OTHER ASCITES (2) Cirrhosis, alcoholic Code(s): K70.30 - ALCOHOLIC CIRRHOSIS OF LIVER WITHOUT ASCITES (3) AMS (altered mental status) Code(s): R41.82 - ALTERED MENTAL STATUS, UNSPECIFIED (4) Anemia of chronic disease Code(s): D63.8 - ANEMIA IN OTHER CHRONIC DISEASES CLASSIFIED ELSEWHERE (5) Hepatic encephalopathy Code(s): K72.90 - HEPATIC FAILURE, UNSPECIFIED WITHOUT COMA (6) Increased ammonia level Code(s): R79.89 - OTHER SPECIFIED ABNORMAL FINDINGS OF BLOOD CHEMISTRY (7) Pneumonia Code(s): J18.9 - PNEUMONIA, UNSPECIFIED ORGANISM (8) Renal failure Code(s): N19 - UNSPECIFIED KIDNEY FAILURE
[2019-07-04] MEDS ORDERED: PT OWN MED DRAWER 7, Y5N ONE (21:15)
[2019-07-05] MEDS: LACTULOSE 20 GM/30 ML UDC (FOR ORAL USE ONLY) PO SCH ×4 (03:06→21:16)
[2019-07-05] MEDS: metoPROLOL SUCCINATE 25 MG TAB.SR.24H (FP) PO SCH (09:34)
[2019-07-05] MEDS: TAMSULOSIN HCL 0.4 MG CAP PO SCH (09:34)
[2019-07-05 09:35] VITALS: BP 89/47; PULSE 85; TEMP 98.1
--- NOTE | 2019-07-05 10:41 | DS ---
Physical Examination Vital Signs: Vital Signs Temperature 98.1 F 07/05/19 09:00 Pulse Rate 85 07/05/19 09:00 Respiratory Rate 20 07/05/19 09:00 Blood Pressure 89/47 L 07/05/19 09:00 O2 Sat by Pulse Oximetry (%) 96 07/03/19 21:00 Constitutional: Yes: No Distress HENT: Yes: Atraumatic Neck: Yes: Supple Cardiovascular: Yes: Regular Rate and Rhythm Respiratory: Yes: CTA Bilaterally Gastrointestinal: Yes: Normal Bowel Sounds, Ascites Extremities: Yes: WNL Neurological: Yes: Alert, Oriented Labs: CBC, BMP 07/03/19 07:00 07/04/19 07:35 Discharge Summary Problems reviewed: Yes Reason For Visit: ACUTE KIDNEY INJURY Current Active Problems Hepatic encephalopathy (Acute) Pneumonia (Acute) Renal failure (Acute) Ascites (Chronic) Liver disease (Chronic) Condition: Good - Instructions Diet, Activity, Other Instructions: need to follow up with urologist Referrals: Rodriguez Daley MD [Staff Physician] - Natacha Novak [Primary Care Provider] - Luis A Brambila DO [Staff Physician] - Buck Garrett MD [Staff Physician] - Disposition: TRANSFER ACUTE CARE/OTHER HOSP - Home Medications Comprehensive Discharge Medication List: Ambulatory Orders Metoprolol Succinate 25 mg PO DAILY 06/15/19 Pantoprazole Sodium [Protonix] 40 mg PO DAILY 06/15/19 Docusate Sodium [Colace] 100 mg PO DAILY #30 capsule 06/18/19 Rifaximin [Xifaxan -] 550 mg PO BID #60 tablet 06/18/19 Heparin - 5,000 unit SQ BID vial 07/04/19 Lactulose (Oral Use) [Cephulac -] 30 gm PO Q6H [facility] 07/04/19 Tamsulosin HCl [Flomax -] 0.4 mg PO DAILY@0830 cap.er.24h 07/04/19 transfer to [facility]
[2019-07-05] MEDS: ALBUMIN HUMAN 25% 12.5 GM/50 ML VIAL IVPB SCH (10:43)
[2019-07-05] MEDS ORDERED: CIPROFLOXACIN 250 MG TABLET (RESTRICTED TO ID) PO SCH (11:15)
--- NOTE | 2019-07-05 14:34 | PN.GI ---
GI Progress Note Subjective: S/P 5 L paracentesis yesterday Transfer to [facility] is in the works but there is a ? insurance problem per nurse Patient denies abdominal pain / SOB - Objective Vital Signs: Vital Signs Temperature 98.1 F 07/05/19 09:00 Pulse Rate 85 07/05/19 09:00 Respiratory Rate 20 07/05/19 09:00 Blood Pressure 89/47 L 07/05/19 09:00 O2 Sat by Pulse Oximetry (%) 97 07/05/19 09:00 Constitutional: Calm Eyes: No: Sclera Icterus Cardiovascular: Yes: Regular Rate and Rhythm Respiratory: Yes: Diminished (at bases bilaterally) Gastrointestinal Inspection: Yes: Ascites, Distention ...Auscultate: Yes: Normoactive Bowel Sounds ...Palpate: Yes: Soft Neurological: Yes: Alert Labs: CBC, BMP 07/03/19 07:00 07/04/19 07:35 INR, PTT INR 1.54 (0.83-1.09) H 06/25/19 14:53 Problem List - Problems (1) Hepatic encephalopathy Assessment/Plan: Improved Code(s): K72.90 - HEPATIC FAILURE, UNSPECIFIED WITHOUT COMA (2) Ascites Assessment/Plan: S/P 5 L paracentesis. worsening renal dysfunction preventing adequate diuresis Albumin 25g IVPB BID Added cipro daily (renally adjusted) for primary SBP prophylaxis Code(s): R18.8 - OTHER ASCITES (3) Acute kidney failure Assessment/Plan: D/W renal. Concern for HRS On IV albumin Added Octrotide 100mg SC TID and midodrine 5mg PO TID Awaiting transfer to liver center Overall poor prognosis. Family aware from previous conversation Code(s): N17.9 - ACUTE KIDNEY FAILURE, UNSPECIFIED
--- NOTE | 2019-07-05 15:41 | PN ---
Progress Note, Physician History of Present Illness: Pt seen and examined at bedside. He is s/p paracentesis. He is awake but sluggish. - Current Medication List Current Medications: Active Medications Albumin Human (Albumin Human 25%) 25 gm IVPB BID [facility] Stop: 07/07/19 10:01 Ciprofloxacin (Cipro (Restricted To Id)) 250 mg PO Q2D [facility] Last Admin: 07/05/19 12:01 Dose: 250 mg Lactulose (Cephulac (Oral Use)) 30 gm PO Q6H [facility] Last Admin: 07/05/19 14:56 Dose: 30 gm Metoprolol Succinate (Toprol Xl -) 25 mg PO DAILY [facility] Last Admin: 07/05/19 09:34 Dose: Not Given Midodrine (Proamatine -) 5 mg PO TID-MID [facility] Octreotide Acetate (Sandostatin -) 100 mcg SQ TID [facility] Tamsulosin HCl (Flomax -) 0.4 mg PO DAILY@0830 [facility] Last Admin: 07/05/19 09:34 Dose: 0.4 mg - Objective Vital Signs: Vital Signs Temperature 98.1 F 07/05/19 09:00 Pulse Rate 85 07/05/19 09:00 Respiratory Rate 20 07/05/19 09:00 Blood Pressure 89/47 L 07/05/19 09:00 O2 Sat by Pulse Oximetry (%) 97 07/05/19 09:00 Constitutional: Yes: Calm Eyes: Yes: Conjunctiva Clear HENT: Yes: Atraumatic Neck: Yes: Supple Cardiovascular: Yes: S1, S2 Respiratory: Yes: CTA Bilaterally Gastrointestinal: Yes: Ascites Genitourinary: Yes: Hernandez Present Musculoskeletal: Yes: Muscle Weakness Edema: No Neurological: Yes: Oriented Labs: CBC, BMP 07/03/19 07:00 07/04/19 07:35 INR, PTT INR 1.54 (0.83-1.09) H 06/25/19 14:53 Problem List - Problems (1) Liver disease Code(s): K76.9 - LIVER DISEASE, UNSPECIFIED Assessment/Plan Current Medications Generic Name Dose Route Start Last Admin Trade Name Freq PRN Reason Stop Dose Admin Albumin Human 25 gm 07/05/19 22:00 Albumin Human 25% IVPB 07/07/19 10:01 BID [facility] Ciprofloxacin 250 mg 07/05/19 11:15 07/05/19 12:01 Cipro (Restricted To Id) PO 250 mg Q2D [facility] Administration Lactulose 30 gm 06/26/19 20:00 07/05/19 14:56 Cephulac (Oral Use) PO 30 gm Q6H [facility] Administration Metoprolol Succinate 25 mg 06/27/19 10:00 07/05/19 09:34 Toprol Xl - PO Not Given DAILY [facility] Midodrine 5 mg 07/05/19 18:00 Proamatine - PO TID-MID [facility] Octreotide Acetate 100 mcg 07/05/19 22:00 Sandostatin - SQ TID [facility] Tamsulosin HCl 0.4 mg 06/30/19 15:31 07/05/19 09:34 Flomax - PO 0.4 mg DAILY@0830 [facility] Administration Impression 1. BECKA 2. ascites 3. liver cirrhosis 4. dementia 5. htn Plan - renal function continues to worsen - concern for HRS - s/p paracentesis - pt still with ascites - pending transfer to tertiary care center - monitor renal function - cont lactulose and rifixiin
[2019-07-05] MEDS ORDERED: MIDODRINE HCL 5 MG TABLET PO SCH (18:00)
[2019-07-05] MEDS ORDERED: OCTREOTIDE ACETATE 100 MCG/1 ML SQ SCH (22:00)
[2019-07-05] MEDS ORDERED: ALBUMIN HUMAN 25% 12.5 GM/50 ML VIAL IVPB SCH (22:00)
[2019-07-06] MEDS: LACTULOSE 20 GM/30 ML UDC (FOR ORAL USE ONLY) PO SCH (02:11)
== END 2019-07-06 02:50 | disposition short-term general hospital (02) | DRG 433 ==
LOC: JER 12:41 → JERBED 16:32 → J6S 06-26 15:40
PROVIDERS: ADMIT Internal Medicine; ATTEND Internal Medicine
PROC: 0W9G3ZX Drainage of Peritoneal Cavity, Percutaneous Approach, Diagnostic (ICD-10-PCS; 2019-06-28)
PROC: 0W9G3ZX Drainage of Peritoneal Cavity, Percutaneous Approach, Diagnostic (ICD-10-PCS; principal; 2019-07-04)
DX: K70.31 Alcoholic cirrhosis of liver with ascites (principal); N17.9 Acute kidney failure, unspecified; E87.1 Hypo-osmolality and hyponatremia; K72.90 Hepatic failure, unspecified without coma; F10.10 Alcohol abuse, uncomplicated; F03.90 Unspecified dementia, unspecified severity, without behavioral disturbance, psychotic disturbance, mood disturbance, and anxiety; E03.9 Hypothyroidism, unspecified; D63.8 Anemia in other chronic diseases classified elsewhere; N18.9 Chronic kidney disease, unspecified; I10 Essential (primary) hypertension; R33.9 Retention of urine, unspecified; D64.9 Anemia, unspecified; D69.6 Thrombocytopenia, unspecified; E83.52 Hypercalcemia; E88.09 Other disorders of plasma-protein metabolism, not elsewhere classified
CPT/HCPCS: 36415; 71045-TC-FY; 76604; 76705-TC; 76775-TC; 76856-TC; 76942-TC; 80048; 80053; 80076; 80307; 81003; 82042; 82140; 82150; 82436; 82465; 82565; 82945; 82962; 83615; 83735; 83970; 83986; 84133; 84157; 84300; 84478; 84540; 85025; 85610; 85730; 87040; 87070; 87075; 87086; 87102; 87116; 87205; 87206; 87210; 88108; 88305-TC; 93005; 93010; 93308; 97116-GP; 97161-GP; 99284-25; J1644; J7030; P9047